=== PATIENT | female | born 1955 | race Caucasian/White ===

== ENCOUNTER 2016-10-26 21:31 | Observation (INO) | payer BC ==
[2016-10-27] MEDS ORDERED: HYDROmorphone INJ* 1 MG/ML CARPUJECT SYRINGE IV SLOW PU ONE ×2 (00:07→00:36)
[2016-10-27] MEDS ORDERED: Ondansetron INJ* 2 MG/ML VIAL IV ONE ×2 (00:14→01:42)
[2016-10-27] MEDS ORDERED: Ondansetron INJ* 2 MG/ML VIAL ONE (00:15)
[2016-10-27] MEDS ORDERED: methylPREDNISolone 125 MG* 2 ML VIAL IV ONE (01:42)
[2016-10-27] MEDS ORDERED: Morphine INJ* 4 MG/ML 1 ML CARPUJECT IV ONE (01:42)
[2016-10-27 02:32] LABS: Hematocrit 37 % (35-47); Hemoglobin 12.3 g/dl (12.0-16.0); Mean Corpuscular HGB Conc 33 g/dl (31-36); Mean Corpuscular Hemoglobin 28 pg (27-31); Mean Corpuscular Volume 86 fL (80-97); Mean Platelet Volume 8 um3 (7.4-10.4); Red Blood Count 4.35 10^6/ul (4.0-5.4); Red Cell Distribution Width 14 % (10.5-15); White Blood Count 9.6 10^3/ul (3.5-10.8)
[2016-10-27 02:43] LABS: BUN/Creatinine Ratio 30.7 (8-20); Calcium 10.1 mg/dL (8.6-10.3); EGFR African American 101.7 (>60); EGFR Non-African American 79.1 (>60); Potassium 4.3 mmol/L (3.5-5.0)
[2016-10-27] MEDS ORDERED: HYDROmorphone TAB* 2 MG PO ONE ×2 (04:11→06:50)
[2016-10-27] MEDS ORDERED: Ondansetron ODT TAB* 4 MG PO ONE (04:12)
[2016-10-27] MEDS ORDERED: Metoclopramide IV* 5 MG/ML 2 ML VIAL IV SLOW PU ONE (07:22)
--- NOTE | 2016-10-27 07:40 | RAD ---
INDICATION: Leg pain. COMPARISON: None TECHNIQUE: Duplex interrogation of the right lowerextremity was performed. FINDINGS: Deep veins: The common femoral, great saphenous, profunda femoris, proximal, mid, and distal deep femoral, popliteal, posterior tibial, and peroneal veins are patent. There is normal compressibility, augmentation, and phasic flow. Superficial veins: There are no findings of superficial thrombophlebitis. Popliteal fossa:There is no evidence of a popliteal cyst. Soft tissues:There are no soft tissue abnormalities. IMPRESSION: Normal examination. No evidence of deep venous thrombosis
--- NOTE | 2016-10-27 07:44 | ED ---
Gabriela Thompson SooYoung, scribed for Gerardo Langford MD on 10/26/16 at 2338 . Lower Extremity - HPI Summary HPI Summary: A 61 y/o F presents to ED with c/o acute on chronic RLE, back, and hip pain ongoing for past five weeks. Associated sx: mild urinary incontinence (3x) over the past two weeks; numbness to R foot. Pert PSHx: lower back surgery at [facility] [place]. One week ago, she went to [facility]. They did an MRI, dx: herniated disc. Pt was seen at [facility] ED in [place] last night, she states "they did nothing." Denies recent fall, trauma. Pt takes 800mg Advil 2x a day. She took 1/2 dose of Dilaudid yesterday, but it makes her feel ill. She took one percocet today which made her vomit. She's tried steroids in the past but it raised her blood sugars too high, so she stopped. PMHx: DM. - History of Current Complaint Chief Complaint: EDGeneral Stated Complaint: RIGHT LEG PAIN, Time Seen by Provider: 10/26/16 22:14 Hx Obtained From: Patient Onset of Pain: Prior to Arrival Onset/Duration: Weeks Severity Currently: Severe Pain Intensity: 10 Pain Scale Used: 0-10 Numeric Timing: Constant Aggravating Factor(s): Ambulation - Allergies/Home Medications Allergies/Adverse Reactions: Allergies Allergy/AdvReac Type Severity Reaction Status Date / Time Niacin [From Niaspan] Allergy Unknown LEGS SWELL Verified 01/28/16 13:47 AND FEEL LIKE SHE'S COMING OUT OF SKIN Potassium Citrate Allergy FLUID Verified 01/28/16 13:47 RETENTION Vancomycin AdvReac Intermediate redmans Verified 01/28/16 13:47 symdrome SEASONAL Allergy SNEEZING, Uncoded 01/28/16 13:47 ITCHY WATERY EYES Home Medications: Home Medications Ketorolac TAB (NF) [Toradol TAB (NF)] 10 mg PO Q4HR PRN 10/26/16 [History Confirmed 10/26/16] Metaxalone [Metaxall] 800 mg PO 10/26/16 [History] Ondansetron TAB* [Zofran Tab*] 8 mg PO Q6H PRN 10/26/16 [History Confirmed 10/26] Sulfamethox/Trimethoprim DS* [Bactrim DS 800/160 TAB*] 1 tab PO BID 10/26/16 [ History Confirmed 10/26/16] oxyCODONE/Acetamin 5/325 MG* [Percocet 5/325 TAB*] 2 tab PO Q4H PRN 10/26/16 [ History Confirmed 10/26/16] PMH/Surg Hx/FS Hx/Imm Hx Previously Healthy: No Endocrine/Hematology History: Reports: Hx Diabetes - TYPE II- INSULIN FOR Cardiovascular History: Reports: Hx Peripheral Vascular Disease - HX OF VASCULAR SPASMS- ON DILTIAZEM FOR, Other Cardiovascular Problems/Disorders - VASCULAR SPASMS Denies: Hx Hypertension, Hx Pacemaker/ICD Respiratory History: Reports: Hx Sleep Apnea Denies: Hx Asthma, Other Respiratory Problems/Disorders GI History: Reports: Hx Gastroesophageal Reflux Disease - HX OF- PRILOSEC PRN, Other GI Disorders - HX OF CONSTIPATION Denies: Hx Irritable Bowel - NOT DIAGNOSISED - VARIES PAINFUL CONSTIPATION/ DIARRHEA History: Reports: Hx Kidney Infection, Hx Kidney Stones - HX OF, Hx Renal Disease - kidney stones, Other Problems/Disorders - multiple ureteral stents placed in past Musculoskeletal History: Reports: Hx Arthritis, Hx Back Problems, Other Musculoskeletal History - BULDGING LUMBAR DISCS Denies: Hx Scoliosis Sensory History: Reports: Hx Contacts or Glasses - READING, Hx Glaucoma Denies: Hx Hearing Aid Opthamlomology History: Reports: Hx Contacts or Glasses - READING, Hx Glaucoma Neurological History: Reports: Hx Migraine - NOT OFTEN ANYMORE, Other Neuro Impairments/Disorders - bulging disk (2) in lower back Denies: Hx Headaches Psychiatric History: Reports: Hx Depression - ON MEDS Denies: Hx Panic Disorder - Surgical History Surgery Procedure, Year, and Place: X3, GALLBLADDER,HYSTERECTOMY,TUBAL ,APPENDECTOMY, CERVICAL FUSION, LOW BACK 12/2014 Hx Anesthesia Reactions: No Infectious Disease History: No Infectious Disease History: Denies: Traveled Outside the [place] in Last 30 Days - Family History Known Family History: Positive: Other - neg: family reaction to anasthesia - Social History Occupation: Employed Full-time Lives: Alone Alcohol Use: Rare Alcohol Amount: 1 PER YEAR Substance Use Type: Reports: None Smoking Status (MU): Never Smoked Tobacco Type: Cigarettes Amount Used/How Often: 2-3/ week Length of Time of Smoking/Using Tobacco: 2 years Have You Smoked in the Last Year: No Review of Systems Negative: Fever, Chills Negative: Erythema Negative: Sore Throat Negative: Chest Pain Negative: Shortness Of Breath, Cough Negative: Abdominal Pain, Vomiting, Nausea Positive: incontinence - mild urinary. Negative: dysuria, hematuria Positive: Myalgia, Other - pos: RLE, hip and back pain. Negative: Edema Negative: Rash Neurological: Other - neg: dizziness Positive: Numbness - R foot All Other Systems Reviewed And Are Negative: Yes Physical Exam - Summary Physical Exam Summary: Constitutional: Well-developed, Well-nourished, Alert. (-) Distressed Skin: Warm, Dry HENT: Normocephalic; Atraumatic Eyes: Conjunctiva normal Neck: Musculoskeletal ROM normal neck. (-) JVD, (-) Stridor, (-) Tracheal deviation Cardio: Rhythm regular, rate normal, Heart sounds normal; Intact distal pulses; The pedal pulses are 2+ and symmetric. Radial pulses are 2+ and symmetric. (-) Murmur Pulmonary/Chest wall: Effort normal. (-) Respiratory distress, (-) Wheezes, (-) Rales Abd: Soft, (-) Tenderness, (-) Distension, (-) Guarding, (-) Rebound Musculoskeletal: (-) Edema, LE STRAIN ON R-SIDE 4+ OUT OF 5, LIMITED BY PAIN; DIMINISHED DISTAL SENSATION : INTACT ANAL SPHINCTER Lymph: (-) Cervical adenopathy Neuro: Alert, Oriented x3 Psych: Mood and affect Normal Triage Information Reviewed: Yes Vital Signs On Initial Exam: Initial Vitals Temp Pulse Resp BP Pulse Ox 98.3 F 75 18 127/47 95 10/26/16 22:17 10/26/16 22:17 10/26/16 22:17 10/26/16 22:17 10/26/16 22:17 Vital Signs Reviewed: Yes Diagnostics - Vital Signs Vital Signs Temp Pulse Resp BP Pulse Ox 10/26/16 22:17 98.3 F 75 18 127/47 95 - Laboratory Lab Results: Lab Results 10/26/16 10/26/16 Range/Units 22:10 22:10 WBC 9.6 (3.5-10.8) 10^3/ul RBC 4.35 (4.0-5.4) 10^6/ul Hgb 12.3 (12.0-16.0) g/dl Hct 37 (35-47) % MCV 86 (80-97) fL MCH 28 (27-31) pg MCHC 33 (31-36) g/dl RDW 14 (10.5-15) % Plt Count 303 (150-450) 10^3/ul MPV 8 (7.4-10.4) um3 Sodium 134 (133-145) mmol/L Potassium 4.3 (3.5-5.0) mmol/L Chloride 98 L (101-111) mmol/L Carbon Dioxide 29 (22-32) mmol/L Anion Gap 7 (2-11) mmol/L BUN 23 (6-24) mg/dL Creatinine 0.75 (0.51-0.95) mg/dL Est GFR ( Amer) 101.7 (>60) Est GFR (Non-Af Amer) 79.1 (>60) BUN/Creatinine Ratio 30.7 H (8-20) Glucose 95 (70-100) mg/dL Calcium 10.1 (8.6-10.3) mg/dL Result Diagrams: 10/26/16 22:10 10/26/16 22:10 Lab Statement: Any lab studies that have been ordered have been reviewed, and results considered in the medical decision making process. - Ultrasound No standard instances Ultrasound Interpretation: No Acute Changes - Impression: no DVT Ultrasound Interpretation Completed By: Radiologist Lower Extremity Course/Dx - Course Course Of Treatment: Acute on chronic low back pain, R sciatica symptoms, do not suspect cauda equina based on sx/exam/sphincter tone. Noncompliance with analgesics/prednisone at home secondary to vomiting/hyperglycemia. Trial of PO meds here with antiemetics, PT eval pending. Signed out to Dr. Bull pending PT eval - Diagnoses Provider Diagnoses: Sciatica Discharge - Discharge Plan Condition: Stable Disposition: OTHER Discharge Disposition Comment: ??? Referrals: Maico Turner MD [Primary Care Provider] - The documentation as recorded by the Gabriela fuentes SooYoung accurately reflects the service I personally performed and the decisions made by me, Gerardo Langford MD.
[2016-10-27] MEDS ORDERED: HYDROmorphone INJ* 1 MG/ML CARPUJECT SYRINGE IV ONE (08:24)
[2016-10-27] MEDS ORDERED: Dextrose 50% Syringe 50 ML* 25 GM/50 ML SYRINGE IV PUSH PRN (11:07)
[2016-10-27] MEDS ORDERED: HYDROmorphone TAB* 2 MG PO PRN (11:14)
[2016-10-27] MEDS: Enoxaparin(*) 40 MG/0.4 ML SYR SUBCUT SCH (11:46)
[2016-10-27] MEDS: methylPREDNISolone SOD 40 MG* 1 ML VIAL IV SCH ×2 (11:47→20:18)
[2016-10-27] MEDS: Ondansetron INJ* 2 MG/ML VIAL IV PRN ×2 (11:47→16:43)
[2016-10-27] MEDS: Acetaminophen TAB* 325 MG PO PRN (13:13)
[2016-10-27] MEDS: Insulin LISPRO* 1 UNITS UNIT SUBCUT SCH ×3 (13:29→21:06)
[2016-10-27] MEDS: HYDROmorphone TAB* 4 MG PO PRN ×3 (14:31→22:22)
--- NOTE | 2016-10-27 14:53 | HP ---
AMENDED REPORT NOW INCLUDES DATE OF ADMISSION ADMISSION HISTORY AND PHYSICAL: DATE OF ADMISSION: 10/27/16 PRIMARY CARE PROVIDER: Dr. Turner. CURRENT NEUROSURGEON: Dr. Ernst at [facility]. HEALTHCARE PROXY: Her daughter. CODE STATUS: Full. SOURCE OF INFORMATION: History obtained form interview with the patient, review of past medical records, and discussion with partner of her current neurosurgeon at [facility]. RELIABILITY: Fair. CHIEF COMPLAINT: Back pain. HISTORY OF PRESENT ILLNESS: This is a 61-year-old female, past medical history of chronic back pain, had cervical anterior diskectomy in September 2015 and a right hemilaminectomy L5-S1 for sciatica in December, who have chronic back pain, but over the last 5 weeks experienced increasing cramps in her leg, it got progressively worse. She has been seen by Neurosurgery in [facility] over the last 2 weeks. She was started on steroids, but stopped shortly thereafter because of hyperglycemia. She had an MRI that showed again L5-S1 disc herniation and plan was to recommend conservative management with engagement of physical therapy as it appears the patient has not participated in physical therapy in the past. Patient's pain continued to worsen. She spoke to the nurse practitioner at [facility] and proceeded to the emergency room on 10/25/16, two days prior to this hospital stay. Her pain was controlled and she was discharged home. However, the day prior to this admission at 3 p.m., she sat up and stated she could not stand. Her back pain was severe. She felt the pain was so severe she cannot bear weight. Described the pain as shooting from the right leg up to the back, similar to the pain she experienced prior to surgery in December of 2014, but felt it was more intense. Additionally, she notes an episode of urinary incontinence 5 days prior to this presentation as well as 2 weeks prior what she had discussed with her neurosurgeon. In the emergency room, she received multiple doses of Dilaudid, appears to be a total of 7 mg of Dilaudid as well as 6 mg of morphine, and 125 mg of methylprednisolone without significant relief. The hospitalist service was consulted for admission. PAST MEDICAL HISTORY: 1. Insulin-dependent diabetes mellitus. 2. History of hyperlipidemia. 3. Chronic back pain. 4. Glaucoma. 5. C3-C4 anterior cervical diskectomy, September 2015. 6. Right hemilaminectomy, L5-S1 diskectomy and decompression. 7. Left ureteral stenting and removal of stent in the setting of recurrent kidney stones. 8. History of hysterectomy. 9. Appendectomy. 10. Cholecystectomy. HOME MEDICATIONS: Include, 1. Zofran 8 mg every 6 hours as needed for nausea. 2. Percocet 5/325 two tabs every 4 hours as needed for pain. 3. Ketorolac 10 mg every 4 hours as needed for pain. 4. Glargine 45 units at bedtime. 5. Pravastatin 1 tab in the evening. 6. Zoloft 25 mg at bedtime. 7. Prilosec 20 mg in the morning. 8. Xalatan 0.005% one drop both eyes at bedtime. 9. Magnesium citrate 2 tabs at bedtime. 10. NovoLog sliding scale between 1 and 10 units with meals. 11. Hydrochlorothiazide 25 mg in the morning. 12. Neurontin 2 tabs 3 times a day as needed. 13. Diltiazem 180 mg in the morning. 14. Vitamin D at 1000 units, Sunday, Sunday, and Sunday. 15. Benadryl 25 mg daily as needed. 16. Ambien 5 mg at bedtime. 17. Metaxalone 800 mg. MEDICATION ALLERGIES: NIACIN, POTASSIUM CITRATE, VANCOMYCIN. FAMILY HISTORY: Mother with CAD. SOCIAL HISTORY: Quit 30 years prior, smoked insignificantly, lives alone, walks unassisted. REVIEW OF SYSTEMS: As per HPI. Otherwise, all other systems negative. PHYSICAL EXAMINATION GENERAL: Lying on her side, groaning in pain. No cardiopulmonary distress. VITAL SIGNS: In the emergency room, presenting 127/47, heart rate ranging between 72 and 88, respiratory rate 18, 98% on room air, T-max 98.3. HEENT: Oropharynx is clear. Moist mucous membranes. Sclerae anicteric. NECK: Non-elevated JVD. No goiter. LUNGS: Clear to auscultation. HEART: She has regular rate and rhythm. She has 2/6 systolic ejection murmur. ABDOMEN: Soft, nontender. EXTREMITIES: Warm and well perfused. She has significant tenderness to palpation anywhere in the right leg from her foot to her buttocks. Pain with flexion or extension of her ankle. Pain with flexion or extension at the knee or at the hip. She is unable to lie on her back. NEUROLOGIC: She reports she is alert and oriented x3. Cranial nerves are intact. She reports a numbness from her hip to her toes. Positive for anxiety, negative for depression or agitation. DIAGNOSTIC STUDIES/LAB DATA: Labs reviewed. White blood cell count of 9.6, hemoglobin 12.3. Sodium 134, chloride 98, creatinine 0.75. Data reviewed. Venous Doppler study right lower extremity. Normal exam. No DVT. ASSESSMENT AND PLAN: This is a 61-year-old female with chronic lower back pain to intervention, to surgeries one in her cervical spine and one L5-S1 in 2014 returning with progressive lower back pain. I discussed with neurosurgical office Dr. Marsh's partner. The repeat MRI last week did indicate mild disk herniation again at L5-S1 with some enhancement which may indicate scar. She now thinks that the disk herniation is the cause of all of her pain. There was no planned surgery despite what the patient had related to this author and the plan was to continue physical therapy, revaluation in the future. 1. Back pain, admit to [facility] hospitalist service. Restart IV steroids and oral pain control with Dilaudid 2 mg every 4 hours, adjust as needed, would like to avoid IV pain medication for this chronic problem. PT evaluation. Patient truly cannot manage at home secondary to pain, she may require subacute rehab. 2. History of hypertension. Continue hydrochlorothiazide. 3. Concern for urinary tract infection in review with patient's neurologist, the urinalysis at [facility] was weakly positive for leuk esterase and she was started on Bactrim. The urine culture, no growth till date at that time, not yet complete. I will hold on restarting antibiotics at this point with repeat urinalysis. Start if symptomatic. 4. DVT prophylaxis. Enoxaparin. 5. Code status: Full. CC: Dr. Turner; Dr. Ernst at [facility].* [id number]/CPS #: [id number] MTDD
[2016-10-27 15:30] LABS: Urine Bacteria Absent (Absent); Urine Bilirubin Negative (Negative); Urine Glucose 3+(>=500 mg/dL) (Negative); Urine Nitrite Negative (Negative)
[2016-10-27] MEDS ORDERED: KETOROLAC 10 MG PO PRN (16:48)
[2016-10-27] MEDS ORDERED: Cholecalciferol TAB* 1000 UNITS PO SCH (17:00)
[2016-10-27] MEDS: CMC: Pravastatin (NF) 20 MG TAB PO SCH (18:31)
[2016-10-27] MEDS: Sertraline* 25 MG TAB PO SCH (20:18)
[2016-10-27] MEDS: Gabapentin CAP(*) 300 MG PO PRN (20:18)
[2016-10-27] MEDS: Insulin GLARGINE(*) 1 UNITS UNIT SUBCUT SCH (21:05)
[2016-10-27] MEDS: Latanoprost 0.005%* 2.5 ml BTL BOTH EYES SCH (21:07)
[2016-10-27] MEDS ORDERED: Zolpidem TAB* 5 MG PO PRN (22:11)
[2016-10-28] MEDS: HYDROmorphone TAB* 4 MG PO PRN ×5 (02:18→20:06)
[2016-10-28] MEDS: Ondansetron INJ* 2 MG/ML VIAL IV PRN ×3 (02:22→21:56)
[2016-10-28] MEDS: methylPREDNISolone SOD 40 MG* 1 ML VIAL IV SCH ×3 (04:58→20:10)
[2016-10-28] MEDS: Omeprazole CAP* 20 MG PO SCH (07:38)
[2016-10-28] MEDS: Diltiazem CD CAP* 180 MG PO SCH (07:38)
--- NOTE | 2016-10-28 07:58 | CONSULT ---
Consult Consult: Ms. Cross was signed out to me at change of shift by Dr. Langford. She was awaiting PT consult for her chronic and seemingly intractable back pain to see if there was anything we could do to help her. POT recommended that the best way we ccould serve her needs would be to admit her [facility] for intractable pain. The hospitalist service was contacted and she will be admitted O[facility] to [facility] instable condition.
--- NOTE | 2016-10-28 08:02 | PN ---
Subjective Date of Service: 10/28/16 Interval History: Unable to work with PT yesterday 2/2 pain but noted significant improvement later in the day and was able to walk to bathroom with walker to brush teeth. Notes decreased numbness in right leg and increased strength. Increased hope for recovery. Denies any episodes of incontinence. Objective Active Medications: Acetaminophen (Tylenol Tab*) 650 mg PO Q6H PRN PRN Reason: PAIN Last Admin: 10/27/16 13:13 Dose: 650 mg Cholecalciferol (Vitamin D Tab*) 1,000 units PO MOWEFR [facility] Last Admin: 10/27/16 18:31 Dose: 1,000 units Dextrose (D50w Syringe 50 Ml*) 12.5 gm IV PUSH .FOR FS < 60 - SS PRN PRN Reason: FS < 60 Diltiazem HCl (Cardizem Cd Cap*) 180 mg PO QAM [facility] Last Admin: 10/28/16 07:38 Dose: 180 mg Enoxaparin Sodium (Lovenox(*)) 40 mg SUBCUT Q24H [facility] Last Admin: 10/27/16 11:46 Dose: 40 mg Gabapentin (Neurontin Cap(*)) 600 mg PO TID PRN PRN Reason: PAIN Last Admin: 10/27/16 20:18 Dose: 600 mg Hydromorphone HCl (Dilaudid Tab*) 4 mg PO Q4H PRN PRN Reason: PAIN Last Admin: 10/28/16 07:37 Dose: 4 mg Influenza Virus Vaccine (Fluarix *Quad* *) 0.5 ml IM .ONCE ONE Stop: 10/28/16 09:01 Insulin Glargine (Lantus(*)) 45 units SUBCUT BEDTIME [facility] Last Admin: 10/27/16 21:05 Dose: 45 units Insulin Human Lispro (Humalog*) 1 units SUBCUT ACHS [facility] PRN Reason: Protocol Last Admin: 10/27/16 21:06 Dose: 3 units Ketorolac Tromethamine (Toradol Tab (Nf)) 10 mg PO Q4HR PRN PRN Reason: PAIN Latanoprost (Xalatan 0.005%*) 1 drop BOTH EYES BEDTIME [facility] Last Admin: 10/27/16 21:07 Dose: 1 drop Methylprednisolone Sodium Succinate (Solu-Medrol*) 40 mg IV Q8H [facility] Last Admin: 10/28/16 04:58 Dose: 40 mg Omeprazole (Prilosec Cap*) 20 mg PO QAM@0730 [facility] Last Admin: 10/28/16 07:38 Dose: 20 mg Ondansetron HCl (Zofran Inj*) 4 mg IV Q4H PRN PRN Reason: NAUSEA Last Admin: 10/28/16 02:22 Dose: 4 mg Pneumococcal Polyvalent Vaccine (Pneumococcal Vac Polyvalent*) 0.5 ml IM .ONCE ONE Stop: 10/28/16 09:01 Pravastatin Sodium (Pravachol (Nf)) 20 mg PO QPM [facility] PRN Reason: Protocol Last Admin: 10/27/16 18:31 Dose: 20 mg Sertraline HCl (Zoloft*) 25 mg PO BEDTIME [facility] Last Admin: 10/27/16 20:18 Dose: 25 mg Zolpidem Tartrate (Ambien Tab*) 5 mg PO BEDTIME PRN PRN Reason: INSOMNIA Last Admin: 10/27/16 22:22 Dose: 5 mg Vital Signs 10/27/16 10/27/16 10/27/16 11:46 12:09 12:55 Temperature 98.4 F 97.8 F Pulse Rate 71 96 Respiratory 20 18 20 Rate Blood Pressure 116/68 161/59 (mmHg) O2 Sat by Pulse 98 96 Oximetry 10/27/16 10/27/16 10/27/16 12:56 13:59 14:31 Temperature 97.8 F Pulse Rate 96 Respiratory 20 16 18 Rate Blood Pressure 161/59 (mmHg) O2 Sat by Pulse 96 Oximetry 10/27/16 10/27/16 10/27/16 15:21 16:31 17:26 Temperature 98.1 F Pulse Rate 73 Respiratory 18 16 20 Rate Blood Pressure 107/44 (mmHg) O2 Sat by Pulse 94 Oximetry 10/27/16 10/27/16 10/27/16 18:31 20:02 20:18 Temperature 98.0 F Pulse Rate 80 Respiratory 18 16 22 Rate Blood Pressure 107/40 (mmHg) O2 Sat by Pulse 95 Oximetry 10/27/16 10/27/16 10/27/16 20:20 20:31 22:18 Temperature Pulse Rate Respiratory 22 22 20 Rate Blood Pressure (mmHg) O2 Sat by Pulse Oximetry 01/10/27/16 10/28/16 22:22 23:16 00:22 Temperature 98.3 F Pulse Rate 82 Respiratory 20 16 20 Rate Blood Pressure 117/51 (mmHg) O2 Sat by Pulse 95 Oximetry 10/28/16 10/28/16 10/28/16 02:18 03:23 04:18 Temperature 98.2 F Pulse Rate 94 Respiratory 20 16 20 Rate Blood Pressure 127/53 (mmHg) O2 Sat by Pulse 94 Oximetry 10/28/16 07:37 Temperature Pulse Rate Respiratory 18 Rate Blood Pressure (mmHg) O2 Sat by Pulse Oximetry Oxygen Devices in Use Now: None Appearance: lying on left side, pleasant, NAD Eyes: No Scleral Icterus, PERRLA Ears/Nose/Mouth/Throat: NL Teeth, Lips, Gums, Clear Oropharnyx, Mucous Membranes Moist Neck: NL Appearance and Movements; NL JVP, Trachea Midline Respiratory: Symmetrical Chest Expansion and Respiratory Effort, Clear to Auscultation Cardiovascular: RRR, - - 2/6 MELIDA RUSB Abdominal: NL Sounds; No Tenderness; No Distention, No Hepatosplenomegaly Lymphatic: No Cervical Adenopathy Extremities: No Edema, No Clubbing, Cyanosis Skin: No Rash or Ulcers Neurological: Alert and Oriented x 3, - - mild numbness in right LE improved from yesterday, FROM in ankle without pain, 5/5 LE improved since yesterday Result Diagrams: 10/26/16 22:10 10/26/16 22:10 Additional Lab and Data: Lab Results 10/26/16 10/26/16 Range/Units 22:10 22:10 WBC 9.6 (3.5-10.8) 10^3/ul RBC 4.35 (4.0-5.4) 10^6/ul Hgb 12.3 (12.0-16.0) g/dl Hct 37 (35-47) % MCV 86 (80-97) fL MCH 28 (27-31) pg MCHC 33 (31-36) g/dl RDW 14 (10.5-15) % Plt Count 303 (150-450) 10^3/ul MPV 8 (7.4-10.4) um3 Sodium 134 (133-145) mmol/L Potassium 4.3 (3.5-5.0) mmol/L Chloride 98 L (101-111) mmol/L Carbon Dioxide 29 (22-32) mmol/L Anion Gap 7 (2-11) mmol/L BUN 23 (6-24) mg/dL Creatinine 0.75 (0.51-0.95) mg/dL Est GFR ( Amer) 101.7 (>60) Est GFR (Non-Af Amer) 79.1 (>60) BUN/Creatinine Ratio 30.7 H (8-20) Glucose 95 (70-100) mg/dL Calcium 10.1 (8.6-10.3) mg/dL Assess/Plan/Problems-Billing Assessment: 61 yo F h/o cervical and lumbar surgeries presenting with increasing back pain - Patient Problems (1) Lower back pain Comment: Improved with steroids and pain medications Discussed care with [facility] who do not plan on surgery and had previous plan of recommending PT after MRI last week Continue PT here c/w steroids and pain medications gabapentin TID (2) Diabetes Comment: Basal bolus insulin (3) Hyperlipidemia Comment: Statin (4) DVT prophylaxis Comment: lovenox Status and Disposition: If able to care for self - ambulate then home today. Suspect more likely in 24 hours
[2016-10-28] MEDS: Insulin LISPRO* 1 UNITS UNIT SUBCUT SCH ×4 (08:41→22:05)
[2016-10-28] MEDS: Gabapentin CAP(*) 300 MG PO PRN ×3 (08:45→22:00)
[2016-10-28] MEDS ORDERED: Pneumococcal *Vac Polyvalent 0.5 ML VIAL IM ONE (09:00)
[2016-10-28] MEDS ORDERED: Influenza VAC *QUAD* 2016-17* 0.5 ML SYRINGE IM ONE (09:00)
[2016-10-28] MEDS: Enoxaparin(*) 40 MG/0.4 ML SYR SUBCUT SCH (11:37)
[2016-10-28] MEDS: Acetaminophen TAB* 325 MG PO PRN (13:15)
[2016-10-28] MEDS: CMC: Pravastatin (NF) 20 MG TAB PO SCH (16:41)
[2016-10-28] MEDS: Sertraline* 25 MG TAB PO SCH (20:07)
[2016-10-28] MEDS: Latanoprost 0.005%* 2.5 ml BTL BOTH EYES SCH (20:10)
[2016-10-28] MEDS ORDERED: LORazepam TAB(*) 0.5 MG PO ONE (21:00)
[2016-10-28] MEDS ORDERED: HYDROmorphone INJ* 1 MG/ML CARPUJECT SYRINGE IV ONE (22:00)
[2016-10-28] MEDS: Insulin GLARGINE(*) 1 UNITS UNIT SUBCUT SCH (22:32)
[2016-10-29] MEDS: HYDROmorphone TAB* 4 MG PO PRN ×3 (02:42→13:15)
[2016-10-29] MEDS: methylPREDNISolone SOD 40 MG* 1 ML VIAL IV SCH ×2 (06:04→12:01)
[2016-10-29] MEDS: Acetaminophen TAB* 325 MG PO PRN ×2 (06:04→12:02)
[2016-10-29] MEDS: Gabapentin CAP(*) 300 MG PO PRN ×2 (06:05→12:02)
[2016-10-29] MEDS: Omeprazole CAP* 20 MG PO SCH (07:58)
[2016-10-29] MEDS: Diltiazem CD CAP* 180 MG PO SCH (07:58)
[2016-10-29] MEDS: Insulin LISPRO* 1 UNITS UNIT SUBCUT SCH ×2 (07:59→12:01)
[2016-10-29 08:37] VITALS: BP 121/46
[2016-10-29] MEDS: Enoxaparin(*) 40 MG/0.4 ML SYR SUBCUT SCH (12:07)
--- NOTE | 2016-10-30 00:47 | DS ---
DISCHARGE SUMMARY: DATE OF ADMISSION: 10/27/16 DATE OF DISCHARGE: 10/29/16 PRIMARY CARE PROVIDER: Dr. Turner. NEUROSURGEON: Dr. Ernst at [facility]. PRIMARY DIAGNOSIS: Chronic low back pain. SECONDARY DIAGNOSES: 1. Insulin-dependent diabetes mellitus. 2. Hyperlipidemia. 3. Glaucoma. MEDICATIONS ON DISCHARGE: 1. Zofran 4 mg every 6 hours as needed for nausea. 2. Percocet 5/325 two tabs every 4 hours as needed for pain. 3. Ketorolac 10 mg every 4 hours as needed for pain. 4. Lantus 45 units at bedtime. 5. Pravastatin 1 tab in the evening. 6. Zoloft 25 mg at bedtime. 7. Omeprazole 20 mg in the morning. 8. Latanoprost 1 drop both eyes at bedtime. 9. Magnesium citrate 2 tabs at bedtime. 10. Aspart sliding scale per your primary care provider with meals. 11. Gabapentin 600 mg 3 times a day. 12. Diltiazem 180 mg in the morning. 13. Cholecalciferol 1000 mg Sunday, Sunday, Sunday. 14. Benadryl 25 mg daily as needed for itching. 15. Ambien 5 mg at bedtime as needed for insomnia. 16. Metaxalone 800 mg daily as needed for muscle spasm. 17. Prednisone 50 mg daily for 5 additional days. 18. Hydromorphone 2 mg every 4 hours as needed for pain, maximum daily dose 6 tablets, dispensed 30 tablets to [facility] on [facility] in [place]. HISTORY OF PRESENT ILLNESS AND HOSPITAL COURSE: This is a 61-year-old female, past medical history of multiple back surgeries including right hemilaminectomy at L5-S1 for sciatica in December 2014, has had chronic lower back pain and chronic right lower extremity pain associated with paresthesias for which she has been following with Dr. Ernst at [facility]. She had an MRI the week prior to presenting which was reviewed via telephone with the patient' s Neuro[facility], with Dr. Ernst's partner, neurosurgeon. They indicated that the MRI indicated disease at the same level of L5-S1 with possibly some scar. Plan from their perspective at the time of her evaluation a week prior was continue physical therapy without planning on intervention. The patient's pain continued to increase at the time of their evaluation until she presented to the emergency room on 10/27/16. She received multiple doses of hydromorphone and was admitted to the hospital for intractable pain. She was able to walk with a walker with physical therapy the day prior to discharge. Her pain did improve with administration of steroids as well as oral hydromorphone. She was offered evaluation for placement in subacute rehabilitation; however, declined assistance in placement in subacute rehabilitation secondary to the cost associated with these facilities. She thought she will be able to maintain and be safe at home. She actually declined prescription medications at home including narcotics; however, despite this, I did prescribe her hydromorphone out of fear that she would withdraw from the amount that she had received during the hospital without it at home. She can follow up with her primary care provider for further assistance and referral to Physical Therapy. She is to follow up with her neurosurgeon, Dr. Ernst, whose office I contacted and discussed her care with. On the day of discharge, she still had pain largely in her right hamstring particularly with flexion or extension of her ankle or any movement of her leg at the knee or at the hip. She had minimal paresthesias to soft touch which had improved since admission and was at her baseline. She had no episodes of incontinence. She was able to ambulate with a walker. There are no complications during the course of the hospital stay. At followup, please: 1. Evaluate for blood pressure control. Please note, I discontinued hydrochlorothiazide given her adequate blood pressure control during her course of the hospital stay. 2. Evaluate for pain control. 3. Ensure the patient follows up with Physical Therapy. Reasons to return to the hospital including but not limited to worsening of symptoms, chest pain, shortness of breath, nausea, vomiting, lightheadedness, loss of consciousness, near loss of consciousness, inability to obtain or tolerate medications, worsening weakness or paresthesias, and episodes of incontinence were discussed with the patient and she acknowledged understanding. TIME SPENT: Greater than 45 minutes was spent on discharge of this patient, with greater than half the time spent [id number] with the patient. CC: Dr. Turner; Dr. Ernst at [facility] * [id number]/[facility] #: [id number] [facility]
== END 2016-10-29 14:00 | disposition home or self-care (01) ==
LOC: ED 21:31 → MED 10-27 11:18 → INTOOBSV 10-28 16:32 → OBSVTOIN 10-28 16:32
PROVIDERS: ADMIT Internal Medicine; ATTEND Internal Medicine
DX: M54.5 Low back pain (principal); G89.29 Other chronic pain; E11.9 Type 2 diabetes mellitus without complications; Z79.4 Long term (current) use of insulin; I10 Essential (primary) hypertension; E78.5 Hyperlipidemia, unspecified; I73.9 Peripheral vascular disease, unspecified; Z23 Encounter for immunization; H40.9 Unspecified glaucoma; Z79.899 Other long term (current) drug therapy; Z87.891 Personal history of nicotine dependence; Z88.8 Allergy status to other drugs, medicaments and biological substances; Z88.1 Allergy status to other antibiotic agents; K21.9 Gastro-esophageal reflux disease without esophagitis; F32.9 Major depressive disorder, single episode, unspecified
CPT/HCPCS: 36415; 80048; 81003; 81015; 85027; 87086; 90471; 90472; 90686; 90732; 96374; 96375; 96376; 99284; A9270-GY; G0008; G0009; G0378; G8978-GP-CJ; G8979-GP-CI; G8980-GP-CI; J1170; J1650; J2270; J2405; J2765; J2920; J2930

== ENCOUNTER 2016-11-12 05:38 | Inpatient (IN) | payer BC ==
[2016-11-12] MEDS ORDERED: HYDROmorphone INJ* 1 MG/ML CARPUJECT SYRINGE IM ONE ×2 (05:46→06:55)
--- NOTE | 2016-11-12 06:15 | ED ---
Veronika Thompson Anna, scribed for Gianfranco Hamlin MD on 11/12/16 at 0554 . Back Pain - HPI Summary HPI Summary: Patient is a 61 y/o female BIBA to [facility] presenting with gradual onset of constant, acute on chronic back pain that began last night. She is scheduled for surgery two days from now with Dr. Hansen. She was advised that if she could not control the pain, she should come to ED. She is currently talking 4 mg of Dilaudid at home. Her most recent dose was at 2300 last night. She reports that the pain is worse this morning. - History of Current Complaint Chief Complaint: EDBackInjuryPain Stated Complaint: BACK PAIN Time Seen by Provider: 11/12/16 05:41 Hx Obtained From: Patient Timing: Constant, Lasting Hours Severity Initially: Moderate Severity Currently: Moderate Pain Intensity: 8 Pain Scale Used: 0-10 Numeric - Allergies/Home Medications Allergies/Adverse Reactions: Allergies Allergy/AdvReac Type Severity Reaction Status Date / Time Niacin [From Niaspan] Allergy Unknown LEGS SWELL Verified 11/12/16 09:10 AND FEEL LIKE SHE'S COMING OUT OF SKIN Potassium Citrate Allergy FLUID Verified 11/12/16 09:10 RETENTION Vancomycin AdvReac Intermediate redmans Verified 11/12/16 09:10 symdrome SEASONAL Allergy SNEEZING, Uncoded 11/12/16 09:10 ITCHY WATERY EYES Home Medications: Home Medications HYDROmorphone TAB* [Dilaudid TAB*] 4 mg PO Q4H PRN MDD 6 tabs 11/12/16 [History Confirmed 11/12/16] Hydrochlorothiazide [Hydrochlorothiazide] 25 mg PO DAILY 11/12/16 [History Confirmed 11/12/16] Ketorolac TAB (NF) [Toradol TAB (NF)] 10 mg PO Q4H PRN 11/12/16 [History Confirmed 11/12/16] PMH/Surg Hx/FS Hx/Imm Hx Endocrine/Hematology History: Reports: Hx Diabetes - TYPE II- INSULIN FOR Cardiovascular History: Reports: Hx Peripheral Vascular Disease, Other Cardiovascular Problems/Disorders - VASCULAR SPASMS Denies: Hx Hypertension, Hx Pacemaker/ICD Respiratory History: Reports: Hx Sleep Apnea Denies: Hx Asthma, Hx Chronic Obstructive Pulmonary Disease (COPD), Other Respiratory Problems/Disorders GI History: Reports: Hx Gastroesophageal Reflux Disease, Hx Irritable Bowel, Other GI Disorders - HX OF CONSTIPATION, Rika, History: Reports: Hx Kidney Infection, Hx Kidney Stones, Hx Renal Disease - kidney stones, Other Problems/Disorders - SUZANNE, uretal stents Denies: Hx Dialysis Musculoskeletal History: Reports: Hx Arthritis, Hx Back Problems, Other Musculoskeletal History - bulging disc, spinal stenosis Denies: Hx Scoliosis Sensory History: Reports: Hx Contacts or Glasses - reading, Hx Glaucoma Denies: Hx Hearing Aid Opthamlomology History: Reports: Hx Contacts or Glasses - reading, Hx Glaucoma Neurological History: Reports: Hx Migraine, Other Neuro Impairments/Disorders - bulging disk (2) in lower back Denies: Hx Dementia, Hx Headaches, Hx Seizures Psychiatric History: Reports: Hx Depression - ON MEDS Denies: Hx Panic Disorder - Surgical History Surgery Procedure, Year, and Place: X3, GALLBLADDER,HYSTERECTOMY,TUBAL ,APPENDECTOMY, CERVICAL FUSION, LOW BACK 12/2014 Hx Anesthesia Reactions: No Infectious Disease History: No Infectious Disease History: Denies: Traveled Outside the [place] in Last 30 Days - Family History Known Family History: Positive: Other - neg: family reaction to anasthesia - Social History Alcohol Use: None Alcohol Amount: 1 PER YEAR Substance Use Type: Reports: None Smoking Status (MU): Former Smoker Type: Cigarettes Amount Used/How Often: 2-3/ week Length of Time of Smoking/Using Tobacco: 2 years Have You Smoked in the Last Year: No Review of Systems Positive: Myalgia - back pain Psychological: Normal All Other Systems Reviewed And Are Negative: Yes Physical Exam Triage Information Reviewed: Yes Vital Signs On Initial Exam: Initial Vitals Temp Pulse Resp BP Pulse Ox 98.2 F 108 14 114/59 96 11/12/16 05:40 11/12/16 05:40 11/12/16 05:40 11/12/16 05:40 11/12/16 05:40 Vital Signs Reviewed: Yes Appearance: Positive: Pain Distress - mild discomfort Skin: Positive: Warm Head/Face: Positive: Normal Head/Face Inspection Eyes: Positive: ROMI ENT: Positive: Hearing grossly normal Neck: Positive: Supple Respiratory/Lung Sounds: Positive: Clear to Auscultation, Breath Sounds Present Cardiovascular: Positive: RRR Abdomen Description: Positive: Nontender, Soft Bowel Sounds: Positive: Present Musculoskeletal: Positive: Other - para lumbar muscle spasm Neurological: Positive: Sensory/Motor Intact Diagnostics - Vital Signs Vital Signs Temp Pulse Resp BP Pulse Ox 11/12/16 05:40 98.2 F 108 14 114/59 96 - Laboratory Result Diagrams: 11/12/16 07:42 11/12/16 09:15 Lab Statement: Any lab studies that have been ordered have been reviewed, and results considered in the medical decision making process. Re-Evaluation - Re-Evaluation First Eval Re-Evaluation Time: 06:00 - attempting to contact Dr Amor who is the patient' s neurosurgeon and sent pt to ed. Dr amor's answering service is refusing to place a call to him despite him being care transition coordinator, and it is his pt. They stated that the hosptalist is covering. Hospital nursing extension supervisor informed who miguel ángel notify administartion Back Pain Course/Dx - Diagnoses Provider Diagnoses: Herniated disk - Provider Notifications Discussed Care of Patient With: Patient is a 61 y/o female BIBA to [facility] presenting with gradual onset of constant, acute on chronic back pain that began last night. She is scheduled for surgery two days from now with Dr. Hansen. She was advised that if she could not control the pain, she should come to ED. She is currently talking 4 mg of Dilaudid at home. Her most recent dose was at 2300 last night. She reports that the pain is worse this morning. In the ED, she was given an additional dose of Dilaudid. Discharge - Discharge Plan Condition: Good Disposition: ADMITTED TO [facility] The documentation as recorded by the Veronika fuentes Anna accurately reflects the service I personally performed and the decisions made by , Gianfranco Hamlin MD.
[2016-11-12] MEDS ORDERED: Carisoprodol TAB* 350 MG PO ONE (07:09)
[2016-11-12] MEDS ORDERED: Gabapentin CAP(*) 300 MG PO ONE (07:09)
[2016-11-12] MEDS ORDERED: Ketorolac TAB * 10 MG TAB PO PRN (07:10)
[2016-11-12] MEDS ORDERED: Ketorolac INJ* 30 MG/ML 1 ML VIAL IV PUSH ONE (07:28)
[2016-11-12 08:13] LABS: Hematocrit 36 % (35-47); Mean Corpuscular HGB Conc 33 g/dl (31-36); Mean Corpuscular Hemoglobin 29 pg (27-31); Mean Corpuscular Volume 87 fL (80-97); Mean Platelet Volume 8 um3 (7.4-10.4); Red Blood Count 4.19 10^6/ul (4.0-5.4); Red Cell Distribution Width 15 % (10.5-15)
[2016-11-12 08:17] LABS: ALT 34 U/L (7-52); Albumin 3.8 g/dL (3.2-5.2); Alkaline Phosphatase 85 U/L (34-104); Blood Urea Nitrogen 15 mg/dL (6-24); CO2 Carbon Dioxide 27 mmol/L (22-32); Calcium 9.5 mg/dL (8.6-10.3); Chloride 104 mmol/L (101-111); EGFR African American 95.8 (>60); EGFR Non-African American 74.5 (>60); Globulin 3.2 g/dL (2-4); Glucose 148 mg/dL (70-100); Sodium 136 mmol/L (133-145)
[2016-11-12 08:17] LABS: Urine Bilirubin Negative (Negative); Urine Glucose Negative (Negative); Urine Nitrite Negative (Negative)
[2016-11-12] MEDS ORDERED: Dextrose 50% Syringe 50 ML* 25 GM/50 ML SYRINGE IV PUSH PRN (08:25)
[2016-11-12 08:48] LABS: C Reactive Protein 52.46 mg/L (< 5.00)
[2016-11-12] MEDS ORDERED: Acetaminophen TAB* 325 MG PO PRN (09:42)
[2016-11-12] MEDS ORDERED: Docusate CAP* 100 MG PO PRN (09:42)
[2016-11-12] MEDS ORDERED: Dexamethasone IV* 4 MG/ML 1 ML (4 MG) IV SLOW PU SCH (10:00)
--- NOTE | 2016-11-12 10:14 | ED ---
Nathanael Thompson Matthew, scribed for Karsten Moore MD on 11/12/16 at 0726 . Progress - Progress Note Progress Note: The patient is a sign out from Dr. Hamlin. Patient is a 61 y/o female BIBA to [facility] presenting with gradual onset of constant, acute on chronic back pain that began last night. She is scheduled for surgery two days from now with Dr. Hansen. She had an increase in lumbar spine pain in her right lower back that radiates down the leg posterior to the ankle. Unable to manage pain at home and was recently admitted for the same complaint. Spoke to Dr. Amor who recommends hospitalist admission. Discussed the case with Dr. Amor (neurosugery) at 07:26 - who will evaluated the patient. Discussed the case with Dr. Champion (Hospitalist) at 08:18 -- He will consult on the patient and Dr. Amor will be the admitting physician. The patient is in stable condition and will be admitted to [facility]. Re-Evaluation - Re-Evaluation First Eval Re-Evaluation Time: 06:00 - attempting to contact Dr Amor who is the patient' s neurosurgeon and sent pt to ed. Dr amor's answering service is refusing to place a call to him despite him being precision crop manager, and it is his pt. They stated that the hosptalist is covering. Hospital nursing supervisor hot dip tinning informed who wuill notify administartion Course/Dx - Diagnoses Provider Diagnoses: Herniated disk - Provider Notifications Discussed Care Of Patient With: Patient is a 61 y/o female BIBA to [facility] presenting with gradual onset of constant, acute on chronic back pain that began last night. She is scheduled for surgery two days from now with Dr. Hansen. She was advised that if she could not control the pain, she should come to ED. She is currently talking 4 mg of Dilaudid at home. Her most recent dose was at 2300 last night. She reports that the pain is worse this morning. In the ED, she was given an additional dose of Dilaudid. The documentation as recorded by the Nathanael fuentes Matthew accurately reflects the service I personally performed and the decisions made by me, Karsten Moore MD.
[2016-11-12] MEDS: HYDROmorphone PCA* 20 MG/20 ML PCA.SYRING PCA SCH (11:46)
[2016-11-12] MEDS: Insulin LISPRO* 1 UNITS UNIT SUBCUT SCH ×3 (13:10→21:12)
[2016-11-12] MEDS ORDERED: Zolpidem TAB* 5 MG PO PRN (13:17)
[2016-11-12] MEDS: Gabapentin CAP(*) 300 MG PO SCH ×2 (14:06→21:08)
[2016-11-12] MEDS: Diltiazem CD CAP* 180 MG PO SCH (14:08)
--- NOTE | 2016-11-12 14:45 | RAD ---
Indication: Diabetes, hypertension. Comparison: January 28, [address] Technique: Upright AP 1410 hours Report: Mild patchy consolidation at the LEFT lung base. Grossly clear pleural spaces. Upper normal heart size. Unremarkable central pulmonary vasculature. Multilevel anterior cervical fusion hardware. IMPRESSION: Patchy consolidation at the LEFT lung base may represent atelectasis or inflammatory infiltrate. As the lung volumes appear low compared with the prior exam atelectasis is favored.
[2016-11-12] MEDS: Atorvastatin* 10 MG TAB PO SCH (17:46)
[2016-11-12] MEDS: Dexamethasone IV* 4 MG/ML 1 ML (4 MG) IV SLOW PU SCH (19:35)
--- NOTE | 2016-11-12 20:06 | CONS ---
CONSULTATION REPORT: DATE OF CONSULT: 11/12/16 PRIMARY CARE PROVIDER: Dr. Turner. REQUESTING PHYSICIAN FOR CONSULTATION: Dr. Amor. MY ATTENDING PHYSICIAN WHILE IN THE HOSPITAL: Cristi Champion (report dictated by Jean-Paul Hernandez NP). REASON FOR CONSULTATION: Medical management of comorbid medical conditions. HISTORY OF PRESENT ILLNESS: I refer you to Dr. Amor's H and P for further details. In short, Ms. Angeles is a 61-year-old female patient who carries a history of hypertension, hyperlipidemia, diabetes, chronic back pain. She had glaucoma, kidney stones, and RICHARD, although not wearing her mask because it is broken and she has not worn it in sometime. She comes in today stating that over the last 7 weeks, she has had progressive worsening lumbar back pain. She says it starts in the lower back. It radiates down the lateral aspect of her right leg down to her knee and radiates down right next to her knee and sometimes down the calf and into her foot. She says that the pain has been getting progressively worse. She actually was just here on 10/27/16 for back pain and flare, was placed on steroids, PT consult, sent home on Dilaudid. She followed up like she was supposed to with her primary. Her primary advocated for her and got her in followup with Dr. Amor, who saw the patient last Sunday and got her scheduled for surgery on the . She was trying to manage at home throughout the week. Unfortunately last night, the pain again became unbearable, describing again low back radiating down sometimes into her right hip down the lateral aspect of her leg near the knee and down the calf and into her feet. She has had episodes of incontinence off and on through the last week as well. No bowel issues and she has no numbness or paresthesia in the saddle area, but she was concerned because the pain was unbearable. She was in tears, crying. She could not move the leg because it hurt, so she came into the ER early this morning. The ER called Dr. Amor. He evaluated the patient and felt that she was going to require inpatient admission for pain management until the procedure could be performed on Sunday, the . We were asked to come evaluate in consult because of her medical issues. She denies having any chest pain or shortness of breath. Says that when she is able to ambulate, she can ambulate up stairs and not get chest pain or shortness of breath. She denies having any recent cough, fevers, any abdominal pain, or any nausea or vomiting. She was again evaluated in the ER. There was concern that she required inpatient management for pain control. We were asked to evaluate in consult. PAST MEDICAL HISTORY: Significant for: 1. Chronic back pain. 2. Diabetes. 3. Hyperlipidemia. 4. Hypertension. 5. Glaucoma. 6. RICHARD. 7. History of nephrolithiasis. SURGICAL HISTORY: 1. She has had an anterior cervical diskectomy. 2. She has had a hemilaminectomy at L5-S1. 3. She has had a ureteral stenting with stent retrieval. 4. She has had . 5. She has had laparoscopic cholecystectomy. 6. She has had appendectomy and hysterectomy. HOME MEDICATIONS: According to the patient include: 1. Hydrochlorothiazide 25 mg daily. She was asked to stop this on her last hospitalization, but she continued it because she states she takes it to prevent kidney stones. 2. She is also on Toradol 10 mg p.o. every 4 hours as needed. 3. Latanoprost 1 drop both eyes at bedtime. 4. Insulin aspart sliding scale. 5. Benadryl 25 mg daily as needed. 6. Vitamin D 1000 units p.o. Sunday, Sunday, and Sunday. 7. Zofran 4 mg p.o. every 6 hours as needed. 8. Diltiazem 180 mg daily. 9. Ambien 5 mg at bedtime. 10. Gabapentin 2 tablets p.o. t.i.d. as needed. 11. Dilaudid 4 mg p.o. every 4 hours as needed. 12. Gabapentin 300 mg p.o. t.i.d. 13. Metaxalone 800 mg daily as needed. 14. Magnesium 2 tablets p.o. at bedtime. 15. Pravachol 1 tablet daily. 16. Prilosec 20 mg daily. 17. Percocet 2 tabs every 4 hours as needed. 18. Zoloft 25 mg at bedtime. 19. Lantus 45 units subcu at bedtime. ALLERGIES TO MEDICATIONS: Include NIACIN, POTASSIUM, and VANCOMYCIN. FAMILY HISTORY: Mother had a history of CAD. SOCIAL HISTORY: She is a former smoker. She lives alone. Surrogate decision maker is her daughter. REVIEW OF SYSTEMS: There is no documented fever. She denied having any significant weight change. There was no double vision. There is no ear discharge. She denies having any rhinorrhea. There is no sore throat. No thyroid enlargement. She denies having any chest pain. There is no shortness of breath. There is no abdominal pain. There is no nausea. No vomiting. No dysuria. No frequency. No loss of consciousness. No pruritus and no skin ulcerations. Review of 14 systems completed, all others negative. PHYSICAL EXAM: Reveals vital signs of blood pressure 132/37, pulse of 93, respirations 20, O2 sat 98%, and temperature 97.9. Generally at this time, Ms. Angeles is a 61-year-old female patient. She is sitting in the surgical bed. She does not appear to be in any acute distress. She is awake and she is alert. HEENT: Head atraumatic, normocephalic. Eyes: EOMs intact. Sclerae anicteric and not pale. Throat: Oral mucosa appears to be moist. No oropharyngeal erythema. Neck: Supple. Heart: Sounds S1, S2. She is tachycardic. Abdomen was soft. It was flat, nontender. Bowel sounds present. Extremities: Pulses 2+ throughout. She can move all 4 extremities. She has a slight weakness to the left lower extremity, 4/5 strength compared to the right. Neurologically, she is awake, she is alert. She is oriented x3. She does have some decreased sensation in the lateral aspect of her left lower extremity near her knee compared to her right side. No other gross focal findings. Skin is intact. DIAGNOSTIC STUDIES/LAB DATA: Today reveal a WBC of 8.0, RBC of 4.19, hemoglobin 12.0, hematocrit 36, platelet count 237. INR 0.94. Sodium 136, potassium 4, chloride of 104, bicarb 27, BUN 15, creatinine of 0.79, glucose 148 , calcium 9.5. Total bili 0.3, AST 23, ALT 34, alk phos 85. Albumin was 3.8. Urine was negative. There is report of an outpatient MRI and again that showed a disease at the L5- S1 area. Old medical records were reviewed. ASSESSMENT AND PLAN: Ms. Angeles is a 61-year-old female patient coming into the ER today with complaints of back pain. She was included and admitted under Dr. Amor's service. Hospitalist service was asked to evaluate in consult. Recommendations at this point are: 1. Lumbar radiculopathy: I will defer the management of this to Dr. Amor and his team in terms of the perioperative risk stratification. She does score 1 with her RCRI, which gives her 0.9% risk of major cardiac event. The last EKG I have access to was from 2014, so I would like to get a baseline perioperative EKG and a chest x-ray as well. If these are stable, then again no further workup would be indicated for the proposed procedure on Sunday. I do not have records to see if she underwent any preoperative evaluation; if so, we will try to get those from her primary tomorrow. 2. Hypertension: Continue medications as prescribed. I am going to hold her hydrochlorothiazide in the perioperative setting. We can start this postoperatively. 3. Hyperlipidemia: Continue statin therapy. 4. Diabetes: We will go ahead and put her on lispro sliding scale and continue her Lantus. We will monitor her sugars closely. She is on steroids. We may need to increase her Lantus while she is on the Decadron, so we will continue to monitor. 5. Nephrolithiasis: She can follow with her primary. Not an active issue. 6. Obstructive sleep apnea: Follow up with her primary. I would recommend while she is on a CRYPTOANALYSIS TEACHER, continuous pulse oximetry monitoring and pulse oximetry monitoring postoperatively as well at least for 24 hours because of the history of obstructive sleep apnea. 7. Glaucoma: Continue medications as prescribed. 8. DVT prophylaxis: I will defer to the primary team. 9. Code status: She is a full code. 10. Fluids, electrolytes, and nutrition: I would recommend a consistent carbohydrate diet. TIME SPENT: Time spent on the consult was approximately 60 minutes; greater than half the time was spent [id number] with the patient obtaining my history and physical, other half the time spent going over the plan of care with the patient and implementing plan of care. I did discuss the plan of care with my attending, Dr. Champion; he is in agreement. JEAN-PAUL HERNANDEZ NP CC: Dr. Turner; Dr. Amor* [id number]/[facility] #: [id number] [facility]
[2016-11-12] MEDS: Insulin GLARGINE(*) 1 UNITS UNIT SUBCUT SCH (21:08)
[2016-11-12] MEDS: Latanoprost 0.005%* 2.5 ml BTL BOTH EYES SCH (21:09)
[2016-11-12] MEDS: Sertraline* 25 MG TAB PO SCH (21:09)
[2016-11-13] MEDS: Dexamethasone IV* 4 MG/ML 1 ML (4 MG) IV SLOW PU SCH ×4 (02:14→19:42)
[2016-11-13] MEDS: Ondansetron INJ* 2 MG/ML VIAL IV PRN ×2 (06:16→10:45)
[2016-11-13 06:47] LABS: Hematocrit 33 % (35-47); Hemoglobin 10.9 g/dl (12.0-16.0); Mean Corpuscular HGB Conc 33 g/dl (31-36); Mean Corpuscular Hemoglobin 29 pg (27-31); Mean Corpuscular Volume 87 fL (80-97); Mean Platelet Volume 7 um3 (7.4-10.4); Red Blood Count 3.77 10^6/ul (4.0-5.4); Red Cell Distribution Width 15 % (10.5-15); White Blood Count 8.2 10^3/ul (3.5-10.8)
[2016-11-13 07:08] LABS: BUN/Creatinine Ratio 23.3 (8-20); Calcium 9.4 mg/dL (8.6-10.3); EGFR African American 131.6 (>60); EGFR Non-African American 102.3 (>60); Potassium 4.3 mmol/L (3.5-5.0)
--- NOTE | 2016-11-13 07:21 | PN ---
Subjective Date of Service: 11/13/16 Interval History: . Patient reports her CP has resolved. Denies SOB. No cough. Reports "I feel pretty good" and her pain is much better controlled on the OIL EXPELLER. Reports she has some numbness in RLE but that has been there for "many weeks". No recent fever, chills. Objective Active Medications: Acetaminophen (Tylenol Tab*) 650 mg PO Q4H PRN PRN Reason: Pain Or Temperature >101 F Atorvastatin Calcium (Lipitor*) 5 mg PO QPM [facility] PRN Reason: Protocol Last Admin: 11/12/16 17:46 Dose: 5 mg Dexamethasone Sodium Phosphate (Decadron Iv*) 4 mg IV SLOW PU 0200,0800,1400, 2000 [facility] Last Admin: 11/13/16 02:14 Dose: 4 mg Dextrose (D50w Syringe 50 Ml*) 12.5 gm IV PUSH .FOR FS < 60 - SS PRN PRN Reason: FS < 60 Diltiazem HCl (Cardizem Cd Cap*) 180 mg PO QAM [facility] Last Admin: 11/12/16 14:08 Dose: 180 mg Docusate Sodium (Colace Cap*) 100 mg PO BID PRN PRN Reason: CONSTIPATION Gabapentin (Neurontin Cap(*)) 600 mg PO TID [facility] Last Admin: 11/12/16 21:08 Dose: 600 mg Lactated Ringer's (Lactated Ringers 1000 Ml Bag*) 1,000 mls @ 50 mls/hr IV .per rate [facility] Last Admin: 11/12/16 23:54 Dose: 50 mls/hr Hydromorphone HCl (Dilaudid Devops Architect*) 20 mg in 20 mls @ 0 mls/hr OIL EXPELLER .change Q24H [facility]; Per Protocol PRN Reason: Protocol Last Admin: 11/12/16 11:46 Dose: 0.5 mls/hr Insulin Glargine (Lantus(*)) 45 units SUBCUT BEDTIME [facility] Last Admin: 11/12/16 21:08 Dose: 45 units Insulin Human Lispro (Humalog*) 0 units SUBCUT ACHS [facility] PRN Reason: Protocol Last Admin: 11/12/16 21:12 Dose: 6 units Latanoprost (Xalatan 0.005%*) 1 drop BOTH EYES BEDTIME [facility] Last Admin: 11/12/16 21:09 Dose: 1 drop Omeprazole (Prilosec Cap*) 20 mg PO DAILY@0730 [facility] Ondansetron HCl (Zofran Inj*) 4 mg IV Q4H PRN PRN Reason: NAUSEA/VOMITING Last Admin: 11/13/16 06:16 Dose: 4 mg Sertraline HCl (Zoloft*) 25 mg PO BEDTIME [facility] Last Admin: 11/12/16 21:09 Dose: 25 mg Vital Signs 11/12/16 11/12/16 11/12/16 21:08 22:00 23:08 Temperature Pulse Rate Respiratory 18 16 16 Rate Blood Pressure (mmHg) O2 Sat by Pulse 96 Oximetry 11/12/16 11/13/16 11/13/16 23:49 00:00 02:00 Temperature 98.3 F Pulse Rate 89 Respiratory 18 16 16 Rate Blood Pressure 126/53 (mmHg) O2 Sat by Pulse 99 99 98 Oximetry 11/13/16 11/13/16 11/13/16 03:46 04:00 06:00 Temperature 97.9 F Pulse Rate 84 Respiratory 18 16 18 Rate Blood Pressure 106/60 (mmHg) O2 Sat by Pulse 98 98 98 Oximetry 11/13/16 06:47 Temperature Pulse Rate Respiratory 18 Rate Blood Pressure (mmHg) O2 Sat by Pulse 98 Oximetry Oxygen Devices in Use Now: None Appearance: A+O x3 61 yo obese female sitting up on the bed in NAD Eyes: No Scleral Icterus, PERRLA Ears/Nose/Mouth/Throat: NL Teeth, Lips, Gums, Clear Oropharnyx, Mucous Membranes Moist Neck: NL Appearance and Movements; NL JVP Respiratory: Symmetrical Chest Expansion and Respiratory Effort, Clear to Auscultation Cardiovascular: NL Sounds; No Murmurs; No JVD, RRR, No Edema Abdominal: NL Sounds; No Tenderness; No Distention Extremities: No Edema, No Clubbing, Cyanosis Skin: No Rash or Ulcers, No Nodules or Sclerosis Neurological: Alert and Oriented x 3, NL Sensation, NL Muscle Strength and Tone , - Lines/Tubes/Other Access: Clean, Dry and Intact Peripheral IV Nutrition: Taking PO's Result Diagrams: 11/13/16 06:21 11/13/16 06:22 Assess/Plan/Problems-Billing Assessment: Ms. Angeles is a 61 yo female with a PMH of diabetes, recurrent renal stones, HTN, Obesity and hx coronary artery spasm who presented with intractable back and right leg. - Patient Problems (1) Intractable back pain Comment: - Disk herniation with severe radiculopathy - Dispo per Dr. Amor - plan for lumbar discectomy L5-S1 on the right tomorrow - continue Diluadid OIL EXPELLER - NPO after midnight - PT /OT (2) Chest pain Comment: -resolved. unclear etiology. Troponin negative, will check 2nd trop. - EKG showing SR with no changes from prior EKGs. (3) Diabetes Comment: - FSBG ACHS - Continue lispro SSI and lantus home doses. Recommendation to continue patients home dose lantus even though she will be NPO as she is very resistant and was given decadron. (4) HTN (hypertension) Comment: - stable. continue cardizem; hold HCTZ (5) Hyperlipidemia Comment: Statin (6) DVT prophylaxis Comment: SCDs (7) Full code status Status and Disposition: inpatient. Dispo per neurosurgery.
--- NOTE | 2016-11-13 07:48 | PN ---
Progress Note - Progress Note SOAP: Subjective: [This is a 61 year old female with HNP L5-S1 on the right, admitted for medical pain management and scheduled for lumbar discectomy L5-S1 on the right tomorrow (11/14/16). Pain in the right lower extremity is improved although not resolved with IV pain medications and steroids. She complains of poor sleep last night. Denies numbness, tingling, weakness and pain in the left lower extremity.] Objective: [ Vital Signs: Temp Pulse Resp BP Pulse Ox 97.9 F 84 18 106/60 98 11/13/16 03:46 11/13/16 03:46 11/13/16 06:47 11/13/16 03:46 11/13/16 06:47 General: Alert and oriented. Neuro: Motor normal. Sensation to right foot decreased. ] Assessment: [Pain is controlled with IV pain medications. She is awaiting surgery tomorrow morning. ] Plan: [1. Continue pain management. 2. Lumbar discectomy L5-S1 right tomorrow.]
[2016-11-13] MEDS: Insulin LISPRO* 1 UNITS UNIT SUBCUT SCH ×4 (08:37→21:10)
[2016-11-13] MEDS: Omeprazole CAP* 20 MG PO SCH (08:37)
[2016-11-13] MEDS: Diltiazem CD CAP* 180 MG PO SCH (08:38)
[2016-11-13] MEDS: Gabapentin CAP(*) 300 MG PO SCH ×3 (08:38→21:07)
--- NOTE | 2016-11-13 10:31 | HP ---
ADMISSION HISTORY AND PHYSICAL: DATE OF ADMISSION: 11/12/16 CHIEF COMPLAINT: Back and right leg pain. HISTORY OF PRESENT ILLNESS: This 61-year-old lady was seen in the office with signs and symptoms of a severe lumbar radiculopathy. She has had 2 previous admissions, one at the [facility] and one at [place], for pain related to a herniated disk at L5-S1 on the right side. She has a history of having a previous hemilaminectomy at this level back in December 2014 with a good result. She presented with a several-week history of worsening pain and was found to have a large recurrent extruded disk fragment on an MRI study that was done at the [facility] back on 10/20/16. The patient had been seen in the office and scheduled for surgery; however, her pain became much more intense and did not respond to p.o. Dilaudid and she came to the emergency room for further evaluation and likely admission for parenteral pain control. PAST MEDICAL HISTORY: Significant for previous history of diabetes, recurrent renal stones, hypertension, obesity, and a history of coronary artery spasm. PRIOR SURGERIES: Include a previous anterior cervical diskectomy x2 as well as a right diskectomy at L5-S1. CURRENT MEDICATIONS: Include: 1. Soma 350 mg p.o. t.i.d. as needed for spasm. 2. Diltiazem ER 180 mg daily. 3. NovoLog insulin 100 units daily. 4. Lantus insulin 100 units daily. 5. Hydrochlorothiazide 25 mg daily. 6. Ambien 10 mg p.o. h.s. 7. Nitrostat 0.4 mg p.o. as needed. 8. Zoloft 50 mg p.o. h.s. 9. Gabapentin 300 mg p.o. t.i.d. 10. Oxycodone 5/325 one to two every 4 hours as needed for pain. 11. Dilaudid 2 mg p.o. q.4 hours as needed for pain. ALLERGIES: She is allergic to VANCOMYCIN and NIASPAN. FAMILY HISTORY: Family history was taken and did not contribute to this illness. SOCIAL HISTORY: Revealed that she does not smoke or drink at this time and has a supportive family structure. REVIEW OF SYSTEMS: System review was significant for a cardiovascular review for a history of coronary artery spasm. She has a respiratory review that is significant for chronic obstructive pulmonary disease. The remainder of her system review was performed and did not contribute to this illness. PHYSICAL EXAMINATION GENERAL: She was noted to be awake, alert, and complaining of severe leg pain. HEENT: Head was normocephalic with no scalp contusion or tenderness. Eyes revealed a full range of extraocular movements with pupils that were equal and reactive to light. NECK: Supple. LUNGS: Clear to auscultation. CARDIOVASCULAR: Revealed a regular rate and rhythm with no murmur. ABDOMEN: Protuberant with normal bowel sounds. No tenderness. EXTREMITIES: Revealed full range of passive motion. NEUROLOGIC: Revealed her to have a very positive straight leg raise test on the right side at 20 degrees. Reflex was absent at the right ankle and 2+ at the left ankle. She was noted to have mild weakness of plantar flexion in her right foot. IMPRESSION: She has a disk herniation with severe radiculopathy. She is being admitted at this time for parenteral control of her pain and will be scheduled for surgery on an urgent basis. [id number]/[facility] #: [id number] WADE
[2016-11-13] MEDS: Atorvastatin* 10 MG TAB PO SCH (17:50)
[2016-11-13] MEDS: Sertraline* 25 MG TAB PO SCH (21:08)
[2016-11-13] MEDS: Insulin GLARGINE(*) 1 UNITS UNIT SUBCUT SCH (21:09)
[2016-11-13] MEDS: Latanoprost 0.005%* 2.5 ml BTL BOTH EYES SCH (21:09)
[2016-11-13] MEDS: Zolpidem TAB* 5 MG PO PRN (23:30)
[2016-11-14] MEDS: Dexamethasone IV* 4 MG/ML 1 ML (4 MG) IV SLOW PU SCH ×4 (02:50→19:52)
[2016-11-14 06:55] LABS: Hematocrit 33 % (35-47); Hemoglobin 10.6 g/dl (12.0-16.0); Mean Corpuscular HGB Conc 32 g/dl (31-36); Mean Corpuscular Hemoglobin 28 pg (27-31); Mean Corpuscular Volume 88 fL (80-97); Mean Platelet Volume 7 um3 (7.4-10.4); Red Blood Count 3.78 10^6/ul (4.0-5.4); Red Cell Distribution Width 15 % (10.5-15); White Blood Count 11.5 10^3/ul (3.5-10.8)
[2016-11-14] MEDS ORDERED: Thrombin 5,000 UNITS* 1 APPLIC KIT - topical use - TOPICAL ONE (06:58)
[2016-11-14] MEDS ORDERED: Lidocain 1% EPI 1:100,000 * 30 ML MDV ONE (06:58)
[2016-11-14] MEDS ORDERED: Bacitracin IV* 50,000 UNITS INJ ONE (06:58)
[2016-11-14] MEDS ORDERED: ceFAZolin 2 GM PREMIX (*) 2 GM/50 ML BAG IVPB ONE (07:00)
[2016-11-14] MEDS ORDERED: Phenylephrine IV* 40 MCG/ML 10 ML SYRINGE ONE (07:19)
[2016-11-14] MEDS ORDERED: fentaNYL* 50 MCG/ML 5 ML VIAL (250 MCG VIAL) ONE (07:19)
[2016-11-14] MEDS ORDERED: Propofol* 10 MG/ML 20 ML BTL IV PUSH ONE (07:19)
[2016-11-14] MEDS ORDERED: Midazolam* 1 MG/ML 5 ML VIAL (5 MG) ONE (07:19)
[2016-11-14] MEDS ORDERED: EPHEDrine (Pressors)* 50 MG/ML VIAL ONE (07:19)
[2016-11-14] MEDS ORDERED: Atracurium* 10 MG/ML 10 ML VIAL ONE (07:19)
[2016-11-14] MEDS ORDERED: Ondansetron INJ* 2 MG/ML VIAL ONE (07:19)
[2016-11-14] MEDS ORDERED: Dexamethasone IV* 4 MG/ML 1 ML (4 MG) ONE (07:41)
[2016-11-14] MEDS ORDERED: Famotidine IV* 10 MG/ML 2 ML (20 mg) ONE (07:41)
[2016-11-14] MEDS ORDERED: Famotidine IV* 10 MG/ML 2 ML (20 mg) IV ONE (07:45)
[2016-11-14] MEDS ORDERED: Buffered Lidocaine 1% SYR 3ML* 3 ML/SYR SYRINGE INTRADERM ONE (07:45)
[2016-11-14] MEDS ORDERED: Dexamethasone IV* 4 MG/ML 1 ML (4 MG) IV SLOW PU ONE (07:45)
[2016-11-14 07:59] LABS: BUN/Creatinine Ratio 35.6 (8-20); Calcium 9.4 mg/dL (8.6-10.3); EGFR African American 134.2 (>60); EGFR Non-African American 104.3 (>60); Potassium 4.3 mmol/L (3.5-5.0)
[2016-11-14] MEDS ORDERED: Levalbuterol HFA INHALER* 1 PUFF MDI ONE (08:15)
[2016-11-14] MEDS ORDERED: HYDROmorphone INJ* 1 MG/ML CARPUJECT SYRINGE IV PRN (08:51)
[2016-11-14] MEDS ORDERED: Ondansetron INJ* 2 MG/ML VIAL IV PRN (08:51)
[2016-11-14] MEDS: Diltiazem CD CAP* 180 MG PO SCH (09:00)
[2016-11-14] MEDS: Omeprazole CAP* 20 MG PO SCH (09:54)
[2016-11-14] MEDS: Insulin LISPRO* 1 UNITS UNIT SUBCUT SCH ×3 (09:54→21:02)
[2016-11-14] MEDS ORDERED: fentaNYL* 50 MCG/ML 2 ML VIAL (100 MCG VIAL) ONE (10:17)
[2016-11-14] MEDS: fentaNYL* 50 MCG/ML 2 ML VIAL (100 MCG VIAL) IV PRN ×2 (10:21→10:29)
[2016-11-14] MEDS: HYDROmorphone PCA* 20 MG/20 ML PCA.SYRING PCA SCH (11:50)
[2016-11-14] MEDS: Gabapentin CAP(*) 300 MG PO SCH ×3 (11:52→20:45)
--- NOTE | 2016-11-14 12:29 | RAD ---
INDICATION: Right L5-S1 lumbar dissector medially TECHNIQUE: A single crosstable lateral image was acquired FINDINGS: A surgical device and retractors are immediately posterior to the L5 vertebral body. IMPRESSION: As above
--- NOTE | 2016-11-14 13:30 | PN ---
Subjective Date of Service: 11/14/16 Interval History: 1400: was called to patient bedside post-op for hypoxia for evaluation Per nurse The patient was noted to have O2 sats dropping into the mid-80's; oxymask was applied but continue to have low O2 sats. RN called respiratory who placed the patient on cpap due to hx of RICHARD. I evaluated the pt at the bedside after the cpap had been placed, O2 sat 97-100%. Pt awakes to voice but appears very lethargic falling asleep unable to keep eyes open. Appears to be confused. Followed some commands. spoke to Dr. Amor who agrees to tx pt to ICU for closer monitoring. 1600: I was called to the pts room in the ICU as the patient was transferred by wheelchair on RA. She was awake A+O x3, texting on her phone. She is much more appropriate on re-evaluation. [employer] has been DC by Neuro. No confusion noted, answering questions appropriately. O2 sat 98% on 3L NC. lungs CTA b/l. Pt to be transferred back to [facility]. Objective Active Medications: Acetaminophen (Tylenol Tab*) 650 mg PO Q4H PRN PRN Reason: Pain Or Temperature >101 F Atorvastatin Calcium (Lipitor*) 5 mg PO QPM [facility] PRN Reason: Protocol Last Admin: 11/13/16 17:50 Dose: 5 mg Dexamethasone Sodium Phosphate (Decadron Iv*) 4 mg IV SLOW PU 0200,0800,1400, 2000 [facility] Last Admin: 11/14/16 09:54 Dose: Not Given Dextrose (D50w Syringe 50 Ml*) 12.5 gm IV PUSH .FOR FS < 60 - SS PRN PRN Reason: FS < 60 Diltiazem HCl (Cardizem Cd Cap*) 180 mg PO QAM [facility] Last Admin: 11/13/16 08:38 Dose: 180 mg Docusate Sodium (Colace Cap*) 100 mg PO BID PRN PRN Reason: CONSTIPATION Fentanyl Citrate (Fentanyl*) 50 mcg IV Q2M PRN PRN Reason: PAIN - MODERATE Stop: 11/14/16 13:51 Last Admin: 11/14/16 10:29 Dose: 50 mcg Gabapentin (Neurontin Cap(*)) 600 mg PO TID [facility] Last Admin: 11/14/16 11:52 Dose: Not Given Hydromorphone HCl (Dilaudid Iv*) 0.2 mg IV Q5M PRN PRN Reason: PAIN - SEVERE Stop: 11/14/16 13:51 Hydromorphone HCl (Dilaudid Sand Sifter*) 20 mg in 20 mls @ 0 mls/hr [employer] .change Q24H [facility]; Per Protocol PRN Reason: Protocol Last Admin: 11/14/16 11:50 Dose: 1 mls/hr Lactated Ringer's (Lactated Ringers 1000 Ml Bag*) 1,000 mls @ 75 mls/hr IV PER RATE [facility] Insulin Glargine (Lantus(*)) 45 units SUBCUT BEDTIME [facility] Last Admin: 11/13/16 21:09 Dose: 45 units Insulin Human Lispro (Humalog*) 0 units SUBCUT ACHS [facility] PRN Reason: Protocol Last Admin: 11/14/16 09:54 Dose: Not Given Latanoprost (Xalatan 0.005%*) 1 drop BOTH EYES BEDTIME [facility] Last Admin: 11/13/16 21:09 Dose: 1 drop Nitroglycerin (Nitroglycerin Tab 0.4 Mg*) 0.4 mg SL Q5M PRN PRN Reason: ANGINA Omeprazole (Prilosec Cap*) 20 mg PO DAILY@0730 [facility] Last Admin: 11/14/16 09:54 Dose: Not Given Ondansetron HCl (Zofran Inj*) 4 mg IV Q4H PRN PRN Reason: NAUSEA/VOMITING Last Admin: 11/13/16 10:45 Dose: 4 mg Ondansetron HCl (Zofran Inj*) 4 mg IV ONCE PRN PRN Reason: NAUSEA/VOMITING Stop: 11/14/16 13:51 Sertraline HCl (Zoloft*) 25 mg PO BEDTIME [facility] Last Admin: 11/13/16 21:08 Dose: 25 mg Zolpidem Tartrate (Ambien Tab*) 5 mg PO BEDTIME PRN PRN Reason: INSOMNIA Last Admin: 11/13/16 23:30 Dose: 5 mg Vital Signs 11/14/16 11/14/16 11/14/16 11:00 11:15 11:30 Temperature 97.2 F Pulse Rate 88 90 88 Respiratory 10 12 14 Rate Blood Pressure 113/60 116/60 119/63 (mmHg) O2 Sat by Pulse 94 93 95 Oximetry 11/14/16 11/14/16 11/14/16 11:45 11:50 11:52 Temperature Pulse Rate 89 86 Respiratory 12 11 12 Rate Blood Pressure 120/67 120/67 (mmHg) O2 Sat by Pulse 94 92 Oximetry 11/14/16 11/14/16 11/14/16 12:00 12:15 12:57 Temperature 97.5 F 97.7 F Pulse Rate 94 95 85 Respiratory 12 11 18 Rate Blood Pressure 103/67 117/70 107/46 (mmHg) O2 Sat by Pulse 92 92 95 Oximetry 11/14/16 13:08 Temperature Pulse Rate Respiratory 18 Rate Blood Pressure (mmHg) O2 Sat by Pulse Oximetry Oxygen Devices in Use Now: None Appearance: 61 yo female laying A+O x3 Eyes: No Scleral Icterus, PERRLA Ears/Nose/Mouth/Throat: NL Teeth, Lips, Gums, Mucous Membranes Moist Neck: NL Appearance and Movements; NL JVP Respiratory: Symmetrical Chest Expansion and Respiratory Effort, - - diminished to bases Cardiovascular: NL Sounds; No Murmurs; No JVD, RRR, No Edema Abdominal: NL Sounds; No Tenderness; No Distention Extremities: No Edema Skin: No Rash or Ulcers, No Nodules or Sclerosis Neurological: - - lethargic Lines/Tubes/Other Access: Clean, Dry and Intact Peripheral IV Nutrition: Taking PO's Result Diagrams: 11/14/16 06:47 11/14/16 06:47 Assess/Plan/Problems-Billing Assessment: Ms. Angeles is a 61 yo female with a PMH of diabetes, recurrent renal stones, HTN, Obesity and hx coronary artery spasm who presented with intractable back and right leg. - Patient Problems (1) Intractable back pain Comment: - Disk herniation with severe radiculopathy s/p lumbar discectomy L5-S1 on the right - POD #[address] Amor - Per Neurosurg plan to DC Diluadid [employer] - PT /OT (2) Chest pain Comment: -resolved. unclear etiology. Troponin negative x2 - EKG showing SR with no changes from prior EKGs. (3) Diabetes Comment: - FSBG QACHS hours with lispro SS; continue lantus 45 units (4) HTN (hypertension) Comment: - stable. continue cardizem; hold HCTZ (5) Hyperlipidemia Comment: Statin (6) RICHARD (obstructive sleep apnea) Comment: - cpap (7) DVT prophylaxis Comment: SCDs (8) Full code status Status and Disposition: inpatient. Dispo per neurosurgery. Hospital medicine will continue to follow
[2016-11-14] MEDS ORDERED: Albuterol/Ipratropium NEB.SOL* Albuterol 2.5 MG/Ipratropium 0.5 MG 3 ML INH PRN (13:31)
--- NOTE | 2016-11-14 14:15 | RAD ---
INDICATION: Hypoxia COMPARISON: Similar chest x-ray 11/12/16 TECHNIQUE: Single AP portable view of the chest was obtained. FINDINGS: Image quality is compromised due to the relative inferiority of a portable chest x-ray. The heart and mediastinum exhibit normal size and contour. There are patchy densities overlying the bilateral lungs mostly at the german. The pulmonary vasculature is mildly engorged and indistinct. There is mild left greater than right costophrenic angle blunting. There is no evidence of a large pleural effusion. Plate and screw fixator is seen overlying the cervical spine unchanged from the previous radiograph. IMPRESSION: Chest x-ray findings are most compatible with congestive heart failure similar in appearance to the most recent chest x-ray.
[2016-11-14] MEDS: HYDROmorphone TAB* 2 MG PO PRN ×2 (15:53→20:45)
[2016-11-14] MEDS ORDERED: Insulin LISPRO* 1 UNITS UNIT SUBCUT SCH (16:00)
[2016-11-14] MEDS: Atorvastatin* 10 MG TAB PO SCH (18:23)
[2016-11-14] MEDS: Sertraline* 25 MG TAB PO SCH (20:45)
[2016-11-14] MEDS: Insulin GLARGINE(*) 1 UNITS UNIT SUBCUT SCH (21:01)
[2016-11-14] MEDS: Zolpidem TAB* 5 MG PO PRN (21:55)
[2016-11-14] MEDS: Latanoprost 0.005%* 2.5 ml BTL BOTH EYES SCH (21:56)
[2016-11-15] MEDS: HYDROmorphone TAB* 2 MG PO PRN ×3 (01:49→09:27)
[2016-11-15] MEDS: Dexamethasone IV* 4 MG/ML 1 ML (4 MG) IV SLOW PU SCH (01:50)
[2016-11-15 06:14] LABS: Hematocrit 31 % (35-47); Hemoglobin 10.3 g/dl (12.0-16.0); Mean Corpuscular HGB Conc 33 g/dl (31-36); Mean Corpuscular Hemoglobin 29 pg (27-31); Mean Corpuscular Volume 86 fL (80-97); Mean Platelet Volume 7 um3 (7.4-10.4); Red Blood Count 3.58 10^6/ul (4.0-5.4); Red Cell Distribution Width 15 % (10.5-15)
[2016-11-15 06:23] LABS: BUN/Creatinine Ratio 33.3 (8-20); EGFR African American 139.6 (>60); EGFR Non-African American 108.6 (>60)
--- NOTE | 2016-11-15 07:51 | PN ---
Progress Note - Progress Note SOAP: Subjective: [This is a 61 year old female s/p repeat L5-S1 right lumbar discectomy POD #1. Pre-operative right lower extremity pain is improving. She complains primarily of right buttock pain and pain with sitting. She is ambulating with assistance. She complains of a mild headache. No numbness, tingling, weakness or pain in the left lower extremity.] Objective: [ Vital Signs: Temp Pulse Resp BP Pulse Ox 98.4 F 85 17 121/53 98 11/15/16 04:00 11/15/16 04:00 11/15/16 05:43 11/15/16 04:00 11/15/16 04:00 General: Alert and oriented. No distress. Neuro: Motor and sensory intact. Incision: Intact with miya. No signs of infection. ] Assessment: [She is following a satisfactory post operative course. She continues to be unsteady with ambulation and complains of significant pain with movements. ] Plan: [1. Status change to inpatient for further observation and pain management. 2. Physical therapy consult to assist with gait. 3. Discontinue IV fluids, encourage PO.]
[2016-11-15] MEDS: Omeprazole CAP* 20 MG PO SCH (08:00)
[2016-11-15] MEDS: Gabapentin CAP(*) 300 MG PO SCH ×3 (08:00→20:57)
[2016-11-15] MEDS: Diltiazem CD CAP* 180 MG PO SCH (08:00)
[2016-11-15] MEDS: Insulin LISPRO* 1 UNITS UNIT SUBCUT SCH ×4 (09:00→21:01)
[2016-11-15] MEDS: Nitroglycerin TAB 0.4 MG* 0.4 MG TAB SL PRN ×2 (11:16→11:23)
[2016-11-15] MEDS ORDERED: Morphine INJ* 2 MG/ML 1 ML CARPUJECT IV ONE (11:33)
[2016-11-15] MEDS ORDERED: Furosemide IV* 10 MG/ML 2 ML VIAL (20 MG) IV SLOW PU ONE (11:35)
--- NOTE | 2016-11-15 11:55 | PN ---
Subjective Date of Service: 11/15/16 Interval History: Patient seen and examined at bedside. Pt c/o mid-sternal chest pain this AM, Pt received 2 nitro and states that pain is better and almost gone. Pt reports being anxious d/t the chest pain and it feeling different than her typical chest pain. Pt reports feeling feverish last night with diaphoresis, and low back and right LE pain. Denies chills, shortness of breath, N/V/D. Family History: Unchanged from Admission Social History: Unchanged from Admission Past Medical History: Unchanged from Admission Objective Active Medications: Acetaminophen (Tylenol Tab*) 650 mg PO Q4H PRN Reason: Pain Or Temperature > 101 F Albuterol/Ipratropium (Duoneb Neb.Yolanda*) 1 neb INH Q4H PRN Reason: SOB/WHEEZING Atorvastatin Calcium (Lipitor*) 5 mg PO QPM [facility] Reason: Protocol Dextrose (D50w Syringe 50 Ml*) 12.5 gm IV PUSH .FOR FS < 60 - SS PRN Reason: FS < 60 Diltiazem HCl (Cardizem Cd Cap*) 180 mg PO QAM [facility] Docusate Sodium (Colace Cap*) 100 mg PO BID PRN Reason: CONSTIPATION Gabapentin (Neurontin Cap(*)) 600 mg PO TID [facility] Hydromorphone HCl (Dilaudid Tab*) 4 mg PO Q4H PRN Reason: PAIN Insulin Glargine (Lantus(*)) 60 units SUBCUT BEDTIME [facility] Insulin Human Lispro (Humalog*) 0 units SUBCUT FS ACHS ICU [facility] Reason: Protocol Latanoprost (Xalatan 0.005%*) 1 drop BOTH EYES BEDTIME [facility] Nitroglycerin (Nitroglycerin Tab 0.4 Mg*) 0.4 mg SL Q5M PRN Reason: ANGINA Omeprazole (Prilosec Cap*) 20 mg PO DAILY@0730 [facility] Ondansetron HCl (Zofran Inj*) 4 mg IV Q4H PRN Reason: NAUSEA/VOMITING Sertraline HCl (Zoloft*) 25 mg PO BEDTIME [facility] Zolpidem Tartrate (Ambien Tab*) 5 mg PO BEDTIME PRN Reason: INSOMNIA Vital Signs 11/14/16 11/14/16 11/14/16 11:50 11:52 12:00 Temperature 97.5 F Pulse Rate 86 94 Respiratory 11 12 12 Rate Blood Pressure 120/67 103/67 (mmHg) O2 Sat by Pulse 92 92 Oximetry 11/14/16 11/14/16 11/14/16 12:15 12:50 12:57 Temperature 97.7 F Pulse Rate 95 85 Respiratory 11 14 18 Rate Blood Pressure 117/70 107/46 (mmHg) O2 Sat by Pulse 92 95 Oximetry 11/14/16 11/14/16 11/14/16 13:08 13:42 14:00 Temperature 97.9 F Pulse Rate 88 Respiratory 18 17 11 Rate Blood Pressure 97/41 (mmHg) O2 Sat by Pulse 100 100 Oximetry 11/14/16 11/14/16 11/14/16 14:59 15:53 15:58 Temperature 97.7 F Pulse Rate 86 Respiratory 17 15 15 Rate Blood Pressure 106/49 (mmHg) O2 Sat by Pulse 100 Oximetry 11/14/16 11/14/16 11/14/16 17:47 17:50 19:14 Temperature 97.5 F Pulse Rate 92 90 84 Respiratory 23 18 18 Rate Blood Pressure 130/59 (mmHg) O2 Sat by Pulse 94 95 97 Oximetry 11/14/16 11/14/16 11/14/16 19:37 19:59 20:00 Temperature 98.6 F Pulse Rate 94 69 Respiratory 18 20 19 Rate Blood Pressure 116/58 (mmHg) O2 Sat by Pulse 92 98 Oximetry 11/14/16 11/14/16 11/15/16 20:45 22:45 00:04 Temperature 98.3 F Pulse Rate 123 Respiratory 20 18 20 Rate Blood Pressure 135/43 (mmHg) O2 Sat by Pulse 91 Oximetry 11/15/16 11/15/16 11/15/16 00:11 01:49 03:49 Temperature Pulse Rate 104 Respiratory 18 17 16 Rate Blood Pressure (mmHg) O2 Sat by Pulse 90 Oximetry 11/15/16 11/15/16 11/15/16 04:00 05:43 07:30 Temperature 98.4 F 97.8 F Pulse Rate 85 87 Respiratory 16 17 16 Rate Blood Pressure 121/53 127/55 (mmHg) O2 Sat by Pulse 98 96 Oximetry 11/15/16 11/15/16 11/15/16 07:43 08:00 08:23 Temperature Pulse Rate Respiratory 18 18 18 Rate Blood Pressure (mmHg) O2 Sat by Pulse 96 Oximetry Oxygen Devices in Use Now: Nasal Cannula - 2L Appearance: NAD, laying in bed Eyes: No Scleral Icterus, PERRLA Ears/Nose/Mouth/Throat: NL Teeth, Lips, Gums, Mucous Membranes Moist Neck: NL Appearance and Movements; NL JVP, Trachea Midline Respiratory: Symmetrical Chest Expansion and Respiratory Effort, - - Lungs with creackles bilateral Cardiovascular: NL Sounds; No Murmurs; No JVD, RRR, - - Reproducible chest pain Abdominal: NL Sounds; No Tenderness; No Distention - Bowel sounds present Extremities: - - 1+ edema to bilateral LE Skin: No Rash or Ulcers Neurological: Alert and Oriented x 3, NL Muscle Strength and Tone Lines/Tubes/Other Access: Clean, Dry and Intact Peripheral IV - site benign Result Diagrams: 11/15/16 05:50 11/15/16 05:50 Assess/Plan/Problems-Billing Assessment: Ms. Angeles is a 61 yo female with a PMH of diabetes, recurrent renal stones, HTN, Obesity and hx coronary artery spasm who presented with intractable back and right leg. - Patient Problems (1) Intractable back pain Code(s): M54.9 - DORSALGIA, UNSPECIFIED SNOMED Code(s): 582353457 Comment: - Disk herniation with severe radiculopathy s/p lumbar discectomy L5 -S1 on the right - POD #1, management per Neurosurgery - PT /OT (2) Chest pain Code(s): R07.9 - CHEST PAIN, UNSPECIFIED SNOMED Code(s): 51413666 Comment: - Reports midsternal chest pain today - Troponin 0.05, will trend trops - EKG showing SR with no changes from prior EKGs. - Pt noted to have crackles in bilateral lungs and chest xray 2/7 with vascular congestion - Chest pain improved, with Nitro X2 - Pt with hx Prinzmetal angina - Suspect this could be demand ischemia - Will give morphine and IV lasix (3) Diabetes Code(s): E11.9 - TYPE 2 DIABETES MELLITUS WITHOUT COMPLICATIONS SNOMED Code(s) : 87910523 Comment: - Glucose 70-200's - FSBG QACHS hours with lispro SS; continue lantus 45 units (4) HTN (hypertension) Code(s): I10 - ESSENTIAL (PRIMARY) HYPERTENSION SNOMED Code(s): 11680440 Comment: - SBP 100-130's - Stable. Continue cardizem; hold HCTZ (5) Hyperlipidemia Code(s): E78.5 - HYPERLIPIDEMIA, UNSPECIFIED SNOMED Code(s): 90978503 Comment: - Continue statin (6) RICHARD (obstructive sleep apnea) Code(s): G47.33 - OBSTRUCTIVE SLEEP APNEA (ADULT) (PEDIATRIC) SNOMED Code(s): 57566427 Comment: - CPAP (7) DVT prophylaxis Code(s): NYF6430 - SNOMED Code(s): 602370199 Comment: - DVT prophylaxsis per Neurosurgery - SCDs (8) Full code status Code(s): Z78.9 - OTHER SPECIFIED HEALTH STATUS SNOMED Code(s): 205263131 Status and Disposition: inpatient. Dispo per neurosurgery. Hospital medicine will continue to follow
[2016-11-15 12:42] LABS: Magnesium 1.9 mg/dL (1.9-2.7)
[2016-11-15] MEDS: HYDROmorphone TAB* 4 MG PO PRN ×2 (14:17→18:23)
[2016-11-15] MEDS: Atorvastatin* 10 MG TAB PO SCH (18:24)
[2016-11-15] MEDS: Sertraline* 25 MG TAB PO SCH (20:58)
[2016-11-15] MEDS: Insulin GLARGINE(*) 1 UNITS UNIT SUBCUT SCH (20:58)
[2016-11-15] MEDS ORDERED: methylPREDNISolone 125 MG* 2 ML VIAL IV ONE (21:56)
[2016-11-15] MEDS ORDERED: Diazepam TAB(*) 5 MG PO ONE (21:56)
[2016-11-15] MEDS ORDERED: Ketorolac INJ* 30 MG/ML 1 ML VIAL IV PUSH ONE (21:57)
--- NOTE | 2016-11-15 21:58 | PN ---
Hospitalist Progress Note Called by night nurse for intractable pain despite increasing dose of oral Dilaudid. Ordered one time dose of Solumedrol, Toradol and Valium for adjunct pain control. Continued oral Dilaudid.
[2016-11-15] MEDS: Latanoprost 0.005%* 2.5 ml BTL BOTH EYES SCH (22:29)
[2016-11-16] MEDS: HYDROmorphone TAB* 4 MG PO PRN ×5 (00:21→23:03)
[2016-11-16] MEDS: Zolpidem TAB* 5 MG PO PRN ×2 (00:28→23:03)
[2016-11-16 07:05] LABS: Hematocrit 33 % (35-47); Hemoglobin 10.7 g/dl (12.0-16.0); Mean Corpuscular HGB Conc 33 g/dl (31-36); Mean Corpuscular Hemoglobin 29 pg (27-31); Mean Corpuscular Volume 88 fL (80-97); Mean Platelet Volume 7 um3 (7.4-10.4); Red Blood Count 3.74 10^6/ul (4.0-5.4); Red Cell Distribution Width 15 % (10.5-15); White Blood Count 8.3 10^3/ul (3.5-10.8)
--- NOTE | 2016-11-16 08:45 | PN ---
Subjective Date of Service: 11/16/16 Interval History: Patient seen and examined at bedside. Pt states that her pain has improved this morning after receiving the extra pain medication overnight. Pt states that she was able to get some sleep overnight. Pt is concerned about going home as she lives alone and has no help. Denies fever, chills, shortness of breath, chest discomfort, N/V/D. Pt reports a frequent cough. Pt reports that her family has recently been sick with upper respiratory symptoms. Pt states that she feels like she is wheezing. Family History: Unchanged from Admission Social History: Unchanged from Admission Past Medical History: Unchanged from Admission Objective Active Medications: Acetaminophen (Tylenol Tab*) 650 mg PO Q4H PRN Reason: Pain Or Temperature > 101 F Albuterol/Ipratropium (Duoneb Neb.Yolanda*) 1 neb INH Q4H PRN Reason: SOB/WHEEZING Atorvastatin Calcium (Lipitor*) 5 mg PO QPM [facility] Dextrose (D50w Syringe 50 Ml*) 12.5 gm IV PUSH .FOR FS < 60 - SS PRN Reason: FS < 60 Diltiazem HCl (Cardizem Cd Cap*) 180 mg PO QAM [facility] Docusate Sodium (Colace Cap*) 100 mg PO BID PRN Reason: CONSTIPATION Gabapentin (Neurontin Cap(*)) 600 mg PO TID [facility] Hydromorphone HCl (Dilaudid Tab*) 4 mg PO Q4H PRN Reason: PAIN Insulin Glargine (Lantus(*)) 60 units SUBCUT BEDTIME [facility] Insulin Human Lispro (Humalog*) 0 units SUBCUT FS ACHS ICU [facility] Reason: Protocol Latanoprost (Xalatan 0.005%*) 1 drop BOTH EYES BEDTIME [facility] Nitroglycerin (Nitroglycerin Tab 0.4 Mg*) 0.4 mg SL Q5M PRN Reason: ANGINA Omeprazole (Prilosec Cap*) 20 mg PO DAILY@0730 [facility] Ondansetron HCl (Zofran Inj*) 4 mg IV Q4H PRN Reason: NAUSEA/VOMITING Sertraline HCl (Zoloft*) 25 mg PO BEDTIME [facility] Zolpidem Tartrate (Ambien Tab*) 5 mg PO BEDTIME PRN Reason: INSOMNIA Vital Signs 11/15/16 11/15/16 11/15/16 14:17 15:55 16:00 Temperature 97.6 F Pulse Rate 90 Respiratory 16 16 Rate Blood Pressure 130/58 (mmHg) O2 Sat by Pulse 95 95 Oximetry 11/15/16 11/15/16 11/15/16 16:17 18:23 19:45 Temperature 98.7 F Pulse Rate 100 Respiratory 16 16 16 Rate Blood Pressure 146/63 (mmHg) O2 Sat by Pulse 95 Oximetry 11/15/16 11/16/16 11/16/16 23:02 00:21 00:26 Temperature 98.9 F Pulse Rate 97 Respiratory 18 17 16 Rate Blood Pressure 112/44 (mmHg) O2 Sat by Pulse 91 Oximetry 11/16/16 11/16/16 11/16/16 02:21 03:26 05:24 Temperature 98.2 F Pulse Rate 79 Respiratory 16 14 16 Rate Blood Pressure 98/44 (mmHg) O2 Sat by Pulse 95 Oximetry 11/16/16 11/16/16 07:24 07:51 Temperature 97.8 F Pulse Rate 75 Respiratory 18 16 Rate Blood Pressure 99/52 (mmHg) O2 Sat by Pulse 91 Oximetry Oxygen Devices in Use Now: None Appearance: NAD, laying in bed Eyes: No Scleral Icterus, PERRLA Ears/Nose/Mouth/Throat: NL Teeth, Lips, Gums, Mucous Membranes Moist Neck: NL Appearance and Movements; NL JVP, Trachea Midline Respiratory: Symmetrical Chest Expansion and Respiratory Effort, Clear to Auscultation Cardiovascular: RRR, - - Grade 2-3/6 systolic murmur heard best at left sternal border Abdominal: NL Sounds; No Tenderness; No Distention - Bowel sound present Extremities: No Edema Skin: - - Dressing to lower back with old bloody drainage, dry and intact Neurological: Alert and Oriented x 3, NL Muscle Strength and Tone Lines/Tubes/Other Access: Clean, Dry and Intact Peripheral IV - site benign Nutrition: Taking PO's Result Diagrams: 11/16/16 06:38 11/15/16 05:50 Assess/Plan/Problems-Billing Assessment: Ms. Angeles is a 61 yo female with a PMH of diabetes, recurrent renal stones, HTN, Obesity and hx coronary artery spasm who presented with intractable back and right leg. - Patient Problems (1) Intractable back pain Code(s): M54.9 - DORSALGIA, UNSPECIFIED SNOMED Code(s): 908460811 Comment: - Disk herniation with severe radiculopathy s/p lumbar discectomy L5 -S1 on the right - POD #2, management per Neurosurgery - PT /OT - Continue pain management (2) Chest pain Code(s): R07.9 - CHEST PAIN, UNSPECIFIED SNOMED Code(s): 08380099 Comment: - Resolved, reported midsternal chest pain yesterday - Troponin peaked at 0.06 - EKG showing SR with no changes from prior EKGs - Pt with hx Prinzmetal angina - Suspect this could be demand ischemia (3) Diabetes Code(s): E11.9 - TYPE 2 DIABETES MELLITUS WITHOUT COMPLICATIONS SNOMED Code(s) : 13614384 Comment: - Glucose 110-170's - FSBG QACHS hours with lispro SS; continue lantus 45 units (4) HTN (hypertension) Code(s): I10 - ESSENTIAL (PRIMARY) HYPERTENSION SNOMED Code(s): 79338182 Comment: - SBP 90-130's - Stable. Continue cardizem; hold HCTZ (5) Hyperlipidemia Code(s): E78.5 - HYPERLIPIDEMIA, UNSPECIFIED SNOMED Code(s): 43357212 Comment: - Continue statin (6) RICHARD (obstructive sleep apnea) Code(s): G47.33 - OBSTRUCTIVE SLEEP APNEA (ADULT) (PEDIATRIC) SNOMED Code(s): 12726188 Comment: - CPAP (7) DVT prophylaxis Code(s): LES2422 - SNOMED Code(s): 758624095 Comment: - DVT prophylaxsis per Neurosurgery - SCDs (8) Full code status Code(s): Z78.9 - OTHER SPECIFIED HEALTH STATUS SNOMED Code(s): 253027047 Status and Disposition: inpatient. Dispo per neurosurgery. Hospital medicine will continue to follow
[2016-11-16] MEDS: Omeprazole CAP* 20 MG PO SCH (09:08)
[2016-11-16] MEDS: Diltiazem CD CAP* 180 MG PO SCH (09:09)
[2016-11-16] MEDS: Gabapentin CAP(*) 300 MG PO SCH ×3 (09:09→20:57)
[2016-11-16] MEDS: Insulin LISPRO* 1 UNITS UNIT SUBCUT SCH ×4 (09:10→21:37)
--- NOTE | 2016-11-16 13:20 | PN ---
Progress Note - Progress Note SOAP: Subjective: [This is a 61 year old female s/p lumbar discectomy L5-S1 on the right, POD #2. She reports an episode of chest pain yesterday and describes it as severe, sharp , sudden pain different than previously experienced coronary spasm. Symptoms resolved over a short period of time. She complains this morning of continued right lower extremity pain and numbness in the foot, improved but not resolved from pre-op. Reports mild headache, low back incisional pain and cough. Denies numbness, tinging, weakness and pain in the left lower extremity. She has been up to the bathroom with assistance but has not ambulated the nursing unit. She is eating , drinking and voiding without difficulty.] Objective: [ Vital Signs: Temp Pulse Resp BP Pulse Ox 97.8 F 80 16 99/52 95 11/16/16 07:51 11/16/16 09:44 11/16/16 11:09 11/16/16 07:51 11/16/16 09:44 General: Alert and oriented. No distress. Sitting in chair, preparing to wash up. Neuro: Motor and sensory intact. Incision: Intact with miya. No swelling or signs of infection. Nontender. Extremities: Full ROM throughout.] Assessment: [This patient is following a satisfactory post-operative course at this time. She continues to experience right lower extremity pain controlled with oral pain medications. She would benefit from subacute rehab. ] Plan: [1. Continue current pain medications. 2. Encourage ambulation. 3. Possible discharge to subacute rehab facility tomorrow. ]
[2016-11-16] MEDS: GuaiFENesin DM sugar free* 5 ML UDC PO PRN ×3 (13:34→21:36)
[2016-11-16] MEDS: Atorvastatin* 10 MG TAB PO SCH (17:35)
[2016-11-16] MEDS: Sertraline* 25 MG TAB PO SCH (20:56)
[2016-11-16] MEDS: Insulin GLARGINE(*) 1 UNITS UNIT SUBCUT SCH (21:01)
[2016-11-16] MEDS: Latanoprost 0.005%* 2.5 ml BTL BOTH EYES SCH (21:37)
--- NOTE | 2016-11-16 21:42 | RAD ---
HISTORY: Cough, shortness of breath COMPARISONS: November 14, 2016 VIEWS:1: Single frontal portable view of the chest at 9:11 PM FINDINGS: LINES AND TUBES: None. CARDIOMEDIASTINAL SILHOUETTE: The cardiomediastinal silhouette is normal for portable technique. PLEURA: The costophrenic angles are sharp. No pleural abnormalities are noted. LUNG PARENCHYMA: There is prominence of the central pulmonary vasculature. There has been improved aeration of the lung bases compared to November 14, 2016 examination. ABDOMEN: The upper abdomen is clear. There is no subphrenic gas. BONES AND SOFT TISSUES: The patient is status post anterior cervical fusion IMPRESSION: PULMONARY VASCULAR CONGESTION
[2016-11-16] MEDS ORDERED: Furosemide IV* 10 MG/ML 2 ML VIAL (20 MG) IV ONE (22:47)
--- NOTE | 2016-11-16 23:00 | PN ---
Hospitalist Progress Note Contacted by evening nursing with complaints of SOB. No hypoxia or tachypnea. CXR ordered with shows mild PVC. Ordered 20mg IV Lasix.
--- NOTE | 2016-11-17 07:47 | PN ---
Progress Note - Progress Note SOAP: Subjective: []POD # 3 Better night Has pain in leg but less than pre op Feels she is ready to go home Objective: []Ambulating ,voiding well Dressing intact Neuro intact Assessment: []Stable post op Plan: []D/C today D/C instructions given
[2016-11-17 08:18] VITALS: BP 106/56
[2016-11-17] MEDS: Omeprazole CAP* 20 MG PO SCH (09:26)
[2016-11-17] MEDS: Gabapentin CAP(*) 300 MG PO SCH (09:26)
[2016-11-17] MEDS: Insulin LISPRO* 1 UNITS UNIT SUBCUT SCH (09:27)
[2016-11-17] MEDS: Diltiazem CD CAP* 180 MG PO SCH (09:27)
--- NOTE | 2016-11-17 10:46 | PN ---
Subjective Date of Service: 11/17/16 Interval History: Patient seen and examined at bedside. Pt states that she is feeling better, continues to have some chest congestion. Pt states that her grandson was sick prior to admission. Denies fever, chills, shortness of breath, chest discomfort , N/V/D. Pt states that pain has improved, but she is having pain in her right LE when standing. Family History: Unchanged from Admission Social History: Unchanged from Admission Past Medical History: Unchanged from Admission Objective Active Medications: Acetaminophen (Tylenol Tab*) 650 mg PO Q4H PRN Reason: Pain Or Temperature > 101 F Albuterol/Ipratropium (Duoneb Neb.Yolanda*) 1 neb INH Q4H PRN Reason: SOB/WHEEZING Atorvastatin Calcium (Lipitor*) 5 mg PO QPM [facility] Dextrose (D50w Syringe 50 Ml*) 12.5 gm IV PUSH .FOR FS < 60 - SS PRN Reason: FS < 60 Diltiazem HCl (Cardizem Cd Cap*) 180 mg PO QAM [facility] Docusate Sodium (Colace Cap*) 100 mg PO BID PRN Reason: CONSTIPATION Gabapentin (Neurontin Cap(*)) 600 mg PO TID [facility] Guaifenesin/Dextromethorphan (Robitussin Dm Sugar Free*) 5 ml PO Q4H PRN Reason : COUGH Hydromorphone HCl (Dilaudid Tab*) 4 mg PO Q4H PRN Reason: PAIN Insulin Glargine (Lantus(*)) 60 units SUBCUT BEDTIME [facility] Insulin Human Lispro (Humalog*) 0 units SUBCUT FS ACHS ICU [facility] Latanoprost (Xalatan 0.005%*) 1 drop BOTH EYES BEDTIME [facility] Nitroglycerin (Nitroglycerin Tab 0.4 Mg*) 0.4 mg SL Q5M PRN Reason: ANGINA Omeprazole (Prilosec Cap*) 20 mg PO DAILY@0730 [facility] Ondansetron HCl (Zofran Inj*) 4 mg IV Q4H PRN Reason: NAUSEA/VOMITING Sertraline HCl (Zoloft*) 25 mg PO BEDTIME [facility] Zolpidem Tartrate (Ambien Tab*) 5 mg PO BEDTIME PRN Reason: INSOMNIA Vital Signs 11/16/16 11/16/16 11/16/16 11:09 11:19 13:37 Temperature 98.2 F Pulse Rate 82 Respiratory 16 16 18 Rate Blood Pressure 102/43 (mmHg) O2 Sat by Pulse 91 Oximetry 11/16/16 11/16/16 11/16/16 14:05 15:07 15:24 Temperature 98.0 F Pulse Rate 75 Respiratory 18 18 16 Rate Blood Pressure 106/52 (mmHg) O2 Sat by Pulse 94 Oximetry 11/16/16 11/16/16 11/16/16 16:00 19:16 19:38 Temperature 98.0 F Pulse Rate 81 Respiratory 17 16 16 Rate Blood Pressure 110/60 (mmHg) O2 Sat by Pulse 95 92 Oximetry 11/16/16 11/16/16 11/17/16 22:57 23:03 00:00 Temperature Pulse Rate Respiratory 16 16 Rate Blood Pressure (mmHg) O2 Sat by Pulse 97 Oximetry 11/17/16 11/17/16 11/17/16 00:56 01:00 01:03 Temperature 97.4 F Pulse Rate 74 65 Respiratory 18 18 Rate Blood Pressure 96/61 96/63 (mmHg) O2 Sat by Pulse 90 96 Oximetry 11/17/16 11/17/16 11/17/16 01:25 04:00 07:17 Temperature 97.3 F 98.1 F Pulse Rate 78 67 61 Respiratory 20 14 18 Rate Blood Pressure 102/52 106/56 (mmHg) O2 Sat by Pulse 97 98 98 Oximetry Oxygen Devices in Use Now: None Appearance: NAD, sitting up on the side of the bed Eyes: No Scleral Icterus, PERRLA Ears/Nose/Mouth/Throat: NL Teeth, Lips, Gums, Mucous Membranes Moist Neck: NL Appearance and Movements; NL JVP, Trachea Midline Respiratory: Symmetrical Chest Expansion and Respiratory Effort, Clear to Auscultation, - - Few scattered crackles that clear with cough Cardiovascular: RRR, - - Grade 2-3/6 systolic murmur heard best at the left sternal border Extremities: No Edema Skin: No Rash or Ulcers, - - Dressing to back clean, dry and intact Neurological: Alert and Oriented x 3, NL Muscle Strength and Tone Lines/Tubes/Other Access: Clean, Dry and Intact Peripheral IV - site benign Nutrition: Taking PO's Result Diagrams: 11/16/16 06:38 11/15/16 05:50 Assess/Plan/Problems-Billing Assessment: Ms. Angeles is a 61 yo female with a PMH of diabetes, recurrent renal stones, HTN, Obesity and hx coronary artery spasm who presented with intractable back and right leg. - Patient Problems (1) Intractable back pain Code(s): M54.9 - DORSALGIA, UNSPECIFIED SNOMED Code(s): 140778975 Comment: - Disk herniation with severe radiculopathy s/p lumbar discectomy L5 -S1 on the right - POD #3, management per Neurosurgery - PT /OT - Continue pain management (2) Chest pain Code(s): R07.9 - CHEST PAIN, UNSPECIFIED SNOMED Code(s): 98504805 Comment: - Resolved - Troponin peaked at 0.06 - EKG showing SR with no changes from prior EKGs - Pt with hx Prinzmetal angina - Suspect elevated trop is related to demand ischemia - Pt with vascular congestion on chest x-ray, received IV lasix overnight. Recommend follow-up with PCP for possible outpatient echo to eval heart function (3) Diabetes Code(s): E11.9 - TYPE 2 DIABETES MELLITUS WITHOUT COMPLICATIONS SNOMED Code(s) : 35854254 Comment: - Glucose 79-200's - FSBG QACHS hours with lispro SS; continue lantus 45 units (4) HTN (hypertension) Code(s): I10 - ESSENTIAL (PRIMARY) HYPERTENSION SNOMED Code(s): 10571336 Comment: - SBP 90-100's - Stable. Continue cardizem; hold HCTZ (5) Hyperlipidemia Code(s): E78.5 - HYPERLIPIDEMIA, UNSPECIFIED SNOMED Code(s): 53343776 Comment: - Continue statin (6) RICHARD (obstructive sleep apnea) Code(s): G47.33 - OBSTRUCTIVE SLEEP APNEA (ADULT) (PEDIATRIC) SNOMED Code(s): 64124036 Comment: - CPAP (7) DVT prophylaxis Code(s): RSY8218 - SNOMED Code(s): 075917641 Comment: - DVT prophylaxsis per Neurosurgery - SCDs (8) Full code status Code(s): Z78.9 - OTHER SPECIFIED HEALTH STATUS SNOMED Code(s): 446814191 Status and Disposition: Inpatient. Dispo per neurosurgery.
[2016-11-17] MEDS: HYDROmorphone TAB* 4 MG PO PRN (10:47)
[2016-11-17] MEDS: GuaiFENesin DM sugar free* 5 ML UDC PO PRN (12:56)
--- NOTE | 2016-11-20 03:53 | OP ---
DATE OF OPERATION: 11/14/16 - ROOM #338 DATE OF : 59 SURGEON: Brayan Amor MD NANNY CAREGIVER: GRACIE Trinidad ANESTHESIOLOGIST: Maico Petersen MD ANESTHESIA: General. PRE-OP DIAGNOSIS: Recurrent herniated nucleus pulposus, L5-S1 on the right. POST-OP DIAGNOSIS: Recurrent herniated nucleus pulposus, L5-S1 on the right. OPERATIVE PROCEDURE: Re-do lumbar diskectomy at L5-S1 on the right with microdissection. DESCRIPTION OF PROCEDURE: After satisfactory general anesthesia was obtained, the patient was placed on the operating table in a prone position with the chest supported on the Jose D frame and the back slightly flexed. The lumbar region was then clipped, prepped, and draped in a sterile manner for lumbar laminectomy and a skin incision outlined from L5 to the sacrum. This was done incorporating a previous lumbar incision. The incision was carried down to the level of the lumbar fascia and scar tissue and the tissue detached from the posterior elements of L5 and S1 and the paraspinal musculature stripped away utilizing the periosteal elevator and monopolar cautery. An intraoperative x-ray was obtained verifying localization of the L5 and S1 interspace after which the confines of the previous laminectomy were dissected free utilizing sharp and blunt dissection. The L5 laminectomy was extended slightly superiorly as well as inferiorly utilizing Midas Dimitrios drill and Kerrison rongeurs. At this point of the procedure, the operating microscope was brought into the field and the remainder of the procedure done under microscopic visualization. Projecting beneath the S1 nerve root was noted to be a large calcified disk herniation. To enter the disk space actually required the use of a Matchstick drill bit. After the interspace was entered, multiple fragments of disks were removed with one coming from just beneath the nerve root. The disk space was decompressed utilizing upbiting and downbiting curettes as well as pituitary rongeurs. There was a slight small dural opening made in the lateral aspect of the nerve root sleeve with the exposed arachnoid noted. This was managed with Gelfoam and at the conclusion of the procedure, DuraSeal tissue adhesive was applied. At the conclusion of the decompression, the S1 nerve root was noted to be free in its course. As noted above, DuraSeal and Gelfoam were applied to the interspace after which the fascia was tightly reapproximated with 0 Vicryl suture. The subcutaneous tissue was closed with 3- 0 Vicryl suture and the skin closed with skin clips. The estimated blood loss was less than 50 cc and final sponge, padding, and needle counts were correct. The patient was taken to the recovery room, extubated, and in stable condition. [id number]/[facility] #: [id number] MTDD
--- NOTE | 2016-11-29 01:56 | DS ---
DISCHARGE SUMMARY: DATE OF ADMISSION: 11/14/16 DATE OF DISCHARGE: 11/17/16 DISCHARGE DIAGNOSES: 1. Recurrent herniated nucleus pulposus, L5-S1 on the right. 2. Coronary artery spasm. 3. Hypertension. SPECIAL PROCEDURES: Lumbar diskectomy at L5-S1 on the right. HOSPITAL COURSE: This 61-year-old female was seen on 11/09/16 with significant right-sided lumbar radiculopathy. She has been experiencing symptoms for the past 6 weeks and was unable to find effective treatment. She is taking pain medications and had been to the emergency department twice. After being seen in the office, she was determined to have a recurrent herniated nucleus pulposus at the same level on the same side, L5-S1 on the right and surgery was discussed. She was admitted at this time for elective surgical intervention. On the day of admission, she was taken to surgery where under general anesthesia a lumbar diskectomy at L5-S1 on the right operation was carried out. Post-operatively, she was experiencing significant amount of pain. Pain was managed with IV and p.o. pain medications. She required extra length stay in the short-stay surgical unit for pain management. On the third postoperative day she was discharged home to the care of her family. Discharge instructions including wound care and activity level were discussed with the patient and provided. She will be seen again in the office in approximately 10 days for followup and staple removal. At the time of discharge, she was eating and drinking without difficulty and she was ambulating with little assistance. DISCHARGE MEDICATIONS: Dilaudid 4 mg one tab by mouth every 4 hours as needed for pain. GRACIE PEDRO [id number]/[facility] #: [id number] WADE
== END 2016-11-17 13:20 | disposition home or self-care (01) | DRG 310 ==
LOC: ED 05:38 → SSU 09:42 → ICU 11-14 14:11 → SSU 11-14 17:55
PROVIDERS: ADMIT Neurological Surgery; ATTEND Neurological Surgery
PROC: 5A09457 Assistance with Respiratory Ventilation, 24-96 Consecutive Hours, Continuous Positive Airway Pressure (ICD-10-PCS; 2016-11-14)
PROC: 0SB20ZZ Excision of Lumbar Vertebral Disc, Open Approach (ICD-10-PCS; principal; 2016-11-14 07:45)
DX: M51.16 Intervertebral disc disorders with radiculopathy, lumbar region (principal); I10 Essential (primary) hypertension; R07.9 Chest pain, unspecified; E11.9 Type 2 diabetes mellitus without complications; E78.5 Hyperlipidemia, unspecified; N20.0 Calculus of kidney; G47.33 Obstructive sleep apnea (adult) (pediatric); E66.9 Obesity, unspecified; Z68.31 Body mass index [BMI] 31.0-31.9, adult; Z88.1 Allergy status to other antibiotic agents; Z88.8 Allergy status to other drugs, medicaments and biological substances; Z87.891 Personal history of nicotine dependence
CPT/HCPCS: 36415; 71010; 72100; 80048; 80053; 81003; 83036; 83735; 84484; 85025; 85610; 86140; 88304; 93005; 94660; 94760; A9270-GY; J0690; J1100; J1170; J1885; J1940; J2250; J2270; J2405; J2704; J2930; J3010

== ENCOUNTER 2016-11-17 21:07 | Observation (INO) | payer BC ==
[2016-11-17] MEDS ORDERED: NS 0.9% 1000 ML* 1,000 ML IV ONE (21:13)
[2016-11-17] MEDS ORDERED: Diazepam SYRINGE* 5 MG/ML 2 ML SYRINGE (10 MG total) IV ONE (21:33)
[2016-11-17] MEDS ORDERED: Ketorolac INJ* 30 MG/ML 1 ML VIAL IV PUSH ONE (21:33)
--- NOTE | 2016-11-17 21:39 | RAD ---
HISTORY: Cough COMPARISONS: November 16, 2016 VIEWS:1: Single frontal portable view of the chest at 9:25 PM FINDINGS: LINES AND TUBES: None. CARDIOMEDIASTINAL SILHOUETTE: The cardiomediastinal silhouette is normal for portable technique. PLEURA: The costophrenic angles are sharp. No pleural abnormalities are noted. LUNG PARENCHYMA: The lungs are clear. There is improved aeration of the lungs bilaterally. ABDOMEN: The upper abdomen is clear. There is no subphrenic gas. BONES AND SOFT TISSUES: The patient is status post anterior cervical fusion IMPRESSION: NO ACTIVE CARDIOPULMONARY DISEASE.
[2016-11-17 22:02] LABS: Hematocrit 36 % (35-47); Hemoglobin 11.4 g/dl (12.0-16.0); Mean Corpuscular HGB Conc 32 g/dl (31-36); Mean Corpuscular Hemoglobin 28 pg (27-31); Mean Corpuscular Volume 87 fL (80-97); Mean Platelet Volume 7 um3 (7.4-10.4); Red Blood Count 4.09 10^6/ul (4.0-5.4); Red Cell Distribution Width 15 % (10.5-15); White Blood Count 9.3 10^3/ul (3.5-10.8)
[2016-11-17] MEDS ORDERED: Acetaminophen TAB* 325 MG PO PRN (22:08)
[2016-11-17] MEDS ORDERED: methylPREDNISolone 125 MG* 2 ML VIAL IV ONE (22:14)
[2016-11-17 22:17] LABS: Albumin 3.4 g/dL (3.2-5.2); BUN/Creatinine Ratio 33.3 (8-20); C Reactive Protein 27.04 mg/L (< 5.00); Calcium 8.9 mg/dL (8.6-10.3); EGFR African American 124.4 (>60); EGFR Non-African American 96.7 (>60); Potassium 3.8 mmol/L (3.5-5.0); Total Bilirubin 0.5 mg/dL (0.2-1.0); Total Protein 6.4 g/dL (6.4-8.9)
[2016-11-17] MEDS ORDERED: Metaxalone TAB* 800 MG PO PRN (22:17)
[2016-11-17] MEDS ORDERED: Dextrose 50% Syringe 50 ML* 25 GM/50 ML SYRINGE IV PUSH PRN (22:20)
--- NOTE | 2016-11-17 22:57 | ED ---
Gonzalez Thompson Billy, scribed for Quincy Cintron MD on 11/17/16 at 2247 . Back Pain - HPI Summary HPI Summary: Patient is a 61 year-old female coming to [facility] presenting with constant lower back pain. She reports pain severity 10/10 radiating down her RLE. Pain is worse when any pressure is applied. She has been taking Dilaudid for pain management without improvement. She denies any nausea and vomiting. She also denies any changes in bladder or bowel control. Patient was recently discharged earlier today after lower back surgery 3 days ago. - History of Current Complaint Chief Complaint: EDBackInjuryPain Stated Complaint: BACK PAIN Time Seen by Provider: 11/17/16 21:08 Hx Obtained From: Patient Onset/Duration: Gradual Onset, Lasting Hours, Still Present Timing: Constant Back Pain Location: Is Discrete @ - lower back Severity Initially: Moderate Severity Currently: Moderate Pain Intensity: 10 Pain Scale Used: 0-10 Numeric Alleviating Symptom(s): Nothing - Allergies/Home Medications Allergies/Adverse Reactions: Allergies Allergy/AdvReac Type Severity Reaction Status Date / Time Niacin [From Niaspan] Allergy Unknown LEGS SWELL Verified 11/12/16 09:10 AND FEEL LIKE SHE'S COMING OUT OF SKIN Potassium Citrate Allergy FLUID Verified 11/12/16 09:10 RETENTION Vancomycin AdvReac Intermediate redmans Verified 11/12/16 09:10 symdrome SEASONAL Allergy SNEEZING, Uncoded 11/12/16 09:10 ITCHY WATERY EYES PMH/Surg Hx/FS Hx/Imm Hx Endocrine/Hematology History: Reports: Hx Diabetes Cardiovascular History: Reports: Hx Hypertension, Hx Peripheral Vascular Disease , Other Cardiovascular Problems/Disorders - VASCULAR SPASMS Denies: Hx Pacemaker/ICD Respiratory History: Reports: Hx Sleep Apnea Denies: Hx Asthma, Hx Chronic Obstructive Pulmonary Disease (COPD), Other Respiratory Problems/Disorders GI History: Reports: Hx Gastroesophageal Reflux Disease, Hx Irritable Bowel, Other GI Disorders - HX OF CONSTIPATION, Rika, History: Reports: Hx Kidney Infection, Hx Kidney Stones, Hx Renal Disease - kidney stones, Other Problems/Disorders - SUZANNE, uretal stents Denies: Hx Dialysis Musculoskeletal History: Reports: Hx Arthritis, Hx Back Problems, Other Musculoskeletal History - bulging disc, spinal stenosis Denies: Hx Scoliosis Sensory History: Reports: Hx Contacts or Glasses - reading, Hx Glaucoma Denies: Hx Hearing Aid Opthamlomology History: Reports: Hx Contacts or Glasses - reading, Hx Glaucoma Neurological History: Reports: Hx Migraine, Other Neuro Impairments/Disorders - bulging disk (2) in lower back Denies: Hx Dementia, Hx Headaches, Hx Seizures Psychiatric History: Reports: Hx Depression - ON MEDS Denies: Hx Panic Disorder - Surgical History Surgery Procedure, Year, and Place: X3, GALLBLADDER,HYSTERECTOMY,TUBAL ,APPENDECTOMY, CERVICAL FUSION, LOW BACK 12/2014 Hx Anesthesia Reactions: No Infectious Disease History: Denies: Traveled Outside the [place] in Last 30 Days - Family History Known Family History: Positive: Other - neg: family reaction to anasthesia - Social History Alcohol Use: None Alcohol Amount: 1 PER YEAR Substance Use Type: Reports: None Smoking Status (MU): Former Smoker Type: Cigarettes Amount Used/How Often: 2-3/ week Length of Time of Smoking/Using Tobacco: 2 years Have You Smoked in the Last Year: No Review of Systems Negative: Fever Positive: Other - lower back pain All Other Systems Reviewed And Are Negative: Yes Physical Exam - Summary Physical Exam Summary: VITAL SIGNS: Reviewed. GENERAL: Patient is a well developed and nourished female with acute distress secondary to pain. Patient is not in any acute respiratory distress. HEAD AND FACE: No signs of trauma. EYES: PERRLA, EOMI x 2. EARS: Hearing grossly intact. Ear canals and tympanic membranes are WNL MOUTH: Oropharynx within normal limits. NECK: Supple, trachea is midline, no adenopathy, no JVD. CHEST: Symmetric, no tenderness at palpation LUNGS: Clear to auscultation bilaterally. No wheezing or crackles. CVS: RRR, S1 and S2 present, no murmurs or gallops appreciated. ABDOMEN: Soft, NT. No signs of distention. Positive BS. No rebound no guarding, and no masses palpated. EXTREMITIES: FROM in all major joints, no edema, no cyanosis or clubbing. NEURO: Alert and oriented x 3. No acute neurological deficits. Speech is normal and follows commands. SKIN: Dry and warm Back: There is no ecchymosis, no deformity, positive paraspinal muscle tenderness in the lumbar spine. Positive vertebral tenderness. No saddle anesthesia. Refuses rectal exam. Straight test is positive in the right LE. Surgical scar is C/D/I. Triage Information Reviewed: Yes Vital Signs On Initial Exam: Initial Vitals Resp 15 11/17/16 22:09 Vital Signs Reviewed: Yes Diagnostics - Vital Signs Vital Signs Temp Pulse Resp BP Pulse Ox 11/17/16 22:16 98 F 74 22 118/46 98 11/17/16 22:09 15 - Laboratory Lab Results: Lab Results 11/17/16 11/17/16 11/17/16 Range/Units 21:53 21:53 21:53 WBC 9.3 (3.5-10.8) 10^3/ul RBC 4.09 (4.0-5.4) 10^6/ul Hgb 11.4 L (12.0-16.0) g/dl Hct 36 (35-47) % MCV 87 (80-97) fL MCH 28 (27-31) pg MCHC 32 (31-36) g/dl RDW 15 (10.5-15) % Plt Count 280 (150-450) 10^3/ul MPV 7 L (7.4-10.4) um3 Neut % (Auto) 71.2 (38-83) % Lymph % (Auto) 16.0 L (25-47) % Weld % (Auto) 11.6 H (1-9) % Eos % (Auto) 0.9 (0-6) % Baso % (Auto) 0.3 (0-2) % Absolute Neuts (auto) 6.6 (1.5-7.7) 10^3/ul Absolute Lymphs (auto) 1.5 (1.0-4.8) 10^3/ul Absolute Monos (auto) 1.1 H (0-0.8) 10^3/ul Absolute Eos (auto) 0.1 (0-0.6) 10^3/ul Absolute Basos (auto) 0 (0-0.2) 10^3/ul Absolute Nucleated RBC 0.01 10^3/ul Nucleated RBC % 0.1 Sodium 135 (133-145) mmol/L Potassium 3.8 (3.5-5.0) mmol/L Chloride 101 (101-111) mmol/L Carbon Dioxide 30 (22-32) mmol/L Anion Gap 4 (2-11) mmol/L BUN 21 (6-24) mg/dL Creatinine 0.63 (0.51-0.95) mg/dL Est GFR ( Amer) 124.4 (>60) Est GFR (Non-Af Amer) 96.7 (>60) BUN/Creatinine Ratio 33.3 H (8-20) Glucose 127 H (70-100) mg/dL Lactic Acid 1.3 (0.5-2.0) mmol/L Calcium 8.9 (8.6-10.3) mg/dL Total Bilirubin 0.50 (0.2-1.0) mg/dL AST 74 H (13-39) U/L ALT 93 H (7-52) U/L Alkaline Phosphatase 59 (34-104) U/L C-Reactive Protein 27.04 H (< 5.00) mg/L Total Protein 6.4 (6.4-8.9) g/dL Albumin 3.4 (3.2-5.2) g/dL Globulin 3.0 (2-4) g/dL Albumin/Globulin Ratio 1.1 (1-3) Result Diagrams: 11/17/16 21:53 11/17/16 21:53 Lab Statement: Any lab studies that have been ordered have been reviewed, and results considered in the medical decision making process. - Radiology CXR Xray Interpretation: No Acute Changes Radiology Interpretation Completed By: Radiologist Back Pain Course/Dx - Course Assessment/Plan: Patient is a 61 year-old female coming to [facility] presenting with constant lower back pain. She reports pain severity 10/10 radiating down her RLE. Pain is worse when any pressure is applied. She has been taking Dilaudid for pain management without improvement. She denies any nausea and vomiting. She also denies any changes in bladder or bowel control. Patient was recently discharged earlier today after lower back surgery 3 days ago. Test results shows Hgb of 11.4, glucose of 127, slightly elevated liver enzymes and CRP is 27.04 which might be consistent with recent back surgery. CXR shows no active cardiopulmonary disease. In the ED course, patient was given Toradol and Valium for the back pain. I discussed the case with Dr. Beauchamp from neurosurgery who recommended that the pt be admitted to the medical team for pain control. He does not recommend any other images to r/o epidura abscess or any other lumbar pathology. I discussed the case with Dr. Yu who accepted the patient for admission. The patient is hemodynamically stable, A&Ox3. - Diagnoses Differential Diagnosis/HQI/PQRI: Positive: Herniated Disc, Septic Arthritis, Other - intractable pain, epidural abscess, Provider Diagnoses: Intractable low back pain, Status post lumbar surgery - Provider Notifications Discussed Care of Patient With: Dr. Beauchamp (neurosurgery) @ 2109: recommends admission to hospitalist for pain control. Dr. Yu (hospitalist) @ 2134 : accepts admission. Discharge - Discharge Plan Condition: Stable Disposition: ADMITTED TO [facility] Referrals: Maico Turner MD [Primary Care Provider] - The documentation as recorded by the Gonzalez fuentes Billy accurately reflects the service I personally performed and the decisions made by , Quincy Cintron MD.
[2016-11-17] MEDS ORDERED: Enoxaparin(*) 40 MG/0.4 ML SYR SUBCUT SCH (23:00)
--- NOTE | 2016-11-18 00:08 | HP ---
ADMISSION HISTORY AND PHYSICAL: DATE OF ADMISSION: 11/17/16 PRIMARY CARE PROVIDER: Dr. Turner. NEUROSURGEON: Dr. Amor. ADMITTING PROVIDER: GRACIE Cardoso SUPERVISING PHYSICIAN: Dr. Steve Yu.* (DICTATED BY GRACIE CARDOSO) CHIEF COMPLAINT: Intractable back pain. HISTORY OF PRESENT ILLNESS: This is a 61-year-old female with insulin- dependent diabetes and obstructive sleep apnea, who was discharged earlier today after a lumbar diskectomy by Dr. Amor earlier this week. The patient returned to home and states that she took her Dilaudid and Soma as prescribed, but her pain became intolerable and she was unable to ambulate or sit comfortably, so she returned to the emergency department for further evaluation. The patient denies any weakness in her right lower extremity. She does describe some mild numbness in her foot, which has been intermittent both preop and postop. She has some pain in her posterior right leg that extends to her posterior knee and not beyond that. Again, this has been a chronic complaint for her both preop and postoperatively and states that her leg pain is actually slightly improved since surgery. She denies any left leg pain. No bowel or bladder incontinence. During the patient's hospital stay, she has developed a cough. Chest x-ray last night suggested some mild pulmonary venous congestion and she received some Lasix with positive effect. The patient has been afebrile and denies any shortness of breath. She denies abdominal pain, nausea, vomiting, and diarrhea. She states that she had taken the remainder of her medications as recommended. PAST MEDICAL HISTORY: 1. Chronic back pain. 2. Insulin-dependent diabetes. 3. Hyperlipidemia. 4. Hypertension. 5. Obstructive sleep apnea. 6. Glaucoma. PAST SURGICAL HISTORY: 1. Anterior cervical diskectomy. 2. Hemilaminectomy at L5-S1. 3. Ureteral stenting with stent retrieval. 4. . 5. Laparoscopic cholecystectomy. 6. Appendectomy. 7. Hysterectomy. 8. Diskectomy by Dr. Amor, 11/14/16. HOME MEDICATIONS: 1. Ambien 5 mg p.o. at bedtime as needed for insomnia. 2. Vitamin D 1000 units p.o. daily. 3. Diltiazem 180 mg p.o. daily. 4. Gabapentin 600 mg p.o. t.i.d. 5. Dilaudid 4 mg p.o. q.4 hours as needed for pain. 6. Hydrochlorothiazide 25 mg p.o. daily. 7. NovoLog with meals on a sliding scale. 8. Toradol 10 mg p.o. q.4 hours as needed for pain. 9. Metaxalone 800 mg p.o. t.i.d. as needed for muscle spasms. 10. Omeprazole 20 mg p.o. daily. 11. Zofran 4 mg p.o. q.6 hours as needed for nausea. 12. Pravastatin 20 mg p.o. nightly. 13. Sertraline 25 mg p.o. daily. 14. Lantus 45 units subcu daily. SOCIAL HISTORY: The patient is a former smoker. Unsure of pack-year history. She currently lives alone. Her healthcare proxy is her daughter. REVIEW OF SYSTEMS: As listed above in HPI and otherwise negative. PHYSICAL EXAMINATION GENERAL: This is a moderately uncomfortable-appearing middle-aged female, lying in emergency department stretcher. VITAL SIGNS: Temperature 98 degrees Fahrenheit, pulse 74 beats per minute, respiratory rate 22, oxygen saturation 98% on room air, blood pressure 118/46 mmHg. HEENT: Head is normocephalic, atraumatic. Mucous membranes are pink and moist. LUNGS: Have diffuse rhonchorous sounds throughout all lung mendez. No crackles or wheezes appreciated. CARDIOVASCULAR: Heart has a regular rate and rhythm without murmurs, rubs, or gallops. ABDOMEN: Soft and nontender to palpation. SKIN: Limited exam shows no concerning rashes or lesions. NEUROLOGIC: Lower extremity strength is intact as is gross sensation. Gait was not evaluated. DIAGNOSTIC STUDIES/LAB DATA: CBC shows white blood cell count of 9,300, hemoglobin of 11.4 g/dL, and platelet count of 280,000. Comprehensive metabolic panel: Sodium of 135 mmol/L, potassium 3.8 mmol/L, serum bicarb 30, BUN 21, creatinine 0.63, estimated GFR of 96. Random glucose of 127 mg/dL. Lactic acid 1.3. Total bilirubin normal. AST and ALT mildly elevated at 74 and 93 respectively. CRP mildly elevated at 27. IMAGING: Chest x-ray shows no acute process. ASSESSMENT AND PLAN: This is a 61-year-old female who underwent a diskectomy by Dr. Amor, 11/14/16, who returns with intractable back pain. She has a history of insulin-dependent diabetes, chronic back pain, hypertension, hyperlipidemia, obstructive sleep apnea, and glaucoma. The patient will be admitted to observation for pain control. 1. Intractable back pain, status post diskectomy - the patient has no acute neurologic complaints. She was discharged home earlier this afternoon and returns with intractable back pain after failing oral pain medications. She also has a cough, which seems to be related to an acute bronchitis based on her exam findings that certainly complicating her pain control. At this time, we will give her one dose of Solu-Medrol, which may help with her pain, but also hopefully decrease some of the inflammation in her lungs and reduce the amount of cough she has. We will continue her prescribed dose of Dilaudid. We will switch from gabapentin to Lyrica to see if she gets additional pain relief from that rather than increasing her gabapentin. Continue p.r.n. Toradol and muscle relaxants. The emergency department provider, Dr. Cintron, contacted covering neurosurgeon, Dr. Brody, in regards to this patient, who did not recommend any repeat imaging of the lumbar spine. 2. Acute bronchitis - the patient has diffuse rhonchorous breath sounds and a frequent dry cough. No infiltrates appreciated on chest x-ray and no leukocytosis or fever. We will give her a dose of Solu-Medrol in the emergency department this evening and continue with oral prednisone. Her cough is certainly complicating her pain control. 3. Insulin-dependent diabetes - random glucose seems to demonstrate adequate control. Last hemoglobin A1c from 11/14/16 was 7% indicating good control. We will continue her home dose of Lantus and cover with sliding scale Humalog at meal times. 4. Hypertension - continue home medications. 5. Obstructive sleep apnea. 6. Hyperlipidemia. 7. Code status. The patient is a full code. 8. Healthcare proxy is her sister. 9. DVT prophylaxis. We will hold on medical prophylaxis in the setting of recent back surgery and order SCDs for prophylaxis. DISPOSITION: The patient is being readmitted to the hospital for pain control following diskectomy, 11/14/16. She is being admitted to the observation status with anticipated discharge tomorrow. GRACIE CARDOSO CC: Dr. Turner; Dr. Amor* [id number]/[facility] #: [id number] [facility]
[2016-11-18] MEDS: Ondansetron INJ* 2 MG/ML VIAL IV PRN ×2 (02:23→12:45)
[2016-11-18] MEDS: HYDROmorphone TAB* 4 MG PO PRN ×4 (02:25→20:08)
[2016-11-18] MEDS: Pregabalin CAP(*) 25 MG PO SCH ×3 (02:38→22:57)
[2016-11-18] MEDS: Insulin GLARGINE(*) 1 UNITS UNIT SUBCUT SCH ×2 (03:02→22:58)
[2016-11-18] MEDS: Zolpidem TAB* 5 MG PO SCH ×2 (03:02→22:57)
[2016-11-18 07:14] LABS: BUN/Creatinine Ratio 36.2 (8-20); Calcium 8.9 mg/dL (8.6-10.3); EGFR African American 136.8 (>60); EGFR Non-African American 106.4 (>60); Potassium 4.1 mmol/L (3.5-5.0)
[2016-11-18] MEDS: Benzonatate CAP* 100 MG PO SCH ×2 (08:02→22:57)
[2016-11-18] MEDS: Omeprazole CAP* 20 MG PO SCH (08:02)
[2016-11-18] MEDS: Hydrochlorothiazide TAB* 25 MG PO SCH ×2 (08:02→08:05)
[2016-11-18] MEDS: predniSONE TAB* 20 MG PO SCH (08:02)
[2016-11-18] MEDS: Diltiazem CD CAP* 180 MG PO SCH (08:02)
--- NOTE | 2016-11-18 08:16 | CONSULT ---
Back Pain - HPI Summary HPI Summary: Patient is a 61 year-old female coming to [facility] presenting with lower back pain , cough and upper respiratory infection symptoms. She had L5/S1 microdisctomy 3 days ago and recently discharged earlier today. She reports pain severity radiating down her RLE. She also has cough and sore thorat, which make back pain much worse. She has been taking Dilaudid for pain management without improvement. She denies any nausea and vomiting. She also denies, weakness, any changes in bladder or bowel control. - History of Current Complaint Hx Obtained From: Patient Onset/Duration: Gradual Onset, Lasting Hours, Still Present Onset/Duration: Started Hours Ago, Worse Since Timing: Constant Back Pain Location: Is Discrete @ - lower back Severity Initially: Moderate Severity Currently: Moderate Pain Intensity: 8 Pain Scale Used: 0-10 Numeric Character: Dull Aggravating Symptom(s): Movement Alleviating Symptom(s): Rest, Nothing Associated Signs And Symptoms: Positive: Other - She also has cough and sore thorat, which make back pain much worse. - Risk Factors Cauda Equina Risk Factors: Negative Epidural Abscess Risk Factors: Negative - She has L5/S1 lumbar diskectomy 4 days ago and discharged home with pain meds. she feel her back pain has been getting worse, and radiated to her right leg. - Allergies/Home Medications Allergies/Adverse Reactions: Allergies Allergy/AdvReac Type Severity Reaction Status Date / Time Niacin [From Niaspan] Allergy Unknown LEGS SWELL Verified 11/12/16 09:10 AND FEEL LIKE SHE'S COMING OUT OF SKIN Potassium Citrate Allergy FLUID Verified 11/12/16 09:10 RETENTION Vancomycin AdvReac Intermediate redmans Verified 11/12/16 09:10 symdrome SEASONAL Allergy SNEEZING, Uncoded 11/12/16 09:10 ITCHY WATERY EYES Lab Results - Lab Results Lab Results: Review of Systems Negative: Fever Positive: Other - lower back pain All Other Systems Reviewed And Are Negative: Yes Physical Exam - Summary Physical Exam Summary: Vital Signs Temp 97.5 F 11/18/16 07:24 Pulse 66 11/18/16 08:32 Resp 16 11/18/16 08:10 BP 119/105 11/18/16 08:32 Pulse Ox 94 11/18/16 08:32 Intake & Output 11/17/16 11/18/16 11/18/16 19:59 07:59 19:59 Intake Total 0 Output Total 400 Balance -400 Weight 174 lb Intake: Oral 0 Output: Urine 400 Other: Estimated Void Medium # Bowel Movements 0 Estimated Stool Amount Medium # Voids 3 GENERAL: Patient is a well developed and nourished female with acute distress secondary to pain. HEENT No signs of trauma. Oropharynx within normal limits. NECK: Supple, trachea is midline, . CHEST: Symmetric, coarse breathing sounds, small amount crackles. CVS: RRR, S1 and S2 present, ABDOMEN: Soft, NT. No signs of distention. Positive BS. No rebound no guarding, and no masses palpated. EXTREMITIES: FROM in all major joints, no edema, no cyanosis or clubbing. NEURO: Alert and oriented x 3. No acute neurological deficits. Speech is normal and follows commands. Motor strength 5/5 and sensation decrease on right S1 calf area. Back: There is no ecchymosis, no deformity, positive paraspinal muscle tenderness in the lumbar spine. Straight test is positive in the right LE. Surgical scar is C/D/I. Diagnostics - Laboratory Lab Results: Lab Results 11/17/16 11/17/16 11/17/16 Range/Units 21:53 21:53 21:53 WBC 9.3 (3.5-10.8) 10^3/ul RBC 4.09 (4.0-5.4) 10^6/ul Hgb 11.4 L (12.0-16.0) g/dl Hct 36 (35-47) % MCV 87 (80-97) fL MCH 28 (27-31) pg MCHC 32 (31-36) g/dl RDW 15 (10.5-15) % Plt Count 280 (150-450) 10^3/ul MPV 7 L (7.4-10.4) um3 Neut % (Auto) 71.2 (38-83) % Lymph % (Auto) 16.0 L (25-47) % [place] % (Auto) 11.6 H (1-9) % Eos % (Auto) 0.9 (0-6) % Baso % (Auto) 0.3 (0-2) % Absolute Neuts (auto) 6.6 (1.5-7.7) 10^3/ul Absolute Lymphs (auto) 1.5 (1.0-4.8) 10^3/ul Absolute Monos (auto) 1.1 H (0-0.8) 10^3/ul Absolute Eos (auto) 0.1 (0-0.6) 10^3/ul Absolute Basos (auto) 0 (0-0.2) 10^3/ul Absolute Nucleated RBC 0.01 10^3/ul Nucleated RBC % 0.1 Sodium 135 (133-145) mmol/L Potassium 3.8 (3.5-5.0) mmol/L Chloride 101 (101-111) mmol/L Carbon Dioxide 30 (22-32) mmol/L Anion Gap 4 (2-11) mmol/L BUN 21 (6-24) mg/dL Creatinine 0.63 (0.51-0.95) mg/dL Est GFR ( Amer) 124.4 (>60) Est GFR (Non-Af Amer) 96.7 (>60) BUN/Creatinine Ratio 33.3 H (8-20) Glucose 127 H (70-100) mg/dL Lactic Acid 1.3 (0.5-2.0) mmol/L Calcium 8.9 (8.6-10.3) mg/dL Total Bilirubin 0.50 (0.2-1.0) mg/dL AST 74 H (13-39) U/L ALT 93 H (7-52) U/L Alkaline Phosphatase 59 (34-104) U/L C-Reactive Protein 27.04 H (< 5.00) mg/L Total Protein 6.4 (6.4-8.9) g/dL Albumin 3.4 (3.2-5.2) g/dL Globulin 3.0 (2-4) g/dL Albumin/Globulin Ratio 1.1 (1-3) Result Diagrams: - Radiology CXR Xray Interpretation: No Acute Changes Assessment/Plan: Patient is a 61 year-old female coming to [facility] presenting with lower back pain , cough and upper respiratory infection symptoms. She had L5/S1 microdisctomy 3 days ago and recently discharged earlier today. She reports pain severity radiating down her RLE. She also has cough and sore thorat, which make back pain much worse. Her pain has improved after admission. She also denies, weakness, any changes in bladder or bowel control. Neuro intact, straight leg test positive on the right and no any weakness, incision clean dry intact No need for surgical intervention at this time. Plan: Postop Pain control : possible related to postoperative seroma, worsening when cough, continue Dilaudid, Toradol and Valium for pain, Continue prednisone for one week URI/bronchitis: improved after admission, continue cough treatment. recommends oral abx for 2 weeks to cover URI and surgical prophylaxis since she is on steriods and high BG with DM DM: continue insulin and BG control OOB and encourage activity Discuss with patient, please call for any questions and concerns
[2016-11-18] MEDS: Insulin LISPRO* 1 UNITS UNIT SUBCUT SCH ×3 (08:37→17:10)
[2016-11-18] MEDS ORDERED: Polyethylene Glycol 3350* 17 GM PACKET PO PRN (10:11)
[2016-11-18] MEDS: Docusate CAP* 100 MG PO PRN ×2 (12:41→22:57)
--- NOTE | 2016-11-18 16:54 | PN ---
Subjective Date of Service: 11/18/16 Interval History: Patient continues to have severe pain radiating from low back to RLE. Seen by Dr. Beauchamp of neurosurgery today. Pain somewhat improved w/ current Lyrica and dilaudid. Pain worse sitting on low toilet. Prior to admission was on gabapentin TID and dilaudid. Also had Soma, not helpful. Also reports loose cough. Family History: Unchanged from Admission Social History: Unchanged from Admission Past Medical History: Unchanged from Admission Objective Active Medications: Acetaminophen (Tylenol Tab*) 650 mg PO Q4H PRN PRN Reason: FEVER/PAIN Last Admin: 11/18/16 08:02 Dose: 650 mg Amoxicillin (Amoxicillin Cap*) 500 mg PO TID STEVEN Atorvastatin Calcium (Lipitor*) 5 mg PO QPM [facility] PRN Reason: Protocol Benzonatate (Tessalon Cap*) 100 mg PO BID [facility] Last Admin: 11/18/16 08:02 Dose: 100 mg Dextrose (D50w Syringe 50 Ml*) 12.5 gm IV PUSH .FOR FS < 60 - SS PRN PRN Reason: FS < 60 Diltiazem HCl (Cardizem Cd Cap*) 180 mg PO QAM [facility] Last Admin: 11/18/16 08:02 Dose: 180 mg Docusate Sodium (Colace Cap*) 100 mg PO BID PRN PRN Reason: CONSTIPATION Last Admin: 11/18/16 12:41 Dose: 100 mg Hydromorphone HCl (Dilaudid Tab*) 4 mg PO Q4H PRN PRN Reason: PAIN Last Admin: 11/18/16 10:32 Dose: 4 mg Insulin Glargine (Lantus(*)) 45 units SUBCUT BEDTIME [facility] Last Admin: 11/18/16 03:02 Dose: Not Given Insulin Human Lispro (Humalog*) 0 units SUBCUT AC [facility] PRN Reason: Protocol Last Admin: 11/18/16 12:46 Dose: 15 units Metaxalone (Skelaxin Tab*) 800 mg PO TID PRN PRN Reason: SPASMS Omeprazole (Prilosec Cap*) 20 mg PO QAM [facility] Last Admin: 11/18/16 08:02 Dose: 20 mg Ondansetron HCl (Zofran Inj*) 4 mg IV Q4H PRN PRN Reason: NAUSEA/VOMITING Last Admin: 11/18/16 12:45 Dose: 4 mg Polyethylene Glycol/Electrolytes (Miralax*) 17 gm PO DAILY PRN PRN Reason: CONSTIPATION Last Admin: 11/18/16 12:41 Dose: 17 gm Prednisone (Deltasone Tab*) 40 mg PO DAILY [facility] Last Admin: 11/18/16 08:02 Dose: 40 mg Pregabalin (Lyrica Cap(*)) 75 mg PO BID [facility] Last Admin: 11/18/16 08:01 Dose: 75 mg Sertraline HCl (Zoloft*) 25 mg PO BEDTIME [facility] Zolpidem Tartrate (Ambien Tab*) 5 mg PO BEDTIME [facility] Last Admin: 11/18/16 03:02 Dose: Not Given Vital Signs 11/18/16 11/18/16 11/18/16 08:32 10:01 10:32 Temperature Pulse Rate 66 Respiratory 16 20 Rate Blood Pressure 119/105 (mmHg) O2 Sat by Pulse 94 Oximetry 11/18/16 11/18/16 12:32 15:29 Temperature 36.9 C Pulse Rate 69 Respiratory 16 16 Rate Blood Pressure 99/53 (mmHg) O2 Sat by Pulse 96 Oximetry Oxygen Devices in Use Now: None Eyes: No Scleral Icterus Ears/Nose/Mouth/Throat: Clear Oropharnyx Neck: No Thyroid Enlargement, Masses Respiratory: Clear to Auscultation, Clear to Percussion Cardiovascular: NL Sounds; No Murmurs; No JVD Abdominal: NL Sounds; No Tenderness; No Distention, No Hepatosplenomegaly Lymphatic: No Cervical Adenopathy Extremities: No Edema Skin: No Rash or Ulcers, - - lumbar wound stapled, clean/dry/intact, with some bruising more caudal, no palpable seroma Neurological: Alert and Oriented x 3 Lines/Tubes/Other Access: Clean, Dry and Intact Peripheral IV Result Diagrams: 11/17/16 21:53 11/18/16 06:18 Additional Lab and Data: Lab Results Assess/Plan/Problems-Billing Assessment: 61 year old woman with recent lumbar laminectomy, admitted with intractable back pain, radiating to RLE - Patient Problems (1) Herniated nucleus pulposus, L5-S1, right Current Visit: No Status: Acute Priority: High Code(s): M51.27 - OTHER INTERVERTEBRAL DISC DISPLACEMENT, LUMBOSACRAL REGION SNOMED Code(s): 84631043 Comment: -neurosurgical consult appreciated, will plan to send home tomorrow on current oral pain regimen -seroma being observed by surgery -will arrange home VNS, PT, raised toilet, shower chair, walker, to prevent readmission, keep safe/comfortable at home (2) Type 2 diabetes mellitus Current Visit: Yes Status: Chronic Priority: Medium Comment: -Sugars widely fluctuating. Will switch to consistent carb diet, continue basal/bolus insulin -glucose control worsened by steroid bolus, and oral prednisone (3) Bronchitis after surgery Current Visit: Yes Status: Acute Priority: Medium Code(s): J40 - BRONCHITIS, NOT SPECIFIED ACUTE OR CHRONIC SNOMED Code(s): 750307783 Comment: Starting oral amoxicillin to cover usual strep, hemophyllis, causes of bronchitis. (4) DVT prophylaxis Current Visit: No Status: Acute Priority: Low Code(s): XMM9215 - SNOMED Code(s): 481449583 Comment: - SCDs Status and Disposition: Continue observation, potential discharge with VNS, home PT tomorrow.
[2016-11-18] MEDS ORDERED: Atorvastatin* 10 MG TAB PO SCH (18:00)
[2016-11-18] MEDS ORDERED: Sertraline* 25 MG TAB PO SCH (21:00)
[2016-11-18] MEDS: Amoxicillin PO (*) 500 MG CAP PO SCH (22:56)
[2016-11-19] MEDS: Pregabalin CAP(*) 25 MG PO SCH (07:49)
[2016-11-19] MEDS: Benzonatate CAP* 100 MG PO SCH (07:49)
[2016-11-19] MEDS: Omeprazole CAP* 20 MG PO SCH (07:49)
[2016-11-19] MEDS: Amoxicillin PO (*) 500 MG CAP PO SCH ×2 (07:49→12:11)
[2016-11-19] MEDS: Insulin LISPRO* 1 UNITS UNIT SUBCUT SCH ×2 (07:49→12:11)
[2016-11-19] MEDS: Diltiazem CD CAP* 180 MG PO SCH (07:49)
[2016-11-19] MEDS: predniSONE TAB* 20 MG PO SCH (07:49)
[2016-11-19] MEDS: HYDROmorphone TAB* 4 MG PO PRN (07:49)
--- NOTE | 2016-11-19 09:45 | PN ---
Progress Note - Progress Note SOAP: Subjective: [Her pain and cough have been improving after admission. She also denies, weakness, any changes in bladder or bowel control. ] Objective: [Alert and oriented x 3. AAOx3 Speech is normal and follows commands. CN 2-12 intact Motor strength 5/5 and sensation decrease on right S1 calf area. Back: no deformity, Straight test is positive in the right LE. Surgical scar is C/D/I. ] Assessment: [ 61 year-old female coming to [facility] presenting with lower back pain, cough and upper respiratory infection symptoms. POD5 L5/S1 microdisctomy She Her pain and cough have been improving after admission. Neuro intact, straight leg test positive on the right and no any weakness, incision clean dry intact No need for surgical intervention at this time. Plan: Postop Pain control : possible related to postoperative seroma, worsening when cough, continue po Dilaudid and Valium for pain, weaning off prednisone for one week URI/bronchitis: ion oral abx for 2 weeks to cover URI and surgical prophylaxis since she is on steriods and high BG with DM OOB PT OT discharge planing ] Discuss with primary team and patient
--- NOTE | 2016-11-19 09:50 | PN ---
Progress Note - Progress Note Note: Discharge Note Primary diagnosis: radicular pain, post-op lumbar laminectomy due to seroma Secondary diagnoses: spinal stenosis type 2 diabetes obesity acute bronchitis obstructive sleep apnea glaucoma hypertension hyperlipidemia Consultations: Dr. Beauchamp of neurosurgery Procedures: none Pertinent laboratory/radiology/other testing: chest x-ray NEG Laboratory Tests 11/18/16 11/18/16 11/18/16 02:52 06:18 07:35 Glucose 154 H POC Glucose (mg/dL) 87 265 H 11/18/16 11/18/16 11/19/16 11:24 16:54 07:35 Glucose 403 H POC Glucose (mg/dL) 377 H 189 H Results pending on discharge: none Physical Exam: Vital Signs - 8 hr 11/19/16 11/19/16 11/19/16 07:24 07:49 09:03 Temperature 36.6 C Pulse Rate 82 Respiratory 16 16 16 Rate Blood Pressure 125/62 (mmHg) O2 Sat by Pulse 97 Oximetry No distress OP: no lesions Lungs: clear, no wheezes Heart; RRR, 2/6 systolic murmur
[2016-11-19 16:41] VITALS: BP 115/51
--- NOTE | 2016-11-19 21:48 | DS ---
DISCHARGE SUMMARY: DATE OF ADMISSION: 11/17/16 DATE OF DISCHARGE: 11/19/16 PRIMARY DIAGNOSIS: Radicular lumbar pain with radiation to the right leg due to seroma and recent lumbar discectomy. SECONDARY DIAGNOSES: 1. Chronic back pain. 2. Type 2 diabetes. 3. Hyperlipidemia. 4. Hypertension. 5. Obstructive sleep apnea with nonfunctional CPAP at home. 6. Glaucoma. 7. She also has acute bronchitis. 8. No history of asthma. MEDICATIONS ON DISCHARGE: 1. Magnesium citrate 2 tabs p.o. q.h.s. 2. Ambien 5 mg p.o. q.h.s. p.r.n. insomnia. 3. Acetaminophen 650 mg p.o. q.4 hours p.r.n. mild pain. 4. Amoxicillin 500 mg p.o. t.i.d. for 2 weeks. 5. Tessalon Perles 100 mg p.o. b.i.d. p.r.n. cough. 6. Vitamin D 1000 units p.o. daily. 7. Diltiazem CD 180 mg p.o. q.a.m. 8. Docusate 100 mg p.o. b.i.d. 9. Dilaudid 4 mg p.o. q.4 hours p.r.n. moderate to severe pain (prescription sent home for this medicine today). 10. Hydrochlorothiazide 25 mg p.o. q.a.m. 11. NovoLog sliding scale 1 to 10 units subcu before each meal, unchanged from previous. 12. Latanoprost 0.005% 1 drop both eyes daily per ophthalmology instructions. 13. Metaxalone 800 mg p.o. t.i.d. p.r.n. 14. Omeprazole 20 mg p.o. q.a.m. 15. Zofran 4 mg p.o. q.6 hours p.r.n. nausea. 16. Pravastatin 20 mg p.o. q.h.s. 17. Zoloft 25 mg p.o. q.p.m. 18. Lantus insulin 45 units subcutaneous daily. 19. Lyrica 75 mg p.o. b.i.d. 20. Oxycodone 5 mg p.o. q.4 hours p.r.n. mild to moderate pain (40 tablets sent to pharmacy). 21. Prednisone 30 mg p.o. daily for 2 days, then 20 mg p.o. daily for 2 days, and then 10 mg p.o. daily for 2 days and then stop. HOSPITAL COURSE: A 61-year-old woman with history of chronic back pain who had a lumbar laminectomy, discectomy on 11/15/[address] Amor, was admitted with intractable low back pain radiating to the right leg. She was seen in consultation by Dr. Beauchamp of Neurosurgery. He reviewed recent imaging, examined the patient and assessed that she had worsened back pain due to a seroma as well as coughing Valsalva maneuver causing low back pain. He is advised treatment with a steroid taper and treatment for bronchitis. She was also started on Lyrica rather than gabapentin while she was here in the hospital. In the 48 hours she was here the patient progressed to have more reasonable level of postop pain in the low back radiating to right leg. He was able to go into the bathroom, able to take a shower. She was tolerating food and liquids and able to use the toilet herself. The neurosurgical evaluation was negative for any concerns of infection. The recommendation is to return home care and start home care with visiting nurse and physical therapy. Case management will work with the patient and they will try to arrange this with visiting nurses who come to the [facility] where the patient resides. The patient's diabetes was less well controlled due to prednisone and steroid use in the hospital. Her sugars were up to 400 at one point, but on discharge her fingerstick was 186. She is advised to continue her outpatient Lantus and sliding scale insulin and taper rapidly off of the prednisone as above. The patient's pulmonary status included a constant loose cough with negative chest x-ray. She has no history of asthma and smoked in the distant past. The patient may need pulmonary function tests to rule out asthma and COPD as an outpatient. The patient also has a nonfunctional CPAP machine and known sleep apnea, which was treated while she was in the hospital. She was advised to see Dr. Mireles for outpatient restart of CPAP. DISPOSITION: To home. DIET: Low fat and diabetic. ACTIVITY: Should be walk with walker, use shower chair, use grab bars in the bathroom, used a raised toilet seat with bars. CC: Dr. Fermin; Dr. Amor; Dr. Mireles.* [id number]/[facility] #: [id number] [facility]ITAL[facility]ad[facility]
[2016-11-20] MEDS ORDERED: predniSONE TAB* 10 MG PO SCH (09:00)
== END 2016-11-19 16:45 | disposition home or self-care (01) ==
LOC: ED 21:07 → MED 23:12
PROVIDERS: ADMIT Hospitalist; ATTEND Internal Medicine
DX: M54.16 Radiculopathy, lumbar region (principal); G89.29 Other chronic pain; J20.9 Acute bronchitis, unspecified; M51.27 Other intervertebral disc displacement, lumbosacral region; E11.9 Type 2 diabetes mellitus without complications; Z79.4 Long term (current) use of insulin; E78.5 Hyperlipidemia, unspecified; I10 Essential (primary) hypertension; G47.33 Obstructive sleep apnea (adult) (pediatric); H40.9 Unspecified glaucoma; Z79.899 Other long term (current) drug therapy; Z88.1 Allergy status to other antibiotic agents; Z88.8 Allergy status to other drugs, medicaments and biological substances; Z87.891 Personal history of nicotine dependence
CPT/HCPCS: 36415; 71010; 80048; 80053; 82947; 83605; 85025; 86140; 94660; 96374; 96375; 99284; A9270-GY; G0378; J1885; J2405; J2930; J3360; J7512

== ENCOUNTER 2018-05-06 10:07 | Inpatient (IN) | payer BC ==
[2018-05-06] MEDS ORDERED: Ketorolac INJ* 30 MG/ML 1 ML VIAL IV PUSH ONE (10:37)
[2018-05-06] MEDS ORDERED: Orphenadrine Citrate IV* 30 MG/ML 2 ML VIAL IV ONE (10:37)
[2018-05-06] MEDS ORDERED: fentaNYL* 50 MCG/ML 2 ML VIAL (100 MCG VIAL) IV SLOW PU ONE ×2 (10:39→12:37)
--- NOTE | 2018-05-06 10:53 | ED ---
Back Pain - HPI Summary HPI Summary: This is gina Ansari documenting for attending Quincy Cintron MD. Patient is a 63 y/o F BIBA w/ c/o lower back pain. She notes chronic back pain but experienced an exacerbation of the pain last night. Pain is rated 8/10 in the room. She reports going to a store last night, walking up stairs, washing dishes, and sweeping the floor. No heavy lifting or trauma reported. When she woke up this morning, she reports experiencing leg pain and difficulty standing. On triage, the patient states the pain is in the right leg and onset yesterday. The patient states her normal morning routine was challenging. She also notes the presence of a left-sided kidney stone which has not passed yet. However, in the room, she denies any urinary or bowel problems. The patient reports taking ibuprofen, gabapentin, and soma to treat back pain exacerbation. On triage, nothing is noted to aggravate symptoms. Allergies and home medications are reviewed. - History of Current Complaint Chief Complaint: EDBackInjuryPain Stated Complaint: BACK PAIN Hx Obtained From: Patient Onset/Duration: Lasting Days - onset yesterday evening Onset/Duration: Started Days Ago - onset last night Timing: Constant Back Pain Location: Is Discrete @ - lower back Severity Currently: Severe Pain Intensity: 8 Pain Scale Used: 0-10 Numeric - 8/10 Aggravating Symptom(s): Movement Alleviating Symptom(s): Nothing Associated Signs And Symptoms: Positive: Other - on triage, right leg pain is noted - Allergies/Home Medications Allergies/Adverse Reactions: Allergies Allergy/AdvReac Type Severity Reaction Status Date / Time niacin Allergy Swelling Verified 05/06/18 10:28 potassium Allergy Edema Verified 05/06/18 10:32 vancomycin Allergy See Comment Verified 05/06/18 10:29 SEASONAL Allergy SNEEZING, Uncoded 06/05/17 10:19 ITCHY WATERY EYES Home Medications: Home Medications Aspirin [Adult Aspirin Regimen] 81 mg PO DAILY 05/06/18 [History Confirmed 05/06] Bisoprolol TAB* [Zebeta TAB*] 2.5 mg PO DAILY 05/06/18 [History Confirmed ] Gabapentin CAP(*) [Neurontin 300 CAP(*)] 300 mg PO DAILY 05/06/18 [History Confirmed 05/06/18] HYDROmorphone TAB* [Dilaudid TAB*] 2 mg PO DAILY PRN 05/06/18 [History Confirmed 05/06/18] Hydrochlorothiazide TAB* [Hydrodiuril TAB*] 25 mg PO DAILY 05/06/18 [History Confirmed 05/06/18] Nitroglycerin TAB 0.4 MG* 0.4 mg SL Q5M PRN 05/06/18 [History Confirmed 05/06/18 ] Rosuvastatin (NF) [Crestor] 20 mg PO DAILY 05/06/18 [History Confirmed 05/06/18] Zolpidem TAB* [Ambien TAB*] 10 mg PO BEDTIME PRN 05/06/18 [History Confirmed ] PMH/Surg Hx/FS Hx/Imm Hx Endocrine/Hematology History: Reports: Hx Diabetes Cardiovascular History: Reports: Hx Hypertension, Hx Peripheral Vascular Disease , Other Cardiovascular Problems/Disorders - VASCULAR SPASMS Denies: Hx Pacemaker/ICD Respiratory History: Reports: Hx Sleep Apnea - CPAP at home, set at 8 cm H20 as of 11/17/16 Denies: Hx Asthma, Hx Chronic Obstructive Pulmonary Disease (COPD), Other Respiratory Problems/Disorders GI History: Reports: Hx Gastroesophageal Reflux Disease, Hx Irritable Bowel, Hx Pyloric Stenosis, Other GI Disorders - HX OF CONSTIPATION, Rika, History: Reports: Hx Kidney Infection, Hx Kidney Stones, Hx Renal Disease - kidney stones, Other Problems/Disorders - SUZANNE, uretal stents Denies: Hx Dialysis Musculoskeletal History: Reports: Hx Arthritis, Hx Back Problems, Other Musculoskeletal History - discectomy 11/14/16, spinal stenosis Denies: Hx Scoliosis Sensory History: Reports: Hx Contacts or Glasses - reading, Hx Glaucoma Denies: Hx Hearing Aid Opthamlomology History: Reports: Hx Contacts or Glasses - reading, Hx Glaucoma Neurological History: Reports: Hx Migraine, Other Neuro Impairments/Disorders - discectomy 11/14/16 Denies: Hx Dementia, Hx Headaches, Hx Seizures Psychiatric History: Reports: Hx Depression - ON MEDS Denies: Hx Panic Disorder - Cancer History Hx Chemotherapy: No Hx Radiation Therapy: No - Surgical History Surgery Procedure, Year, and Place: X3; GALLBLADDER; HYSTERECTOMY; TUBAL LIGATION; APPENDECTOMY; CERVICAL FUSION X 2; LOW BACK 12/2014; lumbar discectomy 11/2016-[facility] Hx Anesthesia Reactions: No Infectious Disease History: No Infectious Disease History: Denies: Traveled Outside the [place] in Last 30 Days - Family History Known Family History: Positive: Other - neg: family reaction to anasthesia - Social History Alcohol Use: Rare Alcohol Amount: 1 PER YEAR Substance Use Type: Reports: None Smoking Status (MU): Former Smoker Type: Cigarettes Amount Used/How Often: 2-3/ week Length of Time of Smoking/Using Tobacco: 2 years Have You Smoked in the Last Year: No Review of Systems Negative: Fever - on vitals, temperature is noted to be 98.5 F Positive: other - patient denies any bowel or urinary problems Positive: Other - lower back pain, right leg pain All Other Systems Reviewed And Are Negative: Yes Physical Exam - Summary Physical Exam Summary: VITAL SIGNS: Reviewed. GENERAL: Patient is a well-developed and nourished female who is lying comfortable in the stretcher. Patient is not in any acute respiratory distress. HEAD AND FACE: No signs of trauma. No ecchymosis, hematomas or skull depressions. No sinus tenderness. EYES: PERRLA, EOMI x 2, No injected conjunctiva, no nystagmus. EARS: Hearing grossly intact. Ear canals and tympanic membranes are within normal limits. MOUTH: Oropharynx within normal limits. NECK: Supple, trachea is midline, no adenopathy, no JVD, no carotid bruit, no c- spine tenderness, neck with full ROM. CHEST: Symmetric, no tenderness at palpation LUNGS: Clear to auscultation bilaterally. No wheezing or crackles. CVS: Regular rate and rhythm, S1 and S2 present, no murmurs or gallops appreciated. Patient declined a rectal exam. ABDOMEN: Soft, non-tender. No signs of distention. No rebound no guarding, and no masses palpated. Bowel sounds are normal. EXTREMITIES: FROM in all major joints, no edema, no cyanosis or clubbing. MUSCULOSKELETAL: Lumbar spine tenderness is present. NEURO: Alert and oriented x 3. No acute neurological deficits. Speech is normal and follows commands. SKIN: Dry and warm Triage Information Reviewed: Yes Vital Signs On Initial Exam: Initial Vitals Temp Pulse Resp BP Pulse Ox 98.5 F 64 16 133/60 98 05/06/18 10:15 05/06/18 10:15 07/30/18 10:15 05/06/18 10:15 05/06/18 10:15 Vital Signs Reviewed: Yes Diagnostics - Vital Signs Vital Signs Temp Pulse Resp BP Pulse Ox 05/06/18 10:15 98.5 F 64 16 133/60 98 - Laboratory Result Diagrams: 05/06/18 11:25 05/06/18 11:25 Lab Statement: Any lab studies that have been ordered have been reviewed, and results considered in the medical decision making process. - Radiology Lumbar spine X-ray Xray Interpretation: Positive (See Comments) Radiology Interpretation Completed By: Radiologist - Degenerative disc disease and osteoarthritis most pronounced. Progression of left nephrolithiasis. This report was reviewed by ED physician. Re-Evaluation - Re-Evaluation First Eval Re-Evaluation Time: 12:46 Comment: Discussed results of tests and labs as well as the Mt consultation. The patient will get an MRI. Second Eval Re-Evaluation Time: 14:02 Comment: Patient informed of decision to admit to hospital. Patient is agreeable with the plan. Back Pain Course/Dx - Course Assessment/Plan: This patient is a 63-year-old female who presents to the emergency room via ambulance with a chief complaint of having lower back pain. The patient reports the pain started last night and she reports no history of trauma, heavy lifting. The patient has past medical history significant for chronic back pain secondary to herniated disc and status post surgery with Dr. Amor. Past medical history significant for dyslipidemia, intractable chronic back pain, hypertension, and obstructive sleep apnea. The patient also has history of diabetes type 2. The physical exam the patient has vertebral tenderness in the lumbar spine, the pain is not radiating to the legs, she denies any urinary or bowel dysfunction. The patient declined rectal exam. Lumbar spine MRI done on 06/06/17 impression: Degenerative disc disease and also arthritis. There is enhancement along the facet joints at L4 and L5 bilaterally which may indicate a more acute inflammatory component to facet osteoarthritis. Status post laminectomy. There is intense and tissue on the right at L5- S1 consistent with granulation tissue versus epidural fibrosis extending into the right normal from and. There is a broad days central this extrusion at the end 3n and 4, with central disc protrusion at L4 and L5. There is multilevel neural foraminal foraminal narrowing as described above. There is no significant central canal stenosis. In the ED course the patient was given Decadron despite the patient having diabetes but he would be a good anti-inflammatory. We will check fingersticks every hour. She also was given Toradol, fentanyl and Norflex. Patient continued to have pain therefore the patient was given additional dose of fentanyl. I discussed the case with Dr. Amor and he recommended to get an MRI of the lumbar spine. Urinalysis is contaminated therefore we will send urine for culture. Despite medications for pain the patient continues to have back therefore discussed my physical exam, findings and test results with Dr. Lewis who accepted the patient for admission. The patient is hemodynamically stable alert and oriented 3. - Diagnoses Differential Diagnosis/HQI/PQRI: Positive: Cauda Equina Syndrome, Compressive Cord Syndrome, Epidural Abscess, Herniated Disc, Strain, Sprain Provider Diagnoses: Intractable back pain - Provider Notifications Discussed Care Of Patient With: Brayan Amor Time Discussed With Above Provider: 12:39 Instructed by Provider To: Other - Dr. Amor was consulted on the patient at 1239. The patient is Dr. Amor's. He requested an MRI be done on the patient. 13:44 -- Dr. Lewis was consulted on the patient's case. Dr. Lewis accepts patient for admission to hospital. Decision to admit to hospital was done before arrival of MRI results. Discharge - Sign-Out/Discharge Documenting (check all that apply): Patient Departure - admit - Discharge Plan Condition: Stable Disposition: ADMITTED TO [facility] - Billing Disposition and Condition Condition: STABLE Disposition: Admitted to [facility]
[2018-05-06] MEDS ORDERED: Dexamethasone IV* 8 MG in NS 0.9% 50 ML* 50 ML IVPB SCH (11:00)
--- NOTE | 2018-05-06 11:33 | RAD ---
HISTORY: back pain COMPARISONS: CT dated April 14, 2017 VIEWS: 3 , Frontal, lateral, and coned-down lateral sacral views of the lumbar spine FINDINGS: ALIGNMENT: There is a mild levoscoliotic curvature of the spine. VERTEBRAL BODIES: There is anterolateral marginal osteophyte formation most pronounced at L5-S1. JOINTS: There is facet osteoarthritis most pronounced at L4-L5 and L5-S1 INTERVERTEBRAL DISCS: There is mild diffuse loss of intervertebral disc height. SOFT TISSUE: Unremarkable. OTHER: There is a staghorn calculus of the left renal pelvis, progressed from the previous examination. IMPRESSION: 1. DEGENERATIVE DISC DISEASE AND OSTEOARTHRITIS MOST PRONOUNCED AT L4-L5 AND L5-S1. 2. PROGRESSION OF LEFT NEPHROLITHIASIS.
[2018-05-06 11:34] LABS: ABS Basophils 0.1 10^3/ul (0-0.2); ABS Eosinophils 0.4 10^3/ul (0-0.6); ABS Lymphocytes 2.2 10^3/ul (1.0-4.8); ABS Monocytes 0.7 10^3/ul (0-0.8); ABS Nucleated RBC 0 10^3/ul; Eosinophil % 4.9 % (0-6); Hematocrit 36 % (35-47); Hemoglobin 12.2 g/dl (12.0-16.0); Lymphocyte % 29.7 % (25-47); Mean Corpuscular HGB Conc 34 g/dl (31-36); Mean Corpuscular Hemoglobin 29 pg (27-31); Mean Corpuscular Volume 85 fL (80-97); Mean Platelet Volume 7.2 um3 (7.4-10.4); Nucleated Red Blood Cells % 0; Platelet Count 278 10^3/ul (150-450); Red Blood Count 4.26 10^6/ul (4.00-5.40); Red Cell Distribution Width 15 % (10.5-15); White Blood Count 7.4 10^3/ul (3.5-10.8)
[2018-05-06] MEDS: Dexamethasone IV* 4 MG/ML 1 ML (4 MG) IV SLOW PU SCH ×3 (11:44→22:00)
[2018-05-06 11:54] LABS: EGFR Non-African American 92.7 (>60)
[2018-05-06 14:05] LABS: Urine Appearance Cloudy; Urine Blood 2+ (Negative); Urine Color Yellow; Urine Ketones Negative (Negative); Urine Protein 1+(30 mg/dL) (Negative); Urine Red Blood Cell 3+(>10/hpf) (Absent); Urine Urobilinogen Negative (Negative); Urine White Blood Cell 3+(>20/hpf) (Absent)
[2018-05-06] MEDS ORDERED: Gadoteridol* (CONTRAST) 279.3 MG/ML 10 ML IV ONE (14:31)
[2018-05-06] MEDS ORDERED: HYDROmorphone INJ* 2 MG/ML CARPUJECT SYRINGE IV SLOW PU PRN (14:53)
[2018-05-06] MEDS ORDERED: Dextrose 50% Syringe 50 ML* 25 GM/50 ML SYRINGE IV PUSH PRN (15:22)
--- NOTE | 2018-05-06 15:48 | RAD ---
HISTORY: back pain COMPARISONS: June 06, 2017 TECHNIQUE: The following sequences were obtained of the lumbar spine: Sagittal and axial T1- and T2-weighted images, coronal T2-weighted images, and sagittal STIR images. Additionally, axial and sagittal T1 weighted images were obtained after contrast enhancement with a gadolinium-based intravenous contrast agent.. FINDINGS: SPINAL CORD, CONUS, AND CAUDA EQUINA: The visualized spinal cord, conus, and cauda equina are normal in caliber, position, and signal intensity. ALIGNMENT: The alignment is normal. VERTEBRAL BODIES: A laminectomy defect is noted at L5-S1. There is mild anterolateral marginal osteophyte formation. JOINTS: There is facet osteoporosis along the lower lumbar spine. MUSCULATURE: There is mild fatty infiltration. INTERVERTEBRAL DISCS: There is diffuse loss of intervertebral disc height and T2 signal throughout the spine. AXIAL IMAGES: L3-L4: There is a central inferior disc extrusion measuring up to 0.7 cm in depth and 1 cm in clinical dimension. This has slightly retracted compared to the previous examination. There is persistent effacement of the lateral recesses with mass effect upon the descending nerve roots bilaterally. There is bilateral facet hypertrophy with mild bilateral neural foraminal narrowing. There is no significant central canal stenosis. L4-L5: There is a broad-based disc bulge. There is a central disc protrusion measuring 0.4 cm in depth this is similar to the previous examination. There is facet osteoarthritis with marginal osteophyte formation at the neural foramina bilaterally. There is moderate bilateral neuroforaminal narrowing. There is effacement of lateral recesses bilaterally. There is persistent but decreasing enhancement of the facet joints bilaterally. L5-S1: There is a laminectomy defect. There is bilateral facet hypertrophy. There is persistent but decreasing enhancement along the epidural space and thecal sac on the right, surrounding the descending right S1 nerve root. There is marginal osteophyte formation at the neural foramina bilaterally with right greater than left facet hypertrophy. There is moderate right and mild left neural foraminal narrowing. There is partial effacement of the right lateral recess, stable from the previous examination. SOFT TISSUES: The visualized soft tissues of the abdomen are unremarkable. OTHER: Small Tarlov cysts are noted opposite of S2. IMPRESSION: 1. POSTSURGICAL CHANGE. 2. DEGENERATIVE DISC DISEASE AND OSTEOARTHRITIS. 3. THERE IS PERSISTENT, BUT DECREASING, ENHANCEMENT OF THE FACET JOINTS AT L4-L5 BILATERALLY SUGGESTIVE OF A MORE ACUTE INFLAMMATORY COMPONENT TO FACET OSTEOARTHRITIS. 4. THERE IS PERSISTENT, BUT DECREASING, ENHANCEMENT OF THE SOFT TISSUE ALONG THE EPIDURAL SPACE AND THECAL SAC ON THE RIGHT AT L5-S1 CONSISTENT WITH EPIDURAL FIBROSIS. THIS DOES SURROUND THE DESCENDING RIGHT-SIDED NERVE ROOT. 5. THERE IS A CENTRAL DISC EXTRUSION AT L3-L4, SLIGHTLY DECREASED IN SIZE COMPARED TO THE JUNE 06, 2017 EXAMINATION. THERE IS A STABLE SMALL CENTRAL DISC PROTRUSION AT L4-L5. 6. THERE IS MULTILEVEL NEURAL FORAMINAL NARROWING NOTED ABOVE.
[2018-05-06] MEDS: Ondansetron INJ* 2 MG/ML VIAL IV PRN ×2 (16:07→21:26)
[2018-05-06] MEDS: HYDROmorphone INJ* 0.5 MG/0.5 ML SYRINGE IV SLOW PU PRN ×2 (16:20→21:53)
[2018-05-06] MEDS: Insulin LISPRO* 1 UNITS UNIT SUBCUT SCH (17:20)
[2018-05-06 17:38] LABS: Urine Appearance Cloudy; Urine Blood 3+ (Negative); Urine Color Yellow; Urine Ketones Negative (Negative); Urine Protein 1+(30 mg/dL) (Negative); Urine Red Blood Cell 3+(>10/hpf) (Absent); Urine Specific Gravity 1.031 (1.010-1.030); Urine Urobilinogen Negative (Negative); Urine White Blood Cell 3+(>20/hpf) (Absent)
--- NOTE | 2018-05-06 19:27 | HP ---
CC: Dr. Fontana * [facility]IC[facility] HISTORY AND PHYSICAL: DATE OF ADMISSION: 05/06/18 PRIMARY CARE PHYSICIAN: Dr. Fontana. ATTENDING PHYSICIAN: Marian Lewis DO * (dictation provided by Ashley Holloway NP ). CHIEF COMPLAINT: Low back pain with radiation to the right leg. HISTORY OF PRESENT ILLNESS: Ms. Angeles is a 63-year-old female with a past medical history of chronic low back pain with diskectomy x2 with Dr. Amor with most recent surgery being in November 2016. Her other history includes insulin- dependent diabetes, coronary artery spasm with intermittent chest pain , known 70% blockage via coronary calcium scoring with Dr. Ruelas, and obstructive sleep apnea with CPAP who presented to the hospital today with concern for worsening low back pain. Ms. Angeles states that she has chronic low back pain that is in the mid low back at the site of her L5-S1 surgery. Since her surgery in November, she states that she will have intermittent flares where she will have pain radiating down into her right leg. She also has numbness and tingling in her right foot. She has frequent cramps in her right calf and when the pain is bad in her back, she will also have some severe sharp pain in her right heel. She had been in her normal routine with her back pain until last night when she states she had the onset of severe pain. There was no inciting incident. She was walking into her home after going to the grocery store and had severe back pain coming up the stairs. She states that she took her nighttime medications and then went to bed. She does take Dilaudid p.o. p.r.n. for pain, but she states she hardly ever takes this. This morning, she got up and was hoping that she would be able somehow to go to work. She did get down to the car and into the parking lot of work, but when she got there, she could not get out of the car due to severe pain. Again, the pain is in the mid low back, tender to palpation, radiates into the right leg. She has had no loss of bowel or bladder. She denies any fever, chills, cough, other than chest pain recently, but does have a history of coronary artery vasospasm. Ms. Angeles also has a history of kidney stones. She has had stone retrieval and stents placed in the past. She states that she is currently being worked up for a kidney stone in her left kidney and the recommendation is for her to have a percutaneous drain to remove the stone. She is seeking second opinion on this matter. She denies any dysuria or frequency. However, she reports that she has had chronic left flank pain due to this stone that it is unchanged. Ms. Angeles had an MRI in the emergency room, but the read on that is pending. She did have a lumbar spine x-ray, which showed degenerative disk disease and osteoarthritis, most pronounced at L4-L5 and L5-S1 and progression of left nephrolithiasis. Her labs are unremarkable. Her urine shows question of a urinary tract infection as she does have 3+ leuk esterase, but it also had epithelial cells and no bacteria or nitrites. The patient states she had a difficult time with urine collection due to pain while sitting on the toilet. PAST MEDICAL HISTORY: 1. Chronic back pain with L5-S1 hemilaminectomy x2. 2. Insulin-dependent diabetes. 3. Coronary artery vasospasm. 4. History of "70% blockage" via coronary calcium scoring with Dr. Ruelas. 5. Obstructive sleep apnea with CPAP. 6. Glaucoma. 7. Suspected aortic stenosis based on the patient's description. PAST SURGICAL HISTORY: Includes: 1. Two anterior cervical diskectomies. 2. Two hemilaminectomies at L5-S1. 3. Ureteral stenting with retrieval. 4. . 5. Laparoscopic cholecystectomy. 6. Appendectomy. 7. Hysterectomy. MEDICATIONS: 1. Hydromorphone 2 mg p.o. daily p.r.n. 2. NovoLog with meals. 3. Ondansetron 4 mg p.o. q.6 hours p.r.n. 4. Lantus 44 units subcutaneously at bedtime. 5. Tylenol p.r.n. 6. Aspirin 81 mg p.o. daily. 7. Bisoprolol 2.5 mg p.o. daily. 8. Diltiazem CD 180 mg p.o. q.a.m. 9. Colace 100 mg p.o. b.i.d. p.r.n. 10. Gabapentin 300 mg p.o. daily. 11. Hydrochlorothiazide 25 mg p.o. daily. 12. Latanoprost 0.005% 1 drop both eyes at bedtime. 13. Nitroglycerin 0.4 mg sublingual q.5 minutes p.r.n. 14. Polyethylene glycol 17 g p.o. daily p.r.n. 15. Rosuvastatin 20 mg daily. 16. Zolpidem 10 mg p.o. at bedtime p.r.n. ALLERGIES: NIACIN, POTASSIUM, and VANCOMYCIN. FAMILY HISTORY: The patient reports that her mother had diabetes and heart disease and at 85. Father is alive, but she does not about his health history. SOCIAL HISTORY: The patient denies alcohol, tobacco, or drug use. She states that her sister, Ingrid Atkins, would be the health care proxy. REVIEW OF SYSTEMS: A 14-point review of systems was completed with Ms. Angeles and all those not mentioned above were negative. PHYSICAL EXAMINATION GENERAL: Ms. Angeles is lying on her left side in the bed. She is in no acute distress. Her friend is at the bedside. VITAL SIGNS: Temperature 97.7, pulse rate 66, respiratory rate 16, O2 saturation 99% on room air, and blood pressure 93/43. LUNGS: Clear to auscultation bilaterally with no accessory muscle use and good aeration. HEART: S1, S2. Systolic murmur at the sternal border. Regular. ABDOMEN: Soft, nontender with bowel sounds positive x4. BACK: Tender to palpation in low back from midline to 4-6 inches laterally. EXTREMITIES: No cyanosis. No edema. NEURO: She is alert. She is oriented x3. She can move all extremities, although her movement is limited by pain. She describes pain in her low back that radiates into her right leg. Sensation grossly intact. Her face is symmetrical. There is no focal asymmetry. Her extraocular movements are intact. SKIN: Intact. LABORATORY DATA/DIAGNOSTIC STUDIES: WBC 7.4, hemoglobin 12.2, hematocrit 36, platelet count 278. Sodium 141, potassium 3.7, chloride 107, serum bicarbonate 26, BUN 15, creatinine 0.65, glucose 111. CRP is 9.15. Lumbar spine x-ray is per above and the lumbar spine MRI is pending. Urinalysis shows 3+ leuk esterase and epithelial cells, no bacteria, no nitrites. ASSESSMENT AND PLAN: Ms. Angeles is a 63-year-old female with past medical history of chronic back pain with surgeries x2 at the L5-S1 level as well as 2 cervical surgeries who presents today to the hospital with worsening of her chronic back pain now with inability to ambulate and uncontrolled pain. Our plans are for observation in the hospital for the followin. Low back pain: Dr. Amor has been consulted in the emergency department by the ED providers and he has recommended an MRI, which has been done today, although the read is pending. Dr. Amor will review this imaging and provide consultation if indicated vs following up with her outpatient. The patient will have pain meds with Dilaudid IV. She will have Zofran. She will have a bowel regimen. If surgery was needed, my plan is to obtain records from Dr. Ruelas's office regarding her cardiac history. She does have a history of known coronary artery vasospasm and reports me a known coronary artery disease, as well, I suspected aortic stenosis. The patient may require formal Cardiology evaluation preoperatively. 2. Question urinary tract infection. The patient has a known kidney stone with ongoing left flank pain managed by urology with plan for percutaneous drain. She has 3+ leuk esterase but also epithelial cells with no bacteria, which suggests this is not a clean catch. Patient states that she had a hard time with collection due to her back pain. She is afebrile. CRP is normal. She has no symptoms of dysuria or frequency. She has unchanged chronic left flank pain. I would like to repeat the urinalysis when the patient's pain is under better control, so that we can get an adequate specimen for review. Continue hydrochlorothiazide for history of kidney stones. 3. Diabetes: The patient will continue on Lantus at half dose given that I suspect her oral intake will be decreased. She will have lispro sliding scale with meals. Her blood glucose is q.a.c. 4. Coronary artery vasospasm: The patient is to continue on her nitroglycerin and diltiazem. 5. Coronary artery disease. Continue aspirin, rosuvastatin, bisoprolol. 6. DVT prophylaxis with heparin subcu, but this will need to held within 8 hours prior to surgery. 7. Code status is full code. TIME SPENT: Approximately 60 minutes were spent on the admission of this patient, more than half time spent with the patient at the bedside reviewing the events leading up to this hospitalization, performing the physical examination, and reviewing my plan of care. ASHLEY HOLLOWAY NP [id number]/[facility] #: [id number] WADE
[2018-05-06] MEDS ORDERED: Dexamethasone TAB* 4 MG PO SCH (21:00)
[2018-05-06] MEDS: Insulin GLARGINE(*) 1 UNITS UNIT SUBCUT SCH (22:05)
[2018-05-06] MEDS: Heparin VIAL(*) 5000 UNITS/ML VIAL (FIVE THOUSAND) SUBCUT SCH (22:05)
[2018-05-06] MEDS: Latanoprost 0.005%* 2.5 ml BTL BOTH EYES SCH (22:07)
[2018-05-06] MEDS: Zolpidem TAB* 10 MG PO PRN (22:09)
[2018-05-07] MEDS: Hydrocortisone 1% CREAM* 30 GM TUBE TOPICAL SCH ×3 (03:11→23:16)
[2018-05-07] MEDS: Ondansetron INJ* 2 MG/ML VIAL IV PRN ×3 (04:59→21:45)
[2018-05-07] MEDS: Dexamethasone IV* 4 MG/ML 1 ML (4 MG) IV SLOW PU SCH ×4 (05:02→23:44)
[2018-05-07] MEDS: Heparin VIAL(*) 5000 UNITS/ML VIAL (FIVE THOUSAND) SUBCUT SCH ×2 (05:04→14:11)
[2018-05-07] MEDS: HYDROmorphone INJ* 0.5 MG/0.5 ML SYRINGE IV SLOW PU PRN ×2 (05:13→12:08)
[2018-05-07] MEDS: Docusate CAP* 100 MG PO PRN ×2 (05:14→11:57)
[2018-05-07] MEDS: Cetirizine* 10 MG TAB PO PRN (06:37)
[2018-05-07] MEDS: Insulin LISPRO* 1 UNITS UNIT SUBCUT SCH ×3 (08:01→16:56)
[2018-05-07] MEDS: Aspirin EC TAB* 81 MG TAB.EC PO SCH (08:02)
[2018-05-07] MEDS: Atorvastatin* 40 MG TAB PO SCH (08:02)
[2018-05-07] MEDS: Bisoprolol TAB* 5 MG PO SCH (08:02)
[2018-05-07] MEDS: Gabapentin CAP(*) 300 MG PO SCH ×3 (08:03→23:15)
[2018-05-07] MEDS: Diltiazem CD CAP* 180 MG PO SCH (08:03)
[2018-05-07] MEDS ORDERED: Hydrochlorothiazide TAB* 25 MG PO SCH (09:00)
--- NOTE | 2018-05-07 09:36 | PN ---
Subjective Date of Service: 05/07/18 Interval History: C/o lower back pain , worse with standing and sitting. c/o left flank pain as well. Denies chest pain or shortness of breath. Denies abd pain, n/v/d. Family History: Unchanged from Admission Social History: Unchanged from Admission Past Medical History: Unchanged from Admission Objective Active Medications: Acetaminophen (Tylenol Tab*) 650 mg PO Q4H PRN PRN Reason: FEVER/PAIN Aspirin (Aspirin Ec Tab*) 81 mg PO DAILY [facility] Last Admin: 05/07/18 08:02 Dose: 81 mg Atorvastatin Calcium (Lipitor*) 40 mg PO DAILY [facility] Last Admin: 05/07/18 08:02 Dose: 40 mg Bisoprolol Fumarate (Zebeta Tab*) 2.5 mg PO DAILY [facility] Last Admin: 05/07/18 08:02 Dose: 2.5 mg Cetirizine HCl (Zyrtec*) 10 mg PO DAILY PRN PRN Reason: allergies Last Admin: 05/07/18 06:37 Dose: 10 mg Dexamethasone Sodium Phosphate (Decadron Iv*) 8 mg IV SLOW PU Q6H [facility] Last Admin: 05/07/18 05:02 Dose: 8 mg Dextrose (D50w Syringe 50 Ml*) 12.5 gm IV PUSH .FOR FS < 60 - SS PRN PRN Reason: FS < 60 Diltiazem HCl (Cardizem Cd Cap*) 180 mg PO QAM [facility] Last Admin: 05/07/18 08:03 Dose: 180 mg Docusate Sodium (Colace Cap*) 100 mg PO BID PRN PRN Reason: CONSTIPATION Last Admin: 05/07/18 05:14 Dose: 100 mg Gabapentin (Neurontin Cap(*)) 300 mg PO DAILY [facility] Last Admin: 05/07/18 08:26 Dose: Not Given Heparin Sodium (Porcine) (Heparin Vial(*)) 5,000 units SUBCUT Q8HR [facility] Last Admin: 05/07/18 05:04 Dose: 5,000 units Hydrochlorothiazide (Hydrodiuril Tab*) 25 mg PO DAILY [facility] Last Admin: 05/07/18 08:04 Dose: 25 mg Hydrocortisone (Hytone Cream 1%*) 1 applic TOPICAL BID [facility] Stop: 05/10/18 01:59 Last Admin: 05/07/18 08:28 Dose: Not Given Hydromorphone HCl (Dilaudid Inj*) 2 mg IV SLOW PU Q4H PRN PRN Reason: PAIN Last Admin: 05/07/18 05:13 Dose: 2 mg Insulin Glargine (Lantus(*)) 22 units SUBCUT BEDTIME [facility] Last Admin: 05/06/18 22:05 Dose: 22 unit Insulin Human Lispro (Humalog*) 0 units SUBCUT AC [facility]; Protocol Last Admin: 05/07/18 08:01 Dose: 6 units Latanoprost (Xalatan 0.005%*) 1 drop BOTH EYES BEDTIME [facility] Last Admin: 05/06/18 22:07 Dose: 1 drop Nitroglycerin (Nitroglycerin Tab 0.4 Mg*) 0.4 mg SL Q5M PRN PRN Reason: ANGINA Ondansetron HCl (Zofran Inj*) 4 mg IV Q4H PRN PRN Reason: NAUSEA Last Admin: 05/07/18 04:59 Dose: 4 mg Polyethylene Glycol/Electrolytes (Miralax*) 17 gm PO DAILY PRN PRN Reason: CONSTIPATION Zolpidem Tartrate (Ambien Tab*) 10 mg PO BEDTIME PRN PRN Reason: SLEEP Last Admin: 05/06/18 22:09 Dose: 10 mg Vital Signs - 8 hr 05/07/18 05/07/18 05/07/18 03:22 03:33 05:13 Temperature 97.6 F Pulse Rate 69 69 Respiratory 20 22 Rate Blood Pressure 104/45 (mmHg) O2 Sat by Pulse 96 Oximetry 05/07/18 05/07/18 05/07/18 06:40 07:15 07:36 Temperature 97.8 F Pulse Rate 72 Respiratory 16 18 Rate Blood Pressure 110/58 (mmHg) O2 Sat by Pulse 96 Oximetry 05/07/18 08:33 Temperature 98.3 F Pulse Rate Respiratory Rate Blood Pressure (mmHg) O2 Sat by Pulse Oximetry Oxygen Devices in Use Now: None Appearance: appears tired sitting on the edge of the bed, No acute distress Eyes: No Scleral Icterus Ears/Nose/Mouth/Throat: Clear Oropharnyx, Mucous Membranes Moist Neck: NL Appearance and Movements; NL JVP, Trachea Midline Respiratory: Symmetrical Chest Expansion and Respiratory Effort, Clear to Auscultation Cardiovascular: NL Sounds; No Murmurs; No JVD, No Edema Abdominal: NL Sounds; No Tenderness; No Distention Extremities: No Edema, No Clubbing, Cyanosis, - Skin: No Rash or Ulcers Neurological: Alert and Oriented x 3 Nutrition: Taking PO's Result Diagrams: 05/06/18 11:25 05/06/18 11:25 Assess/Plan/Problems-Billing Assessment: Ms. Angeles is a 63 y. o female with a PMHX of Chronic back pain, DM ,RICHARD and HLD who presented to the emergency room with back pain. MRI per [facility] no change. - Patient Problems (1) Lower back pain Current Visit: No Status: Chronic Code(s): M54.5 - LOW BACK PAIN SNOMED Code(s): 988692440 Comment: - MRI - Per [facility] no changes- feels this is not releated to her current back pain. - does have a known Kidney stone on the Left- will do ultrasound to R/O Hydronephrosis - Gabapentin - Renal Ultrasound showed moderate left hydronephrosis - Dr. Andrade contacted and recommended renal stent - patient will be NPO after midnight - will give Gentamycin and ceftriaxone as per Dr. Andrade recommendation (2) HTN (hypertension) Current Visit: No Status: Chronic Code(s): I10 - ESSENTIAL (PRIMARY) HYPERTENSION SNOMED Code(s): 38290053 Comment: - SBP 110 - Stable. Continue cardizem and HCTZ (3) Hyperlipidemia Current Visit: No Status: Chronic Code(s): E78.5 - HYPERLIPIDEMIA, UNSPECIFIED SNOMED Code(s): 00593107 Comment: - Continue statin (4) RICHARD (obstructive sleep apnea) Current Visit: No Status: Chronic Code(s): G47.33 - OBSTRUCTIVE SLEEP APNEA (ADULT) (PEDIATRIC) SNOMED Code(s): 88404852 Comment: - CPAP (5) DVT prophylaxis Current Visit: No Status: Resolved Priority: Low Code(s): DHR0228 - SNOMED Code(s): 355222003 Comment: - Heparin (6) Full code status Current Visit: No Status: Acute Code(s): Z78.9 - OTHER SPECIFIED HEALTH STATUS SNOMED Code(s): 275455647 Status and Disposition: Discharge home when medically stable
--- NOTE | 2018-05-07 10:55 | RAD ---
HISTORY: r/o hydronephrosis COMPARISONS: CT dated March 15, 2017 TECHNIQUE: Multiple transverse and longitudinal ultrasound images were obtained of the kidneys and bladder using grayscale and color Doppler imaging. FINDINGS: RIGHT KIDNEY: The right kidney is normal in shape, size, contour, and echogenicity. There is no hydronephrosis or nephrolithiasis. The right kidney measures 10.6 x 4.6 x 5.2 cm. LEFT KIDNEY: The left kidney is normal in shape, size, contour, and echogenicity. Again noted is a calculus of the renal pelvis, measuring 2.4 x 2.2 cm on the current examination. There is moderate pelvocaliectasis. The left kidney measures 11.2 x 5.1 x 4.1 cm. BLADDER: The bladder is incompletely distended. Bilateral ureteral jets are noted. AORTA AND IVC: No images are submitted of the vasculature. RETROPERITONEUM: Unremarkable. OTHER: None. IMPRESSION: LEFT NEPHROLITHIASIS WITH MODERATE HYDRONEPHROSIS.
[2018-05-07] MEDS ORDERED: Gentamicin ADULT (*) 160 MG in NS 0.9% 100 ML* 100 ML IVPB ONE (15:00)
[2018-05-07] MEDS: cefTRIAXone(*) 2 GM in NS 0.9% 100 ML* 100 ML IVPB SCH (15:23)
--- NOTE | 2018-05-07 16:36 | CONSULT ---
Consult Consult: Neurosurgery Consult Date of Admission: 05/05/18 Date of Consult: 05/06/18 Reason for Consult: Lumbar radiculopathy right Referring Provider: Ashley Holloway NP HPI: This is a 63 year old female with past medical history significant for Coronary artery vasospasm, HTN, Diabetes, kidney stones and chronic back pain who presented to [facility] on 05/05/18 with complaint of severe back pain. She states that she has had a known kidney stone for the past month which has been causing pain from the navel across the right lower quadrant and around the back to the flank. She has an extensive history of kidney stones for the past 30 years. Over the weekend, she was experiencing back pain across the low back in the SI joint area. On Sunday, the pain was severe so she took ibuprofen and Soma Sunday night. By Sunday morning, she was unable to get up out of bed or stand up straight. She reports that this pain was different from any pain she has experienced in the past that has been related to the kidney stones. 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 However, when she arrived, she was unable to get out of the car because the pain was so severe. She called Dr. Amor's office and then presented to the [facility] for evaluation. She was treated with steroids and pain medication which has improved the pain. She reports constant numbness in the right small toe and heel, weakness in the right foot with walking and a tingling sensation in the right leg. The foot becomes very painful when the back pain is severe. She also gets intermittent muscle cramps of the right lower leg. She has a history of two previous lumbar discectomy surgeries. Weakness and numbness is persistent since surgery although slightly improved since pre-op. She denies numbness, tingling, weakness and pain in the left lower extremity.Denies bowel and bladder incontinence Past Medical History: 1. Diabetes 2. HTN 3. Coronary artery vasospasm 4. Hyperlipidemia 5. Kidney stones 6. Chronic back pain 7. RICHARD, wears CPAP 8. Glaucoma Past Surgical History: 1. ACD F 2. Lumbar discectomy L5-S1 right x2 3. 4. Ureteral stenting 5. Appendectomy 6. Cholecystectomy 7. Hysterectomy Home Medications: 1. Latanoprost 0.005% OPTH (NF) [Xalatan 0.005% OPTH*] 1 drop BOTH EYES BEDTIME 07/14/13 [History Confirmed 05/06/18] 2. zzInsulin GLARGINE(*) [zzLantus(*)] 44 units SUBCUT BEDTIME 07/14/13 [ History Confirmed 05/06/18] 3. Insulin Aspart [Novolog] 1 - 10 unit SC SEE INSTRUCTIONS 10/18/13 [History Confirmed 05/06/18] 4. Ondansetron TAB* [Zofran 4 MG Tab*] 4 mg PO Q6H PRN 10/26/16 [History Confirmed 05/06/18] 5. Acetaminophen TAB* [Tylenol TAB*] 650 mg PO Q4H PRN #0 tab 11/19/16 [Rx Confirmed 05/06/18] 6. Diltiazem CD CAP* [Cardizem CD CAP*] 180 mg PO QAM #30 cap.cd 11/19/16 [Rx Confirmed 05/06/18] 7. Docusate CAP* [Colace Cap*] 100 mg PO BID PRN #0 cap 11/19/16 [Rx Confirmed 05/06/18] 8. Polyethylene Glycol 3350* [Miralax*] 17 gm PO DAILY PRN #0 packet 11/19/16 [ Rx Confirmed 05/06/18] 9. Aspirin [Adult Aspirin Regimen] 81 mg PO DAILY 05/06/18 [History Confirmed ] 10. Bisoprolol TAB* [Zebeta TAB*] 2.5 mg PO DAILY 05/06/18 [History Confirmed ] 11. Gabapentin CAP(*) [Neurontin 300 CAP(*)] 300 mg PO DAILY 05/06/18 [History Confirmed 05/06/18] 12. HYDROmorphone TAB* [Dilaudid TAB*] 2 mg PO DAILY PRN 05/06/18 [History Confirmed 05/06/18] 13. Hydrochlorothiazide TAB* [Hydrodiuril TAB*] 25 mg PO DAILY 05/06/18 [ History Confirmed 05/06/18] 14. Nitroglycerin TAB 0.4 MG* 0.4 mg SL Q5M PRN 05/06/18 [History Confirmed ] 15. Rosuvastatin (NF) [Crestor] 20 mg PO DAILY 05/06/18 [History Confirmed 05/06] 16. Zolpidem TAB* [Ambien TAB*] 10 mg PO BEDTIME PRN 05/06/18 [History Confirmed 05/06/18] Allergies: 1. Niacin 2. Potassium 3. Vancomycin Social History: No tobacco or alcohol use. ROS: Full ROS completed. She confirms hematuria, constipation, abdominal bloating. All others negative or stated in HPI. Physical Exam: Vital Signs: Temp Pulse Resp BP Pulse Ox 98.3 F 65 20 88/44 88 05/07/18 18:59 05/07/18 18:59 05/07/18 18:59 05/07/18 19:44 05/07/18 18:59 General: Alert and laying in bed on left side, NAD. HEENT: Head is normocephalic and atraumatic. PERRL, EOMI, sclerae anicteric. Moist mucus membranes. Gross hearing intact. Neck: Supple, symmetric. CV: Radial and pedal pulses 2+ and equal. Lungs: Breathing is nonlabored and lungs are clear. Abdomen: The abdomen is moderately rounded. NABS. Nontender. Neuro: CN II-XII intact. Speech is clear. Strength right lower extremity: gastroc 4-/5, EHL 4/5, anterior tibialis 5/5, quadriceps 5/5. Strength left lower extremity: 5/5 throughout. Sensation absent to right heel, diminished to right foot, intact LLE. Patellar reflex 2+ bilaterally, achilles reflex RT absent and LT 2+. Extremities: No edema. ROM RLE creates pain in RLE and low back. Imagin. MRI with and without contrast on 05/05/18 shows degenerative disc disease, post-operative changes L5-S1. Assessment and Plan: This patient presents with chronic back pain and right lumbar radiculopathy after two previous lumbar discectomy surgeries. She experienced exacerbation of pain over the weekend and into Sunday which prompted presentation to [facility]. She was found to have hydronephrosis related to known kidney stone. MRI lumbar spine w/wo was obtained and is unchanged from previous study. I have discussed the MRI results with the patient. She is likely undergoing treatment for the kidney stone tomorrow and she understands to follow up in office for the low back and RLE symptoms if necessary.
[2018-05-07] MEDS ORDERED: Morphine INJ* 2 MG/ML 1 ML SYRINGE (TWO MG - NEW SYRINGE VERSION) ONE (21:37)
[2018-05-07] MEDS: Nitroglycerin TAB 0.4 MG* 0.4 MG TAB SL PRN ×2 (21:40→21:47)
--- NOTE | 2018-05-07 21:43 | PN ---
Progress Note - Progress Note Date of Service: 05/07/18 Note: CAT call - Crushing chest pain - EKG shows ST depression in lateral leads, incomplete left bundle. Patient hypoxic - improved when placed on oxymask 10L. Patient tachypneic, coughing with diminished breath sounds. Patient given, NTG SL, zofran and morphine, labs obtained. Concern for NSTEMI vs PE. Patient's sats went down to 80% and had to be bagged on arrival to ICU. Her CP improved after 2 NTG, now with residual jaw pain. CXR concerning for pulmonary edema. Patient in ICU on vapotherm currently. Heparin drip ordered. Patient on BB and ASA already. Echo ordered for AM. Dr. Regalado and Dr. Lentz notified.
[2018-05-07 21:58] LABS: ABS Basophils 0 10^3/ul (0-0.2); ABS Eosinophils 0 10^3/ul (0-0.6); ABS Lymphocytes 1.7 10^3/ul (1.0-4.8); ABS Monocytes 0.8 10^3/ul (0-0.8); ABS Neutrophils 15.4 10^3/ul (1.5-7.7); ABS Nucleated RBC 0 10^3/ul; Eosinophil % 0.2 % (0-6); Hematocrit 36 % (35-47); Lymphocyte % 9.5 % (25-47); Mean Corpuscular HGB Conc 34 g/dl (31-36); Mean Corpuscular Hemoglobin 29 pg (27-31); Mean Corpuscular Volume 87 fL (80-97); Mean Platelet Volume 7.5 um3 (7.4-10.4); Nucleated Red Blood Cells % 0; Platelet Count 309 10^3/ul (150-450); Red Blood Count 4.08 10^6/ul (4.00-5.40); Red Cell Distribution Width 15 % (10.5-15)
[2018-05-07] MEDS ORDERED: Heparin DRIP 25,000 UNITS(*) 25,000 UNITS/500 ML BAG IV SCH (22:00)
[2018-05-07 22:15] LABS: EGFR Non-African American 76.2 (>60); INR 0.94 (0.77-1.02)
--- NOTE | 2018-05-07 22:17 | CONS ---
CC: Dr. Fontana; Dr. Jennings * UROLOGY CONSULTATION: DATE OF CONSULT: 05/07/18 REQUESTING PHYSICIAN: Marian Lewis DO DIAGNOSES: 1. Left hydronephrosis. 2. Calculus, left renal pelvis. HISTORY OF PRESENT ILLNESS: Hazel Angeles is a 63-year-old lady with a history of recurrent bilateral renal calculi. I had been seeing her for several years for evaluation and management of recurrent renal calculi and I last saw her in 2013. Since then, she had followup done in [place] and then also in [place] where she has had several procedures done in an effort to remove stones from the left kidney and ureter. She had been admitted on 05/06/18 with complaints of low back pain, which initially was thought to be related to her history of diskectomy (her most surgery was in November 2016). She had an evaluation done including evaluation by Dr. Amor and by the hospitalist and had an ultrasound, which revealed an approximately 2 cm calculus in the left renal pelvis with moderate left hydronephrosis. PAST MEDICAL HISTORY: Fairly extensive and is significant for: 1. Insulin-dependent diabetes. 2. 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 3. Obstructive sleep apnea. 4. Glaucoma. 5. Chronic back pain (status post L5-S1 hemilaminectomy x2). PAST SURGICAL HISTORY: Significant for: 1. Multiple ureteroscopies and ureteral stent placements. 2. . 3. Laparoscopic cholecystectomy. 4. Hysterectomy. 5. Appendectomy. 6. Anterior cervical diskectomy on 2 separate occasions. 7. Hemilaminectomies L5-S1 on 2 separate occasions. MEDICATIONS: On admission: 1. NovoLog with meals. 2. Lantus 44 units subcutaneously at bedtime. 3. Hydromorphone 2 mg daily p.r.n. 4. Aspirin 81 mg a day. 5. Zofran 4 mg q.6 hours p.r.n. nausea. 6. Diltiazem 180 mg daily. 7. Gabapentin 300 mg daily. 8. Hydrochlorothiazide 25 mg daily. 9. Rosuvastatin 20 mg daily. 10. Tylenol p.r.n. 11. Bisoprolol 2.5 mg daily. 12. Eye drops for glaucoma. ALLERGIES AND INTOLERANCES: POTASSIUM, NIACIN, and VANCOMYCIN. FAMILY HISTORY: Her sister also has a history of kidney stones. REVIEW OF SYSTEMS: She currently denies any chest pain or shortness of breath. She has had some nausea and vomiting in the last 24 hours, but no fever or chills. PHYSICAL EXAMINATION: Reveals a pleasant middle-aged lady who appears uncomfortable and is lying in bed. Blood pressure is 100/60, heart rate 68 per minute, temperature 98.2, oxygen saturation 98% on room air. Cardiovascular: Regular rate and rhythm. S1 and S2. Lungs are clear bilaterally. Abdomen is soft with left flank tenderness. DIAGNOSTIC STUDIES/LAB DATA: I reviewed her labs on admission, which included a white count of 7.4, hemoglobin and hematocrit of 12.2 and 36 respectively with a platelet count of 278,000. BUN is 15 and creatinine is 0.65. Urinalysis showed 3+ leukocyte esterase, no bacteria and no nitrites. I reviewed the ultrasound which revealed a 2 to 2.2 cm calculus in the left renal pelvis with moderate left hydronephrosis. IMPRESSION: I had a detailed discussion with Ms. Angeles regarding the treatment options. She would like to proceed with a left stent insertion and will later require definitive treatment either with shockwave lithotripsy or with ureteroscopy and laser lithotripsy. The procedure was discussed in detail and all her questions were answered. [id number] #: [id number] MTDD
[2018-05-07] MEDS ORDERED: Furosemide IV* 10 MG/ML VIAL (40 MG) IV ONE (22:23)
[2018-05-07] MEDS ORDERED: Heparin VIAL(*) 5000 UNITS/ML VIAL (FIVE THOUSAND) IV SCH (23:00)
[2018-05-07] MEDS: Insulin GLARGINE(*) 1 UNITS UNIT SUBCUT SCH (23:08)
[2018-05-07] MEDS: Latanoprost 0.005%* 2.5 ml BTL BOTH EYES SCH (23:09)
[2018-05-07] MEDS: Zolpidem TAB* 10 MG PO PRN (23:18)
[2018-05-08] MEDS: Dexamethasone IV* 4 MG/ML 1 ML (4 MG) IV SLOW PU SCH ×2 (05:03→12:42)
[2018-05-08 05:13] LABS: ABS Basophils 0.1 10^3/ul (0-0.2); ABS Eosinophils 0 10^3/ul (0-0.6); ABS Lymphocytes 1.3 10^3/ul (1.0-4.8); ABS Neutrophils 12.4 10^3/ul (1.5-7.7); ABS Nucleated RBC 0 10^3/ul; Eosinophil % 0 % (0-6); Hematocrit 34 % (35-47); Hemoglobin 11.1 g/dl (12.0-16.0); Mean Corpuscular HGB Conc 33 g/dl (31-36); Mean Corpuscular Hemoglobin 28 pg (27-31); Mean Corpuscular Volume 86 fL (80-97); Mean Platelet Volume 7.5 um3 (7.4-10.4); Nucleated Red Blood Cells % 0; Platelet Count 264 10^3/ul (150-450); Red Blood Count 3.93 10^6/ul (4.00-5.40); Red Cell Distribution Width 15 % (10.5-15); White Blood Count 14.7 10^3/ul (3.5-10.8)
[2018-05-08 05:29] LABS: EGFR Non-African American 82.3 (>60)
--- NOTE | 2018-05-08 07:49 | RAD ---
HISTORY: Chest pain COMPARISONS: November 17, 2016 VIEWS: 1: frontal portable view of the chest at 10:04 PM FINDINGS: LINES AND TUBES: None. CARDIOMEDIASTINAL SILHOUETTE: The cardiomediastinal silhouette is normal for portable technique. PLEURA: The costophrenic angles are sharp. No pleural abnormalities are noted. LUNG PARENCHYMA: There is a diffuse reticular pattern with indistinct pulmonary vessels. ABDOMEN: The upper abdomen is clear. There is no subphrenic gas. BONES AND SOFT TISSUES: The patient is status post anterior cervical fusion. IMPRESSION: PULMONARY INTERSTITIAL EDEMA
[2018-05-08] MEDS ORDERED: Albuterol/Ipratropium NEB.SOL* Albuterol 2.5 MG/Ipratropium 0.5 MG 3 ML INH PRN (08:50)
[2018-05-08] MEDS: Insulin LISPRO* 1 UNITS UNIT SUBCUT SCH ×3 (09:08→16:54)
[2018-05-08] MEDS: Hydrocortisone 1% CREAM* 30 GM TUBE TOPICAL SCH (09:09)
[2018-05-08] MEDS: Atorvastatin* 40 MG TAB PO SCH (09:10)
[2018-05-08] MEDS: Aspirin EC TAB* 81 MG TAB.EC PO SCH (09:10)
[2018-05-08] MEDS: Diltiazem CD CAP* 180 MG PO SCH (09:19)
--- NOTE | 2018-05-08 09:25 | ECHO ---
Patient: ANDREW MEDRANO [facility] Rec#: [id number] : 1955 Date: 05/08/2018 Age: 63y Height: 157.48 cm / 62.0 in Weight: 80.74 kg / 178.0 lbs Sex: F BSA: 1.82 Room#: [facility] Admit Date#: 05/06/2018 Type: Inpatient Referring: She Clifton Reading: Alexander Lentz DO Billing Services Manager: Kim Jackson RDCS CC: Zhane Fontana MD Transthoracic Echocardiogram Indication: Chest pain BP: 88/66 HR: 56 Rhythm: Bradycardia Findings History: IDDM, RICHARD with CPAP, CAD with 70% blockage. Technical Comments: The study quality is fair. Completed at 0900. Left Ventricle: The left ventricular chamber size is normal. Mild to moderate concentric left ventricular hypertrophy is observed. Global left ventricular wall motion and contractility are within normal limits. There is normal left ventricular systolic function. The estimated ejection fraction is greater than 65%. Abnormal left ventricular diastolic function is observed. Left Atrium: The left atrium is mild to moderately dilated. Right Ventricle: The right ventricular chamber size and systolic function are within normal limits. Right Atrium: The right atrium is mildly dilated. Aortic Valve: The aortic valve structure is not well visualized. Moderate aortic leaflet calcification is visualized. Systolic excursion of the aortic valve cusps is reduced. There is mild aortic regurgitation. There is moderate to severe aortic stenosis. The mean gradient of the aortic valve is 40.87 mmHg. peak velocity 3.8 m/s, dimensionless index 0.27, The aortic valve area, by VTI's, is calculated at 0.95 cm2. Mitral Valve: Moderate mitral annular calcification present. Mild mitral leaflet calcification is visualized. Mitral valve leaflet mobility is mildly restricted. There is mild mitral regurgitation. There is mild mitral stenosis. non-rheumatic Tricuspid Valve: The tricuspid valve leaflets are normal. There is mild tricuspid regurgitation. The right ventricular systolic pressure is estimated at 42 mmHg. There is evidence of mild pulmonary hypertension. There is no tricuspid stenosis. Pulmonic Valve: The pulmonic valve appears normal. There is a trace pulmonic regurgitation. There is no pulmonic stenosis. Pericardium: There is no significant pericardial effusion. Aorta: There is no dilatation of the ascending aorta. There is no dilatation of the aortic arch. The aortic root is normal in size. Pulmonary Artery: The main pulmonary artery is not well visualized. Venous: The inferior vena cava is dilated. There is a greater than 50% respiratory change in the inferior vena cava dimension. Conclusions The left ventricular chamber size is normal. Mild to moderate concentric left ventricular hypertrophy is observed. Global left ventricular wall motion and contractility are within normal limits. There is normal left ventricular systolic function. The estimated ejection fraction is 70-75% The left atrium is mild to moderately dilated. The right ventricular chamber size and systolic function are within normal limits. Moderate mitral annular calcification present with mild non-rheumatic mitral stenosis There is moderate to severe aortic stenosis as detailed within report There is evidence of mild pulmonary hypertension. Compared to prior study from 04/2015, aortic stenosis has worsened Measurements Name Value Normal Range RVIDd (AP) 2D 3.2 cm (0.9 - 2.6) RVDdMajor (2D) 4.5 cm (2.2 - 4.4) RVAW (2D) 0.8 cm (0.2 - 0.5) RAd ISD 4CH 4.2 cm (3.4 - 4.9) RA (A4C)W 4.7 cm (2.9 - 4.6) IVSd (2D) 1.4 cm (0.6 - 1) LVPWd (2D) 1.4 cm (0.6 - 1) LVIDd (2D) 3.6 cm (3.6 - 5.4) LVIDs (2D) 2.2 cm - LV FS (2D) 29 % (25 - 45) Aortic Annulus 2.1 cm (1.4 - 2.6) Ao root diameter (2D) 3.3 cm (2.1 - 3.5) Ascending Ao 2.9 cm (2.1 - 3.4) Aortic arch 2.8 cm (1.8 - 3.4) LA dimension (AP) 2D 3.8 cm (2.3 - 3.8) LAd ISD 4CH 5.3 cm (2.9 - 5.3) LA ISD 4CH W 4.5 cm (2.5 - 4.5) Name Value Normal Range LA ESV SP 4CH (A/L) 67 ml - LA ESV SP 2CH (A/L) 68 ml - LA ESV BP (A/L) 73 ml - LA ESV BP (A/L) index 40 ml/m2 - LA ESV SP 4CH (MOD) 62 ml - LA ESV SP 2CH (MOD) 65 ml - Name Value Normal Range MV E-wave Vmax 1.53 m/sec - MV deceleration time 368.5 msec - MV A-wave Vmax 1.32 m/sec - MV E:A ratio 1.16 ratio - LV septal e' Vmax 0.04 m/sec - LV lateral e' Vmax 0.06 m/sec - LV E:e' septal ratio 38.25 ratio - LV E:e' lateral ratio 25.5 ratio - Name Value Normal Range AV Vmax 3.8 m/sec - AV VTI 109.4 cm - AV peak gradient 57.26 mmHg - AV mean gradient 40.87 mmHg - LVOT diameter 2.1 cm - LVOT Vmax 0.95 m/sec - LVOT VTI 30 cm - WANG (continuity VTI) 0.95 cm2 - PRANAY Vmax 1.8 m/sec - Name Value Normal Range MV Vmax 1.6 m/sec - MV VTI 57.38 cm - MV peak gradient 10.57 mmHg - MV mean gradient 3.12 mmHg - MV PHT 103.6 msec - MR Vmax 4.13 m/sec - MR VTI 147.1 cm - MR volume (PISA) 13.2 ml - MR flow (PISA) 37 ml/sec - MR ERO 0.09 cm2 - MR PISA radius 0.37 cm - MR alias Vmax 42.4 cm/sec - MVA (PHT) 2.12 cm2 - MVA (continuity VTI) 1.5 cm2 - Name Value Normal Range TR Vmax 2.9 m/sec - TR peak gradient 34 mmHg - RAP 8 mmHg - RVSP 42 mmHg - IVC diameter 2.3 cm - Name Value Normal Range PV Vmax 0.92 m/sec - PV peak gradient 3.43 mmHg -
[2018-05-08] MEDS: Nitroglycerin TAB 0.4 MG* 0.4 MG TAB SL PRN ×2 (10:11→10:18)
[2018-05-08] MEDS: Ondansetron INJ* 2 MG/ML VIAL IV PRN (10:18)
--- NOTE | 2018-05-08 12:36 | CONSULT ---
Subjective Date of Service: 05/08/18 Interval History: DATE OF ADMISSION: 05/06/18 Date of consult 05/08/2018 Service: Hospitalist/Intensivisit, currently Dr. Kwesi Lentz PRIMARY CARE PHYSICIAN: Dr. Fontana Environmental Lead: Dr. Ruelas CHIEF COMPLAINT: Low back pain with radiation to the right leg. Reason for consult: CHF HISTORY OF PRESENT ILLNESS: Hazel Angeles is a 63-year-old female with a past medical history as below. She has chronic intermittent chest discomfort that was previously felt to be related to vasospasm. She had a recent coronary CT scan 03/26/2018 that showed at most a 50% mid LAD lesion and small to medium sized diagonal vessel with 70% ostial lesion (calcified lesion). She has aortic stenosis with a mean gradient of 32 mmHg across the aortic valve on a 08/2017 echo. She has been in her usual state of health recently. She was admitted with low back pain. It was not immediately certain if it was related to spine disease. She received IVF, IV steroids and developed acute heart failure. She had chest and jaw discomfort which she has a history of. She had a normal ekg during these symptoms making vasospasm unlikely. She ruled out for ACS with serial troponins. She had an echocardiogram with an LVEF of 70-75% with moderate to severe aortic stenosis. She received IV diuresis with over 3 liters net negative i/o and symptoms have significantly improved. She was ultimately found with left hydronephrosis and needs a ureteral stent. Her BP's have been as low as 88/44 mmHg. She is being treated for urinary tract infection PAST MEDICAL HISTORY: 1. Chronic back pain with L5-S1 hemilaminectomy x2. 2. Insulin-dependent diabetes. 3. CAD 4. Aortic stenosis 5. Obstructive sleep apnea with CPAP. 6. Glaucoma. 7. Possible clinical coronary vasospasm based on proximal LAD spasm during angiogram from 2006. PAST SURGICAL HISTORY: Includes: 1. Two anterior cervical diskectomies. 2. Two hemilaminectomies at L5-S1. 3. Ureteral stenting with retrieval. 4. . 5. Laparoscopic cholecystectomy. 6. Appendectomy. 7. Hysterectomy. ALLERGIES: NIACIN, POTASSIUM, and VANCOMYCIN. FAMILY HISTORY: The patient reports that her mother had diabetes and heart disease and at 85. Father is alive, but she does not about his health history. SOCIAL HISTORY: The patient denies alcohol, tobacco, or drug use. She states that her sister, Ingrid Atkins, would be the health care proxy. Medications Active Medications: Acetaminophen (Tylenol Tab*) 650 mg PO Q4H PRN PRN Reason: FEVER/PAIN Albuterol/Ipratropium (Duoneb (Albuterol 2.5 Mg/Ipratropium 0.5 Mg)) 1 neb INH Q6H PRN PRN Reason: SOB/WHEEZING Last Admin: 05/08/18 09:45 Dose: 1 neb Aspirin (Aspirin Ec Tab*) 81 mg PO DAILY [facility] Last Admin: 05/08/18 09:10 Dose: 81 mg Atorvastatin Calcium (Lipitor*) 40 mg PO DAILY [facility] Last Admin: 05/08/18 09:10 Dose: 40 mg Bisoprolol Fumarate (Zebeta Tab*) 2.5 mg PO DAILY [facility] Last Admin: 05/07/18 08:02 Dose: 2.5 mg Cetirizine HCl (Zyrtec*) 10 mg PO DAILY PRN PRN Reason: allergies Last Admin: 05/07/18 06:37 Dose: 10 mg Dexamethasone Sodium Phosphate (Decadron Iv*) 8 mg IV SLOW PU Q6H [facility] Last Admin: 05/08/18 05:03 Dose: Not Given Dextrose (D50w Syringe 50 Ml*) 12.5 gm IV PUSH .FOR FS < 60 - SS PRN PRN Reason: FS < 60 Diltiazem HCl (Cardizem Cd Cap*) 180 mg PO QAM [facility] Last Admin: 05/08/18 09:19 Dose: 180 mg Docusate Sodium (Colace Cap*) 100 mg PO BID PRN PRN Reason: CONSTIPATION Last Admin: 05/07/18 11:57 Dose: 100 mg Gabapentin (Neurontin Cap(*)) 300 mg PO BEDTIME [facility] Last Admin: 05/07/18 23:15 Dose: 300 mg Hydrocortisone (Hytone Cream 1%*) 1 applic TOPICAL BID [facility] Stop: 05/10/18 01:59 Last Admin: 05/08/18 09:09 Dose: Not Given Hydromorphone HCl (Dilaudid Inj*) 2 mg IV SLOW PU Q4H PRN PRN Reason: PAIN Last Admin: 05/07/18 12:08 Dose: 2 mg Ceftriaxone Sodium 2 gm/ (Sodium Chloride) 100 mls @ 200 mls/hr IVPB Q24H [facility] Last Admin: 05/07/18 15:23 Dose: 200 mls/hr Insulin Glargine (Lantus(*)) 22 units SUBCUT BEDTIME [facility] Last Admin: 05/07/18 23:08 Dose: 22 unit Insulin Human Lispro (Humalog*) 0 units SUBCUT AC [facility]; Protocol Last Admin: 05/08/18 09:08 Dose: 9 units Latanoprost (Xalatan 0.005%*) 1 drop BOTH EYES BEDTIME [facility] Last Admin: 05/07/18 23:09 Dose: 1 drop Nitroglycerin (Nitroglycerin Tab 0.4 Mg*) 0.4 mg SL Q5M PRN PRN Reason: ANGINA Last Admin: 05/08/18 10:18 Dose: 0.4 mg Ondansetron HCl (Zofran Inj*) 4 mg IV Q4H PRN PRN Reason: NAUSEA Last Admin: 05/08/18 10:18 Dose: 4 mg Polyethylene Glycol/Electrolytes (Miralax*) 17 gm PO DAILY PRN PRN Reason: CONSTIPATION Zolpidem Tartrate (Ambien Tab*) 10 mg PO BEDTIME PRN PRN Reason: SLEEP Last Admin: 05/07/18 23:18 Dose: 10 mg Home Medications: Latanoprost 0.005% OPTH (NF) [Xalatan 0.005% OPTH*] 1 drop BOTH EYES BEDTIME 04/19 [History Confirmed 05/06/18] zzInsulin GLARGINE(*) [zzLantus(*)] 44 units SUBCUT BEDTIME 07/14/13 [History Confirmed 05/06/18] Insulin Aspart [Novolog] 1 - 10 unit SC SEE INSTRUCTIONS 10/18/13 [History Confirmed 05/06/18] Ondansetron TAB* [Zofran 4 MG Tab*] 4 mg PO Q6H PRN 10/26/16 [History Confirmed 05/06/18] Acetaminophen TAB* [Tylenol TAB*] 650 mg PO Q4H PRN #0 tab 11/19/16 [Rx Confirmed 05/06/18] Diltiazem CD CAP* [Cardizem CD CAP*] 180 mg PO QAM #30 cap.cd 02/12/17 [Rx Confirmed 05/06/18] Docusate CAP* [Colace Cap*] 100 mg PO BID PRN #0 cap 11/19/16 [Rx Confirmed ] Polyethylene Glycol 3350* [Miralax*] 17 gm PO DAILY PRN #0 packet 11/19/16 [Rx Confirmed 05/06/18] Aspirin [Adult Aspirin Regimen] 81 mg PO DAILY 05/06/18 [History Confirmed 05/06] Bisoprolol TAB* [Zebeta TAB*] 2.5 mg PO DAILY 05/06/18 [History Confirmed ] Gabapentin CAP(*) [Neurontin 300 CAP(*)] 300 mg PO DAILY 05/06/18 [History Confirmed 05/06/18] HYDROmorphone TAB* [Dilaudid TAB*] 2 mg PO DAILY PRN 05/06/18 [History Confirmed 05/06/18] Hydrochlorothiazide TAB* [Hydrodiuril TAB*] 25 mg PO DAILY 05/06/18 [History Confirmed 05/06/18] Nitroglycerin TAB 0.4 MG* 0.4 mg SL Q5M PRN 05/06/18 [History Confirmed 05/06/18 ] Rosuvastatin (NF) [Crestor] 20 mg PO DAILY 05/06/18 [History Confirmed 05/06/18] Zolpidem TAB* [Ambien TAB*] 10 mg PO BEDTIME PRN 05/06/18 [History Confirmed ] Review of Systems - Measurements Intake and Output: Intake and Output Last 24 Hours 05/06/18 05/07/18 05/08/18 05/09/18 06:59 06:59 06:59 06:59 Intake Total 400 1710 Output Total 3450 300 Balance 400 -1740 -300 Weight 178 lb 8 oz 180 lb 1.883 oz Intake: IV Fluids 1000 LR 1000 Oral 400 710 Output: Urine 3450 300 Other: Estimated Void Large Medium Date of Last Bowel 05/05/2018 Movement # Bowel Movements 0 0 # Voids 1 4 - Review of Systems Constitutional Symptoms: Negative: Weakness, Fatigue Dermatology: Negative: Rash, Skin Lesions HEENT: Negative: Change in Hearing, Vertigo Eyes: Negative: Change in Vision, Double Vision Thyroid: Negative: Constipation, Palpitations Pulmonary: Positive: Respiratory Distress, Shortness of Breath, Exercise Intolerance Negative: COPD Cardiology: Positive: Chest Pain, Shortness of Breath Negative: Palpitations, Swelling of Ankles, Peripheral Vascular Dis, Edema, Faintness, Syncope, Claudication, Paroxysmal Nocturnal Dyspnea, Orthopnea Gastroenterology: Negative: Nausea, Vomiting, Haematemesis, Melena Genital - Urinary: Negative: Dysuria, Hematuria Musculoskeletal: Negative: Joint Pain, Joint Stiffness Endocrinology: Positive: Polydipsia, Polyuria Hematologic/Lymphatic: Positive: Use of Antiplatelet Drugs Negative: Hx Leukemia, Hx Lymphoma Neurology: Negative: Change in Sphincter Function, Change in Walking Psychiatry: Negative: Unusual Anxiety, Suicidal Ideation Allergic/Immunologic: Negative: Hx HIV, Immunocompromise Review of Systems Statement: All other review of systems negative, unless stated above. Objective Vital Signs: Temp Pulse Resp BP Pulse Ox 97.9 F 61 12 107/54 98 05/08/18 07:41 05/08/18 12:01 05/08/18 12:01 05/08/18 12:01 05/08/18 12:01 Oxygen Devices in Use Now: High Flow Nasal Cannula Appearance: patient appears anxious but not toxic appearing Ears/Nose/Mouth/Throat: Clear Oropharnyx, Mucous Membranes Moist Neck: Trachea Midline, - - uncertain jvp Respiratory: Symmetrical Chest Expansion and Respiratory Effort, Clear to Auscultation Cardiovascular: RRR, No Edema, - - 3/6 high pitched systolic murmur with soft A2 Abdominal: NL Sounds; No Tenderness; No Distention Extremities: No Clubbing, Cyanosis Skin: No Rash or Ulcers Neurological: Alert and Oriented x 3 Laboratory Results: 05/08/18 05:00 05/08/18 05:00 INR (Anticoag Therapy) 0.94 (0.77-1.02) 05/07/18 21:45 APTT 69.4 seconds (26.0-36.3) H 05/08/18 05:00 Total Bilirubin 0.40 mg/dL (0.2-1.0) 05/06/18 11:25 AST 41 U/L (13-39) H 05/06/18 11:25 ALT 41 U/L (7-52) 05/06/18 11:25 Alkaline Phosphatase 74 U/L (34-104) 05/06/18 11:25 B-Natriuretic Peptide 1119 pg/mL (-100) H 05/07/18 21:45 Total Protein 6.7 g/dL (6.4-8.9) 05/06/18 11:25 Albumin 3.9 g/dL (3.2-5.2) 05/06/18 11:25 Globulin 2.8 g/dL (2-4) 05/06/18 11:25 Albumin/Globulin Ratio 1.4 (1-3) 05/06/18 11:25 Triglycerides 135 mg/dL 05/08/18 05:00 Cholesterol 157 mg/dL 05/08/18 05:00 LDL Cholesterol 86 mg/dL 05/08/18 05:00 HDL Cholesterol 44.5 mg/dL 05/08/18 05:00 05/07/18 05/08/18 05/08/18 21:45 01:20 05:00 Troponin I 0.01 0.02 0.03 EKG Data: ekg 05/07/2018: NSR, normal ekg Assessment/Plan Hazel has developed acute systolic HF that is likely secondary to aortic stenosis in the setting of IV fluids, IV steroids and possible urosepsis. She is now improved with diuresis. Her LVEF is high normal. She had recent non- invasive coronary artery testing that showed no greater than 70% diagonal disease lesion. She has no objective evidence of myocardial ischemia this admission. Her recent baseline functional status has been stable. There are no absolute cardiac contraindications to proceeding with ureteral stent placement. This is being planned for tomorrow and I do not think any further cardiac evaluation or treatment is mandatory prior to this. Patient accepts the risk of cardiovascular complications from this procedure. Her fluid status is being optimized by Dr Kwesi Lentz (who I discussed case with). Given her labile BP I held her recently started beta-jose. She will need careful marie- operative monitoring of her fluid status. Future episodes of chest discomfort this admission without objective evidence of ischemia can be treated with PRN IV narcotics. We will continue her calcium channel jose and statin. If aspirin needs to be held for the procedure it can be restarted whenever her bleeding risk is minimized. She will need follow up with Dr. Ruelas (I discussed case with him on phone) for further evaluation and management of her aortic stenosis after discharge and he will arrange this. Thank you for allowing me to participate in the cardiovascular care of this patient. Please do not hesitate to contact me with questions or concerns.
[2018-05-08] MEDS: Polyethylene Glycol 3350* 17 GM PACKET PO PRN (12:48)
--- NOTE | 2018-05-08 12:52 | PN ---
Date of Service: 05/08/18 Critical Care Services: 63 y/o female admitted to ICU last night with chest pain and pulmonary interstitial edema - has improved remarkably with diuresis - No evidence for an acute coronary syndrome. Patient has Hx of aortic stenosis (mod/severe) but NO coronary artery disease. She has Hx anxiety, which is believed to be responsible for her repeated complaints of chest pain. Patient also has an obstructing kidney stone on the left with hydronephrosis, and was scheduled for removal of the stone this AM. Vital Signs: Temp Pulse Resp BP SpO2 FiO2 98.2 F 61 12 107/54 98 70 Physical Exam: Gen:Alert, oriented, breathing comfortably Lungs: Occasional crackles both bases. No wheezes. Extremities: Trace edema. No cyanosis. Fluid Balance (Past 24 Hours): 05/08/18 06:59 Intake Total 1710 Output Total 3450 Balance -1740 Weight 180 lb Intake: IV Fluids 1000 LR 1000 Oral 710 Output: Urine 3450 Other: Estimated Void Medium Date of Last Bowel 05/05/2018 Movement # Bowel Movements 0 # Voids 4 Labs: 05/07/18 05/07/18 05/08/18 21:45 21:45 01:20 Sodium 136 Potassium 4.2 Chloride 102 Carbon Dioxide 22 Anion Gap 12 H BUN 23 Creatinine 0.77 Glucose 243 H Calcium 9.7 Troponin I 0.01 0.02 B-Natriuretic Peptide 1119 05/08/18 05/08/18 05:00 05:00 WBC 14.7 Hgb 11.1 Hct 34 L Plt Count 264 APTT Sodium 136 Potassium 3.9 Chloride 101 Carbon Dioxide 28 Anion Gap 7 BUN 24 Creatinine 0.72 Glucose 281 Calcium 9.2 Troponin I 0.03 B-Natriuretic Peptide Triglycerides 135 Cholesterol 157 LDL Cholesterol 86 HDL Cholesterol 44.5 Studies: CXR: As mentioned. Nutrition: Consistent Carb Diet Impression: Patient has improved clinically with diuresis. However, we must be careful not to overdiurese because of the aortic stenosis. There is also a significant emotional component to this patient's complaints of chest pain. Plan: 1. Continue careful diuresis. 2. Cardiology (Dr. Lentz) is actively involved in this case. 3. Lorazepam for anxiety 4. Removal of the obstructing kidney stone has been rescheduled for tomorrow. Critical Care Time: 35 minutes
[2018-05-08] MEDS: LORazepam TAB(*) 1 MG PO PRN (13:18)
[2018-05-08] MEDS: cefTRIAXone(*) 2 GM in NS 0.9% 100 ML* 100 ML IVPB SCH (16:10)
[2018-05-08] MEDS ORDERED: Buffered Lidocaine 0.9% SYRIN* 5 ML/SYR SYRINGE INTRADERM ONE (16:11)
[2018-05-08] MEDS: Acetaminophen TAB* 325 MG PO PRN (17:15)
[2018-05-08] MEDS ORDERED: Insulin GLARGINE(*) 1 UNITS UNIT SUBCUT SCH (21:00)
[2018-05-08] MEDS ORDERED: Insulin LISPRO* 1 UNITS UNIT SUBCUT SCH (21:30)
[2018-05-08] MEDS: Zolpidem TAB* 10 MG PO PRN (21:35)
[2018-05-08] MEDS: Gabapentin CAP(*) 300 MG PO SCH (21:36)
[2018-05-08] MEDS: Latanoprost 0.005%* 2.5 ml BTL BOTH EYES SCH (21:36)
[2018-05-09] MEDS: Acetaminophen TAB* 325 MG PO PRN (04:14)
[2018-05-09 05:28] LABS: ABS Basophils 0 10^3/ul (0-0.2); ABS Eosinophils 0 10^3/ul (0-0.6); ABS Lymphocytes 2.1 10^3/ul (1.0-4.8); ABS Monocytes 0.8 10^3/ul (0-0.8); ABS Neutrophils 4.6 10^3/ul (1.5-7.7); ABS Nucleated RBC 0 10^3/ul; Eosinophil % 0.4 % (0-6); Hematocrit 34 % (35-47); Hemoglobin 11.4 g/dl (12.0-16.0); Lymphocyte % 28.2 % (25-47); Mean Corpuscular HGB Conc 34 g/dl (31-36); Mean Corpuscular Hemoglobin 29 pg (27-31); Mean Corpuscular Volume 86 fL (80-97); Mean Platelet Volume 7.3 um3 (7.4-10.4); Nucleated Red Blood Cells % 0; Platelet Count 224 10^3/ul (150-450); Red Blood Count 3.94 10^6/ul (4.00-5.40); Red Cell Distribution Width 15 % (10.5-15); White Blood Count 7.5 10^3/ul (3.5-10.8)
[2018-05-09 05:51] LABS: EGFR Non-African American 83.7 (>60)
[2018-05-09] MEDS ORDERED: Buffered Lidocaine 0.9% SYRIN* 5 ML/SYR SYRINGE INTRADERM ONE (06:00)
[2018-05-09] MEDS ORDERED: Famotidine IV* 10 MG/ML 2 ML (20 mg) IV ONE (06:00)
[2018-05-09] MEDS ORDERED: Iohexol 180 (CONTRAST) 10 ML SDV IV ONE (07:14)
[2018-05-09] MEDS ORDERED: fentaNYL* 50 MCG/ML 2 ML VIAL (100 MCG VIAL) ONE ×2 (07:32→08:20)
[2018-05-09] MEDS ORDERED: Midazolam* 1 MG/ML 2 ML VIAL (2 MG) ONE (07:33)
[2018-05-09] MEDS ORDERED: Gentamicin ADULT (*) 160 MG in NS 0.9% 100 ML* 100 ML IVPB ONE (08:00)
[2018-05-09] MEDS ORDERED: Propofol* 10 MG/ML 20 ML BTL IV PUSH ONE (08:20)
[2018-05-09] MEDS ORDERED: Lidocaine 2% PF * 5 ML VIAL ONE (08:21)
[2018-05-09] MEDS ORDERED: KETAMINE HCL* 50 MG/ML 10 ML VIAL ONE (08:25)
[2018-05-09] MEDS ORDERED: Phenylephrine IV* 40 MCG/ML 10 ML SYRINGE ONE (08:38)
[2018-05-09] MEDS ORDERED: fentaNYL* 50 MCG/ML 2 ML VIAL (100 MCG VIAL) IV PRN (08:58)
[2018-05-09] MEDS ORDERED: Acetaminophen TAB* 325 MG PO PRN (08:58)
[2018-05-09] MEDS ORDERED: Naloxone* 0.4 MG/ML 1 ML VIAL IV PRN (08:58)
[2018-05-09] MEDS ORDERED: Ondansetron INJ* 2 MG/ML VIAL IV PRN (08:58)
[2018-05-09] MEDS ORDERED: oxyCODONE TAB* 5 MG TAB PO PRN (08:58)
[2018-05-09] MEDS ORDERED: HYDROcodone/ACETAMIN 5-325 MG* 1 TAB PO PRN (08:58)
--- NOTE | 2018-05-09 09:29 | RAD ---
CPT II Codes: G9500 INDICATION: Kidney stones TECHNIQUE: Intraoperative fluoroscopy was provided during left-sided nephrostogram and stent placement. FINDINGS: 8 spot films depict a left-sided retrograde nephrostogram with placement of an anatomically aligned left ureteral stent. Fluoroscopy time: 9 seconds IMPRESSION: As above.
[2018-05-09] MEDS: Ondansetron INJ* 2 MG/ML VIAL IV PRN ×3 (09:59→23:40)
[2018-05-09] MEDS: LORazepam TAB(*) 1 MG PO PRN (10:13)
[2018-05-09] MEDS: HYDROmorphone INJ* 0.5 MG/0.5 ML SYRINGE IV SLOW PU PRN ×2 (10:14→23:40)
[2018-05-09] MEDS: Insulin LISPRO* 1 UNITS UNIT SUBCUT SCH ×3 (10:47→16:25)
[2018-05-09] MEDS: Aspirin EC TAB* 81 MG TAB.EC PO SCH (10:47)
[2018-05-09] MEDS: Atorvastatin* 40 MG TAB PO SCH (10:47)
--- NOTE | 2018-05-09 11:24 | PN ---
Date of Service: 05/09/18 Critical Care Services: 63F with htn, hld, dm, cad, as, shahzad, low back pain initially admitted for low back pain and found to have a 2 cm calculus in the left renal pelvis. Patient transferred to ICU after volume overload. 2: s/p cystoscopy with stent placement this am Vital Signs: Temp Pulse Resp BP SpO2 FiO2 97.5 F 59 17 103/51 97 35 05/09/18 09:50 05/09/18 11:00 05/09/18 11:00 05/09/18 11:00 05/09/18 11:00 05/09 04:00 Physical Exam: Gen - NAD HEENT - NCAT, EOMI Neck - no jvd cv - s1/s2, +kan pulm - cta, no wheeze abd - soft, nt ext - no cce neuro - non-focal Fluid Balance (Past 24 Hours): I= O= Net Intake & Output 05/07/18 05/08/18 05/09/18 05/10/18 06:59 06:59 06:59 06:59 Intake Total 400 1710 1160 150 Output Total 3450 1810 300 Balance 400 -1740 -650 -150 Weight 80.966 kg 81.7 kg 80.4 kg Intake: IV Fluids 1000 150 LR 1000 150 Oral [phone] Output: Urine 3450 1810 300 Other: Estimated Void Large Medium Date of Last Bowel 05/05/2018 Movement # Bowel Movements 0 0 Estimated Blood Loss MIN Comment # Voids 1 4 Labs: Laboratory Results - last 24 hr 05/08/18 05/08/18 05/09/18 12:56 16:41 05:12 WBC RBC Hgb Hct MCV MCH MCHC RDW Plt Count MPV Neut % (Auto) Lymph % (Auto) Dale % (Auto) Eos % (Auto) Baso % (Auto) Absolute Neuts (auto) Absolute Lymphs (auto) Absolute Monos (auto) Absolute Eos (auto) Absolute Basos (auto) Absolute Nucleated RBC Nucleated RBC % BUN 20 Creatinine 0.71 Est GFR ( Amer) 101.3 Est GFR (Non-Af Amer) 83.7 POC Glucose (mg/dL) 132 H 200 H 05/09/18 05/09/18 05/09/18 05:12 05:16 08:57 WBC 7.5 RBC 3.94 L Hgb 11.4 L Hct 34 L MCV 86 MCH 29 MCHC 34 RDW 15 Plt Count 224 MPV 7.3 L Neut % (Auto) 60.4 Lymph % (Auto) 28.2 Dale % (Auto) 10.7 H Eos % (Auto) 0.4 Baso % (Auto) 0.3 Absolute Neuts (auto) 4.6 Absolute Lymphs (auto) 2.1 Absolute Monos (auto) 0.8 Absolute Eos (auto) 0 Absolute Basos (auto) 0 Absolute Nucleated RBC 0 Nucleated RBC % 0 BUN Creatinine Est GFR ( Amer) Est GFR (Non-Af Amer) POC Glucose (mg/dL) 97 104 H Impression: 63F with htn, hld, dm, cad, as, shahzad, low back pain initially admitted for low back pain and found to have a 2 cm calculus in the left renal pelvis. Patient transferred to ICU after volume overload. s/p cystoscopy with stent placement. Plan: Neuro - pain control CV - htn, hld, cad/vasospasm, - volume overload in setting of - maintain neg fluid balance - tte with normal ef, Mod to severe - c/w asa/statin - c/w cardizem for vasospasm pulm - resp failure - 2/2 volume overload - improved with diuresis - wean o2 as tolerated ID - e faecalis infected kidney stone - s/p cysto with stent - can change to oral ampicillin GI - restart diet Renal - monitor i/o - monitor lytes Heme - monitor cbc Endo - check fs, niss lines - piv, preston Full Code For transfer to floor in afternoon if remains stable Critical Care Time: 50 mins
[2018-05-09] MEDS: Diltiazem CD CAP* 180 MG PO SCH (12:56)
[2018-05-09] MEDS: Nitroglycerin TAB 0.4 MG* 0.4 MG TAB SL PRN (15:11)
[2018-05-09] MEDS: Docusate CAP* 100 MG PO PRN ×2 (16:11→16:13)
[2018-05-09] MEDS: Polyethylene Glycol 3350* 17 GM PACKET PO PRN ×2 (16:11→16:13)
[2018-05-09] MEDS: cefTRIAXone(*) 2 GM in NS 0.9% 100 ML* 100 ML IVPB SCH (16:11)
[2018-05-09] MEDS: Ampicillin CAP* 500 MG PO SCH ×2 (17:18→20:49)
--- NOTE | 2018-05-09 20:41 | PN ---
Hospitalist Progress Note Date of Service: 05/09/18 HOSPITALIST ADDENDUM Misael reviewed and d/w Dr Castrejon. Mrs Angeles is a 63yo F admitted with nephrolithiasis s/p stent placement, transferred to ICU due to fluid overload, now doing well. Original plan was to transfer to floor in AM, but she's stable for transfer now.
[2018-05-09] MEDS: Ketorolac INJ* 15 MG/ML 1 ML VIAL IV PUSH PRN (20:50)
[2018-05-09] MEDS: Gabapentin CAP(*) 300 MG PO SCH (20:50)
[2018-05-09] MEDS: Latanoprost 0.005%* 2.5 ml BTL BOTH EYES SCH (20:50)
[2018-05-09] MEDS: Zolpidem TAB* 10 MG PO PRN (22:36)
[2018-05-10] MEDS: HYDROmorphone INJ* 0.5 MG/0.5 ML SYRINGE IV SLOW PU PRN ×2 (04:10→15:34)
[2018-05-10 06:21] LABS: ABS Basophils 0 10^3/ul (0-0.2); ABS Eosinophils 0.3 10^3/ul (0-0.6); ABS Lymphocytes 2.3 10^3/ul (1.0-4.8); ABS Monocytes 0.7 10^3/ul (0-0.8); ABS Neutrophils 3.4 10^3/ul (1.5-7.7); ABS Nucleated RBC 0 10^3/ul; Eosinophil % 3.9 % (0-6); Hematocrit 34 % (35-47); Hemoglobin 11.4 g/dl (12.0-16.0); Lymphocyte % 34.2 % (25-47); Mean Corpuscular HGB Conc 34 g/dl (31-36); Mean Corpuscular Hemoglobin 29 pg (27-31); Mean Corpuscular Volume 86 fL (80-97); Mean Platelet Volume 7.1 um3 (7.4-10.4); Nucleated Red Blood Cells % 0.2; Platelet Count 210 10^3/ul (150-450); Red Blood Count 3.92 10^6/ul (4.00-5.40); Red Cell Distribution Width 15 % (10.5-15); White Blood Count 6.7 10^3/ul (3.5-10.8)
[2018-05-10 06:38] LABS: EGFR Non-African American 83.7 (>60)
[2018-05-10] MEDS: Insulin LISPRO* 1 UNITS UNIT SUBCUT SCH ×3 (08:28→18:28)
[2018-05-10] MEDS: Diltiazem CD CAP* 120 MG PO SCH (08:29)
[2018-05-10] MEDS: Atorvastatin* 40 MG TAB PO SCH (08:29)
[2018-05-10] MEDS: Aspirin EC TAB* 81 MG TAB.EC PO SCH (08:29)
[2018-05-10] MEDS: Ampicillin CAP* 500 MG PO SCH ×4 (08:30→20:30)
--- NOTE | 2018-05-10 12:35 | OP ---
CC: Dr. Mraian Lewis; Dr. Zhane Fontana * DATE OF OPERATION: 05/09/18 - ROOM #442 DATE OF : 59 SURGEON: Anton Jennings MD ANESTHESIOLOGIST: Riana Moran MD ANESTHESIA: Intravenous sedation. PRE-OP DIAGNOSES: 1. Left hydronephrosis. 2. Large calculus, left renal pelvis. POST-OP DIAGNOSES: 1. Left hydronephrosis. 2. Large calculus, left renal pelvis. OPERATIVE PROCEDURE: Cystoscopy, left retrograde pyelogram, left ureteral calculus manipulation, and left stent insertion. INDICATIONS: Hazel Cross is a 63-year-old lady with recurrent renal calculi. She was evaluated and noted to have a large calculus in the left renal pelvis with moderate left hydronephrosis. COMPLICATIONS: None. STENT USED: 7-Italian stent, left ureter. FINDINGS: Large calculus close to left ureteropelvic junction with left hydronephrosis. POSTOPERATIVE CONDITION: Stable. DESCRIPTION OF PROCEDURE: After induction of intravenous sedation, the patient was placed in dorsal lithotomy position. Sequential compression devices were in place and functioning. Initial cystoscopy revealed a normal-appearing bladder, guidewire was introduced into the left ureter. I could visualize the calculus on fluoroscopy and initially the wire would not go beyond the obstructing calculus. After injection of contrast through the open-ended catheter and after some injection of sterile water, I was able to manipulate the calculus proximally enough to facilitate placement of the wire. Once this was done, a 7-Italian stent was introduced and positioned under fluoroscopy with good proximal and distal positioning obtained. The bladder was emptied. The patient tolerated the procedure satisfactorily and was transferred back to recovery area in stable condition. [id number]/CPS #: [id number] [facility]
[2018-05-10] MEDS: Bisoprolol TAB* 5 MG PO SCH (12:40)
[2018-05-10] MEDS: Heparin VIAL(*) 5000 UNITS/ML VIAL (FIVE THOUSAND) SUBCUT SCH (12:40)
[2018-05-10] MEDS: Ondansetron INJ* 2 MG/ML VIAL IV PRN ×2 (13:39→20:32)
--- NOTE | 2018-05-10 14:02 | PN ---
Subjective Date of Service: 05/10/18 Interval History: Patient seen and examined at bedside. Denies fever, chills, lightheadedness or dizziness, shortness of breath, V/D, or urinary symptoms. Pt states that she continues to have a slight chest discomfort, but this is much better than it was prior. She also reports nausea this AM that is improved since taking Zofran. She feels like her nausea is related to her urinary stent, "she doesn't tolerate them well". Pt reports that the lower extremity edema has resolved. Tele: Sinus rhythm, rate 60's Family History: Unchanged from Admission Social History: Unchanged from Admission Past Medical History: Unchanged from Admission Objective Active Medications: Acetaminophen (Tylenol Tab*) 650 mg PO Q4H PRN Reason: FEVER/PAIN Albuterol/Ipratropium (Duoneb (Albuterol 2.5 Mg/Ipratropium 0.5 Mg)) 1 neb INH Q6H PRN Reason: SOB/WHEEZING Ampicillin (Ampicillin Cap*) 500 mg PO QID [facility] Stop: 05/14/18 16:59 Aspirin (Aspirin Ec Tab*) 81 mg PO DAILY [facility] Atorvastatin Calcium (Lipitor*) 40 mg PO DAILY [facility] Cetirizine HCl (Zyrtec*) 10 mg PO DAILY PRN Reason: allergies Dextrose (D50w Syringe 50 Ml*) 12.5 gm IV PUSH .FOR FS < 60 - SS PRN Reason: FS < 60 Diltiazem HCl (Cardizem Cd Cap*) 120 mg PO QAM [facility] Docusate Sodium (Colace Cap*) 100 mg PO BID PRN Reason: CONSTIPATION Gabapentin (Neurontin Cap(*)) 300 mg PO BEDTIME [facility] Hydromorphone HCl (Dilaudid Inj*) 0.5 mg IV SLOW PU Q4H PRN Reason: PAIN Insulin Human Lispro (Humalog*) 0 units SUBCUT AC STEVEN; Protocol Ketorolac Tromethamine (Toradol Inj*) 15 mg IV PUSH Q6H PRN Reason: PAIN Latanoprost (Xalatan 0.005%*) 1 drop BOTH EYES BEDTIME [facility] Lorazepam (Ativan Tab(*)) 1 mg PO Q6H PRN Reason: ANXIETY Nitroglycerin (Nitroglycerin Tab 0.4 Mg*) 0.4 mg SL Q5M PRN Reason: ANGINA Ondansetron HCl (Zofran Inj*) 4 mg IV Q4H PRN Reason: NAUSEA Polyethylene Glycol/Electrolytes (Miralax*) 17 gm PO DAILY PRN Reason: CONSTIPATION Zolpidem Tartrate (Ambien Tab*) 10 mg PO BEDTIME PRN Reason: INSOMNIA Vital Signs - 8 hr 05/10/18 05/10/18 05/10/18 06:00 06:11 06:30 Temperature Pulse Rate 55 55 Respiratory 14 17 21 Rate Blood Pressure 124/59 (mmHg) O2 Sat by Pulse 99 98 Oximetry 05/10/18 05/10/18 05/10/18 07:00 07:01 07:30 Temperature Pulse Rate 51 52 52 Respiratory 16 15 13 Rate Blood Pressure 109/48 102/51 (mmHg) O2 Sat by Pulse 97 97 96 Oximetry 05/10/18 05/10/18 05/10/18 07:46 08:00 08:02 Temperature 97.8 F Pulse Rate 64 62 Respiratory 16 13 Rate Blood Pressure 104/56 (mmHg) O2 Sat by Pulse 98 95 Oximetry 05/10/18 05/10/18 05/10/18 08:30 09:00 09:01 Temperature Pulse Rate 60 63 70 Respiratory 16 14 25 Rate Blood Pressure 127/57 121/63 (mmHg) O2 Sat by Pulse 97 96 96 Oximetry 05/10/18 05/10/18 09:31 11:11 Temperature 97.3 F Pulse Rate 59 64 Respiratory 17 20 Rate Blood Pressure 107/52 106/55 (mmHg) O2 Sat by Pulse 96 94 Oximetry Oxygen Devices in Use Now: None Appearance: NAD, laying in bed Ears/Nose/Mouth/Throat: Mucous Membranes Moist Respiratory: Symmetrical Chest Expansion and Respiratory Effort, Clear to Auscultation Cardiovascular: RRR, - - 3/6 systolic murmur herd best at the sternal border Abdominal: NL Sounds; No Tenderness; No Distention Extremities: No Edema Skin: No Rash or Ulcers Neurological: Alert and Oriented x 3, NL Muscle Strength and Tone Lines/Tubes/Other Access: Clean, Dry and Intact Peripheral IV - site benign Nutrition: Taking PO's Result Diagrams: 05/10/18 06:02 05/10/18 06:02 Microbiology and Other Data: Microbiology 05/06/18 13:14 Urine Culture - Final Urine Enterococcus Faecalis Assess/Plan/Problems-Billing Assessment: Ms. Angeles is a 63 y. o female with a PMHX of Chronic back pain, aortic stenosis, DM ,RICHARD and HLD who presented to the emergency room with back pain. She was found to have a renal calculi and transferred to the ICU for volume overload. - Patient Problems (1) Acute systolic CHF (congestive heart failure) Code(s): I50.21 - ACUTE SYSTOLIC (CONGESTIVE) HEART FAILURE SNOMED Code(s): 769464366 Comment: - Resolved - Suspect secondary to aortic stenosis, IV fluids, IV steroids and possible urosepsis - Echo shows normal EF and moderate to severe - Daily weights and Strict I+O's (2) UTI (urinary tract infection) Comment: - Afebrile, leukocytosis resolved - Enteroccous faecalis infected kidney stone - S/P cysto and stent - Continue ampicillin (3) Renal calculi Code(s): N20.0 - CALCULUS OF KIDNEY SNOMED Code(s): 00151726 Comment: - S/P cystoscopy and stent placement, POD #1 - Renal Ultrasound showed moderate left hydronephrosis (4) Respiratory failure Code(s): J96.90 - RESPIRATORY FAILURE, UNSP, UNSP W HYPOXIA OR HYPERCAPNIA SNOMED Code(s): 600001957 Comment: - Resolved with diuresis - Required vapotherm and now back to room air - Suspect secondary to volume overload (5) Lower back pain Code(s): M54.5 - LOW BACK PAIN SNOMED Code(s): 989973681 Comment: - Improving - MRI - Per Mt no changes. Neurosurgery feels this is not releated to her current back pain - Known kidney stone on the Left, suspect this was contributing to pain - Continue Gabapentin - Follow-up with Dr. Amor at discharge (6) HTN (hypertension) Current Visit: Yes Status: Chronic Code(s): I10 - ESSENTIAL (PRIMARY) HYPERTENSION SNOMED Code(s): 95756597 Comment: - SBP 80-120's - Continue cardizem - Continue to hold Bisprolol with labile BPs (7) Aortic stenosis Code(s): I35.0 - NONRHEUMATIC AORTIC (VALVE) STENOSIS SNOMED Code(s): 85719261 Comment: - Volume overload in the setting of - Echo shows moderate to severe and normal EF - Goal to maintain negative fluid balance, but caution to not over diurese - Follow-up with Dr. Ruelas outpatient (8) Coronary vasospasm Code(s): I20.1 - ANGINA PECTORIS WITH DOCUMENTED SPASM SNOMED Code(s): 02279135 Comment: - Personal history, No history of CAD - Asymptomatic - Continue ASA, statin and cardizem (9) Type 2 diabetes mellitus Comment: - Glucose 120-150's - Continue consistent carb diet and Lispro SS (10) Hyperlipidemia Code(s): E78.5 - HYPERLIPIDEMIA, UNSPECIFIED SNOMED Code(s): 95267907 Comment: - Continue statin (11) RICHARD (obstructive sleep apnea) Code(s): G47.33 - OBSTRUCTIVE SLEEP APNEA (ADULT) (PEDIATRIC) SNOMED Code(s): 67771904 Comment: - CPAP (12) Anxiety Code(s): F41.9 - ANXIETY DISORDER, UNSPECIFIED SNOMED Code(s): 48306564 Comment: - Continue lorazepam PRN (13) DVT prophylaxis Code(s): DXB6192 - SNOMED Code(s): 244212753 Comment: - SCDs (14) Full code status Code(s): Z78.9 - OTHER SPECIFIED HEALTH STATUS SNOMED Code(s): 344145472 Status and Disposition: Inpatient. Discharge home when medically stable, possibly in the AM. Attending: Nicole Castro
[2018-05-10] MEDS: LORazepam TAB(*) 1 MG PO PRN (15:35)
[2018-05-10] MEDS ORDERED: HYDROmorphone INJ* 0.5 MG/0.5 ML SYRINGE IV SLOW PU ONE (16:25)
[2018-05-10] MEDS ORDERED: PROCHLORPERAZINE INJ 5 MG/ML 2 ML VIAL IV ONE (17:39)
[2018-05-10] MEDS ORDERED: Calcium Carbonate CHEW TAB* 500 MG (TUMS) PO PRN (19:59)
[2018-05-10] MEDS: Gabapentin CAP(*) 300 MG PO SCH (20:30)
[2018-05-10] MEDS: Latanoprost 0.005%* 2.5 ml BTL BOTH EYES SCH (20:31)
[2018-05-10] MEDS: Zolpidem TAB* 10 MG PO PRN (22:12)
[2018-05-11] MEDS: Insulin LISPRO* 1 UNITS UNIT SUBCUT SCH ×2 (07:55→14:00)
[2018-05-11 08:18] LABS: ABS Basophils 0 10^3/ul (0-0.2); ABS Eosinophils 0.4 10^3/ul (0-0.6); ABS Lymphocytes 1.5 10^3/ul (1.0-4.8); ABS Monocytes 0.6 10^3/ul (0-0.8); ABS Neutrophils 4.4 10^3/ul (1.5-7.7); ABS Nucleated RBC 0 10^3/ul; Eosinophil % 5.6 % (0-6); Hematocrit 37 % (35-47); Hemoglobin 12.5 g/dl (12.0-16.0); Lymphocyte % 21.8 % (25-47); Mean Corpuscular HGB Conc 34 g/dl (31-36); Mean Corpuscular Hemoglobin 29 pg (27-31); Mean Corpuscular Volume 85 fL (80-97); Mean Platelet Volume 7.1 um3 (7.4-10.4); Nucleated Red Blood Cells % 0.1; Platelet Count 244 10^3/ul (150-450); Red Blood Count 4.36 10^6/ul (4.00-5.40); Red Cell Distribution Width 15 % (10.5-15); White Blood Count 6.9 10^3/ul (3.5-10.8)
[2018-05-11] MEDS: Ondansetron INJ* 2 MG/ML VIAL IV PRN ×2 (08:18→13:26)
[2018-05-11] MEDS: Ketorolac INJ* 15 MG/ML 1 ML VIAL IV PUSH PRN (08:20)
[2018-05-11] MEDS: Aspirin EC TAB* 81 MG TAB.EC PO SCH (08:22)
[2018-05-11] MEDS: Cetirizine* 10 MG TAB PO PRN (08:22)
[2018-05-11] MEDS: Docusate CAP* 100 MG PO PRN (08:22)
[2018-05-11] MEDS: Diltiazem CD CAP* 120 MG PO SCH (08:22)
[2018-05-11] MEDS: Atorvastatin* 40 MG TAB PO SCH (08:22)
[2018-05-11] MEDS: Ampicillin CAP* 500 MG PO SCH ×2 (08:23→13:00)
[2018-05-11] MEDS: LORazepam TAB(*) 1 MG PO PRN (08:23)
--- NOTE | 2018-05-11 12:11 | PN ---
Subjective Date of Service: 05/11/18 Interval History: Patient seen and examined at bedside. Denies fever, chills, shortness of breath , chest discomfort, N/V/D. Pt states that the left flank and groin pain that she was having last night have almost resolved. She continues to have back pain , but it is improving. The nausea and vomiting that she experienced last night has resolved. Pt is feeling ready for discharge to home later today or in the AM if she is able to keep lunch down once her sister arrives. Tele: Sinus rhythm, rate 60-90's. Family History: Unchanged from Admission Social History: Unchanged from Admission Past Medical History: Unchanged from Admission Objective Active Medications: Acetaminophen (Tylenol Tab*) 650 mg PO Q4H PRN Reason: FEVER/PAIN Albuterol/Ipratropium (Duoneb (Albuterol 2.5 Mg/Ipratropium 0.5 Mg)) 1 neb INH Q6H PRN Reason: SOB/WHEEZING Ampicillin (Ampicillin Cap*) 500 mg PO QID [facility] Stop: 05/14/18 16:59 Aspirin (Aspirin Ec Tab*) 81 mg PO DAILY [facility] Atorvastatin Calcium (Lipitor*) 40 mg PO DAILY [facility] Calcium Carbonate (Tums*) 500 mg PO Q6H PRN Reason: INDIGESTION Cetirizine HCl (Zyrtec*) 10 mg PO DAILY PRN Reason: allergies Dextrose (D50w Syringe 50 Ml*) 12.5 gm IV PUSH .FOR FS < 60 - SS PRN Reason: FS < 60 Diltiazem HCl (Cardizem Cd Cap*) 120 mg PO QAM [facility] Docusate Sodium (Colace Cap*) 100 mg PO BID PRN Reason: CONSTIPATION Gabapentin (Neurontin Cap(*)) 300 mg PO BEDTIME [facility] Hydromorphone HCl (Dilaudid Inj*) 0.5 mg IV SLOW PU Q4H PRN Reason: PAIN Insulin Human Lispro (Humalog*) 0 units SUBCUT AC [facility]EV[facility]; Protocol Ketorolac Tromethamine (Toradol Inj*) 15 mg IV PUSH Q6H PRN Reason: PAIN Latanoprost (Xalatan 0.005%*) 1 drop BOTH EYES BEDTIME [facility] Lorazepam (Ativan Tab(*)) 1 mg PO Q6H PRN Reason: ANXIETY Nitroglycerin (Nitroglycerin Tab 0.4 Mg*) 0.4 mg SL Q5M PRN Reason: ANGINA Ondansetron HCl (Zofran Inj*) 4 mg IV Q4H PRN Reason: NAUSEA Polyethylene Glycol/Electrolytes (Miralax*) 17 gm PO DAILY PRN Reason: CONSTIPATION Zolpidem Tartrate (Ambien Tab*) 10 mg PO BEDTIME PRN Reason: INSOMNIA Vital Signs - 8 hr 05/11/18 05/11/18 05/11/18 07:29 07:47 08:23 Temperature 98.1 F Pulse Rate 69 Respiratory 16 16 16 Rate Blood Pressure 106/48 (mmHg) O2 Sat by Pulse 98 98 Oximetry Oxygen Devices in Use Now: None Appearance: NAD, sitting up in bed Ears/Nose/Mouth/Throat: Mucous Membranes Moist Respiratory: Symmetrical Chest Expansion and Respiratory Effort, Clear to Auscultation Cardiovascular: NL Sounds; No Murmurs; No JVD, RRR Abdominal: NL Sounds; No Tenderness; No Distention Extremities: No Edema Skin: No Rash or Ulcers Neurological: Alert and Oriented x 3, NL Muscle Strength and Tone Lines/Tubes/Other Access: Clean, Dry and Intact Peripheral IV - site benign Nutrition: Taking PO's Result Diagrams: 05/11/18 07:54 05/10/18 06:02 Microbiology and Other Data: Microbiology 05/06/18 13:14 Urine Culture - Final Urine Enterococcus Faecalis Assess/Plan/Problems-Billing Assessment: Ms. Angeles is a 63 y. o female with a PMHX of Chronic back pain, aortic stenosis, DM ,RICHARD and HLD who presented to the emergency room with back pain. She was found to have a renal calculi and transferred to the ICU for volume overload. - Patient Problems (1) Acute systolic CHF (congestive heart failure) Code(s): I50.21 - ACUTE SYSTOLIC (CONGESTIVE) HEART FAILURE SNOMED Code(s): 105430057 Comment: - Resolved - Suspect secondary to aortic stenosis, IV fluids, IV steroids and possible urosepsis - Echo shows normal EF and moderate to severe - Daily weights and Strict I+O's (2) UTI (urinary tract infection) Comment: - Afebrile, leukocytosis resolved - Enteroccous faecalis infected kidney stone - S/P cysto and stent - Continue ampicillin (3) Renal calculi Code(s): N20.0 - CALCULUS OF KIDNEY SNOMED Code(s): 95294716 Comment: - S/P cystoscopy and stent placement, POD #2 - Renal Ultrasound showed moderate left hydronephrosis (4) Respiratory failure Code(s): J96.90 - RESPIRATORY FAILURE, UNSP, UNSP W HYPOXIA OR HYPERCAPNIA SNOMED Code(s): 791724592 Comment: - Resolved with diuresis - Required vapotherm and now back to room air - Suspect secondary to volume overload (5) Lower back pain Code(s): M54.5 - LOW BACK PAIN SNOMED Code(s): 839768984 Comment: - Improving - MRI - Per Mt no changes. Neurosurgery feels this is not releated to her current back pain - Known kidney stone on the Left, suspect this was contributing to pain - Continue Gabapentin - Follow-up with Dr. Amor at discharge (6) HTN (hypertension) Current Visit: Yes Status: Chronic Code(s): I10 - ESSENTIAL (PRIMARY) HYPERTENSION SNOMED Code(s): 47584798 Comment: - SBP 100-150's - Continue cardizem (decreased dose) - Resume Bisprolol in AM if BP allows with hold parameters - Continue to hold HCTZ (7) Aortic stenosis Code(s): I35.0 - NONRHEUMATIC AORTIC (VALVE) STENOSIS SNOMED Code(s): 42009977 Comment: - Volume overload in the setting of - Echo shows moderate to severe and normal EF - Goal to maintain negative fluid balance, but caution to not over diurese - Follow-up with Dr. Ruelas outpatient (8) Coronary vasospasm Code(s): I20.1 - ANGINA PECTORIS WITH DOCUMENTED SPASM SNOMED Code(s): 14910613 Comment: - Personal history, No history of CAD - Asymptomatic - Continue ASA, statin and cardizem - Resume Bisprolol when BP allows (9) Type 2 diabetes mellitus Comment: - Glucose 120-150's - Continue consistent carb diet and Lispro SS (10) Hyperlipidemia Code(s): E78.5 - HYPERLIPIDEMIA, UNSPECIFIED SNOMED Code(s): 84707161 Comment: - Continue statin (11) RICHARD (obstructive sleep apnea) Code(s): G47.33 - OBSTRUCTIVE SLEEP APNEA (ADULT) (PEDIATRIC) SNOMED Code(s): 37959228 Comment: - CPAP (12) Anxiety Code(s): F41.9 - ANXIETY DISORDER, UNSPECIFIED SNOMED Code(s): 41248957 Comment: - Continue lorazepam PRN (13) DVT prophylaxis Code(s): TJX6992 - SNOMED Code(s): 023278997 Comment: - SCDs (14) Full code status Code(s): Z78.9 - OTHER SPECIFIED HEALTH STATUS SNOMED Code(s): 293197249 Status and Disposition: Inpatient. Discharge home when medically stable, possibly later today or in the AM.
[2018-05-11] MEDS: HYDROmorphone INJ* 0.5 MG/0.5 ML SYRINGE IV SLOW PU PRN (13:20)
[2018-05-11 13:44] VITALS: BP 124/68
--- NOTE | 2018-05-12 00:08 | DS ---
CC: Anton Jennings MD; Brayan Amor MD; Dr. Orlin Ruelas; Zhane Fontana MD * DISCHARGE SUMMARY: DATE OF ADMISSION: DATE OF DISCHARGE: 05/11/18 ATTENDING PHYSICIAN: Cristi Champion MD * (dictated by Kim King NP). PRIMARY CARE PROVIDER: Zhane Fontana MD. PRIMARY SECURITY TEST ENGINEER: Dr. Orlin Ruelas. UROLOGIST: Anton Jennings MD. PRIMARY DIAGNOSES: 1. Enterococcus faecalis urinary tract infection. 2. Left renal calculi. 3. Acute hypoxic respiratory failure, resolved. 4. Acute systolic congestive heart failure. 5. Low back pain. 6. Aortic stenosis. SECONDARY DIAGNOSES: 1. Hypertension. 2. Coronary vasospasms. 3. Diabetes mellitus. 4. Hyperlipidemia. 5. Obstructive sleep apnea. 6. Anxiety. CONSULTATIONS WHILE IN THE HOSPITAL: 1. GRACIE Trinidad with the Neurosurgery. 2. Dr. Anton Jennings, with Urology. 3. Dr. Alexander Lentz, with Cardiology. 4. Dr. Kwesi Lentz and Dr. Jason Castrejon, Intensivists. PROCEDURES WHILE IN THE HOSPITAL: Status post cystoscopy with left retrograde pyelogram, left ureteral calculus manipulation and left stent insertion on 05/[address] Anton Jennings. STUDIES WHILE IN THE HOSPITAL: 1. Lumbar spine x-ray on 05/06/18. Radiologist's impression: Degenerative disk disease and osteoarthritis most pronounced at L4 to L5 and L5 to S1. Progression of left nephrolithiasis. 2. Lumbar spine MRI on 04/14/18. Radiologist's impression: Post surgical change. Degenerative disk disease and osteoarthritis. There is persistent, but decreasing enhancement of the facet joints to L4 to L5 bilaterally suggestive of a more acute inflammatory component of facet osteoarthritis. There is persistent but decreasing enhancement of soft tissue along the epidural space and thecal sac on the right at L5 to S1 consistent with epidural fibrosis. This does surround the descending right-sided nerve root. There is a central disk extrusion at L3 to L4 slightly decreased in size compared to the 06/06/17 examination. There is a stable small central disk protrusion at L4 to L5. There is multilevel neuroforaminal narrowing as noted above. 3. Renal ultrasound on 05/07/18. Radiologist's impression: Left nephrolithiasis with moderate hydronephrosis. 4. Chest x-ray on 05/07/18. Radiologist's impression: Pulmonary interstitial edema. 5. Transthoracic echocardiogram on 05/08/18. [employer] Dis[employer] Analyst's conclusion: The left ventricular chamber size is normal. Mild to moderate concentric left ventricular hypertrophy is observed. Global left ventricular wall motion and contractility are within normal limits. There is normal left ventricular systolic function. The estimated EF is 70 to 75%. The left atrium is mild to moderately dilated. The right ventricular chamber size and systolic function are within normal limits. Moderate mitral annular calcification present with mild nonrheumatic mitral stenosis. There is moderate to severe aortic stenosis as detailed within the report. There is evidence of mild pulmonary hypertension. Compared to prior study from 04/2015, aortic stenosis has worsened. 6. Retrograde pyelogram on 05/09/18. Radiologist's impression: Left-sided retrograde nephrogram with placement of an anatomically aligned left ureteral stent. DISCHARGE MEDICATIONS: New home medications: 1. Ampicillin 500 mg oral 4 times daily, last dose to be taken on 05/14/18 at approximately 1300. 2. Zyrtec 10 mg oral daily as needed for allergy symptoms. 3. Diltiazem CD 120 mg oral every morning. Continued home medications: 1. Latanoprost 0.005% ophthalmic 1 drop to both eyes daily at bedtime. 2. NovoLog insulin 1 to 10 units subcutaneous sliding scale. 3. Acetaminophen 650 mg oral every 4 hours as needed for fever pain. 4. Colace 100 mg oral twice daily as needed for constipation. 5. MiraLax 17 g oral daily as needed for constipation. 6. Gabapentin 300 mg oral daily. 7. Ambien 10 mg oral daily at bedtime as needed for sleep. 8. Hydromorphone 2 mg oral daily as needed for pain. 9. Rosuvastatin 20 mg oral daily. 10. Aspirin 81 mg oral daily. 11. Nitroglycerin 0.4 mg sublingual every 5 minutes as needed for angina. 12. Zofran 4 mg oral every 6 hours as needed for nausea. Discontinued home medications: 1. Cardizem CD 180 mg. Medications on hold until discussion with primary care provider and human services manager : 1. Lantus. 2. Bisoprolol. 3. Hydrochlorothiazide. HISTORY OF PRESENT ILLNESS/HOSPITAL COURSE: Ms. Cross is a 63-year-old female with past medical history significant for chronic low back pain with history of diskectomy with last surgery in November 2016, insulin dependent diabetes mellitus, coronary artery spasm with intermittent chest discomfort, obstructive sleep apnea, uses CPAP, presented to the hospital with complaints of low back pain. The patient has chronic low back pain at the site of her L5- S1 surgery since her surgery in November. She has intermittent flares where the pain radiates down her right leg. She also reports numbness and tingling in her right foot, subsequently has cramping in her right calf where the pain has worsened and severe pain in her right heel. The patient was having her normal routine back pain when she developed sudden onset of severe pain. Denied any injury. She was walking to her home after going to the grocery store and the pain developed while she was going up the stairs. She took her nighttime medications and went to bed. When she woke up in the morning, she was able to go to work. She was able to get to the car and drove to the parking lot at work, but when she got there she was unable to get out of the car due to the severe pain. The patient came to the emergency room for further evaluation of her symptoms. While in the emergency room, she had lumbar spine x-ray and lumbar spine MRI as described above. She had labs that were unremarkable. She had a urinalysis that could represent urinary tract infection. She had a normal CRP. She denied any dysuria or frequency. She had unchanged chronic left flank pain. She had repeat urinalysis similar and the hospitalist were asked to evaluate the patient for admission. While in the hospital, the patient was seen in consultation by Neurosurgery, who recommended an MRI. This was reviewed and felt that her symptoms were not caused by anything found on the imaging. It was felt that her pain was likely being caused by something else. The patient had a further imaging showing left hydronephrosis. She had a renal ultrasound showing large left renal calculi and hydronephrosis. she was seen in consultation by Dr. Jennings with Urology. The patient then developed a crushing chest pain and a clinic assessment team was called. Her EKG showed ST depressions in the lateral leads and an incomplete left bundle branch block. The patient was noted to be hypoxic and this improved when she was placed on 10 L via OxyMask. She was coughing and had diminished breath sounds. She was given sublingual nitro, Zofran, morphine and labs were obtained. The patient's oxygen saturation dropped to 80% and she needed to be bagged on arrival to the intensive care unit. Her chest pain improved after 2 nitroglycerin. She had residual jaw pain. She had a chest x- ray concerning for pulmonary edema. She was placed in the ICU on Vapotherm, and tarted on a heparin drip. She was already on a beta jose and aspirin and an echocardiogram was ordered. She also received IV Lasix. The patient underwent an echocardiogram showing a systolic heart failure with a preserved ejection fraction, worsening aortic stenosis. She was seen in consultation by Dr. Alexander Lentz with Cardiology. She had serial troponins. The patient diuresed over 3 L after the IV Lasix. It was felt she needed no further cardiac workup to be able to proceed to the operating room for cystoscopy and stent placement. Due to her labile blood pressures, her recently started beta jose was held. Ultimately, the patient went to the operating room on 05/09/18, underwent a cystoscopy with left stent placement and manipulation of the left renal calculi. She was doing well post-operatively. She was able to be weaned off the Vapotherm and off of oxygen to room air. She was ultimately transferred out of ICU to the floor, where she continued to do well. In the evening of 05/10/18 , she developed increased groin and flank pain with nausea. She received medication for this and this resolved. The patient continued to have labile blood pressures. Continued to hold her hydrochlorothiazide and beta jose. Her diltiazem was decreased. The patient's pain and nausea were controlled. She felt as though she would do well at home. Ms. Cross is stable for discharge home today. Vital signs are as follows: Temperature 98.2, heart rate 78, respiratory rate 18, O2 saturation 97% on room air, blood pressure 124/68. DISCHARGE PLANS: Ms. Cross will be discharged to home. Activity as tolerated. She will be on a consistent carbohydrate, low sodium diet. In regards to her systolic heart failure, I have asked her to weigh herself daily and to notify Dr. Ruelas or Dr. Fontana if she gains more than 3 pounds in a 24-hour period. Due to her labile blood pressures I have held her hydrochlorothiazide, she has been continued on her diltiazem at a lower dose. Additionally, her recently started bisoprolol has been held to due to labile blood pressures. Additionally, during her hospitalization, her glucoses have been well controlled, although she has not been eating a whole lot. I am uncertain how much she will actually eat at home. For now, she will be continued on her NovoLog sliding scale at home and I have asked her hold her Lantus. This could be resumed if her glucoses elevates and she returns to her normal eating habits. With regards to her low back pain, per Neurosurgery, she had no changes on her MRI and she can continue her gabapentin and followup with Dr. Amor outpatient. For her renal calculi, she is status post cystoscopy and stent placement. She should followup with Dr. Jennings. She has been asked to call on Sunday to set up a followup appointment. In regards to her Enterococcus faecalis, urinary tract infection, she has been continued on ampicillin 4 times daily with her last dose to be taken around lunch time on 04/24. I have also sent the patient a refill on her Zofran. Her acute hypoxic respiratory failure has resolved. In regards to her aortic stenosis, this has worsened and she should followup with Dr. Ruelas outpatient. She will need cautious fluid balance to make sure that she is not over diuresed, but not volume overloaded. Again, her blood pressures have been labile. For her hypertension, I have only continued her Cardizem at a decreased dose. Her bisoprolol and hydrochlorothiazide has been held as previously mentioned. The patient has been asked to return to the emergency room for any chest pain, shortness of breath. She has also been asked to call Dr. Fontana's office to set up an appointment for followup. This is a summarized report of a complex medical history and hospital stay. For further details, please see the entire medical record. TIME SPENT: Time for this discharge was approximately 50 minutes, greater than half of that was spent with the patient discussing discharge plans and instructions. CONDITION ON DISCHARGE: Stable. Reviewed by PLACIDO FARR 05/15/18 1811 [id number]/[facility] #: [id number] WADE
== END 2018-05-11 16:30 | disposition home or self-care (01) | DRG 463 ==
LOC: ED 10:07 → INTOOBSV 15:10 → MED 15:10 → OBSVTOIN 15:10 → UNDOADMOB 15:10 → MED 16:04 → OBSVTOIN 05-07 14:45 → MED 05-07 14:45 → ICU 05-07 14:45 → MED 05-07 22:11 → MEDTELE 05-10 09:53
PROVIDERS: ADMIT Hospitalist; ATTEND Internal Medicine
PROC: 0T778DZ Dilation of Left Ureter with Intraluminal Device, Via Natural or Artificial Opening Endoscopic (ICD-10-PCS; 2018-05-09)
PROC: BT1FYZZ Fluoroscopy of Left Kidney, Ureter and Bladder using Other Contrast (ICD-10-PCS; principal; 2018-05-09 08:00)
DX: N13.6 Pyonephrosis (principal); J96.01 Acute respiratory failure with hypoxia; I50.21 Acute systolic (congestive) heart failure; B95.2 Enterococcus as the cause of diseases classified elsewhere; E11.51 Type 2 diabetes mellitus with diabetic peripheral angiopathy without gangrene; J30.2 Other seasonal allergic rhinitis; I10 Essential (primary) hypertension; K21.9 Gastro-esophageal reflux disease without esophagitis; K58.9 Irritable bowel syndrome, unspecified; M19.90 Unspecified osteoarthritis, unspecified site; G89.29 Other chronic pain; G47.33 Obstructive sleep apnea (adult) (pediatric); I25.10 Atherosclerotic heart disease of native coronary artery without angina pectoris; F41.9 Anxiety disorder, unspecified; E11.39 Type 2 diabetes mellitus with other diabetic ophthalmic complication; M51.36 Other intervertebral disc degeneration, lumbar region; M47.896 Other spondylosis, lumbar region; I27.20 Pulmonary hypertension, unspecified; I08.0 Rheumatic disorders of both mitral and aortic valves; M54.9 Dorsalgia, unspecified; E78.5 Hyperlipidemia, unspecified; H42 Glaucoma in diseases classified elsewhere; G43.909 Migraine, unspecified, not intractable, without status migrainosus; F32.9 Major depressive disorder, single episode, unspecified; Z90.710 Acquired absence of both cervix and uterus; Z98.51 Tubal ligation status; Z98.1 Arthrodesis status; Z88.1 Allergy status to other antibiotic agents; Z88.8 Allergy status to other drugs, medicaments and biological substances; Z87.891 Personal history of nicotine dependence; Z72.89 Other problems related to lifestyle; Z90.49 Acquired absence of other specified parts of digestive tract; Z83.3 Family history of diabetes mellitus; Z82.49 Family history of ischemic heart disease and other diseases of the circulatory system; Z84.1 Family history of disorders of kidney and ureter; Z79.82 Long term (current) use of aspirin
CPT/HCPCS: 36415; 71045; 72100; 72158; 74420; 76775; 80048; 80053; 80061; 81003; 81015; 82565; 83880; 84484; 84520; 85025; 85379; 85610; 85730; 86140; 87077; 87086; 87186; 93005; 93306; 94640; 94660; 99284; A9270-GY; A9579; C1876; G0378; J0696; J1100; J1170; J1580; J1644; J1885; J1940; J2250; J2270; J2360; J2405; J2704; J3010

== ENCOUNTER 2018-05-20 12:24 | Day surgery (SDC) | payer BC ==
[~2018-05-20 12:24] MED LIST: Buffered Lidocaine 0.9% SYRIN* 5 ML/SYR SYRINGE INTRADERM ONE; Famotidine IV* 10 MG/ML 2 ML (20 mg) IV ONE; Metoclopramide TAB* 10 MG PO ONE
[2018-05-20] MEDS ORDERED: Metoclopramide TAB* 10 MG ONE (13:25)
[2018-05-20] MEDS ORDERED: cefTRIAXone(*) 2 GM ADDV.VIAL IVPB ONE (13:25)
[2018-05-20] MEDS ORDERED: Famotidine IV* 10 MG/ML 2 ML (20 mg) ONE (13:25)
[2018-05-20] MEDS ORDERED: KETAMINE HCL* 50 MG/ML 10 ML VIAL ONE (15:23)
[2018-05-20] MEDS ORDERED: Midazolam* 1 MG/ML 5 ML VIAL (5 MG) ONE (15:23)
[2018-05-20] MEDS ORDERED: Phenylephrine INJ* 10 MG/ML 1 ML VIAL (10 MG) ONE (15:23)
[2018-05-20] MEDS ORDERED: Propofol* 10 MG/ML 20 ML BTL IV PUSH ONE (15:23)
[2018-05-20] MEDS ORDERED: fentaNYL* 50 MCG/ML 2 ML VIAL (100 MCG VIAL) ONE (15:23)
[2018-05-20] MEDS ORDERED: Lidocaine 2% PF * 5 ML VIAL ONE (15:23)
--- NOTE | 2018-05-20 15:39 | RAD ---
INDICATION: Left-sided nephrolithiasis COMPARISON: May 14, 2018 TECHNIQUE: A single view of the abdomen is submitted. FINDINGS: Bones: There are no acute bony findings. Soft tissues: The soft tissues appear normal. The psoas margins are sharp. Bowel gas pattern: Normal Calcifications: There is a large left renal calculus measuring 3 cm at the level the proximal coil stent. There are additional smaller renal calculi. Other: There is interval placement of left ureteral stent in expected position. IMPRESSION: INTERVAL LEFT URETERAL STENT PLACEMENT. LEFT-SIDED NEPHROLITHIASIS.
[2018-05-20] MEDS ORDERED: Ondansetron INJ* 2 MG/ML VIAL ONE (16:15)
[2018-05-20] MEDS ORDERED: EPHEDrine (Pressors)* 50 MG/ML VIAL ONE (16:38)
[2018-05-20] MEDS ORDERED: Ketorolac INJ* 30 MG/ML 1 ML VIAL ONE (17:10)
[2018-05-20] MEDS ORDERED: fentaNYL* 50 MCG/ML 2 ML VIAL (100 MCG VIAL) IV PRN (17:11)
[2018-05-20] MEDS ORDERED: oxyCODONE/Acetamin 5/325 MG* TAB PO PRN (17:11)
[2018-05-20] MEDS ORDERED: Ondansetron INJ* 2 MG/ML VIAL IV PRN (17:11)
[2018-05-20] MEDS ORDERED: Naloxone* 0.4 MG/ML 1 ML VIAL IV PRN (17:11)
[2018-05-20] MEDS ORDERED: Nitroglycerin TAB 0.4 MG* 0.4 MG TAB ONE (17:30)
[2018-05-20] MEDS ORDERED: Sodium Citrate/Citric Acid* 15 ML UDC ONE (17:44)
[2018-05-20 18:59] VITALS: BP 102/67
--- NOTE | 2018-05-20 19:27 | RAD ---
INDICATION: Postop COMPARISON: May 20, 2018 TECHNIQUE: A single view of the abdomen is submitted. FINDINGS: Bones: There are no acute bony findings. Soft tissues: The soft tissues appear normal. The psoas margins are sharp. Bowel gas pattern: Normal Calcifications: There is left-sided nephrolithiasis, unchanged. Other: There is left ureteral stent, unchanged IMPRESSION: LEFT-SIDED NEPHROLITHIASIS LEFT URETERAL STENT, UNCHANGED
--- NOTE | 2018-05-21 00:23 | OP ---
CC: Dr. Fontana; Dr. Anton Jennings* OPERATIVE REPORT: DATE OF OPERATION: 05/20/18 - [facility] DATE OF : 59 SURGEON: Anton Jennings MD ANESTHESIOLOGIST: Dr. Young ANESTHESIA: General. PRE-OP DIAGNOSIS: Left renal calculus. POST-OP DIAGNOSIS: Left renal calculus. OPERATIVE PROCEDURE: Shock-wave lithotripsy of left renal calculus. COMPLICATIONS: None. POSTOPERATIVE CONDITION: Stable. INDICATIONS: Hazel Angeles is a 63-year-old lady who had undergone urgent left stent insertion for a large obstructing calculus in the left renal pelvis. She is now being brought in for lithotripsy because of the fairly large size of the stone. I had discussed options with her including percutaneous nephrolithotripsy. I have also explained to her that it is likely that she will require multiple procedures, possibly including laser lithotripsy and possibly repeat shockwave lithotripsy down the road also. DESCRIPTION OF PROCEDURE: After induction of general anesthesia, the patient was placed on the lithotripsy table in supine position, the calculus which was in the left renal pelvis was visualized under fluoroscopy and shockwave lithotripsy was commenced at a rate of 60 shocks per minute, after the initial 300 shocks, there was a pause in lithotripsy for several minutes in an effort to minimize any potential trauma to the kidney. Lithotripsy was then resumed and intermittent fluoroscopy revealed adequate localization. A total of 2400 shocks were administered. My plan is to obtain a postoperative x-ray to assess the degree of fragmentation before scheduling the next procedure which would likely be ureteroscopy with laser lithotripsy. [id number]/[facility] #: [id number] MTDD
== END 2018-05-20 19:20 | disposition home or self-care (01) ==
LOC: OR 12:24
PROVIDERS: ATTEND Urology
DX: N20.0 Calculus of kidney (principal); E11.9 Type 2 diabetes mellitus without complications; Z79.4 Long term (current) use of insulin; G47.33 Obstructive sleep apnea (adult) (pediatric); I25.10 Atherosclerotic heart disease of native coronary artery without angina pectoris; K21.9 Gastro-esophageal reflux disease without esophagitis; K76.0 Fatty (change of) liver, not elsewhere classified; D64.9 Anemia, unspecified; F41.9 Anxiety disorder, unspecified
CPT/HCPCS: 74018; 93005; A9270-GY; J0696; J1885; J2250; J2405; J2704; J3010

== ENCOUNTER → 2018-05-30 05:25 | Emergency (ER) | payer BC ==
[~2018-05-30 05:25] MED LIST changes: -Buffered Lidocaine 0.9% SYRIN* 5 ML/SYR SYRINGE INTRADERM ONE; -Famotidine IV* 10 MG/ML 2 ML (20 mg) IV ONE; +HYDROmorphone INJ* 1 MG/ML CARPUJECT SYRINGE IV ONE; -Metoclopramide TAB* 10 MG PO ONE; +Morphine INJ* 2 MG/ML 1 ML SYRINGE (TWO MG - NEW SYRINGE VERSION) IV ONE; +Morphine VIAL* 10 MG/ML 1 ML VIAL IV ONE; +Morphine VIAL* 10 MG/ML 1 ML VIAL ONE; +Morphine VIAL* 4 MG/ML VIAL (1 ml vial) IV ONE; +Ondansetron INJ* 2 MG/ML VIAL IV ONE; +Sulfamethox/Trimethoprim DS 800/160* TAB PO ONE
[2018-05-30 05:58] LABS: Hematocrit 33 % (35-47); Hemoglobin 11.1 g/dl (12.0-16.0); Mean Corpuscular HGB Conc 34 g/dl (31-36); Mean Corpuscular Hemoglobin 29 pg (27-31); Mean Corpuscular Volume 86 fL (80-97); Mean Platelet Volume 7.6 um3 (7.4-10.4); Platelet Count 222 10^3/ul (150-450); Red Blood Count 3.84 10^6/ul (4.00-5.40); Red Cell Distribution Width 16 % (10.5-15)
[2018-05-30 06:13] LABS: EGFR Non-African American 101.6 (>60)
[2018-05-30 06:18] LABS: INR 1.05 (0.77-1.02)
--- OUTSIDE RECORDS SUMMARY | 2018-05-30 06:21 | XMS REPORT ---
:1955 External Reference #:[id number] Author Organization [employer] Address [address] [place] [address] [place] [address] Phone [phone] Care Team Providers Name Role Phone Zhane Fontana MD Primary Care Physician Unavailable Payers Type Date Identification Numbers Payment Provider Subscriber Commercial Effective: Policy Number: BS Mame Angeles 2015 [id number] PayID: [id number] [address] [address] [place] [address] Medigap Part B Effective: 2012 Policy Number: JAMAL Mame Angeles [id number] Expires: 2015 PayID: [id number] [address] [address] [place] [address] Commercial Effective: 2016 Policy Number: [facility] [place] [id number] Expires: 2018 Group Number: [id number] PayID: [id number] [facility] [address] [place] [address] Problems Date Description Provider Status Onset: 07/16/2013 Heart murmur Dwight Gonzalez M.D. Active Onset: 07/16/2013 Aortic valve disorder Dwight Gonzalez M.D. Active Onset: 01/28/2014 Chest pain Dwight Gonzalez M.D. Active Onset: 01/28/2014 Coronary arteriosclerosis Dwight Gonzalez M.D. 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 Active Onset: 08/10/2015 Neck pain Frankie Asif M.D. Active Onset: 08/10/2015 Spinal stenosis in cervical region Frankie Asif M.D. 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 Active Onset: 10/25/2015 Arthrodesis status Frankie Asif M.D. Active Onset: 11/09/2016 Displacement of lumbar intervertebral Brayan Amor M.D. Active disc without myelopathy Onset: 03/27/2017 Obstructive sleep apnea syndrome Nina Mireles MD Active Onset: 05/09/2017 Lumbar radiculopathy Brayan Amor M.D. 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 ETOH Use Denies alcohol use Smoking Patient is a former smoker smoke as a teenager quit smoking 30 years ago Recreational Drug Use Denies Drug Use Daily Caffeine Consumes on average 1 cup of regular coffee per day Exercise Type/Frequency Exercises rarely but active with grandson Allergies, Adverse Reactions, Alerts Date Description Reaction Status Severity Comments 06/17/2013 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 bedtime for two nights then take 2 tablets by mouth at bedtime thereafter Gabapentin 11/19 Active Capsules 300mg 90cap 1 by mouth M54.16 s three [place], times a M.D. day Carisoprodol 11/19 Active Tablets 350mg 60tab 1 by mouth M54.16 s twice a [place], day as M.D. needed spasm Hydromorphone HCL 05/28 Active Tablets 2mg 10tab 1 by mouth M51.26 s every 8h Mt, as needed M.D. severe pain Lumbar Back 05/11 Active Misc Use as Brayan Brace/Supportpad needed for Mt, Adjustable support. M.D. Ibuprofen 01/01 Active Tablets 600mg 60tab 1 by mouth Z48.89 s two times [place], a day as M.D. needed Novolog 00 Active Solution 100Unit/M 1bott as Unknown /0000 L le directed Lantus Active Solution 100Unit/M 1mont as Unknown /0000 L carrillo directed Xalatan Active Solution 0.005% ou qhs 1 Unknown /0000 ggt Hydrochlorothiazi Active Tablets 25mg 30tab 1 and 1/ Unknown de s tablet po qd Ambien Active Tablets 10mg 30tab 1/2 po qhs Unknown /0000 s prn sleep insomnia Magnesium Citrate Active Tablets 2 tabs at Unknown /0000 bedtime Nitrostat Active Tablets Sub 0.4mg 25tab one sl Unknown / s q5min up to 3 doses as needed Fluticasone Active Suspension 50mcg/Act 2 sprays Unknown Propionate 0000 each nostril daily as needed Zofran Odt Active Tablets 8mg take 2 Unknown /0000 Dispers tabs, sublingual as needed for nausea. Diltiazem HCL ER Active Caps ER 120mg 1 by mouth Unknown /0000 24HR every day Rosuvastatin Active Tablets 20mg McCl[place]ic Calcium /0000 , Orlin Avina MD Soma 08/10 Hx Tablets 350mg 60tab three Brayan s times a [place], - day as M.D. 05/28 needed spasm Ondansetron 02/01 Hx Tablets 4mg 15tab 1 tab by Frankie Jimenes /2014 Dispers s mouth four Yefri, - times a M.D. 11/09 day as needed nausea Hydromorphone HCL 11/17 Hx Tablets 4mg 60tab 1 -2 by 721.3 Frankie Jimenes /2014 s mouth four Yefri, - times a M.D. 11/26 day as needed pain Pravastatin 07/10 Hx Tablets 20mg 1 po qd Frankie Jimenes Sodium /2012 Cody Asif M.D. 05/15 Pravastatin 06/17 Hx Tablets 30tab 1 tablet Frankie Jimenes Sodium /2012 s by mouth Yefri, - once daily M.DMiquel 07/10 at bedtime Diltiazem HCL ER 11/11 Hx Caps ER 180mg 30cap 1 by mouth Dwight 24HR s every day Cody Melgar M.D. 05/15 Carisoprodol 12/04 Hx Tablets 350mg 45tab one by Frankie Jimenes /2011 s mouth Yefri, - three M.DMiquel 11/09 times day as needed spasm Soma 12/30 Hx Tablets 350mg 60tab tid prn Frankie Jimenes /2010 s spasm Cody Asif M.D. 12/04 Pennsaid 12/19 Hx Solution 1.5% 150ml apply 40 Frankie Jimenes /2010 bot drops to Cody Asif painful M.DMiquel 12/04 joints up to qid Cyclobenzaprine 12/19 Hx Tablets 10mg 90tab one po tid Frankie Jimenes HCL /2010 s prn spasm Cody Asif M.D. 12/04 [id number] 09/05 Hx Capsules 500-50mg 60cap one po Frankie Jimenes /2009 s bid, take Yefri, - with meals M.DMiquel 12/19 Canterbury 07/05 Hx Tablets 5-325mg 60tab 1-2 po qid Frankie Jimenes /2008 s prn Cody Asif M.D. 12/19 Oxycodone/Acetami Hx Tablets 10-325mg 60tab 1-2 po qid Frankie Jimenes nophen / s Cody Asif M.D. 06/17 Zoloft Hx Tablets 50mg 90tab 1/2 po qod Unknown /0000 s - 02/01 Benadryl Hx Tablets 25mg 30tab 1 tab po Unknown /0000 s prn - 11/09 Soma Hx 1 tab po Unknown /0000 qhs prn - pain 04/08 Dilaudid Hx 1 tab po Unknown /0000 prn pain - kidney 01/20 Ibuprofen Hx Tablets 800mg by mouth Unknown /0000 three - times a 05/28 day needed Gabapentin Hx Capsules 300mg 120ca 1 take Frankie J. / ps capsule Yefri, - four times M.D. 08/10 a day /2014 Zoloft Hx Tablets 50mg 1/2 po qd Unknown - 11/19 Gabapentin Hx Capsules 300mg 2 tid Unknown - 11/19 Oxycodone-Acetami Hx Tablets 5-325mg Take 1 To Unknown nophen 0000 2 Tablets - Every 4 05/28 Hours Needed For Pain Metaxalone Hx Tablets 800mg Take 1 Tab Unknown By Mouth - Three 01/01 Times Daily as Needed (Muscle Spasm). Dilaudid Hx Tablets 2mg 1-2 tabs Unknown / by mouth - every 6 01/01 hours needed pain Flomax Hx Capsules 0.4mg 1 by mouth Unknown every day - 11/19 Medications Administered in Office Medication Date Status Form Strength Qnty SIG Indications Ordering Provider Technetium TC Administered Injection Dwight Marion 99M 015 Candida Gonzalez Tetrofosmin, Per Unit Dose Up To 40 Millicuries Technetium TC Administered Injection Rissa Rangel, 99M 015 PA Tetrofosmin, Per Unit Dose Up To 40 Millicuries Vital Signs Date Vital Result Comment 05/15/2018 Height 61.5 inches 5'1.50" Weight 168.00 lb BP Systolic Sitting 138 mmHg BP Diastolic Sitting 78 mmHg Pain Level 8 BMI (Body Mass Index) 31.2 kg/m2 03/01/2018 Height 61.5 inches 5'1.50" BP Systolic Sitting 122 mmHg BP Diastolic Sitting 70 mmHg Pain Level 6 07/06/2017 Height 61.5 inches 5'1.50" Weight 168.00 lb Heart Rate 72 /min BP Systolic Sitting 140 mmHg BP Diastolic Sitting 80 mmHg Pain Level 2 BMI (Body Mass Index) 31.2 kg/m2 06/08/2017 Height 61.5 inches 5'1.50" Weight 168.00 lb Heart Rate 82 /min BP Systolic Sitting 138 mmHg BP Diastolic Sitting 86 mmHg Pain Level 8 BMI (Body Mass Index) 31.2 kg/m2 05/28/2017 Height 61.5 inches 5'1.50" Weight 168.00 lb Heart Rate 66 /min BP Systolic Sitting 122 mmHg BP Diastolic Sitting 78 mmHg Pain Level 5 BMI (Body Mass Index) 31.2 kg/m2 05/15/2017 Height 61.5 inches 5'1.50" Weight 168.00 lb Heart Rate 76 /min BP Systolic Sitting 124 mmHg BP Diastolic Sitting 76 mmHg Respiratory Rate 24 /min O2 % BldC Oximetry 98 % room air BMI (Body Mass Index) 31.2 kg/m2 05/09/2017 Height 61.5 inches 5'1.50" Weight 160.00 lb Heart Rate 82 /min BP Systolic Sitting 130 mmHg BP Diastolic Sitting 80 mmHg Pain Level 6 BMI (Body Mass Index) 29.7 kg/m2 05/04/2017 Height 61.5 inches 5'1.50" Weight 160.00 lb Heart Rate 88 /min BP Systolic Sitting 140 mmHg BP Diastolic Sitting 88 mmHg Pain Level 10 BMI (Body Mass Index) 29.7 kg/m2 03/27/2017 Height 61.5 inches 5'1.50" Weight 160.00 lb Heart Rate 78 /min BP Systolic Sitting 120 mmHg BP Diastolic Sitting 70 mmHg Respiratory Rate 16 /min Pain Level 0 O2 % BldC Oximetry 97 % BMI (Body Mass Index) 29.7 kg/m2 Neck Circumference in inches 14.5 01/29/2017 Height 61.5 inches 5'1.50" Weight 161.00 lb Heart Rate 70 /min BP Systolic Sitting 140 mmHg BP Diastolic Sitting 80 mmHg Pain Level 4 BMI (Body Mass Index) 29.9 kg/m2 01/01/2017 Height 61.5 inches 5'1.50" Weight 172.00 lb Heart Rate 70 /min BP Systolic Sitting 126 mmHg BP Diastolic Sitting 72 mmHg Pain Level 6 BMI (Body Mass Index) 32.0 kg/m2 11/27/2016 Height 61.5 inches 5'1.50" Weight 172.00 lb Heart Rate 60 /min BP Systolic Sitting 106 mmHg BP Diastolic Sitting 68 mmHg Pain Level 8 BMI (Body Mass Index) 32.0 kg/m2 11/22/2016 Height 61.5 inches 5'1.50" Weight 172.00 lb Heart Rate 78 /min BP Systolic Sitting 130 mmHg BP Diastolic Sitting 80 mmHg Body Temperature 97.8 F Pain Level 2 BMI (Body Mass Index) 32.0 kg/m2 11/09/2016 Height 61.5 inches 5'1.50" Weight 172.00 lb Heart Rate 82 /min BP Systolic Sitting 140 mmHg BP Diastolic Sitting 90 mmHg Pain Level 10 BMI (Body Mass Index) 32.0 kg/m2 12/28/2015 Height 61.5 inches 5'1.50" Weight 172.00 lb Heart Rate 76 /min BP Systolic Sitting 124 mmHg BP Diastolic Sitting 80 mmHg Pain Level 0 BMI (Body Mass Index) 32.0 kg/m2 11/26/2015 Weight 172.00 lb Heart Rate 82 /min BP Systolic Sitting 152 mmHg BP Diastolic Sitting 82 mmHg Pain Level 4 R neck, R ear 10/25/2015 Height 61.5 inches 5'1.50" Weight 170.00 lb Heart Rate 78 /min BP Systolic Sitting 120 mmHg BP Diastolic Sitting 80 mmHg Pain Level 1 BMI (Body Mass Index) 31.6 kg/m2 09/17/2015 Height 61.5 inches 5'1.50" Weight 170.00 lb Heart Rate 78 /min BP Systolic Sitting 126 mmHg BP Diastolic Sitting 90 mmHg Pain Level 8 BMI (Body Mass Index) 31.6 kg/m2 08/10/2015 Height 61.5 inches 5'1.50" Weight 170.00 lb Heart Rate 74 /min BP Systolic Sitting 126 mmHg BP Diastolic Sitting 80 mmHg Pain Level 3 neck BMI (Body Mass Index) 31.6 kg/m2 04/16/2015 Height 61.5 inches 5'1.50" Weight 170.00 lb Heart Rate 68 /min BP Systolic Sitting 124 mmHg LA, reg cuff BP Diastolic Sitting 80 mmHg LA, reg cuff BP Systolic Standing 122 mmHg LA BP Diastolic Standing 80 mmHg LA Respiratory Rate 16 /min BMI (Body Mass Index) 31.6 kg/m2 Ejection Fraction 60-65% 10/20/13 04/16/2015 Height 61.50 inches 5'1.50" Ejection Fraction 60-65% as of 10/20/13 echo 03/03/2015 Height 61.50 inches 5'1.50" Weight 171.00 lb Heart Rate 76 /min BP Systolic Sitting 124 mmHg BP Diastolic Sitting 78 mmHg Pain Level 4 r leg/foot BMI (Body Mass Index) 31.8 kg/m2 02/01/2015 Height 61.50 inches 5'1.50" Weight 172.00 lb Heart Rate 82 /min BP Systolic Sitting 126 mmHg BP Diastolic Sitting 84 mmHg Pain Level 8 back/R BMI (Body Mass Index) 32.0 kg/m2 01/20/2015 Height 61.50 inches 5'1.50" Weight 169.00 lb Heart Rate 76 /min BP Systolic Sitting 140 mmHg BP Diastolic Sitting 90 mmHg Pain Level 4 r leg BMI (Body Mass Index) 31.4 kg/m2 12/11/2014 Height 61.50 inches 5'1.50" Weight 172.00 lb Heart Rate 88 /min BP Systolic Sitting 140 mmHg BP Diastolic Sitting 84 mmHg Pain Level 9 back/buttock/R leg BMI (Body Mass Index) 32.0 kg/m2 11/17/2014 Height 61.50 inches 5'1.50" Weight 172.00 lb Heart Rate 72 /min BP Systolic Sitting 136 mmHg BP Diastolic Sitting 90 mmHg Pain Level 4 back,R hip & thigh BMI (Body Mass Index) 32.0 kg/m2 08/21/2014 Height 61.50 inches 5'1.50" Weight 172.00 lb without shoes Heart Rate 80 /min BP Systolic Sitting 134 mmHg L arm reg cuff BP Diastolic Sitting 80 mmHg L arm reg cuff BP Systolic Standing 138 mmHg BP Diastolic Standing 80 mmHg Respiratory Rate 18 /min BMI (Body Mass Index) 32.0 kg/m2 01/28/2014 Height 61.50 inches 5'1.50" Weight 168.00 lb with shoes Heart Rate 78 /min BP Systolic Sitting 128 mmHg Ra lg cuff BP Diastolic Sitting 70 mmHg Ra lg cuff BP Systolic Standing 114 mmHg Ra lg cuff BP Diastolic Standing 70 mmHg Ra lg cuff Respiratory Rate 17 /min BMI (Body Mass Index) 31.2 kg/m2 07/16/2013 Height 61.50 inches 5'1.50" Weight 162.00 lb without shoes Heart Rate 9088 /min sit and stand HR reg BP Systolic Sitting 130 mmHg L arm reg cuff BP Diastolic Sitting 82 mmHg L arm reg cuff BP Systolic Standing 124 mmHg L arm reg cuff BP Diastolic Standing 80 mmHg L arm reg cuff Respiratory Rate 17 /min BMI (Body Mass Index) 30.1 kg/m2 06/17/2013 Height 62.5 inches 5'2.50" Weight 164.00 lb BP Systolic 122 mmHg BP Diastolic 78 mmHg Pain Level 0 BMI (Body Mass Index) 29.5 kg/m2 Results Test Date Test Result H/L Range Note Laboratory test finding 10/05/2015 Point of Care Glucose 124 mg/dL High 74 -106 1 Type & Screen 09/28/2015 Patient Blood Type O Positive Antibody Screen NEGATIVE CBC No Diff 09/28/2015 White Blood Count 7.1 10^3/uL 3.5-10.8 Red Blood Count 4.72 10^6/uL 4.0-5.4 Hemoglobin 13.7 g/dL 12.0-16.0 Hematocrit 42 % 35-47 Mean Corpuscular Volume 88 fL 80-97 Mean Corpuscular Hemoglobin 29 pg 27-31 Mean Corpuscular HGB Conc 33 g/dL 31-36 Red Cell Distribution Width 15 % 10.5-15 Platelet Count 328 10^3/uL 150-450 Mean Platelet Volume 7 um3 Low 7.4-10.4 Basic Metabolic Panel 09/28/2015 Sodium 139 mmol/L 133-145 Potassium 4.5 mmol/L 3.5-5.0 Chloride 98 mmol/L Low 101-111 Co2 Carbon Dioxide 34 mmol/L High 22-32 Anion Gap 7 mmol/L 2-11 Glucose 95 mg/dL 70-100 Blood Urea Nitrogen 14 mg/dL 6-24 Creatinine 0.71 mg/dL 0.51-0.95 BUN/Creatinine Ratio 19.7 8-20 Calcium 10.7 mg/dL High 8.6-10.3 Egfr Non- 84.6 >60 Egfr 108.7 >60 2 CBC Auto Diff 04/16/2015 White Blood Count 6.8 10^3/uL 4.8-10.8 Red Blood Count 4.63 10^6/uL 4.0-5.4 Hemoglobin 13.2 g/dL 12.0-16.0 Hematocrit 39 % 35-47 Mean Corpuscular Volume 85 fL 80-97 Mean Corpuscular Hemoglobin 28 pg 27-31 Mean Corpuscular HGB Conc 34 g/dL 31-36 Red Cell Distribution Width 15 % 10.5-15 Platelet Count 295 10^3/uL 150-450 Mean Platelet Volume 7 um3 Low 7.4-10.4 Abs Neutrophils 4.5 10^3/uL 1.5-7.7 Abs Lymphocytes 1.6 10^3/uL 1.0-4.8 Abs Monocytes 0.6 10^3/uL 0-0.8 Abs Eosinophils 0.2 10^3/uL 0-0.6 Abs Basophils 0 10^3/uL 0-0.2 Abs Nucleated RBC 0 10^3/uL Granulocyte % 65.2 % 38-83 Lymphocyte % 23.4 % Low 25-47 Monocyte % 8.5 % 1-9 Eosinophil % 2.4 % 0-6 Basophil % 0.5 % 0-2 Nucleated Red Blood Cells % 0 Lipid Panel - [facility] 04/16/2015 Creatine Kinase(CK) 47 U/L 10-223 3 Comp Metabolic Panel 04/16/2015 Sodium 139 mmol/L 133-145 Potassium 3.9 mmol/L 3.5-5.0 Chloride 104 mmol/L 101-111 Co2 Carbon Dioxide 28 mmol/L 22-32 Anion Gap 7 mmol/L 2-11 Glucose 172 mg/dL High 70-100 Blood Urea Nitrogen 15 mg/dL 6-24 Creatinine 0.60 mg/dL 0.51-0.95 BUN/Creatinine Ratio 25.0 High 8-20 Calcium 9.8 mg/dL 8.6-10.3 Total Protein 7.1 g/dL 6.4-8.9 Albumin 4.2 g/dL 3.2-5.2 Globulin 2.9 g/dL 2-4 Albumin/Globulin Ratio 1.4 1-3 Total Bilirubin 0.30 mg/dL 0.2-1.0 Alkaline Phosphatase 108 U/L High 34-104 Alt 77 U/L High 7-52 Ast 55 U/L High 13-39 Egfr Non- 103.0 >60 Egfr 132.5 >60 4 Lipid Profile (Trig/Chol/HDL) 04/16/2015 Triglycerides 151 mg/dL 5 Cholesterol 184 mg/dL 6 HDL Cholesterol 45.6 mg/dL 7 LDL Cholesterol 108 mg/dL 8 Laboratory test finding 04/16/2015 Troponin-I (TnI) 0.00 ng/mL <0.03 9 CBC No Diff 12/16/2014 White Blood Count 5.5 10^3/uL 4.8-10.8 10 Red Blood Count 4.29 10^6/uL 4.0-5.4 10 Hemoglobin 12.4 g/dL 12.0-16.0 10 Hematocrit 38 % 35-47 10 Mean Corpuscular Volume 88 fL 80-97 10 Mean Corpuscular Hemoglobin 29 pg 27-31 10 Mean Corpuscular HGB Conc 33 g/dL 31-36 10 Red Cell Distribution Width 15 % 10.5-15 10 Platelet Count 317 10^3/uL 150-450 10 Mean Platelet Volume 8 um3 7.4-10.4 10 Basic Metabolic Panel 12/16/2014 Sodium 137 mmol/L 133-145 10 Potassium 3.7 mmol/L 3.5-5.0 10 Chloride 97 mmol/L Low 101-111 10 Co2 Carbon Dioxide 36 mmol/L High 22-32 10 Anion Gap 4 mmol/L 2-11 10 Glucose 117 mg/dL High 70-100 10 Blood Urea Nitrogen 16 mg/dL 6-24 10 Creatinine 0.68 mg/dL 0.51-0.95 10 BUN/Creatinine Ratio 23.5 High 8-20 10 Calcium 9.9 mg/dL 8.6-10.3 10 Egfr Non- 89.2 >60 10 Egfr 114.7 >60 10, 11 Type & Screen 12/16/2014 Patient Blood Type O Positive 10 Antibody Screen NEGATIVE 10 Urinalysis Profile 05/17/2014 Urine Color Yellow Urine Appearance Clear Urine Specific [place] 1.020 1.010-1.030 Urine pH 5.0 5-9 Urine Urobilinogen Negative Negative Urine Ketones Negative Negative Urine Protein Negative Negative Urine Leukocytes Negative Negative Urine Blood Negative Negative Urine Nitrite Negative Negative Urine Bilirubin Negative Negative Urine Glucose Negative Negative Urinalysis Profile 05/17/2014 Urine Color Yellow Urine Appearance Cloudy Urine Specific [place] 1.016 1.010-1.030 Urine pH 6.0 5-9 Urine Urobilinogen Negative Negative Urine Ketones Negative Negative Urine Protein Negative Negative Urine Leukocytes 3+ Negative Urine Blood Negative Negative Urine Nitrite Negative Negative Urine Bilirubin Negative Negative Urine Glucose Negative Negative Urine White Blood Cell 3+(>20/hpf) Absent Urine Red Blood Cell 1+(3-5/hpf) Absent Urine Bacteria Absent Absent Urine Squamous Epithelial Cell Present Absent Urine Renal Epithelial Cells Present Absent Urine Culture And Sensitivities 05/17/2014 Urine Culture (SEE NOTE) 12 Laboratory test finding 05/17/2014 Amylase 47 U/L 29-103 Lipase 43 U/L 11.0-82.0 C Reactive Protein 11.43 mg/L High < 5.00 13 Comp Metabolic Panel 05/17/2014 Sodium 138 mmol/L 133-145 Potassium 4.1 mmol/L 3.7-5.6 Chloride 102 mmol/L 101-111 Co2 Carbon Dioxide 29 mmol/L 22-32 Anion Gap 7 mmol/L 2-11 Glucose 113 mg/dL High 70-100 Blood Urea Nitrogen 15 mg/dL 6-24 Creatinine 0.82 mg/dL 0.51-0.95 BUN/Creatinine Ratio 18.3 8-20 Calcium 9.5 mg/dL 8.6-10.3 Total Protein 7.1 g/dL 6.4-8.9 Albumin 4.0 g/dL 3.2-5.2 Globulin 3.1 g/dL 2-4 Albumin/Globulin Ratio 1.3 1-3 Total Bilirubin 0.30 mg/dL 0.2-1.0 Alkaline Phosphatase 70 U/L 34-104 Alt 37 U/L 7-52 Ast 32 U/L 13-39 Egfr Non- 71.9 >60 Egfr 92.4 >60 14 CBC Auto Diff 05/17/2014 White Blood Count 8.3 10^3/uL 4.8-10.8 Red Blood Count 4.40 10^6/uL 4.0-5.4 Hemoglobin 12.9 g/dL 12.0-16.0 Hematocrit 38 % 35-47 Mean Corpuscular Volume 86 fL 80-97 Mean Corpuscular Hemoglobin 29 pg 27-31 Mean Corpuscular HGB Conc 34 g/dL 31-36 Red Cell Distribution Width 15 % 10.5-15 Platelet Count 292 10^3/uL 150-450 Mean Platelet Volume 7 um3 Low 7.4-10.4 Abs Neutrophils 5.4 10^3/uL 1.5-7.7 Abs Lymphocytes 1.8 10^3/uL 1.0-4.8 Abs Monocytes 0.8 10^3/uL 0-0.8 Abs Eosinophils 0.2 10^3/uL 0-0.6 Abs Basophils 0 10^3/uL 0-0.2 Abs Nucleated RBC 0.01 10^3/uL Granulocyte % 65.3 % 38-83 Lymphocyte % 21.2 % Low 25-47 Monocyte % 10.3 % High 1-9 Eosinophil % 2.6 % 0-6 Basophil % 0.6 % 0-2 Nucleated Red Blood Cells % 0.1 Xray 12/13/2010 MRI, Spinal Canal, Lumbar, W/O Contrast <pending> 1 Administrative Support Coordinator: TAD PABON 2 Because ethnic data is not always readily available, this report includes an eGFR for both -Americans and non- Americans. The National Kidney Disease Education Program (NKDEP) does not endorse the use of the MDRD equation for patients that are not between the ages of 18 and 70, are , have extremes of body size, muscle mass, or nutritional status, or are non- or non-. According to the National Kidney Foundation, irrespective of diagnosis, the stage of the disease is based on the level of kidney function: Stage Description GFR(mL/min/1.73 m(2)) 1 Kidney damage with normal or decreased GFR 90 2 Kidney damage with mild decrease in GFR 60-89 3 Moderate decrease in GFR 30-59 4 Severe decrease in GFR 15-29 5 Kidney failure <15 (or dialysis) 3 FASTING 4 Because ethnic data is not always readily available, this report includes an eGFR for both -Americans and non- Americans. The National Kidney Disease Education Program (NKDEP) does not endorse the use of the MDRD equation for patients that are not between the ages of 18 and 70, are , have extremes of body size, muscle mass, or nutritional status, or are non- or non-. According to the National Kidney Foundation, irrespective of diagnosis, the stage of the disease is based on the level of kidney function: Stage Description GFR(mL/min/1.73 m(2)) 1 Kidney damage with normal or decreased GFR 90 2 Kidney damage with mild decrease in GFR 60-89 3 Moderate decrease in GFR 30-59 4 Severe decrease in GFR 15-29 5 Kidney failure <15 (or dialysis) 5 Desirable <150 Borderline high 150-199 High 200-499 Very High >500 6 Desirable <200 Borderline high 200-239 High >239 7 Low <40 Desirable: 40-60 High: >60 8 Desirable: <100 mg/dL Near Optimal: 100-129 mg/dL Borderline High: 130-159 mg/dL High: 160-189 mg/dL Very High: >189 mg/dL 9 Reference Range and Interpretation: TnI (ng/mL) Interpretation Less Than 0.03 ng/mL Not supportive of diagnosis of AL 0.03 - 0.50 ng/mL Indeterminate: suggest serial studies if clinically indicated. Greater than 0.5 ng/mL Consistent with diagnosis of AL 10 SDS 12/18 11 Because ethnic data is not always readily available, this report includes an eGFR for both -Americans and non- Americans. The National Kidney Disease Education Program (NKDEP) does not endorse the use of the MDRD equation for patients that are not between the ages of 18 and 70, are , have extremes of body size, muscle mass, or nutritional status, or are non- or non-. According to the National Kidney Foundation, irrespective of diagnosis, the stage of the disease is based on the level of kidney function: Stage Description GFR(mL/min/1.73 m(2)) 1 Kidney damage with normal or decreased GFR 90 2 Kidney damage with mild decrease in GFR 60-89 3 Moderate decrease in GFR 30-59 4 Severe decrease in GFR 15-29 5 Kidney failure <15 (or dialysis) 12 RUN DATE: 05/19/14 [facility] LAB LIVE PAGE 1 RUN TIME: [address] [place] [id number] Specimen Inquiry Name: HAZEL ANGELES : [address]: Thomas Blevins MD Acct: [id number] Unit: [id number] AGE: 59 Location: [facility] Re05/17/14 SEX: F Status: [place] [facility] [place]C: [id number] DRAKE: 05/17/[address] [facility] [address]: Karyn BOWMAN REQ: [id number] RECD: 05/17/14 STATUS: HANNA MORAES DR: Maico Rivas MD _ SOURCE: URINE SPDESC: ORDERED: Urine Culture Procedure Result Verified Site Urine Culture Final 05/19/14- 0856 ML No Growth Day 2 (<1,000 CFU/mL) END OF REPORT * ML=Testing performed at Main Lab DEPARTMENT OF PATHOLOGY, [address] [place] [address] Travis Medrano M.D. Director [facility] # [id number] 13 Acute inflammation: >10.00 14 Because ethnic data is not always readily available, this report includes an eGFR for both -Americans and non- Americans. The National Kidney Disease Education Program (NKDEP) does not endorse the use of the MDRD equation for patients that are not between the ages of 18 and 70, are , have extremes of body size, muscle mass, or nutritional status, or are non- or non-. According to the National Kidney Foundation, irrespective of diagnosis, the stage of the disease is based on the level of kidney function: Stage Description GFR(mL/min/1.73 m(2)) 1 Kidney damage with normal or decreased GFR 90 2 Kidney damage with mild decrease in GFR 60-89 3 Moderate decrease in GFR 30-59 4 Severe decrease in GFR 15-29 5 Kidney failure <15 (or dialysis) Procedures Date CPT Code Description Status 05/08/2018 32126 ECHO Transthorasic Realtime 2D W Doppler & Color Flow Completed Hosp 05/02/2017 81153 Sleep Study Unattended,HRT Rate,Oxygen Sat,Resp Completed Effort/Airflow 04/30/2017 96178 Sleep Study Unattended,HRT Rate,Oxygen Sat,Resp Completed Effort/Airflow 11/15/2016 10341 EKG, Interpretation Only Completed 11/14/2016 98446 Use Of Operating Microscope Completed 11/14/2016 91530 Use Of Operating Microscope Completed 11/14/2016 37000 Laminotomy: Reexploration Single Interspace Lumbar Completed 11/14/2016 06739 Laminotomy: Reexploration Single Interspace Lumbar Completed 11/13/2016 26513 EKG, Interpretation Only Completed 11/12/2016 11707 EKG, Interpretation Only Completed 10/05/2015 90142 Application Of Spinal Device Completed 10/05/2015 84791 arthrodesis,anterior interbody incl disc space Completed prep,discectomy,de 05/07/2015 95085 Myocardial Perfusion Imaging Tomographic (Spect) Completed Multiple Studies 05/07/2015 49343 Myocardial Perfusion Imaging Tomographic (Spect) Completed Multiple Studies 05/07/2015 50145 Stress Test Completed 04/30/2015 82165 ECHO Transthoracic, Real-Time 2D With Doppler And Color Completed Flow 12/18/2014 74224 Laminotomy W/Decomp NRV RT,One Interspace,Lumbar Completed 01/28/2014 34037 EKG Tracing & Interpretation Completed 10/20/2013 26975 ECHO Transthorasic Realtime 2D W Doppler & Color Flow Completed Hosp 10/19/2013 54640 EKG, Interpretation Only Completed 07/07/2013 27981 Holter Monitoring 24 HR New Completed 07/04/2013 19761 Carotid Doppler,Bilateral Completed 06/30/2013 75434 ECHO Transthoracic, Real-Time 2D With Doppler And Color Completed Flow 11/21/2012 06080 ECHO Transthoracic, Real-Time 2D With Doppler And Color Completed Flow Encounters Type Date Location Provider CPT E/M Dx Office Visit 05/08/2018 [facility] Alexander LentzDO 86181 I50.21 1:07p [facility] FACC I35.0 R07.9 I25.10 Office Visit 03/01/2018 9:15a [facility] Dee Maya PA-C 32939 M54.12 [facility] M54.16 Office Visit 11/19/2017 11:20a [facility] Brayan Amor M.D. 95060 M54.16 Of [facility] Office Visit 07/06/2017 9:15a [facility] Dee Maya PA-C 67054 M51.26 Of [facility] Office Visit 06/08/2017 9:20a [facility] Brayan Amor M.D. 04399 M51.26 Of [facility] Office Visit 05/28/2017 3:00p [facility] Brayan Amor M.D. 97700 M51.26 Of [facility] Office Visit 05/15/2017 2:00p [facility] Collette Serna, 59984 G47.33 Services Of [facility] BEBE, RN, [facility] G47.00 Office Visit 05/09/2017 1:50p [facility] Brayan Amor 16825 M54.16 Of [facility] Candida Office Visit 05/04/2017 9:15a [facility] Dee Maya PA-C 04838 M54.16 Of [facility] Office Visit 03/27/2017 8:00a [facility] [place] [address] R06.83 Services Of [facility] R06.81 R40.0 G47.8 R12 Office Visit 11/19/2016 1:42p [facility] Denny Montejo, 03850 Z98.890 Assoc,pc Hospitalists Candida,FACP E11.9 G89.18 J20.9 Office Visit 11/18/2016 8:00a [facility] Calvin DELGADO, 24390 G89.18 Of Natasha Tirado, PHD J20.9 Z48.811 Office Visit 11/17/2016 1:33p [facility] Stanislaw Rodriguez, 16747 J20.9 Assoc,pc PA Hospitalists J20.9 G89.18 G89.18 E11.9 I10 I10 Office Visit 11/16/2016 [facility] Kim Kingsley, 27981 M54.16 4:18p Assoc,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 GRINDING 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5 Office Visit 11/12/2016 8:00a [facility] Brayan Amor, 55166 M51.26 Of Fire Investigation Lieutenant M.D. Office Visit 11/12/2016 4:15p [facility], Vicente Hernandez, 09524 E11.8 Hospitalists N.PMiquel M54.16 E78.5 Z79.4 Office Visit 11/09/2016 3:00p [facility] Brayan Amor, 56630 M51.27 Of [employer] Lieutenant M.D. Office Visit 10/29/2016 10:11a [facility], Andrew Oakes, 52200 M54.41 Hospitalists Candida E11.9 G89.29 E78.5 Office Visit 10/27/2016 10:08a [facility], Andrew Oakes, 37178 M54.41 Hospitalists Candida G89.29 E11.9 E78.5 Office Visit 09/17/2015 10:40a [facility] Frankie Asif, 90875 M54.2 Of [employer] Lieutenant Candida M48.02 Office Visit 08/10/2015 10:40a [facility] Frankie Asif, 03363 M54.2 Of Natasha Tirado M48.02 Office Visit 04/16/2015 3:00p [facility] GRACIE Richard 10132 424.1 414.01 786.50 250.00 424.0 Office Visit 12/19/2014 10:41a [facility] [address] 722.10 Assoc, Hospitalists 250.00 272.4 401.9 Office Visit 12/18/2014 10:40a [facility], Ashley Holloway N.P. 19293 722.10 Hospitalists 250.00 272.4 401.9 Office Visit 12/11/2014 1:20p [facility] Frankie Asif, 88034 722.10 Of [facility] Candida 724.3 Office Visit 11/17/2014 1:40p [facility] Frankie Asif, 80236 721.3 Of [facility] Candida 724.4 724.2 Office Visit 08/21/2014 3:15p [facility] 65285 424.1 [facility] Candida 414.01 Office Visit 01/28/2014 12:30p [facility] 71438 424.1 [facility] Candida 786.50 414.01 Office Visit 11/17/2013 1:08p [facility] Kate Ramirez, 14208 789.09 Assoc, Hospitalists Candida 591 Office Visit 11/15/2013 1:07p [facility], [address] 789.09 Assoc, Hospitalists Candida 591 Office Visit 10/20/2013 2:57p [facility], Jerzy Mendosa, 64040 592.1 Hospitalists Candida 591 276.8 250.00 Office Visit 10/19/2013 2:57p [facility], Jerzy Mendosa, 43563 428.0 Hospitalists Candida 592.1 591 250.00 Office Visit 10/18/2013 2:56p [facility], 12445 592.1 Assoc, Hospitalists M.D. 591 276.8 250.00 Office Visit 07/16/2013 12:45p [facility], 37110 785.2 [facility] M.D. 424.1 Office Visit 06/26/2013 12:15p [facility] Carlos, 63929 414.9 [facility] M.D. 785.2 780.4 785.9 Office Visit 06/17/2013 3:00p [facility] Frankie Asif, 35800 722.71 [facility] M.D. Office Visit 11/18/2012 2:30p [facility] Carlos, 21818 786.50 Fire Investigation Lieutenant AT [facility] M.D. 414.9 Office Visit 12/04/2011 10:20a [facility] Frankie Asif, 84025 721.3 Of Fire Investigation Lieutenant M.D. Office Visit 01/06/2011 2:00p [facility] Frankie Asif, 22690 722.71 Of Fire Investigation Lieutenant M.D. Office Visit 12/19/2010 9:40a [facility] Frankie Asif, 06992 722.71 Of [employer] Investigation Lieutenant M.D. Office Visit 09/05/2010 9:40a [facility] Frankie Asif, 23506 722.71 Of Fire Investigation Lieutenant M.D. Office Visit 06/03/2010 3:00p [facility] Frankie Asif, 43948 722.71 Of [employer] Investigation Lieutenant M.D. Office Visit 05/30/2010 2:20p [facility] Frankie Asif, 16726 722.71 Of Fire Investigation Lieutenant M.D. Office Visit 07/05/2009 3:40p [facility] Frankie Asif, 63880 722.0 Of [facility] M.DMiquel Plan of Care Future Appointment(s):06/24/2018 11:50 am - Brayan Amor M.D. at [facility]05/15/2018 - Brayan Amor M.D.M54.16 Radiculopathy, lumbar regionNew Medication:Amitriptyline HCL 25 mgFollow up:6 weeks
--- OUTSIDE RECORDS SUMMARY | 2018-05-30 06:22 | XMS REPORT ---
:1955 External Reference #:[id number] Author Organization [facility] Address [address] [place] [address] [place] [address] Phone [phone] Care Team Providers Name Role Phone Zhane Fontana MD Primary Care Physician Unavailable Payers Type Date Identification Numbers Payment Provider Subscriber Commercial Effective: Policy Number: BS Mame Angeles 2015 [id number] PayID: [id number] [address] [address] [place] [address] Medigap Part B Effective: 2012 Policy Number: JAMAL Mame Angeles [id number] Expires: 2015 PayID: [id number] [address] [address] [place] [address] Commercial Effective: 2016 Policy Number: [facility] Hazel Angeles [id number] Expires: 2018 Group Number: 40% [id number] PayID: [id number] [facility] [address] [place] [address] Problems Date Description Provider Status Onset: 07/16/2013 [...] Status Lives With Alone 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 day Carisoprodol 11/19 Active Tablets 350mg 60tab 1 by mouth M54.16 s twice a [place], day as M.D. needed spasm Hydromorphone HCL 05/28 Active Tablets 2mg 10tab 1 by mouth M51.26 s every 8h [place], as needed M.D. severe pain Lumbar Back 05/11 Active Misc Use as Brayan Brace/Supportpad needed for [place], Adjustable support. M.D. Ibuprofen 01/01 Active Tablets 600mg 60tab 1 by mouth Z48.89 s two times Mt, a day as M.D. needed Pravastatin 07/10 Active Tablets 20mg 1 po qd Frankie Ortiz Candida Asif Diltiazem HCL ER 11/11 Active Caps ER 180mg 30cap 1 by mouth Dwight 24HR s every day Doni Gonzalez M.D. Novolog Active Solution 100Unit/M 1bott as Unknown /0000 L le directed Lantus Active Solution 100Unit/M 1mont as Unknown /0000 L carrillo directed Xalatan Active Solution 0.005% ou qhs 1 Unknown /0000 ggt Hydrochlorothiazi Active Tablets 25mg 30tab 1 and 1 Unknown de /0000 s tablet po qd Ambien Active Tablets 10mg 30tab 1/2 po qhs Unknown /0000 s prn sleep insomnia Magnesium Citrate Active Tablets 2 tabs at Unknown /0000 bedtime Nitrostat Active Tablets Sub 0.4mg 25tab one sl Unknown /0000 s q5min up to 3 doses as needed Fluticasone Active Suspension 50mcg/Act 2 sprays Unknown / each nostril daily as needed Zofran Odt Active Tablets 8mg take 2 Unknown /0000 Dispers tabs, sublingual as needed for nausea. Soma 08/10 Hx Tablets 350mg 60tab three s times a Mt, - day as M.D. 05/28 needed spasm Ondansetron 02/01 Hx Tablets 4mg 15tab 1 tab by Frankie Jimenes /2014 Dispers s mouth henry Asif, - times a M.D. 11/09 day as needed nausea Hydromorphone HCL 11/17 Hx Tablets 4mg 60tab 1 -2 by 721.3 Frankie Jimenes /2014 s mouth henry Asif, - times a M.D. 11/26 day as needed pain Pravastatin 06/17 Hx Tablets 30tab 1 tablet Frankie Ortiz s by mouth Yefri, - once daily M.D. 07/10 at bedtime Carisoprodol 12/04 Hx Tablets 350mg 45tab one by Frankie Jimenes /2011 s mouth Yefri, - three M.D. 11/09 times day as needed spasm Soma 12/30 Hx Tablets 350mg 60tab tid prn Frankie Jimenes s spasm Cody AsifDMiquel 12/04 Pennsaid 12/19 Hx Solution 1.5% 150ml apply 40 Frankie Jimenes bot drops to Cody Asif painful M.D. 12/04 joints up to qid Cyclobenzaprine 12/19 Hx Tablets 10mg 90tab one po tid Frankie Jimenes s prn spasm Cody Asif M.DMiquel 12/04 [id number] 09/05 Hx Capsules 500-50mg 60cap one po Frankie Jimenes /2009 s bid, take Yefri - with meals M.D. 12/19 [place] 07/05 Hx Tablets 5-325mg 60tab 1-2 po [...] 11/09 Soma Hx 1 tab po Unknown / qhs prn - pain 04/08 Dilaudid Hx 1 tab po Unknown /0000 prn pain - kidney 01/20 Ibuprofen Hx Tablets 800mg by mouth Unknown 0000 three - times a 05/28 day needed Gabapentin Hx Capsules 300mg 120ca 1 take Frankie Jimenes / ps capsule Yefri, - four times M.D. 08/10 a Zoloft Hx Tablets 50mg 1/2 po qd Unknown - 11/19 Gabapentin Hx Capsules 300mg 2 tid - 11/19 Oxycodone-Acetami Hx Tablets 5-325mg Take 1 To Unknown nophen /0000 2 Tablets - Every 4 05/28 Hours Needed For Pain Metaxalone Hx Tablets 800mg Take 1 Tab Unknown /0000 By Mouth - Three 01/01 Times Daily as Needed (Muscle Spasm). Dilaudid Hx Tablets 2mg 1-2 tabs Unknown /0000 by mouth - every 6 01/01 hours needed pain Flomax Hx Capsules 0.4mg 1 by mouth Unknown /0000 every day - 11/19 Medications Administered in Office Medication Date Status Form Strength Qnty SIG Indications Ordering Provider Technetium TC Administered Injection Dwight Marion 99M 015 Candida Gonzalez Tetrofosmin, Per Unit Dose Up To 40 Millicuries Technetium TC Administered Injection Rissa Rangel, 99M 015 PA Tetrofosmin, Per Unit Dose Up To 40 Millicuries Vital Signs Date Vital Result Comment 03/01/2018 Height 61.5 inches 5'1.50" BP Systolic [...] Blood Cells % 0 Lipid Panel - [facility] 04/16/2015 Creatine Kinase(CK) 47 U/L 10-223 3 [...] Color Yellow Urine Appearance Clear Urine Specific [place] 1.020 1.010-1.030 Urine pH 5.0 5-9 Urine Urobilinogen Negative Negative Urine Ketones Negative Negative Urine Protein Negative Negative Urine Leukocytes Negative Negative Urine Blood Negative Negative Urine Nitrite Negative Negative Urine Bilirubin Negative Negative Urine Glucose Negative Negative Urinalysis Profile 05/17/2014 Urine Color Yellow Urine Appearance Cloudy Urine Specific [place] 1.016 1.010-1.030 Urine pH 6.0 5-9 Urine [...] Spinal Canal, Lumbar, W/O Contrast <pending> 1 Staff Physician: [id number] PABON 2 Because ethnic data is not [...] 0.03 ng/mL Not supportive of diagnosis of [place] 0.03 - 0.50 ng/mL Indeterminate: suggest serial studies if clinically indicated. Greater than 0.5 ng/mL Consistent with diagnosis of [place] 10 SDS 12/18 11 Because ethnic data [...] <15 (or dialysis) 12 RUN DATE: 05/19/14 [facility] LAB LIVE PAGE 1 RUN TIME: [address] [place] [address] Specimen Inquiry Name: HAZEL ANGELES : [address]: Thomas Blevins MD Acct: [id number] Unit: [id number] AGE: 59 Location: [facility] Re05/17/14 SEX: F Status: REG SDC SPEC: [id number] DRAKE: 05/17/[address]: Karyn BOWMAN REQ: [id number] RECD: 05/17/14 STATUS: HANNA MORAES DR: Maico Rivas MD _ SOURCE: URINE SPDESC: ORDERED: Urine Culture Procedure Result Verified Site Urine Culture Final 05/19/14- 0856 ML No Growth Day 2 (<1,000 CFU/mL) END OF REPORT * ML=Testing performed at Main Lab DEPARTMENT OF PATHOLOGY, [address] [place] [address] Travis Medrano M.D. Director [facility] # [id number] 13 Acute inflammation: >10.00 14 Because ethnic [...] Procedures Date CPT Code Description Status 05/08/2018 74060 ECHO Transthorasic Realtime 2D W Doppler & Color Flow Completed Hosp 05/02/2017 00480 Sleep Study Unattended,HRT Rate,Oxygen Sat,Resp Completed Effort/Airflow 04/30/2017 33858 Sleep Study Unattended,HRT Rate,Oxygen Sat,Resp Completed Effort/Airflow 11/15/2016 02459 EKG, Interpretation Only Completed 11/14/2016 76935 Use Of Operating Microscope Completed 11/14/2016 35888 Use Of Operating Microscope Completed 11/14/2016 09666 Laminotomy: Reexploration Single Interspace Lumbar Completed 11/14/2016 10085 Laminotomy: Reexploration Single Interspace Lumbar Completed 11/13/2016 59340 EKG, Interpretation Only Completed 11/12/2016 76323 EKG, Interpretation Only Completed 10/05/2015 73533 Application Of Spinal Device Completed 10/05/2015 73455 arthrodesis,anterior interbody incl disc space Completed prep,discectomy,de 05/07/2015 31493 Myocardial Perfusion Imaging Tomographic (Spect) Completed Multiple Studies 05/07/2015 10353 Myocardial Perfusion Imaging Tomographic (Spect) Completed Multiple Studies 05/07/2015 80945 Stress Test Completed 04/30/2015 38076 ECHO Transthoracic, Real-Time 2D With Doppler And Color Completed Flow 12/18/2014 92725 Laminotomy W/Decomp NRV RT,One Interspace,Lumbar Completed 01/28/2014 94583 EKG Tracing & Interpretation Completed 10/20/2013 90397 ECHO Transthorasic Realtime 2D W Doppler & Color Flow Completed Hosp 10/19/2013 40298 EKG, Interpretation Only Completed 07/07/2013 02607 Holter Monitoring 24 HR New Completed 07/04/2013 56393 Carotid Doppler,Bilateral Completed 06/30/2013 42772 ECHO Transthoracic, Real-Time 2D With Doppler And Color Completed Flow 11/21/2012 16378 ECHO Transthoracic, Real-Time 2D With Doppler And Color Completed Flow Encounters Type Date Location Provider CPT E/M Dx Office Visit 03/01/2018 [facility] Dee Maya PA-C 83497 M54.12 9:15a Of [facility] M54.16 Office Visit 11/19/2017 11:20a [facility] Brayan Amor M.D. 30548 M54.16 Of [facility] Office Visit 07/06/2017 9:15a [facility] Dee Maya PA-C 50475 M51.26 Of [facility] Office Visit 06/08/2017 9:20a [facility] Brayan Amor M.D. 29341 M51.26 Of [facility] Office Visit 05/28/2017 3:00p [facility] Brayan Amor M.D. 10233 M51.26 Of [facility] Office Visit 05/15/2017 2:00p [facility] Collette Serna, 74872 G47.33 Services Of [facility] DNP, RN, [facility]- G47.00 Office Visit 05/09/2017 1:50p [facility] Brayan Amor 37807 M54.16 Of [facility] Candida Office Visit 05/04/2017 9:15a [facility] Dee Maya PA-C 84064 M54.16 Of [facility] Office Visit 03/27/2017 8:00a [facility] [place] [address] R06.83 Services Of [facility] R06.81 R40.0 G47.8 R12 Office Visit 11/19/2016 1:42p [facility] Denny Montejo, 52054 Z98.890 Assoc,pc Hospitalists Candida,FACP E11.9 G89.18 J20.9 Office Visit 11/18/2016 8:00a [facility] Calvin DELGADO, 67662 G89.18 Of [facility] Candida, PHD J20.9 Z48.811 Office Visit 11/17/2016 1:33p [facility] Stanislaw Rodriguez, 48795 J20.9 Assoc,pc PA Hospitalists J20.9 G89.18 G89.18 E11.9 I10 I10 Office Visit 11/16/2016 [facility] Kim Wynn, 39207 M54.16 4:18p 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,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 Hospitalists E11.8 Z79.4 R09.02 Office Visit 11/15/2016 [facility] Kim Wynn, 35960 M54.16 4:18p Assoc,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 COUNSELOR Hospitalists E11.8 Z79.4 R09.02 Office Visit 11/14/2016 4:17p [facility] [place] [address] M54.16 Assoc,pc Hospitalists E11.8 Z79.4 R09.02 Office Visit 11/13/2016 8:00a [facility] Dee Maya PA-C 96684 M51.26 Of [facility] Office Visit 11/13/2016 4:16p [facility] Matilde Robin, RENA 04820 E11.8 Assoc, Hospitalists M54.16 Z79.4 E78.5 Office Visit 11/12/2016 8:00a [facility] Brayan Amor, 43617 M51.26 Of [facility] M.D. Office Visit 11/12/2016 4:15p [facility], Vicente David, 25796 E11.8 Hospitalists N.P. M54.16 E78.5 Z79.4 Office Visit 11/09/2016 3:00p [facility] Brayan Amor, 15277 M51.27 Of [facility] M.D. Office Visit 10/29/2016 10:11a [facility], Andrew Vancouver, 57088 M54.41 Hospitalists MGael E11.9 G89.29 E78.5 Office Visit 10/27/2016 10:08a [facility], Andrew Vancouver, 57376 M54.41 Hospitalists M.Doni G89.29 E11.9 E78.5 Office Visit 09/17/2015 10:40a [facility] Frankie Asif, 94919 M54.2 Of [facility] M.DMiquel M48.02 Office Visit 08/10/2015 10:40a [facility] Frankie Asif, 49968 M54.2 Of [facility] M.DMiquel M48.02 Office Visit 04/16/2015 3:00p [facility] GRACIE Richard 03104 424.1 414.01 786.50 250.00 424.0 Office Visit 12/19/2014 10:41a [facility] [place] [address] 722.10 Assoc, Hospitalists 250.00 272.4 401.9 Office Visit 12/18/2014 10:40a [facility], Ashley Holloway N.P. 84471 722.10 Hospitalists 250.00 272.4 401.9 Office Visit 12/11/2014 1:20p [facility] Frankie Asif, 40160 722.10 Of Natasha Fernández.Doni 724.3 Office Visit 11/17/2014 1:40p [facility] Frankie Asif, 36021 721.3 Of Natasha Fernández.Doni 724.4 724.2 Office Visit 08/21/2014 3:15p [facility] Of Dwight MayMiquel Gonzalez, 32805 424.1 Natasha M.Doni 414.01 Office Visit 01/28/2014 12:30p [facility] Dwight MayMiquel Gonzalez, 56763 424.1 Flaring Machine Operator Jolene.Doni 786.50 414.01 Office Visit 11/17/2013 1:08p [facility] Kate Ramirez, 13170 789.09 Assoc, Hospitalists MGael 591 Office Visit 11/15/2013 1:07[facility] [address] 789.09 Assoc, Hospitalists Candida 591 Office Visit 10/20/2013 2:57p [facility]oc, Jerzy Mendosa, 73405 592.1 Hospitalists M.Doni 591 276.8 250.00 Office Visit 10/19/2013 2:57p [facility], Jerzy Mendosa, 17993 428.0 Hospitalists M.Doni 592.1 591 250.00 Office Visit 10/18/2013 2:56p [facility] [address] 592.1 Assoc, Hospitalists Candida 591 276.8 250.00 Office Visit 07/16/2013 12:45p [facility] Dwight DeedeeMiquel Gonzalez, 98694 785.2 Natasha M.Doni 424.1 Office Visit 06/26/2013 12:15p [facility] Of Dwight DeedeeMiquel Gonzalez, 12542 414.9 Natasha Fernández.Doni 785.2 780.4 785.9 Office Visit 06/17/2013 3:00p [facility] Frankie Asif, 18350 722.71 Of Natasha Fernández.Doni Office Visit 11/18/2012 2:30p [facility] Of Dwight DeedeeMiquel Gonzalez, 15850 786.50 Flaring Machine Operator AT [facility] [place] M.Doni 414.9 Office Visit 12/04/2011 10:20a [facility] Frankei Asif, 20316 721.3 Of Flaring Machine Operator M.D. Office Visit 01/06/2011 2:00p [facility] Frankie Asif, 78440 722.71 Of Flaring Machine Operator M.D. Office Visit 12/19/2010 9:40a [facility] Frankie Asif, 54686 722.71 Of Flaring Machine Operator M.D. Office Visit 09/05/2010 9:40a [facility] Frankie Asif, 36799 722.71 Of Flaring Machine Operator M.D. Office Visit 06/03/2010 3:00p [facility] Frankie Asif, 96504 722.71 Of Flaring Machine Operator M.D. Office Visit 05/30/2010 2:20p [facility] Frankie Asif, 41409 722.71 Of Flaring Machine Operator M.D. Office Visit 07/05/2009 3:40p [facility] Frankie Asif, 09272 722.0 Of Flaring Machine Operator M.D. Plan of Care 03/01/2018 - GRACIE Trinidad-CM54.12 Radiculopathy, cervical regionFollow up: After diagnostic dgthhB96.16 Radiculopathy, lumbar region
--- NOTE | 2018-05-30 06:36 | ED ---
Abdominal Pain/Female - HPI Summary HPI Summary: Pt is a 63 year old female presenting to the ED with LUQ pain. Pt has had a double bypass, kidney stones, and wanted to come in and get her pain under control. The pain started late last night. A few weeks ago, she came in and got a stent because her kidneys were so swollen. Her lithotripsy caused cardiac complications, and they had to do the stent in pieces. Her surgery was on Sunday , and she was in the hospital for ~5 days. She denies fever, chills, and vomiting. - History of Current Complaint Chief Complaint: EDFlankPain Stated Complaint: POS KIDNEY STONE Time Seen by Provider: 05/30/18 05:37 Hx Obtained From: Patient Onset/Duration: Sudden Onset, Lasting Days Timing: Constant Severity Initially: Severe Severity Currently: Severe Pain Intensity: 10 Pain Scale Used: 0-10 Numeric Radiates to: Other - LUQ Allergies/Adverse Reactions: Allergies Allergy/AdvReac Type Severity Reaction Status Date / Time niacin Allergy Swelling Verified 05/20/18 13:02 vancomycin Allergy See Comment Verified 05/20/18 13:02 MAGNESIUM POTASSIUM Allergy Edema Uncoded 05/20/18 13:02 SEASONAL Allergy SNEEZING, Uncoded 05/20/18 13:02 ITCHY WATERY EYES Home Medications: Home Medications Aspirin EC TAB* [Ecotrin EC TAB*] 325 mg PO DAILY 05/30/18 [History Confirmed ] Metoprolol Tartrate TAB* [Lopressor TAB*] 25 mg PO BID 05/30/18 [History Confirmed 05/30/18] Omeprazole CAP* [Prilosec CAP* 20 MG] 20 mg PO DAILY 05/30/18 [History Confirmed 05/30/18] diPHENhydraMINE PO* [Benadryl PO 25 MG TAB*] 25 mg PO BEDTIME 05/30/18 [History Confirmed 05/30/18] PMH/Surg Hx/FS Hx/Imm Hx Previously Healthy: No Endocrine/Hematology History: Reports: Hx Diabetes - ON DAILY INSULIN Cardiovascular History: Reports: Hx Congestive Heart Failure - 05/06-05/11/18 [facility] [place] ICU, Hx Coronary Artery Disease, Hx Hypertension, Hx Valvular Heart Disease, Other Cardiovascular Problems/Disorders - FOLLOWED BY DR Byrd ([facility]) Denies: Hx Pacemaker/ICD, Hx Peripheral Vascular Disease Respiratory History: Reports: Hx Sleep Apnea Denies: Hx Asthma, Hx Chronic Obstructive Pulmonary Disease (COPD), Other Respiratory Problems/Disorders GI History: Reports: Hx Gastroesophageal Reflux Disease, Hx Irritable Bowel, Hx Pyloric Stenosis, Other GI Disorders - HX OF CONSTIPATION, Rika, APPY, HYSTERECTOMY History: Reports: Hx Kidney Infection, Hx Kidney Stones - MANY SINCE AGE 27 YRS OLD, USUALLY NOT ABLE TO PASS, Hx Renal Disease - kidney stones, Other Problems/Disorders - SUZANNE, uretal stents Denies: Hx Dialysis Musculoskeletal History: Reports: Hx Arthritis - BACK, HANDS, Hx Back Problems, Other Musculoskeletal History - discectomy 11/14/16, spinal stenosis Denies: Hx Scoliosis Sensory History: Reports: Hx Contacts or Glasses - reading, Hx Glaucoma Denies: Hx Hearing Aid Opthamlomology History: Reports: Hx Contacts or Glasses - reading, Hx Glaucoma Neurological History: Reports: Hx Migraine - NONE IN YEARS, Other Neuro Impairments/Disorders - discectomy 11/14/16 Denies: Hx Dementia, Hx Headaches, Hx Seizures Psychiatric History: Reports: Hx Depression - ON MEDS Denies: Hx Panic Disorder - Cancer History Hx Chemotherapy: No Hx Radiation Therapy: No - Surgical History Surgery Procedure, Year, and Place: 1980, 1982, 1991 X3;. 1983 KIDNEY STONE SURGERY. 1989 GALLBLADDER; [facility] [place]. 1996 HYSTERECTOMY; [facility]. 1991 TOY. TUBAL LIGATION; [facility]. APPENDECTOMY;[facility]. 2004 & 2007 CERVICAL FUSION X 2; [facility] [place]. 2015 & 2017 LOW BACK LUMBAR DISCECTOMY [facility]. MANY KIDNEY STONES- LITHROTRIPSY LAST STENT WAS 05/08/18 Hx Anesthesia Reactions: Yes - 2016 SLOW TO RESPOND , ON OXYGEN , WAS IN ICU FEW DAYS Infectious Disease History: No Infectious Disease History: Denies: Traveled Outside the [place] in Last 30 Days - Family History Known Family History: Positive: Other - neg: family reaction to anasthesia - Social History Alcohol Use: None Alcohol Amount: 1 PER YEAR Substance Use Type: Reports: None Smoking Status (MU): Never Smoked Tobacco Type: Cigarettes Amount Used/How Often: 2-3/ week Length of Time of Smoking/Using Tobacco: 2 years Have You Smoked in the Last Year: No Review of Systems Negative: Fever, Chills Negative: Vomiting All Other Systems Reviewed And Are Negative: Yes Physical Exam - Summary Physical Exam Summary: Appearance: Well-appearing, Well-nourished, lying in bed comfortably Skin: Warm, dry, no obvious rash Eyes: sclera anicteric, no conjunctival pallor ENT: mucous membranes moist, pharynx appears normal Neck: Supple, nontender Respiratory: Clear to auscultation, no signs of respiratory distress Cardiovascular: Normal S1, S2. No murmurs. Normal distal pulses in tibial and radial bilaterally. Abdomen: Soft, nontender, normal active bowel sounds present Musculoskeletal: Normal, Strength/ROM Intact Neurological: A&Ox3, awake and alert, mentation is normal, speech is fluent and appropriate Psychiatric: affect is normal, does not appear anxious or depressed Triage Information Reviewed: Yes Vital Signs On Initial Exam: Initial Vitals Temp Pulse Resp BP Pulse Ox 97.9 F 101 23 117/73 92 05/30/18 05:32 05/30/18 05:32 05/30/18 05:32 05/30/18 05:32 05/30/18 05:32 Vital Signs Reviewed: Yes Diagnostics - Vital Signs Vital Signs Temp Pulse Resp BP Pulse Ox 05/30/18 06:09 99 22 118/83 91 05/30/18 06:07 10 05/30/18 05:42 97 27 117/73 91 05/30/18 05:40 99 22 70/31 93 05/30/18 05:39 99 16 92 05/30/18 05:32 97.9 F 101 23 117/73 92 - Laboratory Lab Results: Lab Results 05/30/18 05/30/18 05/30/18 Range/Units 05:45 05:45 05:45 WBC 12.0 H (3.5-10.8) 10^3/ul RBC 3.84 L (4.00-5.40) 10^6/ul Hgb 11.1 L (12.0-16.0) g/dl Hct 33 L (35-47) % MCV 86 (80-97) fL MCH 29 (27-31) pg MCHC 34 (31-36) g/dl RDW 16 H (10.5-15) % Plt Count 222 (150-450) 10^3/ul MPV 7.6 (7.4-10.4) um3 Neut % (Auto) Pending Lymph % (Auto) Pending [place] % (Auto) Pending Eos % (Auto) Pending Baso % (Auto) Pending Absolute Neuts (auto) Pending Absolute Lymphs (auto) Pending Absolute Monos (auto) Pending Absolute Eos (auto) Pending Absolute Basos (auto) Pending Absolute Nucleated RBC Pending Nucleated RBC % Pending INR (Anticoag Therapy) (0.77-1.02) APTT (26.0-36.3) seconds Sodium 140 (135-145) mmol/L Potassium 4.0 (3.5-5.0) mmol/L Chloride 106 (101-111) mmol/L Carbon Dioxide 26 (22-32) mmol/L Anion Gap 8 (2-11) mmol/L BUN 13 (6-24) mg/dL Creatinine 0.60 (0.51-0.95) mg/dL Est GFR ( Amer) 123.0 (>60) Est GFR (Non-Af Amer) 101.6 (>60) BUN/Creatinine Ratio 21.7 H (8-20) Glucose 148 H (70-100) mg/dL Lactic Acid 1.0 (0.5-2.0) mmol/L Calcium 9.5 (8.6-10.3) mg/dL Total Bilirubin 1.30 H (0.2-1.0) mg/dL AST 20 (13-39) U/L ALT 19 (7-52) U/L Alkaline Phosphatase 64 (34-104) U/L Total Protein 6.4 (6.4-8.9) g/dL Albumin 3.9 (3.2-5.2) g/dL Globulin 2.5 (2-4) g/dL Albumin/Globulin Ratio 1.6 (1-3) 05/30/18 Range/Units 05:45 WBC (3.5-10.8) 10^3/ul RBC (4.00-5.40) 10^6/ul Hgb (12.0-16.0) g/dl Hct (35-47) % MCV (80-97) fL MCH (27-31) pg MCHC (31-36) g/dl RDW (10.5-15) % Plt Count (150-450) 10^3/ul MPV (7.4-10.4) um3 Neut % (Auto) Lymph % (Auto) [place] % (Auto) Eos % (Auto) Baso % (Auto) Absolute Neuts (auto) Absolute Lymphs (auto) Absolute Monos (auto) Absolute Eos (auto) Absolute Basos (auto) Absolute Nucleated RBC Nucleated RBC % INR (Anticoag Therapy) 1.05 H (0.77-1.02) APTT 29.3 (26.0-36.3) seconds Sodium (135-145) mmol/L Potassium (3.5-5.0) mmol/L Chloride (101-111) mmol/L Carbon Dioxide (22-32) mmol/L Anion Gap (2-11) mmol/L BUN (6-24) mg/dL Creatinine (0.51-0.95) mg/dL Est GFR ( Amer) (>60) Est GFR (Non-Af Amer) (>60) BUN/Creatinine Ratio (8-20) Glucose (70-100) mg/dL Lactic Acid (0.5-2.0) mmol/L Calcium (8.6-10.3) mg/dL Total Bilirubin (0.2-1.0) mg/dL AST (13-39) U/L ALT (7-52) U/L Alkaline Phosphatase (34-104) U/L Total Protein (6.4-8.9) g/dL Albumin (3.2-5.2) g/dL Globulin (2-4) g/dL Albumin/Globulin Ratio (1-3) Result Diagrams: 05/30/18 05:45 05/30/18 05:45 Lab Statement: Any lab studies that have been ordered have been reviewed, and results considered in the medical decision making process. - EKG 0626 Cardiac Rate: NL - 97bpm EKG Rhythm: Sinus Rhythm EKG Interpretation: ST elevation c/w post-NE changes, anterior Q waves, no STEMI Abdominal Pain Fem Course/Dx - Diagnoses Provider Diagnoses: Left sided abdominal pain, Kidney stones Discharge - Sign-Out/Discharge Documenting (check all that apply): Sign-Out Patient Signing out patient TO: Kiel Rivas Receiving patient FROM: Jerry Sykes - Discharge Plan Condition: Stable Disposition: HOME Prescriptions: HYDROmorphone TAB* [Dilaudid TAB*] 2 mg PO Q6H PRN #12 tab MDD 4 PRN Reason: Pain Sulfamethox/Trimethoprim DS* [Bactrim DS 800/160 TAB*] 1 tab PO BID #9 tab Patient Education Materials: Kidney Stones (ED), Abdominal Pain (ED) Referrals: Zhane Fontana MD [Primary Care Provider] - Anton Jennings MD [Medical Doctor] - Additional Instructions: FOLLOW UP WITH DR JENNINGS, UROLOGY. GO TO THE EMERGENCY DEPARTMENT FOR ANY WORSENING OF YOUR CONDITION OR QUESTIONS OR CONCERNS. - Billing Disposition and Condition Condition: STABLE Disposition: Home - Attestation Statements Document Initiated by Scribe: Yes Documenting Scribe: She Bennett Provider For Whom Scribe is Documenting (Include Credential): Jerry Sykes MD. Scribe Attestation: She Thompson, scribed for Jerry Sykes MD. on 06/02/18 at 2113. Scribe Documentation Reviewed: Yes Provider Attestation: The documentation as recorded by the scribeShe accurately reflects the service I personally performed and the decisions made by me, Jerry Sykes MD.
[2018-05-30 06:40] LABS: Urine Appearance Cloudy; Urine Blood 3+ (Negative); Urine Color Yellow; Urine Ketones Negative (Negative); Urine Protein 1+(30 mg/dL) (Negative); Urine Red Blood Cell 3+(>10/hpf) (Absent); Urine Specific Gravity 1.009 (1.010-1.030); Urine Urobilinogen Negative (Negative); Urine White Blood Cell 3+(>20/hpf) (Absent)
[2018-05-30 06:48] LABS: ABS Basophils 0.2 10^3/ul (0-0.2); ABS Eosinophils 1.2 10^3/ul (0-0.6); ABS Monocytes 1.2 10^3/ul (0-0.8); ABS Neutrophils 7.4 10^3/ul (1.5-7.7); ABS Nucleated RBC 0 10^3/ul; Eosinophil % 10.1 % (0-6); Lymphocyte % 16.9 % (25-47); Nucleated Red Blood Cells % 0.1
--- NOTE | 2018-05-30 07:08 | ED ---
Progress - Progress Note Progress Note: This patient is a 63 year old F presenting to [facility] with a chief complaint of left flank pain since 05/17/18, with reemergence of sx at 199905/29/18. Pt any cardiac or respiratory sx. PMHx kidney stones, new stones starting a few weeks ago. Pt had lithotripsy and stent placed by Dr. Jennings. She notes a recent heart catheterization, received 2x CABG, aortic valve replacement 05/24/18. Pt states that rest and using a heating pad did not alleviate sx, and that movement worsens sx. She endorses current pain level of 6 or 7/10; it was 9/10 when came into ED last night. Pt notes that normally her BP the past few months has been running low, as has her O2 sat. PMHx small mitral valve leak, CHF, transfusions. Rx 325 ASA, metoprolol. Physical Exam: General: well-appearing, no pain distress Skin: warm, color reflects adequate perfusion, dry Head: normal Eyes: EOMI, ROMI ENT: normal Neck: supple, nontender Respiratory: CTA, breath sounds present Cardiovascular: RRR Abdomen: soft, tender left abdomen, flank. Bowel: present Musculoskeletal: normal, strength/ROM intact Neurological: sensory/motor intact, A&O x3 Psychological: affect/mood appropriate - Results/Orders Results/Orders: CT A/P: Coronary artery calcifications. Cholecystectomy. Appendectomy. Colonic diverticulosis. Atelectasis and/or infiltrates in the lower lungs bilaterally. Bilateral pleural effusions. Left ureteral stent. Multiple left renal calculi. Mild left hydronephrosis. Dr. Rivas has reviewed this report. - EKG/XRAY/CT CT: CT A/P. See "Results/Orders" Course/Dx - Course Course Of Treatment: DISCUSSED WITH PATIENT AND DR JENNINGS. DR JENNINGS RECOMMENDS BACTRIM X 5 DAYS AND PAIN CONTROL. NO SIGN OF OBSTRUCTION OR INFECTION AT THIS TIME. HE PREFERS TO WAIT 3-4 WEEKS AFTER CARDIAC SURGERY BEFORE DOING ANY PROCEEDURES IF POSSIBLE. PATIENT WILL F/U WITH DR JENNINGS, RETURN TO ED IF WORSE. - Diagnoses Provider Diagnoses: Left sided abdominal pain, Kidney stones - Provider Notifications Discussed Care Of Patient With: Anton Jennings Time Discussed With Above Provider: 09:12 Instructed by Provider To: Other - Reviewed CT, said there is no current obstruction. reviewed labs, urine, no obvious UTI, recommends urine culture, 5 days of bactrum, controlling the pain with Rx dilaudid. Follow up with Dick outpatient, return to ED with worse sx. Discharge - Sign-Out/Discharge Documenting (check all that apply): Patient Departure, Receiving Sign-Out Receiving patient FROM: Jerry Sykes - Discharge Plan Condition: Stable Disposition: HOME Prescriptions: HYDROmorphone TAB* [Dilaudid TAB*] 2 mg PO Q6H PRN #12 tab MDD 4 PRN Reason: Pain Sulfamethox/Trimethoprim DS* [Bactrim DS 800/160 TAB*] 1 tab PO BID #9 tab Patient Education Materials: Abdominal Pain (ED), Kidney Stones (ED) Referrals: Zhane Fontana MD [Primary Care Provider] - Anton Jennings MD [Medical Doctor] - Additional Instructions: FOLLOW UP WITH DR JENNINGS, UROLOGY. GO TO THE EMERGENCY DEPARTMENT FOR ANY WORSENING OF YOUR CONDITION OR QUESTIONS OR CONCERNS. - Billing Disposition and Condition Condition: STABLE Disposition: Home - Attestation Statements Document Initiated by Scribe: Yes Documenting Scribe: Galileo Ortiz Provider For Whom Scribe is Documenting (Include Credential): Dr. Kiel Rivas MD Scribe Attestation: Galileo Thompson scrramilaed for Dr. Kiel Rivas MD on 05/30/18 at 0933. Scribe Documentation Reviewed: Yes Provider Attestation: The documentation as recorded by the Galileo fuentes accurately reflects the service I personally performed and the decisions made by me, Dr. Kiel Rivas MD
--- NOTE | 2018-05-30 08:50 | RAD ---
EXAM: CT Abdomen and Pelvis Without Intravenous Contrast CLINICAL HISTORY: 63 years old, female; Pain; Abdominal pain; Flank; Left lower quadrant (llq); Prior surgery; Surgery date: 6+ months; Surgery type: Gall bladder, appy, , lithotripsy w/ stent placement on left, recent open heart surgery; Additional info: Pt has HX of kidney stones and C/O left flank pain. Pt stated that she has some blood in her urine also. Pt had open heart surgery on sunday. TECHNIQUE: Axial computed tomography images of the abdomen and pelvis without intravenous contrast. All CT scans at this facility use at least one of these dose optimization techniques: automated exposure control; mA and/or kV adjustment per patient size (includes targeted exams where dose is matched to clinical indication); or iterative reconstruction. Coronal and sagittal reformatted images were created and reviewed. COMPARISON: A/P WO CT ABD/PEL W/O 03/15/2017 9:31 AM FINDINGS: Limitations: The study is limited secondary to streak artifact from the patient's arms with degradation of the images. Lung bases: Atelectasis and/or infiltrates are seen along the lower lobes bilaterally, findings not present on the previous study. Pleural space: There is a moderate right pleural effusion, a finding not present on the previous study. There is a small to moderate left pleural effusion, a finding not present on the previous study. Heart: Coronary artery calcifications are noted. ABDOMEN: Liver: Calcified hepatic granuloma is demonstrated, also present on the previous study Gallbladder and bile ducts: The patient is status post cholecystectomy. No ductal dilation. Pancreas: Unremarkable. No ductal dilation. Spleen: Unremarkable. No splenomegaly. Adrenals: Unremarkable. No mass. Kidneys and ureters: There is mild left hydronephrosis. Multiple nonobstructing left renal calculi are demonstrated with the largest one measuring approximately 1.9 cm. Left renal calculi are demonstrated on the previous study. Stomach and bowel: Colonic diverticula are demonstrated but there is no evidence for acute diverticulitis. No obstruction. PELVIS: Appendix: Pericecal sutures are noted, consistent with appendectomy. Bladder: Unremarkable. No stones. Reproductive: The uterus is either atrophic or has been surgically resected. ABDOMEN and PELVIS: Intraperitoneal space: Unremarkable. No free air. No significant fluid collection. Bones/joints: Degenerative disease is demonstrated at L5-S1. No acute fracture. No dislocation. Soft tissues: Tiny amount of soft tissue gas is seen involving the lower anterior right chest, external to the thoracic cage. There is a soft tissue abnormality in the subcutaneous fat inferomedial to the right breast which measures approximately 1.1 x 3.0 cm in size with associated cutaneous defects, most likely related to the patient's recent open heart surgery. 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 No abdominal aortic aneurysm. Lymph nodes: Unremarkable. No enlarged lymph nodes. Tubes, lines and devices: Left ureteral stent is present. IMPRESSION: Coronary artery calcifications. Cholecystectomy. Appendectomy. Colonic diverticulosis. Atelectasis and/or infiltrates in the lower lungs bilaterally. Bilateral pleural effusions. Left ureteral stent. Multiple left renal calculi. Mild left hydronephrosis.
--- NOTE | 2018-05-30 10:12 | RAD ---
HISTORY: left abd pain,hx kidney stones COMPARISONS: May 20, 2018 VIEWS: Frontal views of the abdomen. FINDINGS: BOWEL: There is a nonspecific bowel gas pattern, with nondilated small bowel gas noted. CALCULI: There are multiple calculi overlying the lower pole of left renal parenchymal shadow and proximal ureter. In aggregate these collections measure 3.4 and 2.8 cm respectively. A left ureteral stent is noted. BONES AND SOFT TISSUES: Mild degenerative changes are noted. OTHER FINDINGS: None . IMPRESSION: LEFT NEPHROLITHIASIS AND LEFT URETERAL STENT
[2018-05-30 11:26] VITALS: BP 109/74
== END | disposition home or self-care (01) ==
LOC: ED 05:25
DX: N20.0 Calculus of kidney (principal); I50.9 Heart failure, unspecified; E11.9 Type 2 diabetes mellitus without complications; I25.10 Atherosclerotic heart disease of native coronary artery without angina pectoris; I10 Essential (primary) hypertension; F32.9 Major depressive disorder, single episode, unspecified; Z96.0 Presence of urogenital implants; Z87.442 Personal history of urinary calculi; Z95.2 Presence of prosthetic heart valve; Z95.1 Presence of aortocoronary bypass graft; Z79.4 Long term (current) use of insulin; Z87.891 Personal history of nicotine dependence; Z79.82 Long term (current) use of aspirin; Z79.899 Other long term (current) drug therapy; Z88.3 Allergy status to other anti-infective agents
CPT/HCPCS: 36415; 74018; 74176; 80053; 81003; 81015; 83605; 85025; 85610; 85730; 87086; 93005; 96374; 96375; 96376; 99283; A9270-GY; J1170; J2270; J2405

== ENCOUNTER 2018-07-21 16:51 | Inpatient (IN) | payer BC, MEDICAID ==
--- NOTE | 2018-07-21 17:11 | ED ---
Abdominal Pain/Female - HPI Summary HPI Summary: The patient is a 63 y/o F presenting to [facility] with a chief complaint of severe left-sided flank pain starting three days ago. The pain, which is currently rated 8/10 came on suddenly and has constantly persisted but has started to radiate to her left inguinal region. She states she has had a fever, chills, diaphoresis, nausea, vomiting, and multiple migraines. She has attempted to treat the pain and nausea with Tylenol, Zofran, and Dilaudid, to little relief. In the ambulance, she was given four Zofran. Addtionally, she has kept the lights turned off to relieve her migraines, and she's been using ice packs to relieve her abd pain. She has hx of kidney infections, including renal calculi. She recently had a stent placed and removed, as well as a lithotripsy. - History of Current Complaint Chief Complaint: EDFlankPain Stated Complaint: GENERAL ILLNESS Time Seen by Provider: 07/21/18 17:02 Hx Obtained From: Patient Onset/Duration: Sudden Onset, Lasting Days - three days, Still Present Timing: Constant Severity Initially: Moderate Severity Currently: Severe Pain Intensity: 8 Pain Scale Used: 0-10 Numeric Location: Flank - left Radiates: Yes Radiates to: Inguinal - left Character: Sharp Associated Signs and Symptoms: Positive: Diaphoresis, Fever, Decreased Appetite , Nausea, Vomiting, Other: - chills, migraines Female Torso: 1 - left flank pain radiating to left inguinal region Allergies/Adverse Reactions: Allergies Allergy/AdvReac Type Severity Reaction Status Date / Time niacin Allergy Swelling Verified 07/21/18 17:13 potassium Allergy Swelling Verified 07/21/18 17:13 vancomycin Allergy See Comment Verified 07/21/18 17:13 SEASONAL Allergy SNEEZING, Uncoded 05/20/18 13:02 ITCHY WATERY EYES PMH/Surg Hx/FS Hx/Imm Hx Endocrine/Hematology History: Reports: Hx Diabetes - ON DAILY INSULIN Cardiovascular History: Reports: Hx Congestive Heart Failure - 05/06-05/11/18 [facility] [place] ICU, Hx Coronary Artery Disease, Hx Hypertension, Hx Valvular Heart Disease, Other Cardiovascular Problems/Disorders - FOLLOWED BY DR Byrd (DILLE) Denies: Hx Pacemaker/ICD, Hx Peripheral Vascular Disease Respiratory History: Reports: Hx Sleep Apnea Denies: Hx Asthma, Hx Chronic Obstructive Pulmonary Disease (COPD), Other Respiratory Problems/Disorders GI History: Reports: Hx Gastroesophageal Reflux Disease, Hx Irritable Bowel, Hx Pyloric Stenosis, Other GI Disorders - HX OF CONSTIPATION, Rika, APPY, HYSTERECTOMY History: Reports: Hx Kidney Infection, Hx Kidney Stones - MANY SINCE AGE 27 YRS OLD, USUALLY NOT ABLE TO PASS, Hx Renal Disease - kidney stones, Other Problems/Disorders - SUZANNE, uretal stents Denies: Hx Dialysis Musculoskeletal History: Reports: Hx Arthritis - BACK, HANDS, Hx Back Problems, Other Musculoskeletal History - discectomy 11/14/16, spinal stenosis Denies: Hx Scoliosis Sensory History: Reports: Hx Contacts or Glasses - reading, Hx Glaucoma Denies: Hx Hearing Aid Opthamlomology History: Reports: Hx Contacts or Glasses - reading, Hx Glaucoma Neurological History: Reports: Hx Migraine - NONE IN YEARS, Other Neuro Impairments/Disorders - discectomy 11/14/16 Denies: Hx Dementia, Hx Headaches, Hx Seizures Psychiatric History: Reports: Hx Depression - ON MEDS Denies: Hx Panic Disorder - Cancer History Hx Chemotherapy: No Hx Radiation Therapy: No - Surgical History Surgery Procedure, Year, and Place: 1980, 1981, 1991 X3;. 1983 KIDNEY STONE SURGERY. 1989 GALLBLADDER; [facility] [place]. 1997 HYSTERECTOMY; [facility]. 1992 TOY. TUBAL LIGATION; [facility]. APPENDECTOMY;[facility] [place]. 2004 & 2007 CERVICAL FUSION X 2; [facility]. 2014 & 2017 LOW BACK LUMBAR DISCECTOMY [facility]. MANY KIDNEY STONES- LITHROTRIPSY LAST STENT WAS 05/08/18 Hx Anesthesia Reactions: Yes - 2017 SLOW TO RESPOND , ON OXYGEN , WAS IN ICU FEW DAYS Infectious Disease History: No Infectious Disease History: Denies: Traveled Outside the [place] in Last 30 Days - Family History Known Family History: Positive: Diabetes, Other - neg: family reaction to anesthesia - Social History Alcohol Use: None Alcohol Amount: 1 PER YEAR Substance Use Type: Reports: None Smoking Status (MU): Never Smoked Tobacco Type: Cigarettes Amount Used/How Often: 2-3/ week Length of Time of Smoking/Using Tobacco: 2 years Have You Smoked in the Last Year: No Review of Systems Positive: Fever, Chills, Skin Diaphoresis Positive: Abdominal Pain - left flank radiating to left inguinal region, Vomiting, Nausea, Other - decreased appetite Positive: Headache - severe headaches/migraines All Other Systems Reviewed And Are Negative: Yes Physical Exam - Summary Physical Exam Summary: Appearance: The patient is well-nourished in moderate distress and pain. Skin: The skin is warm, diaphoretic, and skin color is pale. HEENT: The head is normocephalic and atraumatic. The pupils are equal and reactive. The conjunctivae are clear and without drainage. Nares are patent and without drainage. Mouth reveals moist mucous membranes and the throat is without erythema and exudate. The external ears are intact. The ear canals are patent and without drainage. The tympanic membranes are intact. Neck: The neck is supple with full range of motion and non-tender. There are no carotid bruits. There is no neck vein distension. Respiratory: Chest is non-tender. Lungs are clear to auscultation and breath sounds are symmetrical and equal. Cardiovascular: Heart is regular rate and rhythm. There is no murmur or rub auscultated. There is no peripheral edema and pulses are symmetrical and equal. Abdomen: The abdomen is soft and non-tender. There are normal bowel sounds heard in all four quadrants and there is no organomegaly palpated. Musculoskeletal: There is no back tenderness noted. Extremities are non-tender with full range of motion. There is good capillary refill. There is no peripheral edema or calf tenderness elicited. Neurological: Patient is alert and oriented to person, place and time. The patient has symmetrical motor strength in all four extremities. Cranial nerves are grossly intact. Deep tendon reflexes are symmetrical and equal in all four extremities. Psychiatric: The patient has an appropriate affect and does not exhibit any anxiety or depression. Triage Information Reviewed: Yes Vital Signs On Initial Exam: Initial Vitals Temp Pulse Resp BP Pulse Ox 102 F 113 20 121/85 98 07/21/18 16:58 07/21/18 16:58 07/21/18 16:58 07/21/18 16:58 07/21/18 16:58 Vital Signs Reviewed: Yes Diagnostics - Vital Signs Vital Signs Temp Pulse Resp BP Pulse Ox 07/21/18 16:58 102 F 113 20 121/85 98 - Laboratory Result Diagrams: 07/21/18 17:21 07/21/18 17:21 Lab Statement: Any lab studies that have been ordered have been reviewed, and results considered in the medical decision making process. - Radiology Abd XR Xray Interpretation: Positive (See Comments) - Multiple calculi in the calyces as well as overlying the left renal pelvis and left psoas margin. The previously identified left ureteral stent is no longer present. ED physician has reviewed this report. Radiology Interpretation Completed By: Radiologist CXR Xray Interpretation: No Acute Changes - No acute cardiopulmonary findings. ED physician has reviewed this report. Radiology Interpretation Completed By: Radiologist Abdominal Pain Fem Course/Dx - Course Course Of Treatment: Ms. Angeles presented to the emergency department meeting septic criteria. She was febrile and tachycardic and had a recent history of obstructing kidney stones. She had several day history of left sided flank pain , decreased appetite and general malaise. IVs were initiated she was given Rocephin and gentamicin while labs were obtained. I spoke with Dr. Blevins who came and took her to the OR. - Diagnoses Provider Diagnoses: Kidney stones, Sepsis - Provider Notifications Discussed Care Of Patient With: Thomas Blevins Time Discussed With Above Provider: 15:30 Instructed by Provider To: Other - Patient will be admitted for surgery in OR. - Critical Care Time Critical Care Time: 30-74 min Discharge - Sign-Out/Discharge Documenting (check all that apply): Patient Departure - Patient will be admitted to [facility] for surgery. - Discharge Plan Condition: Fair Disposition: ADMITTED TO [facility] - Billing Disposition and Condition Condition: FAIR Disposition: Admitted to [facility] - Attestation Statements Document Initiated by Judahiblacie: Yes Documenting Scribe: Fouzia Chi Provider For Whom [place] is Documenting (Include Credential): Dr. Jerry Bull MD Scribe Attestation: Donna, Fouzia Chi scribed for Dr. Jerry Bull MD on 07/21/18 at 1912. Scribe Documentation Reviewed: Yes Provider Attestation: The documentation as recorded by the Fouzia fuentes accurately reflects the service I personally performed and the decisions made by me, Dr. Jerry Bull MD
[2018-07-21] MEDS ORDERED: Acetaminophen TAB* 325 MG PO ONE (17:12)
[2018-07-21] MEDS ORDERED: HYDROmorphone INJ* 1 MG/ML CARPUJECT SYRINGE IV ONE (17:12)
[2018-07-21] MEDS ORDERED: NS 0.9% 1000 ML* 1,000 ML IV ONE (17:12)
[2018-07-21] MEDS ORDERED: Ondansetron INJ* 2 MG/ML VIAL IV ONE (17:12)
[2018-07-21 17:32] LABS: Hematocrit 37 % (35-47); Hemoglobin 12.3 g/dl (12.0-16.0); Mean Corpuscular HGB Conc 33 g/dl (31-36); Mean Corpuscular Hemoglobin 29 pg (27-31); Mean Corpuscular Volume 86 fL (80-97); Mean Platelet Volume 7.1 um3 (7.4-10.4); Platelet Count 237 10^3/ul (150-450); Red Blood Count 4.29 10^6/ul (4.00-5.40); Red Cell Distribution Width 16 % (10.5-15); White Blood Count 13.1 10^3/ul (3.5-10.8)
[2018-07-21] MEDS ORDERED: HYDROmorphone INJ1* 1 MG/ML SYRINGE ONE (17:40)
[2018-07-21 17:49] LABS: EGFR Non-African American 60.5 (>60)
[2018-07-21] MEDS ORDERED: cefTRIAXone(*) 1 GM in NS 0.9% 50 ML* 50 ML IVPB ONE (17:52)
[2018-07-21] MEDS ORDERED: Gentamicin ADULT (*) 160 MG in NS 0.9% 100 ML* 100 ML IVPB ONE (17:52)
--- NOTE | 2018-07-21 18:04 | RAD ---
Indication: Flank pain. Flat plate of the abdomen demonstrates multiple calcifications overlying the lower pole of the left kidney as well as the left renal pelvis extending into the left psoas margin. Renal and ureteral calculi are not excluded. When compared to May 30, 2018 the left ureteral stent has been removed. There appears to be decreased burden of calcification in the collecting system but there may be increasing calcifications in the left renal pelvis. IMPRESSION: Multiple calculi in the calyces as well as overlying the left renal pelvis and left psoas margin. The previously identified left ureteral stent is no longer present.
--- OUTSIDE RECORDS SUMMARY | 2018-07-21 18:04 | XMS REPORT ---
:1955 External Reference #:[id number] Author Organization [facility] Address [address] [place] [address] [place] [address] Phone [phone] Care Team Providers Name Role Phone Zhane Fontana MD Primary Care Physician Unavailable Payers Type Date Identification Numbers Payment Provider Subscriber Commercial Effective: Policy Number: BS Mame Angeles 2015 [id number] PayID: [id number] [address] [address] [place] [address] Medigap Part B Effective: 2012 Policy Number: JAMAL Mame Angeles [id number] Expires: 2015 PayID: [id number] [address] [address] [place] [address] Commercial Effective: 2016 Policy Number: [facility] [place] [id number] Expires: 2018 Group Number: 40% [id number] PayID: [id number] [address] Problems Date Description Provider Status Onset: 07/16/2013 Heart murmur Dwight Gonzalez M.D. Active Onset: 07/16/2013 Aortic valve disorder Dwight Gonzalez M.D. Active Onset: 01/28/2014 Chest pain Dwight Gonzalez M.D. Active Onset: 01/28/2014 Coronary arteriosclerosis Dwight Gonzalez M.D. Active Onset: 11/17/2014 Lumbosacral spondylosis without Frankie J. Pollack, M.D. Active myelopathy Onset: 02/01/2015 Lumbar sprain Frankie Asif M.D. Active Onset: 08/10/2015 Neck pain Frankie Asif M.D. Active Onset: 08/10/2015 Spinal stenosis in cervical region Frankie Asif M.D. 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 Active Onset: 10/25/2015 Arthrodesis status Frankie Asif M.D. Active Onset: 11/09/2016 Displacement of lumbar intervertebral Brayan Amor M.D. Active disc without myelopathy Onset: 03/27/2017 Obstructive sleep apnea syndrome Nina Mireles MD Active Onset: 05/09/2017 Lumbar radiculopathy Brayan Amor M.D. Active Onset: 06/24/2018 Brachial neuritis Brayan Amor M.D. 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 needed spasm Amitriptyline HCL 05/15 Active Tablets 25mg 60tab take 1 M54.16 s tablet by Mt, mouth at M.D. bedtime for two nights then take 2 tablets by mouth at bedtime thereafter Gabapentin 11/19 Active Capsules 300mg 90cap 1 by mouth M54.16 s three Mangum, times a M.D. day Carisoprodol 11/19 Active Tablets 350mg 60tab 1 by mouth M54.16 s twice a Mangum, day as M.D. needed spasm Hydromorphone HCL 05/28 Active Tablets 2mg 10tab 1 by mouth M51.26 s every 8h Mangum, as needed M.D. severe pain Lumbar Back 05/11 Active Misc Use as Brayan Brace/Supportpad needed for Mangum, Adjustable support. M.D. Ibuprofen 01/01 Active Tablets 600mg 60tab 1 by mouth Z48.89 s two times Mangum, a day as M.D. needed Novolog Active Solution 100Unit/M 1bott as Unknown /0000 L le directed Lantus Active Solution 100Unit/M 1mont as Unknown /0000 L carrillo directed Xalatan Active Solution 0.005% ou qhs 1 Unknown /0000 ggt Hydrochlorothiazi Active Tablets 25mg 30tab 1 and 1/2 Unknown de /0000 s tablet po qd [...] Frankie Jimenes /2014 Dispers s mouth four Pollack, - times a M.D. 11/09 day needed nausea Hydromorphone HCL 11/17 Hx Tablets 4mg 60tab 1 -2 by 721.3 Frankie Jimenes /2014 s mouth four Yefri, - times a M.D. 11/26 day needed pain Pravastatin 07/10 Hx Tablets 20mg 1 po qd Frankie Jimenes Sodium Yefri, - M.D. 05/15 Pravastatin 06/17 Hx Tablets 30tab 1 tablet Frankie Jimenes Sodium /2012 s by mouth Yefri, - once daily M.D. 07/10 at bedtime Diltiazem HCL ER 11/11 Hx Caps ER 180mg 30cap 1 by mouth Dwight 24HR s every day Doni Gonzalez, - M.D. 05/15 Carisoprodol 12/04 Hx Tablets 350mg 45tab one by Frankie Jimenes /2011 s mouth Yefri, - three M.D. 11/09 times day as needed spasm Soma 12/30 Hx Tablets 350mg 60tab tid prn Frankie Jimenes /2010 s spasm Yefri, - M.D. 12/04 Pennsaid 12/19 Hx Solution 1.5% 150ml apply 40 Frankie Jimenes bot drops to Yefri, - painful M.D. 12/04 joints to qid Cyclobenzaprine 12/19 Hx Tablets 10mg 90tab one po tid Frankie Jimenes HCL s prn spasm Yefri, - M.D. 12/04 [id number] 09/05 Hx Capsules 500-50mg 60cap one po Frankie Jimenes /2009 s bid, take Yefri, - with meals M.D. 12/19 Fries 07/05 Hx Tablets 5-325mg 60tab 1-2 po qid Frankie Jimenes /2008 s prn Yefri - M.DMiquel 12/19 Oxycodone/Acetami Hx Tablets 10-325mg 60tab 1-2 po qid Frankie Jimenes nophen / s Yefri - M.DMiquel 06/17 Zoloft Hx Tablets 50mg 90tab 1/2 po qod Unknown / s - 02/01 Benadryl Hx Tablets 25mg [...] Capsules 300mg 120ca 1 take Frankie J. /0000 ps capsule Donnyack, - four times M.D. 08/10 Zoloft Hx Tablets 50mg 1/2 po qd - 11/19 Gabapentin Hx Capsules 300mg 2 tid - 11/19 Oxycodone-Acetami Hx Tablets 5-325mg Take 1 To Unknown nophen /0000 2 Tablets - Every 4 05/28 Hours Needed For Pain Metaxalone Hx Tablets 800mg Take 1 Tab Unknown /0000 By Mouth - Three 01/01 Daily as Needed (Muscle Spasm). Dilaudid Hx [...] 40 Millicuries Technetium TC Administered Injection Rissa Rangel 99M 015 PA Tetrofosmin, Per Unit Dose Up To 40 Millicuries Vital Signs Date Vital Result Comment 06/24/2018 Height 61.5 inches 5'1.50" Weight 168.00 lb BP Systolic Sitting 102 mmHg BP Diastolic Sitting 70 mmHg Pain Level 2 BMI (Body Mass Index) 31.2 kg/m2 05/15/2018 Height 61.5 inches 5'1.50" Weight 168.00 [...] Blood Cells % 0 Lipid Panel - [facility] 04/16/2015 Creatine Kinase(CK) 47 U/L 10-223 3 [...] Color Yellow Urine Appearance Clear Urine Specific [place] 1.020 1.010-1.030 Urine pH 5.0 5-9 Urine Urobilinogen Negative Negative Urine Ketones Negative Negative Urine Protein Negative Negative Urine Leukocytes Negative Negative Urine Blood Negative Negative Urine Nitrite Negative Negative Urine Bilirubin Negative Negative Urine Glucose Negative Negative Urinalysis Profile 05/17/2014 Urine Color Yellow Urine Appearance Cloudy Urine Specific [place] 1.016 1.010-1.030 Urine pH 6.0 5-9 Urine [...] Spinal Canal, Lumbar, W/O Contrast <pending> 1 [facility] Programmer: [id number] PABON 2 Because ethnic data is not [...] 0.03 ng/mL Not supportive of diagnosis of [place] 0.03 - 0.50 ng/mL Indeterminate: suggest serial studies if clinically indicated. Greater than 0.5 ng/mL Consistent with diagnosis of AK 10 SDS 12/18 11 Because ethnic data [...] <15 (or dialysis) 12 RUN DATE: 05/19/14 [facility] LAB LIVE PAGE 1 RUN TIME: [address] [place] [address] Specimen Inquiry Name: JOSÉ MANUELGaryHAZEL M : [address]: Thomas Blevins MD Acct: [id number] Unit: [id number] AGE: 59 Location: SDS Re05/17/14 SEX: F Status: REG SDC SPEC: [id number] DRAKE: 05/17/14-854 [facility] [address]: Karyn BOWMAN REQ: [id number] RECD: 05/17/14 STATUS: HANNA MORAES DR: Maico Rivas MD _ SOURCE: URINE SPDESC: ORDERED: Urine Culture Procedure Result Verified Site Urine Culture Final 05/19/14- 0856 ML No Growth Day 2 (<1,000 CFU/mL) END OF REPORT * ML=Testing performed at Main Lab DEPARTMENT OF PATHOLOGY, [address] [place] [address] Travis Medrano M.D. Director [facility] # [id number] 13 Acute inflammation: >10.00 14 Because ethnic [...] Procedures Date CPT Code Description Status 05/08/2018 18930 ECHO Transthorasic Realtime 2D W Doppler & Color Flow Completed Hosp 05/02/2017 30921 Sleep Study Unattended,HRT Rate,Oxygen Sat,Resp Completed Effort/Airflow 04/30/2017 77404 Sleep Study Unattended,HRT Rate,Oxygen Sat,Resp Completed Effort/Airflow 11/15/2016 42874 EKG, Interpretation Only Completed 11/14/2016 56185 Use Of Operating Microscope Completed 11/14/2016 20510 Use Of Operating Microscope Completed 11/14/2016 83267 Laminotomy: Reexploration Single Interspace Lumbar Completed 11/14/2016 14416 Laminotomy: Reexploration Single Interspace Lumbar Completed 11/13/2016 12015 EKG, Interpretation Only Completed 11/12/2016 45219 EKG, Interpretation Only Completed 10/05/2015 22877 Application Of Spinal Device Completed 10/05/2015 94321 arthrodesis,anterior interbody incl disc space Completed prep,discectomy,de 05/07/2015 64555 Myocardial Perfusion Imaging Tomographic (Spect) Completed Multiple Studies 05/07/2015 02404 Myocardial Perfusion Imaging Tomographic (Spect) Completed Multiple Studies 05/07/2015 42134 Stress Test Completed 04/30/2015 14189 ECHO Transthoracic, Real-Time 2D With Doppler And Color Completed Flow 12/18/2014 53170 Laminotomy W/Decomp NRV RT,One Interspace,Lumbar Completed 01/28/2014 67858 EKG Tracing & Interpretation Completed 10/20/2013 10237 ECHO Transthorasic Realtime 2D W Doppler & Color Flow Completed Hosp 10/19/2013 00733 EKG, Interpretation Only Completed 07/07/2013 81811 Holter Monitoring 24 HR New Completed 07/04/2013 74126 Carotid Doppler,Bilateral Completed 06/30/2013 44472 ECHO Transthoracic, Real-Time 2D With Doppler And Color Completed Flow 11/21/2012 68942 ECHO Transthoracic, Real-Time 2D With Doppler And Color Completed Flow Encounters Type Date Location Provider CPT E/M Dx Office Visit 05/15/2018 [facility] Brayan Amor M.D. 15704 M54.16 2:30p Of Consumer Marketing Specialist Office Visit 05/11/2018 [facility] , [place] [address] B95.2 3:07p Hospitalists RENA Wynn N39.0 N20.0 J96.01 I50.21 M54.5 Office Visit 05/10/2018 11:55a [facility] Radha Thompson, 26790 I35.0 M.Doni I25.10 N20.0 Office Visit 05/10/2018 [facility] Kim Wynn, 60856 I50.21 3:06p Assoc, SERVICES COORDINATOR Hospitalists N39.0 N20.0 J96.90 M54.5 I10 I35.0 I20.1 E11.8 E78.5 G47.33 F41.9 Office Visit 05/09/2018 3:06p [place] [address] I25.10 I67.848 J96.90 N20.0 E78.5 I10 M54.5 Office Visit 05/08/2018 3:06p Intensivists Kwesi Lentz M.D. 89670 R07.9 J81.0 Z86.79 R35.8 Office Visit 05/08/2018 1:07p [facility] Of Alexander Lentz, 65351 I50.21 [facility] FACC I35.0 R07.9 I25.10 Office Visit 05/07/2018 3:05p [facility] Assoc,pc Samantha Graham, 59645 M54.5 Hospitalists SERVICES COORDINATOR I10 E78.5 G47.33 Office Visit 05/06/2018 3:05p [facility] Assoc,pc Ashley Holloway, N.P. 60129 M54.5 Hospitalists N39.0 E10.8 I20.1 Office Visit 03/01/2018 9:15a [facility] Of Dee Maya PA-C 38600 M54.12 [facility] M54.16 Office Visit 11/19/2017 11:20a [facility] Brayan Amor M.D. 11815 M54.16 Of [facility] Office Visit 07/06/2017 9:15a [facility] Dee Maya PA-C 19533 M51.26 Of [facility] Office Visit 06/08/2017 9:20a [facility] Brayan Amor M.D. 62150 M51.26 Of [facility] Office Visit 05/28/2017 3:00p [facility] Brayan Amor M.D. 43483 M51.26 Of [facility] Office Visit 05/15/2017 2:00p [facility] Collette Serna, 65866 G47.33 Services Of [facility] BEBE, RN, [facility]- G47.00 Office Visit 05/09/2017 1:50p [facility] Brayan Amor 25598 M54.16 Of [facility] MGael Office Visit 05/04/2017 9:15a [facility] Dee Maya PA-C 75239 M54.16 Of [facility] Office Visit 03/27/2017 8:00a [facility] [place] [address] R06.83 Services Of [facility] R06.81 R40.0 G47.8 R12 Office Visit 11/19/2016 1:42p [facility] Denny Montejo, 04197 Z98.890 Assoc,pc Hospitalists Candida,FACP E11.9 G89.18 J20.9 Office Visit 11/18/2016 8:00a [facility] Calvin DELGADO, 52512 G89.18 Of [facility] Candida, PHD J20.9 Z48.811 Office Visit 11/17/2016 1:33p [facility] Stanislaw MockCodyMangolana, 78106 J20.9 Assoc, PA Hospitalists J20.9 G89.18 G89.18 E11.9 I10 I10 Office Visit 11/16/2016 [facility] Kim Kingsley, 67992 M54.16 4:18p Assoc,pc SERVICES COORDINATOR Hospitalists E11.8 Z79.4 R09.02 Office Visit 11/15/2016 [facility] Kim Kingsley, 37968 M54.16 4:18p Assoc, SERVICES COORDINATOR Hospitalists E11.8 Z79.4 R09.02 Office Visit 11/14/2016 4:17p [facility] Matilde Robin, RENA 03389 M54.16 Assoc, Hospitalists E11.8 Z79.4 R09.02 Office Visit 11/13/2016 8:00a [facility] Dee Maya PA-C 01524 M51.26 Of [facility] Office Visit 11/13/2016 4:16p [facility] Matilde Roibn, RENA 87464 E11.8 Assoc, Hospitalists M54.16 Z79.4 E78.5 Office Visit 11/12/2016 8:00a [facility] Brayan Amor, 46033 M51.26 Of [facility] M.D. Office Visit 11/12/2016 4[facility] Vic[facility], 06587 E11.8 Hospitalists N.P. M54.16 E78.5 Z79.4 Office Visit 11/09/2016 3:00p [facility] Brayan Amor, 05819 M51.27 Of [facility] M.D. Office Visit 10/29/2016 10:11a [facility], Andrew Oakes, 03244 M54.41 Hospitalists MGael E11.9 G89.29 E78.5 Office Visit 10/27/2016 10:08a [facility], Andrew Oakes, 06017 M54.41 Hospitalists Candida G89.29 E11.9 E78.5 Office Visit 09/17/2015 10:40a [facility] Frankie Asif, 25290 M54.2 Of Natasha Tirado M48.02 Office Visit 08/10/2015 10:40a [facility] Frankie Asif, 42932 M54.2 Of Natasha Tirado M48.02 Office Visit 04/16/2015 3:00p [facility] Of [facility] GRACIE Richard 23636 424.1 414.01 786.50 250.00 424.0 Office Visit 12/19/2014 10:41a [facility] [place] [address] 722.10 Assoc, Hospitalists 250.00 272.4 401.9 Office Visit 12/18/2014 10:40a [facility], Betty Phillips.Evelina 03385 722.10 Hospitalists 250.00 272.4 401.9 Office Visit 12/11/2014 1:20p [facility] Frankie Asif, 90515 722.10 Of [facility] Candida 724.3 Office Visit 11/17/2014 1:40p [facility] Frankie Asif, 62019 721.3 Of Natasha Tirado 724.4 724.2 Office Visit 08/21/2014 3:15p [facility] 32909 424.1 [facility] Candida 414.01 Office Visit 01/28/2014 12:30p [facility] Dwight Gonzalez 42571 424.1 [facility] Candida 786.50 414.01 Office Visit 11/17/2013 1:08p [facility] Kate Ramirez, 53734 789.09 Assoc, Hospitalists Candida 591 Office Visit 11/15/2013 1:07p [facility] [place], [address] 789.09 Assoc, Hospitalists Candida 591 Office Visit 10/20/2013 2:57p [facility] Jerzy Mendosa, 54514 592.1 Hospitalists Candida 591 276.8 250.00 Office Visit 10/19/2013 2:57p [facility] Jerzy Mendosa, 45002 428.0 Hospitalists Candida 592.1 591 250.00 Office Visit 10/18/2013 2:56p [facility], 47731 592.1 Assoc, Hospitalists M.DMiquel 591 276.8 250.00 Office Visit 07/16/2013 12:45p [facility], 83669 785.2 [facility] M.DMiquel 424.1 Office Visit 06/26/2013 12:15p [facility] Carlos, 83104 414.9 [facility] M.DMiquel 785.2 780.4 785.9 Office Visit 06/17/2013 3:00p [facility] Frankie Asif, 35215 722.71 Of [facility] M.DMiquel Office Visit 11/18/2012 2:30p [facility] Carlos, 03001 786.50 [facility] AT [facility] M.Doni 414.9 Office Visit 12/04/2011 10:20a [facility] Frankie Asif, 95891 721.3 Of Consumer Marketing Specialist M.DMiquel Office Visit 01/06/2011 2:00p [facility] Frankie Asif, 25884 722.71 Of Consumer Marketing Specialist M.DMiquel Office Visit 12/19/2010 9:40a [facility] Frankie Asif 59377 722.71 Of [facility] M.DMiquel Office Visit 09/05/2010 9:40a [facility] Frankie Asif, 39674 722.71 Of Consumer Marketing Specialist M.DMiquel Office Visit 06/03/2010 3:00p [facility] Frankie Asif 38156 722.71 Of [facility] M.DMiquel Office Visit 05/30/2010 2:20p [facility] Frankie Asif 45148 722.71 Of [facility] M.DMiquel Office Visit 07/05/2009 3:40p [facility] Frankie Asif, 28728 722.0 Of [facility] Jolene.Doni Plan of Care Future Appointment(s):08/26/2018 9:00 am - Brayan Amor M.D. at [facility]06/24/2018 - Brayan Amor M.D.M54.12 Radiculopathy, cervical regionFollow up:2 jwkwboQ12.16 Radiculopathy, lumbar regionNew Medication: Carisoprodol 350 mg
[2018-07-21 18:11] LABS: ABS Basophils 0 10^3/ul (0-0.2); ABS Eosinophils 0 10^3/ul (0-0.6); ABS Lymphocytes 1.5 10^3/ul (1.0-4.8); ABS Monocytes 1.6 10^3/ul (0-0.8); ABS Nucleated RBC 0 10^3/ul; Eosinophil % 0.1 % (0-6); Lymphocyte % 11.4 % (25-47); Nucleated Red Blood Cells % 0.2
[2018-07-21] MEDS ORDERED: Buffered Lidocaine 0.9% SYRIN* 5 ML/SYR SYRINGE INTRADERM ONE (18:13)
[2018-07-21] MEDS ORDERED: Albuterol 2.5 MG/3 ML NEB.SOL* (0.083%) INH PRN (18:18)
[2018-07-21] MEDS ORDERED: Morphine INJ* 2 MG/ML 1 ML SYRINGE (TWO MG - NEW SYRINGE VERSION) IV PRN (18:18)
[2018-07-21] MEDS ORDERED: Propofol* 10 MG/ML 20 ML BTL IV PUSH ONE (18:21)
[2018-07-21] MEDS ORDERED: Lidocaine 2% PF * 5 ML VIAL ONE (18:21)
[2018-07-21] MEDS ORDERED: Nitroglycerin TAB 0.4 MG* 0.4 MG TAB SL PRN (18:22)
[2018-07-21] MEDS ORDERED: Dextrose 50% Syringe 50 ML* 25 GM/50 ML SYRINGE IV PUSH PRN (18:23)
[2018-07-21] MEDS ORDERED: Phenylephrine INJ* 10 MG/ML 1 ML VIAL (10 MG) ONE (18:25)
[2018-07-21] MEDS ORDERED: Esmolol* 10 MG/ML 10 ML (100 mg) ONE (18:26)
[2018-07-21] MEDS ORDERED: Famotidine IV* 10 MG/ML 2 ML (20 mg) ONE (18:26)
[2018-07-21] MEDS ORDERED: NS 0.9% 1000 ML* 1,000 ML IV SCH (18:30)
[2018-07-21 18:57] LABS: Urine Appearance Cloudy; Urine Blood 1+ (Negative); Urine Color Yellow; Urine Ketones 1+ (Negative); Urine Protein 2+(100 mg/dL) (Negative); Urine Red Blood Cell 3+(>10/hpf) (Absent); Urine Specific Gravity 1.016 (1.010-1.030); Urine Urobilinogen Positive (Negative); Urine White Blood Cell 3+(>20/hpf) (Absent)
[2018-07-21] MEDS ORDERED: Midazolam* 1 MG/ML 2 ML VIAL (2 MG) ONE ×2 (19:18→19:36)
[2018-07-21] MEDS ORDERED: Iohexol 180 (CONTRAST) 10 ML SDV IV ONE (19:38)
[2018-07-21] MEDS ORDERED: Acetaminophen TAB* 325 MG PO PRN (20:07)
[2018-07-21] MEDS ORDERED: Naloxone* 0.4 MG/ML 1 ML VIAL IV PRN (20:07)
[2018-07-21] MEDS ORDERED: Ondansetron INJ* 2 MG/ML VIAL IV PRN (20:07)
[2018-07-21] MEDS: Metoprolol Tartrate TAB* 25 MG PO SCH (21:51)
[2018-07-21 22:00] LABS: ABS Basophils 0 10^3/ul (0-0.2); ABS Eosinophils 0 10^3/ul (0-0.6); ABS Lymphocytes 1.3 10^3/ul (1.0-4.8); ABS Monocytes 1.3 10^3/ul (0-0.8); ABS Neutrophils 7.6 10^3/ul (1.5-7.7); ABS Nucleated RBC 0 10^3/ul; Eosinophil % 0.1 % (0-6); Hematocrit 31 % (35-47); Hemoglobin 10.7 g/dl (12.0-16.0); Mean Corpuscular HGB Conc 35 g/dl (31-36); Mean Corpuscular Hemoglobin 30 pg (27-31); Mean Corpuscular Volume 86 fL (80-97); Mean Platelet Volume 7.4 um3 (7.4-10.4); Nucleated Red Blood Cells % 0; Platelet Count 204 10^3/ul (150-450); Red Blood Count 3.59 10^6/ul (4.00-5.40); Red Cell Distribution Width 15 % (10.5-15); White Blood Count 10.2 10^3/ul (3.5-10.8)
[2018-07-21 22:10] LABS: EGFR Non-African American 72.9 (>60)
--- NOTE | 2018-07-21 22:14 | HP ---
AMENDED REPORT NOW INCLUDES COSIGNER DESIGNATION CC: Dr. Fontana; Dr. Blevins* ADMISSION HISTORY AND PHYSICAL: DATE OF ADMISSION: 07/21/18 PATIENT OF ADMITTING HOSPITALIST: Dr. Andrew Oakes. PRIMARY CARE PROVIDER: Dr. Fontana. PRIMARY UROLOGIST: Dr. Anton Jennings. ATTENDING HOSPITALIST: Dr. Andrew Oakes* (dictated by GRACIE Nichole). CHIEF COMPLAINT: Left flank pain. HISTORY OF PRESENT ILLNESS: Ms. Angeles is a 63-year-old female with multiple medical issues including chronic low back pain; insulin-dependent diabetes mellitus; coronary artery disease for which she is status post coronary artery bypass graft with 2-vessel repair as well as severe aortic stenosis status post aortic valve replacement, both in May of this year at Hospital as well as longstanding history of kidney stones. The patient was recently hospitalized at [facility] at the end of April where she had left lithotripsy with stent placement. She also had complicated course including congestive heart failure. She eventually was discharged from the hospital and found to have severe aortic valve stenosis on echocardiogram for which she had an aortic valve replacement in May of this year at [facility]. She also has a history of significant coronary artery disease for which she had coronary artery bypass graft as well at the same time. According to the patient, the valve used was a tissue valve not mechanical for which no blood thinners or Plavix were indicated for postop coverage. She has very longstanding history of frequent obstructive uropathy with kidney stones most recently 3 months ago. She apparently went back to Dr. Jennings and had her left ureteral stent removed on 06/30/18. She returned to the emergency room today with few days history of increasing left flank pain, nausea, vomiting, and eventually developed fever and tachycardia. She had similar symptoms in the past related to obstructive uropathy. She was evaluated in the emergency room and had laboratory workup that revealed leukocytosis. She was tachycardic and also spiked a fever up to 102. Emergency room provider contacted Dr. Blevins who was willing to come and take the patient to the operating room for another left ureteral stent placement after she was found to have multiple obstructing ureteral stones on plain abdominal films. Given her multiple medical issues and her recent surgery with aortic valve replacement as well as coronary artery disease, we were asked to see the patient for further evaluation and for medical comanagement in the postoperative period. PAST MEDICAL HISTORY: As mentioned above, significant for hypertension, coronary artery disease, insulin-dependent diabetes mellitus, obstructive sleep apnea, glaucoma, aortic stenosis, for which he is status post aortic valve replacement, chronic back pain with prior diskectomy. PAST SURGICAL HISTORY: Include 2 anterior cervical diskectomy, 2 hemilaminectomies at L5 and S1, ureteral stenting with stent retrieval most recently in April and June of this year, , laparoscopic cholecystectomy, appendectomy, hysterectomy and again most recently in May of this year with 2-vessel CABG and aortic valve replacement at Hospital. MEDICATIONS: Her current medications at home include: 1. Aspirin 325 mg p.o. daily. 2. Soma 350 mg p.o. q.6 hours p.r.n. for pain. 3. Benadryl 25 mg p.o. q.h.s. p.r.n. for insomnia. 4. Gabapentin 300 mg p.o. t.i.d. 5. Hydrochlorothiazide 37.5 mg p.o. daily. 6. Dilaudid 2 mg p.o. daily p.r.n. for pain. 7. Ibuprofen 600 mg p.o. q.6 hours as needed for fever or pain. 8. Insulin NovoLog per sliding scale t.i.d. 9. Insulin Lantus 20 units subcu q.h.s. 10. Latanoprost ophthalmic drops 0.005% one drop both eyes once daily. 11. Metoprolol 25 mg p.o. b.i.d. 12. Nitroglycerin 0.4 mg sublingual once q.5 minutes as needed for chest pain. 13. Omeprazole 20 mg p.o. daily. 14. Crestor 20 mg p.o. q.h.s. 15. Ambien 10 mg p.o. q.h.s. p.r.n. for insomnia. 16. Zofran 4 mg p.o. q.6 hours as needed for nausea. ALLERGIES: Multiple, include POTASSIUM, VANCOMYCIN, and NIACIN. FAMILY HISTORY: Significant for diabetes and heart disease in her mother's side and father has no significant medical history on his family. SOCIAL HISTORY: She is a nonsmoker. Denies alcohol intake or illicit drug use. Her sister, Ingrid Robertson, is her healthcare proxy and she wishes to be a full code. REVIEW OF SYSTEMS: A 14-point review of systems were examined and they were essentially negative. PHYSICAL EXAMINATION GENERAL: She is a pleasant, healthy-appearing middle-aged female, in no acute distress or discomfort at the time of admission. VITAL SIGNS: Reveal a temperature of 102, pulse of 107, blood pressure of 114/ 80, respiration of 20 with O2 sat of 95% on room air. HEENT: Head is normocephalic, atraumatic. Sclerae anicteric. PERRLA. EOMs intact. Oropharynx is pink and moist. NECK: Supple. Trachea midline. No cervical adenopathy, thyromegaly, or JVD. LUNGS: Clear to auscultation bilaterally. HEART: Regular rate and rhythm. Normal S1 and S2 without rubs, murmurs, or gallops. BACK: With normal curvature. There is moderate left CVA tenderness noted. BREAST: Deferred at this time. ABDOMEN: Soft, nontender, and nondistended. There is left lower quadrant tenderness along the flank side with some guarding. No abdominal distention. Bowel sounds were normoactive. No hernias, masses, or hepatosplenomegaly. EXTREMITIES: Without cyanosis, clubbing, or edema. NEUROLOGIC: She is awake, alert, and oriented x3. Hand elastic attacher overlock is equal bilaterally. Sensation is intact throughout. RECTAL: Exam deferred at this time. LABORATORY DATA: CBC with white count of 13,000, hemoglobin 12.3, hematocrit 37, platelets of 237. Chemistry with sodium of 135, potassium 3.3, chloride 100 , BUN of 19 and creatinine of 0.9. Her glucose 103. C-reactive protein elevated at 275. ACCESSORY DIAGNOSTIC DATA: Abdominal films, KUB revealed multiple calculi in the calices as well as overlying the left renal pelvis and left psoas margin and previously identified left ureteral stent is no longer present. IMPRESSION: A 63-year-old with multiple medical problems including hypertension ; coronary artery disease; history of aortic stenosis, status post valve replacement; as well as chronic back pain; and longstanding history of nephrolithiasis who presented to the emergency room with few days' history of progressive left flank pain, found to be septic with evidence of obstructive uropathy and will be admitted under hospitalist services for the following. ASSESSMENT AND PLAN: 1. Sepsis. The patient meet criteria with leukocytosis, tachycardia and fever. She was given a liter of fluid in the emergency room and will continue to give her IV fluid resuscitation. Dr. Blevins was contacted and the patient will be taken to the operating room this evening for cystoscopy, left ureteral stent placement as well as possible stone retrievement. She received recommended antibiotics by Dr. Blevins including a dose of ceftriaxone and 1 g as well as gentamicin 160 mg intravenously and will continue to provide antibiotic coverage after surgery per Urology recommendation. 2. Obstructive uropathy. The patient with recurrent left ureteral stone causing severe flank pain and evidence of obstructive uropathy with sepsis. She will be taken to the operating room today by Dr. Blevins for anticipated cystoscopy, left ureteral scope, possible stent placement. She will likely be observed in the hospital overnight for pain control and will follow her up accordingly. 3. Diabetes mellitus type 2. The patient has been n.p.o. and I will continue her coverage per sliding scale and hold up her Lantus tonight. We will continue her glucose check every 6 hours while she is n.p.o. and then q.a.c. and q.h.s. when she start eating. 4. Coronary artery disease. The patient is status post CABG. We will continue her aspirin coverage after surgery after we discuss with Urology. We will continue also her statin and metoprolol. 5. DVT prophylaxis. The patient is a high risk and since she is going for surgery right now, we will utilize SCDs and she will probably be covered with heparin starting tomorrow in the immediate postoperative period until she will be discharged to home. 6. Disposition. Admit to telemetry for observation. The patient is being taken to the operating room this evening for cystoscopy, left ureteral stent placement, and will follow her up accordingly. TIME SPENT: Approximately 60 minutes were spent admitting this patient for which greater than 50% of that time on taking history and performing physical exam. I went on and discussed the case with my attending, Dr. Oakes, who agreed to plan of care. GRACIE NICHOLE [id number]/[facility] #: [id number] MTDD
[2018-07-21] MEDS ORDERED: Potassium Chlor TAB* 20 MEQ TAB.ER PO ONE (22:15)
[2018-07-21] MEDS: Gabapentin CAP(*) 300 MG PO SCH (22:22)
[2018-07-21] MEDS: Insulin LISPRO* 1 UNITS UNIT SUBCUT SCH (22:22)
--- NOTE | 2018-07-21 22:22 | HP ---
CC: Dr. Fontana; Dr. Ruelas; Dr. Blevins; Dr. Barrera. HISTORY AND PHYSICAL: ADDENDUM: DATE OF ADMISSION: 07/21/18. TIME OF EVALUATION: 08:30 p.m. PRIMARY CARE PROVIDER: Dr. Fontana DEFECT REPAIRER GLASSWARE: Dr. Ruelas. UROLOGIST: Dr. Blevins. ANESTHESIOLOGIST: Dr. Barrera. HISTORY OF PRESENT ILLNESS: Ms. Angeles is a 63-year-old lady with a past medical history of chronic back pain, status post L5-S1 hemilaminectomy x2, type 2 diabetes, coronary artery disease, obstructi ve sleep apnea, on CPAP, glaucoma, aortic stenosis, who underwent two-vessel CABG and biological aort ic valve replacement at [facility] 7 weeks ago. The patient states she was doing well in the postop period, had her follow up with her surgeon and with Dr. Ruelas and was actually feelin g well. Four days ago, she started to have left flank pain and she states that this is not unusual f or her as she had kidney stones in the past. She started to strain her urine and noticed that the ur ine was a little cloudy. She did not develop fever, shaking chills, nausea, headache, but she did no t think the source was her urine. She thought she had come down with a viral infection as although s he had left flank pain, she had no other urinary symptoms. Her symptoms progressed and she presented to the emergency room today in the early evening with worsening of her complaints. In the emergency room, she was found to have a leukocytosis of 13.1, with a CRP of 275 and a troponin of 0.05. Her u rinalysis showed 2+ protein, 1+ ketones, 1+ blood, 3+ LE, 3+ wbc's, 3+ rbc's. In the emergency room, she received 1 dose of gentamicin and 1 dose of ceftriaxone. She received IV h ydration and was taken to the OR by Dr. Blevins. She had the stent placed to the left ureter and du ring the procedure, she was hypotensive and tachycardic. As the patient was not feeling well over e past 4 days, she was not really taking her beta jose. So, part of tachycardia is also secondary to beta jose withdrawal. I saw the patient and examining her in the PACU. At this point, her heart rate is in the 80s. Her b lood pressure is 120/50. After receiving 100 mcg of phenylephrine by Anesthesia, respiratory rate is 14, her oxygen saturation 99% on 2L nasal cannula. GENERAL: The patient is an elderly pleasant lady lying in bed, in no acute distress. CHEST: Breath sounds present bilaterally with no added sounds. CVS: Normal S1, S2. Regular rate and rhythm with a systolic murmur. Her mid sternal scar is well h ealed as well as drain incisions. ABDOMEN: Soft, nontender, nondistended. Bowel sounds are present. EXTREMITIES: No edema. At this point, the patient meets criteria for sepsis. She will be transferred from PACU to the [facility] Unit. So we can continue aggressive fluid resuscitation. I am going to repeat her labs and add the lactic acid. We are going to check serial troponins, but I believe this is demand ischemia in the setting of of sepsis. We will also need to obtain records from [facility] and I am going to order an echocardiogram to [facility] medellin done in the morning to assess her new aortic valve function. We will continue to monitor the patien t closely overnight. [id number]/[facility] #: [id number]
[2018-07-21] MEDS: Latanoprost 0.005%* 2.5 ml BTL BOTH EYES SCH (22:23)
[2018-07-21] MEDS: KCL 20 MEQ/100 ML IVPREMIX* 20 MEQ/100 ML BAG IV SCH (22:59)
[2018-07-22] MEDS: Morphine VIAL* 4 MG/ML VIAL (1 ml vial) IV PRN (00:30)
[2018-07-22] MEDS: Ondansetron INJ* 2 MG/ML VIAL IV PRN ×2 (00:30→16:03)
[2018-07-22] MEDS: Insulin LISPRO* 1 UNITS UNIT SUBCUT SCH ×4 (00:47→21:08)
[2018-07-22] MEDS: Acetaminophen TAB* 325 MG PO PRN ×5 (02:07→23:44)
[2018-07-22] MEDS ORDERED: Acetaminophen SUPP* 650 MG SUPP PR PRN (02:23)
[2018-07-22] MEDS ORDERED: PROCHLORPERAZINE INJ 5 MG/ML 2 ML VIAL IV PRN (02:25)
[2018-07-22] MEDS ORDERED: Esmolol 10 MG/ML IVPREMIX* 2,500 MG/250 ML BAG IVPB SCH (03:00)
[2018-07-22] MEDS: KCL 20 MEQ/100 ML IVPREMIX* 20 MEQ/100 ML BAG IV SCH (03:12)
--- NOTE | 2018-07-22 03:27 | PN ---
Hospitalist Progress Note Date of Service: 07/22/18 HOSPITALIST ADDENDUM Patient is now febrile, tachycardic, diaphoretic, denies CP. Tele shows sinus tachy going into SVT HR 140s. Will continue IVF, give Tylenol IA, Compazine IV, and start Esmolol drip for rate control. Continue to monitor.
[2018-07-22 04:08] LABS: ABS Basophils 0 10^3/ul (0-0.2); ABS Eosinophils 0 10^3/ul (0-0.6); ABS Lymphocytes 0.7 10^3/ul (1.0-4.8); ABS Neutrophils 6.9 10^3/ul (1.5-7.7); ABS Nucleated RBC 0 10^3/ul; Eosinophil % 0.1 % (0-6); Hematocrit 29 % (35-47); Hemoglobin 9.8 g/dl (12.0-16.0); Lymphocyte % 8.5 % (25-47); Mean Corpuscular HGB Conc 34 g/dl (31-36); Mean Corpuscular Hemoglobin 29 pg (27-31); Mean Corpuscular Volume 87 fL (80-97); Mean Platelet Volume 7.1 um3 (7.4-10.4); Nucleated Red Blood Cells % 0; Platelet Count 191 10^3/ul (150-450); Red Blood Count 3.38 10^6/ul (4.00-5.40); Red Cell Distribution Width 16 % (10.5-15); White Blood Count 8.7 10^3/ul (3.5-10.8)
[2018-07-22 04:25] LABS: EGFR Non-African American 78.6 (>60)
--- NOTE | 2018-07-22 04:47 | OP ---
DATE OF OPERATION: 07/21/18 - ROOM #[id number] DATE OF : 59 SURGEON: Thomas Blevins MD ANESTHESIOLOGIST: Dr. Barrera ANESTHESIA: IV sedation with MAC. PRE-OP DIAGNOSES: 1. Left pyelonephritis. 2. Obstructing left renal and ureteral calculi. POST-OP DIAGNOSES: 1. Left pyelonephritis. 2. Obstructing left renal and ureteral calculi. OPERATIVE PROCEDURE: 1. Cystoscopy. 2. Left retrograde pyelography. 3. Placement of left ureteral stent (6-Haitian). INDICATION FOR PROCEDURE: Mrs. Angeles is a 63-year-old white female,who is a known stone former and who had Lt ureteral stent placement followed by shock wave lithotripsy for a large left renal calculus about 6 weeks ago. The stent was removed and she passed multiple stone fragments. She presented today with a 3 days' history of left flank pain, fever, chills, nausea and vomiting. KUB showed obstructing calculi in the area of the left renal pelvic and the left ureteropelvic junction. Her urinalysis was positive for infection. Her white count was 13,000. She had an elevated C-reactive protein but her lactic acid was normal. The patient had recent cardiac surgery with 2 coronary bypasses and valve replacement about 6 weeks ago. Because of the above history and the obstructing calculi with left pyelonephritis, the patient is taken to the operating room on an urgent basis for Lt ureteral stent placement. PATHOLOGY AT CYSTOSCOPY: The bladder mucosa showed slight hyperemia consistent with cystitis. Fluoroscopy again showed the above described left renal calculi. Following the placement of the guidewire in the renal pelvis, there was a gush of cloudy urine consistent with pyonephrosis. Following placement of the open-ended catheter inside the kidney, there was a hydronephrotic drip noted. The urine was only slightly cloudy. Left retrograde pyelography after draining the urine from the left kidney showed moderate hydronephrosis. DESCRIPTION OF PROCEDURE: With the patient in the dorsal lithotomy position and after proper scrubbing and draping and under intravenous sedation with anesthesia monitoring, cystoscopy was performed. The bladder was carefully inspected. The above findings were noted. A flexible tip guidewire was then introduced into the left orifice under fluoroscopy guidance. An open-ended catheter was fed over the guidewire and positioned in the renal pelvis. Hydronephrotic drip was noted and the collecting system was decompressed. Urine specimen was sent for culture and sensitivity. 2 cc of contrast were then injected delineating the collecting system. A size 6-Haitian stent was then placed with the proximal end coiling in the renal pelvis and the distal end collecting inside the bladder. There was good drainage of contrast from the kidney and no extravasation. The patient tolerated the procedure well and left the operating room in good condition. [id number]/[facility] #: [id number] [facility] CLINICYadira
--- NOTE | 2018-07-22 07:21 | RAD ---
INDICATION: Shortness of breath evaluate for congestive heart failure. COMPARISON: Correlation is made with prior study from May 07, 2018. TECHNIQUE: A portable view of the chest was obtained. FINDINGS: The patient is status post sternotomy. The heart is within normal limits in size. The lungs are normally inflated and clear. No pleural effusion is seen. Postsurgical changes are noted in the mid and lower cervical spine. IMPRESSION: NO EVIDENCE FOR ACUTE DISEASE. R0
[2018-07-22] MEDS: Gabapentin CAP(*) 300 MG PO SCH ×3 (09:22→21:00)
--- NOTE | 2018-07-22 09:22 | PN ---
Date of Service: 07/22/18 Critical Care Services: 63F with htn, hld, dm, cad s/p cabg, aortic stenosis s/p AVR, chronic back pain presents with flank pain found to have pyelo 2/2 obstructing renal calculi s/p cystoscopy with stent placement. 07/22: feeling slightly better. bp borderline. Vital Signs: Temp Pulse Resp BP SpO2 FiO2 98.6 F 95 18 82/48 95 07/22/18 07:33 07/22/18 05:02 07/22/18 06:00 07/22/18 05:02 07/22/18 05:02 Physical Exam: gen - acutely ill heent - ncat, eomi, perrl neck - no jvd, no thyromegaly cv - s1/s2, no murmur lungs - cta, no wheeze abd - soft, nt ext - no cce neuro - non-focal Fluid Balance (Past 24 Hours): I= O= Net Intake & Output 07/20/18 07/21/18 07/22/18 07/23/18 06:59 06:59 06:59 06:59 Intake Total 3448.7 Output Total 300 Balance 3148.7 Weight 75.5 kg Intake: IV Fluids 3329 LR 3329 IVPB 98 LR 98 Medicated IV 21.7 CC - Esmolol/Breviblock 21.7 Output: Urine 300 Labs: Laboratory Results - last 24 hr 07/21/18 07/21/18 07/21/18 00:27 17:00 17:03 WBC RBC Hgb Hct MCV MCH MCHC RDW Plt Count MPV Neut % (Auto) Lymph % (Auto) [place] % (Auto) Eos % (Auto) Baso % (Auto) Absolute Neuts (auto) Absolute Lymphs (auto) Absolute Monos (auto) Absolute Eos (auto) Absolute Basos (auto) Absolute Nucleated RBC Nucleated RBC % Sodium Potassium Chloride Carbon Dioxide Anion Gap BUN Creatinine Est GFR ( Amer) Est GFR (Non-Af Amer) BUN/Creatinine Ratio Glucose POC Glucose (mg/dL) Lactic Acid Calcium Total Bilirubin AST ALT Alkaline Phosphatase Troponin I 0.04 H* C-Reactive Protein B-Natriuretic Peptide 257 H Total Protein Albumin Globulin Albumin/Globulin Ratio Urine Color Yellow Urine Appearance Cloudy Urine pH 6.0 Ur Specific [place] 1.016 Urine Protein 2+(100 mg/dl) A Urine Ketones 1+ A Urine Blood 1+ A Urine Nitrate Negative Urine Bilirubin Negative Urine Urobilinogen Positive A Ur Leukocyte Esterase 3+ A Urine WBC (Auto) 3+(>20/hpf) A Urine RBC (Auto) 3+(>10/hpf) A Ur Squamous Epith Cells Present A Urine Bacteria Absent Urine Yeast Present A Urine Glucose Negative 07/21/18 07/21/18 07/21/18 17:21 17:21 20:14 WBC 13.1 H RBC 4.29 Hgb 12.3 Hct 37 MCV 86 MCH 29 MCHC 33 RDW 16 H Plt Count 237 MPV 7.1 L Neut % (Auto) 75.8 Lymph % (Auto) 11.4 L [place] % (Auto) 12.4 H Eos % (Auto) 0.1 Baso % (Auto) 0.3 Absolute Neuts (auto) 10.0 H Absolute Lymphs (auto) 1.5 Absolute Monos (auto) 1.6 H Absolute Eos (auto) 0 Absolute Basos (auto) 0 Absolute Nucleated RBC 0 Nucleated RBC % 0.2 Sodium 135 Potassium 3.3 L Chloride 100 L Carbon Dioxide 25 Anion Gap 10 BUN 19 Creatinine 0.94 Est GFR ( Amer) 73.3 Est GFR (Non-Af Amer) 60.5 BUN/Creatinine Ratio 20.2 H Glucose 103 H POC Glucose (mg/dL) 119 H Lactic Acid Calcium 9.9 Total Bilirubin 0.80 AST 19 ALT 13 Alkaline Phosphatase 78 Troponin I 0.05 H* C-Reactive Protein 275.42 H B-Natriuretic Peptide Total Protein 7.7 Albumin 4.0 Globulin 3.7 Albumin/Globulin Ratio 1.1 Urine Color Urine Appearance Urine pH Ur Specific [place] Urine Protein Urine Ketones Urine Blood Urine Nitrate Urine Bilirubin Urine Urobilinogen Ur Leukocyte Esterase Urine WBC (Auto) Urine RBC (Auto) Ur Squamous Epith Cells Urine Bacteria Urine Yeast Urine Glucose 07/21/18 07/21/18 07/21/18 21:40 21:40 21:40 WBC 10.2 RBC 3.59 L Hgb 10.7 L Hct 31 L MCV 86 MCH 30 MCHC 35 RDW 15 Plt Count 204 MPV 7.4 Neut % (Auto) 73.8 Lymph % (Auto) 13.0 L [place] % (Auto) 12.8 H Eos % (Auto) 0.1 Baso % (Auto) 0.3 Absolute Neuts (auto) 7.6 Absolute Lymphs (auto) 1.3 Absolute Monos (auto) 1.3 H Absolute Eos (auto) 0 Absolute Basos (auto) 0 Absolute Nucleated RBC 0 Nucleated RBC % 0 Sodium 139 Potassium 3.2 L Chloride 108 Carbon Dioxide 24 Anion Gap 7 BUN 18 Creatinine 0.80 Est GFR ( Amer) 88.2 Est GFR (Non-Af Amer) 72.9 BUN/Creatinine Ratio 22.5 H Glucose 100 POC Glucose (mg/dL) Lactic Acid 0.7 Calcium 8.6 Total Bilirubin 0.40 AST 16 ALT 10 Alkaline Phosphatase 64 Troponin I 0.05 H* C-Reactive Protein B-Natriuretic Peptide Total Protein 6.1 L Albumin 3.2 Globulin 2.9 Albumin/Globulin Ratio 1.1 Urine Color Urine Appearance Urine pH Ur Specific [place] Urine Protein Urine Ketones Urine Blood Urine Nitrate Urine Bilirubin Urine Urobilinogen Ur Leukocyte Esterase Urine WBC (Auto) Urine RBC (Auto) Ur Squamous Epith Cells Urine Bacteria Urine Yeast Urine Glucose 07/22/18 07/22/18 07/22/18 00:01 03:55 03:55 WBC 8.7 RBC 3.38 L Hgb 9.8 L Hct 29 L MCV 87 MCH 29 MCHC 34 RDW 16 H Plt Count 191 MPV 7.1 L Neut % (Auto) 79.5 Lymph % (Auto) 8.5 L [place] % (Auto) 11.6 H Eos % (Auto) 0.1 Baso % (Auto) 0.3 Absolute Neuts (auto) 6.9 Absolute Lymphs (auto) 0.7 L Absolute Monos (auto) 1.0 H Absolute Eos (auto) 0 Absolute Basos (auto) 0 Absolute Nucleated RBC 0 Nucleated RBC % 0 Sodium 140 Potassium 3.5 Chloride 109 Carbon Dioxide 22 Anion Gap 9 BUN 15 Creatinine 0.75 Est GFR ( Amer) 95.1 Est GFR (Non-Af Amer) 78.6 BUN/Creatinine Ratio 20.0 Glucose 81 POC Glucose (mg/dL) 87 Lactic Acid Calcium 8.4 L Total Bilirubin 0.40 AST 15 ALT 11 Alkaline Phosphatase 63 Troponin I C-Reactive Protein B-Natriuretic Peptide Total Protein 5.7 L Albumin 3.0 L Globulin 2.7 Albumin/Globulin Ratio 1.1 Urine Color Urine Appearance Urine pH Ur Specific [place] Urine Protein Urine Ketones Urine Blood Urine Nitrate Urine Bilirubin Urine Urobilinogen Ur Leukocyte Esterase Urine WBC (Auto) Urine RBC (Auto) Ur Squamous Epith Cells Urine Bacteria Urine Yeast Urine Glucose 07/22/18 03:55 WBC RBC Hgb Hct MCV MCH MCHC RDW Plt Count MPV Neut % (Auto) Lymph % (Auto) [place] % (Auto) Eos % (Auto) Baso % (Auto) Absolute Neuts (auto) Absolute Lymphs (auto) Absolute Monos (auto) Absolute Eos (auto) Absolute Basos (auto) Absolute Nucleated RBC Nucleated RBC % Sodium Potassium Chloride Carbon Dioxide Anion Gap BUN Creatinine Est GFR ( Amer) Est GFR (Non-Af Amer) BUN/Creatinine Ratio Glucose POC Glucose (mg/dL) Lactic Acid 2.3 H* Calcium Total Bilirubin AST ALT Alkaline Phosphatase Troponin I C-Reactive Protein B-Natriuretic Peptide Total Protein Albumin Globulin Albumin/Globulin Ratio Urine Color Urine Appearance Urine pH Ur Specific [place] Urine Protein Urine Ketones Urine Blood Urine Nitrate Urine Bilirubin Urine Urobilinogen Ur Leukocyte Esterase Urine WBC (Auto) Urine RBC (Auto) Ur Squamous Epith Cells Urine Bacteria Urine Yeast Urine Glucose Studies: Abd Xray 07/21 IMPRESSION: Multiple calculi in the calyces as well as overlying the left renal pelvis and left psoas margin. The previously identified left ureteral stent is no longer present. CXR 07/21 IMPRESSION: NO EVIDENCE FOR ACUTE DISEASE. Impression: 63F with htn, hld, dm, cad s/p cabg, aortic stenosis s/p AVR, chronic back pain presents with flank pain found to have pyelo 2/2 obstructing renal calculi s/p cystoscopy with stent placement. Plan: Neuro - pain control CV - htn, hld, cad s/p cabg - hypotension 2/2 sepsis - bp borderline - re-add home bp meds as bp tolerates - c/w asa/statin for cad pulm - oxygenating well on room air ID - severe sepsis 2/2 pyelo - f/u cultures - c/w ceftiaxone - repeat lactate at 12p - iv hydration GI - diet as tolerated - antiemetics prn Renal/ - pyelo - 2/2 obstructing stone - s/p stent - monitor i/o - monitor lytes Heme - monitor cbc Endo - dm - check fs, niss, lantus Lines - piv PPx - gi/dvt Full Code Critical Care Time: 50 mins
[2018-07-22] MEDS: Omeprazole CAP* 20 MG PO SCH (09:23)
[2018-07-22] MEDS: Metoprolol Tartrate TAB* 25 MG PO SCH ×3 (09:23→21:18)
--- NOTE | 2018-07-22 12:26 | PN ---
Sepsis Event Evaluation Date of Evaluation: 07/22/18 Current Stage of Sepsis: Sepsis Vital Signs - Last 12 Hours: Vital Signs - 12 hr Temp Pulse Resp BP Pulse Ox 07/22/18 11:30 95 14 115/65 87 07/22/18 11:15 86 16 101/54 94 07/22/18 11:00 92 14 115/56 92 07/22/18 10:45 93 17 98/52 84 07/22/18 10:31 99.7 F 07/22/18 10:30 88 18 97/54 95 07/22/18 10:15 92 18 88/51 94 07/22/18 10:00 94 4 93/49 94 07/22/18 09:45 90 23 102/47 95 07/22/18 09:32 89 24 123/61 98 07/22/18 09:15 83 19 110/52 97 07/22/18 09:14 86 22 105/54 97 07/22/18 09:00 87 18 89/51 97 07/22/18 08:45 82 18 107/56 96 07/22/18 08:30 98 19 96/57 97 07/22/18 08:15 83 18 102/53 95 07/22/18 08:00 85 14 100/57 97 07/22/18 07:45 82 14 93/57 96 07/22/18 07:33 98.6 F 07/22/18 07:30 82 14 100/53 96 07/22/18 07:15 90 4 101/52 86 07/22/18 07:00 86 11 96/54 95 07/22/18 06:46 96 17 95/66 95 07/22/18 06:30 92 12 96/53 88 07/22/18 06:15 92 18 93/54 91 07/22/18 06:00 93 16 87/50 94 07/22/18 05:47 93 15 93/51 93 07/22/18 05:45 97 17 78/34 93 07/22/18 05:30 96 0 82/34 92 07/22/18 05:15 96 17 84/42 94 07/22/18 05:02 95 18 82/48 95 07/22/18 05:00 98 18 74/36 91 07/22/18 04:45 92 19 90/48 93 07/22/18 04:30 87 18 84/48 97 07/22/18 04:17 91 20 81/46 94 07/22/18 04:07 92 22 85/50 95 07/22/18 04:01 97 17 93 07/22/18 04:00 91 19 95 07/22/18 03:51 102.9 F 98 07/22/18 03:45 98 20 96/46 98 07/22/18 03:44 98 19 98/46 98 07/22/18 03:31 114 17 89/51 97 07/22/18 03:00 123 23 125/66 90 07/22/18 02:30 121 21 127/69 91 07/22/18 02:12 132 25 142/83 96 07/22/18 02:05 102.8 F 07/22/18 02:01 120 30 142/79 98 07/22/18 02:00 124 30 93 07/22/18 01:31 118 21 107/55 91 07/22/18 01:25 100.4 F 07/22/18 01:01 99 7 90/62 95 07/22/18 01:00 100.4 F 100 12 98 07/22/18 00:30 20 Lactic Acid: 07/21/18 07/22/18 21:40 03:55 Lactic Acid 0.7 2.3 H* - Cardiopulmonary Exam Capillary Refill: Immediate Respiratory: Symmetrical Chest Expansion and Respiratory Effort Cardiovascular: NL Sounds; No Murmurs; No JVD - Peripheral Pulse Exam Radial Pulses: Bilateral Normal Pedal Pulses: Bilateral Normal Posterior Tibial Pulse: Bilateral Normal Femoral Pulses: Bilateral Normal Popliteal Pulses: Bilateral Normal - Skin Exam Skin Exam: Normal Turgor - [place] Coma Scale Best Eye Response: 4 - Spontaneous Best Motor Response: 6 - Obeys Commands Best Verbal Response: 5 - Oriented Coma Scale Total: 15 Assess/Plan/Problems-Billing Assessment:
--- NOTE | 2018-07-22 13:39 | ECHO ---
Patient: ANDREW MEDRANO [facility] Rec#: [id number] : 1955 Date: 07/22/2018 Age: 63y Height: 157 cm / 61.8 in Weight: 71 kg / 156.5 lbs Sex: F BSA: 1.72 Room#: ICU 3 Admit Date#: 07/21/2018 Type: Inpatient Referring: Nat Rm MD Reading: Dwight Gonzalez MD [employer]: Ryann Gleason,TORREYCS,RDMS CC: Zhane Fontana MD Transthoracic Echocardiogram Indication: Fever, Sepsis BP: 82/48 HR: 86 Rhythm: NSR Findings History: S/P CABG and AVR (bioprosthetic). CAD, DM, RICHARD Technical Comments: The study quality is good. Left Ventricle: The left ventricular chamber size is decreased. Mild to moderate concentric left ventricular hypertrophy is observed. Global left ventricular wall motion and contractility are within normal limits. There is normal left ventricular systolic function. The estimated ejection fraction is 60-65%. Post surgical hypokinesis of the interventricular septum is observed consistent with valve replacement. Abnormal left ventricular diastolic function is observed. Left Atrium: The left atrium is mild to moderately dilated. Right Ventricle: The right ventricular chamber size and systolic function are within normal limits. Right Atrium: The right atrial cavity size is normal. Aortic Valve: There is trace to mild aortic regurgitation. The mean gradient of the aortic valve is 20 mmHg. The aortic valve area, by VTI's, is calculated at 1.1 cm2. A bio-prosthetic aortic valve is present. Mitral Valve: Moderate mitral annular calcification present. The mitral valve leaflets are moderately thickened. There is mild mitral regurgitation. There is mild mitral stenosis. Tricuspid Valve: The tricuspid valve leaflets are normal. There is mild to moderate tricuspid regurgitation. No pulmonary hypertension is noted. Pulmonic Valve: The pulmonic valve structure is not well visualized. There is a trace pulmonic regurgitation. Pericardium: There is no significant pericardial effusion. A left pleural effusion is present. There is a moderate pleural effusion. Aorta: The aorta is not well visualized. There is no dilatation of the aortic arch. Pulmonary Artery: The main pulmonary artery is not well visualized. Venous: The inferior vena cava appears normal in size. There is a greater than 50% respiratory change in the inferior vena cava dimension. Conclusions Mild to moderate concentric left ventricular hypertrophy is observed. Global left ventricular wall motion and contractility are within normal limits. The estimated ejection fraction is 60-65%. The right ventricular chamber size and systolic function are within normal limits. A bio-prosthetic aortic valve is present. There is trace to mild aortic regurgitation. The mean gradient of the aortic valve is 20 mmHg. The mitral valve leaflets are moderately thickened. There is mild mitral regurgitation. There is mild mitral stenosis. There is mild to moderate tricuspid regurgitation. There is no significant pericardial effusion. A left pleural effusion is present. Compared to study of 05/2018, the LV function is the same The aortic valve has been replaced Measurements Name Value Normal Range RVIDd (AP) 2D 3.3 cm (0.9 - 2.6) RVDdMajor (2D) 2.7 cm (2.2 - 4.4) RAd ISD 4CH 5 cm (3.4 - 4.9) RA (A4C)W 4 cm (2.9 - 4.6) IVSd (2D) 1.4 cm (0.6 - 1) LVPWd (2D) 1.4 cm (0.6 - 1) LVIDd (2D) 3.3 cm (3.6 - 5.4) LVIDs (2D) 2.5 cm - LV FS (2D) 25 % (25 - 45) Aortic Annulus 1.7 cm (1.4 - 2.6) Aortic arch 2.7 cm (1.8 - 3.4) LA dimension (AP) 2D 4.4 cm (2.3 - 3.8) LAd ISD 4CH 5.9 cm (2.9 - 5.3) LA ISD 4CH W 4.1 cm (2.5 - 4.5) Name Value Normal Range LA ESV BP (A/L) index 35 ml/m2 - Name Value Normal Range MV E-wave Vmax 1.8 m/sec - MV deceleration time 209 msec - MV A-wave Vmax 1.4 m/sec - LV septal e' Vmax 0.05 m/sec - LV lateral e' Vmax 0.05 m/sec - LV E:e' septal ratio 36 ratio - LV E:e' lateral ratio 36 ratio - Name Value Normal Range AV Vmax 3 m/sec - AV VTI 61 cm - AV peak gradient 36 mmHg - AV mean gradient 20 mmHg - LVOT diameter 1.8 cm - LVOT Vmax 1.1 m/sec - LVOT VTI 26 cm - LVOT peak gradient 5 mmHg - LVOT mean gradient 3 mmHg - DOI (VTI) 0.4 ratio - WANG (continuity Vmax) 0.9 cm2 - WANG (continuity VTI) 1.1 cm2 - Name Value Normal Range MV Vmax 1.7 m/sec - MV VTI 46 cm - MV peak gradient 11 mmHg - MV mean gradient 7 mmHg - MV PHT 104 msec - MVA (PHT) 2.1 cm2 - MVA (continuity VTI) 1.5 cm2 - Name Value Normal Range TR Vmax 2.4 m/sec - TR peak gradient 23 mmHg - RAP 8 mmHg - RVSP 31 mmHg - IVC diameter 2 cm - Name Value Normal Range PV Vmax 0.8 m/sec - PV peak gradient 2.6 mmHg -
[2018-07-22] MEDS ORDERED: Atorvastatin* 40 MG TAB PO SCH (18:00)
[2018-07-22] MEDS ORDERED: cefTRIAXone* 1 GM in NS 0.9% 50 ML BAG IVPB SCH (18:00)
[2018-07-22] MEDS ORDERED: cefTRIAXone VIAL(*) 1,000 MG VIAL IVPB SCH (18:00)
[2018-07-22] MEDS: Lactobacillus Acidophilus* 1 TAB PO SCH (21:00)
[2018-07-22] MEDS: Latanoprost 0.005%* 2.5 ml BTL BOTH EYES SCH (21:17)
[2018-07-23 05:27] LABS: ABS Basophils 0 10^3/ul (0-0.2); ABS Eosinophils 0.1 10^3/ul (0-0.6); ABS Lymphocytes 1.4 10^3/ul (1.0-4.8); ABS Neutrophils 5.3 10^3/ul (1.5-7.7); ABS Nucleated RBC 0 10^3/ul; Eosinophil % 1.7 % (0-6); Hematocrit 29 % (35-47); Lymphocyte % 17.6 % (25-47); Mean Corpuscular HGB Conc 34 g/dl (31-36); Mean Corpuscular Hemoglobin 29 pg (27-31); Mean Corpuscular Volume 86 fL (80-97); Mean Platelet Volume 7.1 um3 (7.4-10.4); Nucleated Red Blood Cells % 0.1; Platelet Count 202 10^3/ul (150-450); Red Blood Count 3.39 10^6/ul (4.00-5.40); Red Cell Distribution Width 16 % (10.5-15); White Blood Count 7.9 10^3/ul (3.5-10.8)
[2018-07-23 05:46] LABS: EGFR Non-African American 85.1 (>60)
[2018-07-23] MEDS: Insulin LISPRO* 1 UNITS UNIT SUBCUT SCH ×2 (07:53→12:42)
[2018-07-23] MEDS ORDERED: Furosemide IV* 10 MG/ML 2 ML VIAL (20 MG) IV ONE (08:29)
--- NOTE | 2018-07-23 08:43 | PN ---
Subjective Date of Service: 07/23/18 Interval History: C/O mild L groin pain related to the stent, diarrhea more than 10 times yesterday, also nausea and some puffiness of her hands. No SOB. Objective Active Medications: Acetaminophen (Tylenol Tab*) 650 mg PO Q4H PRN PRN Reason: FEVER/PAIN Last Admin: 07/22/18 23:44 Dose: 650 mg Acetaminophen (Tylenol Supp*) 650 mg DE Q4H PRN PRN Reason: FEVER Last Admin: 07/22/18 02:44 Dose: 650 mg Albuterol (Ventolin 2.5 Mg/3 Ml Neb.Yolanda*) 2.5 mg INH [id number] AWAKE PRN PRN Reason: sob/wheezing Atorvastatin Calcium (Lipitor*) 40 mg PO QPM [facility] Last Admin: 07/22/18 18:21 Dose: 40 mg Dextrose (D50w Syringe 50 Ml*) 12.5 gm IV PUSH .FOR FS < 60 - SS PRN PRN Reason: FS < 60 Furosemide (Lasix Iv*) 20 mg IV ONCE ONE Stop: 07/23/18 08:30 Gabapentin (Neurontin Cap(*)) 300 mg PO TID [facility] Last Admin: 07/22/18 21:00 Dose: 300 mg Insulin Human Lispro (Humalog*) 0 units SUBCUT ACHS [facility]; Protocol Last Admin: 07/23/18 07:53 Dose: Not Given Lactobacillus Rhamnosus (Lactobacillus Acidophilus*) 1 tab PO BID [facility] Last Admin: 07/22/18 21:00 Dose: 1 tab Latanoprost (Xalatan 0.005%*) 1 drop BOTH EYES BEDTIME [facility] Last Admin: 07/22/18 21:17 Dose: 1 drop Magnesium Oxide (Magox 400 Tab*) 400 mg PO DAILY [facility] Metoprolol Tartrate (Lopressor Tab*) 25 mg PO BID [facility] Last Admin: 07/22/18 21:18 Dose: Not Given Morphine Sulfate (Morphine Vial*) 4 mg IV Q2H PRN PRN Reason: PAIN Last Admin: 07/22/18 00:30 Dose: 4 mg Nitroglycerin (Nitroglycerin Tab 0.4 Mg*) 0.4 mg SL Q5M PRN PRN Reason: ANGINA Omeprazole (Prilosec Cap*) 20 mg PO DAILY [facility] Last Admin: 07/22/18 09:23 Dose: Not Given Ondansetron HCl (Zofran Inj*) 4 mg IV Q4H PRN PRN Reason: NAUSEA/VOMITING Last Admin: 07/22/18 16:03 Dose: 4 mg Potassium Chloride (Klor-Con Liquid*) 20 meq PO Q2H STEVEN Stop: 07/23/18 14:00 Prochlorperazine Edisylate (Compazine Inj*) 5 mg IV Q6H PRN PRN Reason: NAUSEA/VOMITING Last Admin: 07/22/18 02:43 Dose: 5 mg Vital Signs - 8 hr 07/23/18 07/23/18 07/23/18 04:03 07:30 07:54 Temperature 98.9 F 99.0 F Pulse Rate 84 93 Respiratory 16 18 16 Rate Blood Pressure 113/49 131/61 (mmHg) O2 Sat by Pulse 99 98 Oximetry Oxygen Devices in Use Now: Nasal Cannula Appearance: Alert supine in bed. In fair spirits. Looks comfortable. Eyes: No Scleral Icterus Neck: No Thyroid Enlargement, Masses, - - JVD at 90 degrees Respiratory: Symmetrical Chest Expansion and Respiratory Effort, Clear to Auscultation, Clear to Percussion Cardiovascular: RRR, No Edema, - - 1/6 systolic murmur across precordium, rapid heart rate Abdominal: NL Sounds; No Tenderness; No Distention, No Hepatosplenomegaly, - Extremities: No Clubbing, Cyanosis, - - mild edema hands Skin: No Rash or Ulcers, No Nodules or Sclerosis, - Neurological: Alert and Oriented x 3, NL Sensation Result Diagrams: 07/23/18 04:57 07/23/18 04:57 Microbiology and Other Data: Microbiology 07/21/18 17:21 Aerobic Blood Culture - Preliminary Blood Venous No Growth Day 1 Anaerobic Blood Culture - Preliminary No Growth Day 1 07/21/18 19:47 Urine Culture - Final Urine No Growth (<1,000 CFU/mL) 07/21/18 18:41 Urine Culture - Final Urine No Growth (<1,000 CFU/mL) 07/21/18 20:43 Nasal Screen MRSA (PCR) - Final Nasal Mrsa Not Detected Assess/Plan/Problems-Billing Assessment: - Patient Problems (1) Left ureteral calculus Status: Acute Code(s): N20.1 - CALCULUS OF URETER SNOMED Code(s): 80989962 Comment: S/P L ureteral stent 07/21 about 7 PM. Urine no growth, likely was entirely from R kidney. 1 blood C&S done, no growth to date. Discharge on oral cefuroxime. (2) Fluid overload Status: Acute Code(s): E87.70 - FLUID OVERLOAD, UNSPECIFIED SNOMED Code(s): 14393547 Comment: One dose IV furosemide 20 mg 07/23. Note LV diastolic dysfunction seen on echo 07/22. Pt describes having fluid overload in past as well. Pt diuresed well and felt better in the afternoon before discharge. (3) Electrolyte abnormality Status: Acute Code(s): E87.8 - OTH DISORDERS OF ELECTROLYTE AND FLUID BALANCE , NEC SNOMED Code(s): 255344070 Comment: Replace KCL and magnesium orally, continue at home. Note on thiazide at home. (4) S/P AVR Status: Acute Code(s): Z95.2 - PRESENCE OF PROSTHETIC HEART VALVE SNOMED Code(s): 8680678805551 Comment: Tissue valve. AVR 05/2018. Fup Dr. Ruelas. (5) Diabetes Status: Acute Code(s): E11.9 - TYPE 2 DIABETES MELLITUS WITHOUT COMPLICATIONS SNOMED Code(s): 02446849 Comment: Continue SSI, lantus. Resume home regimen on discharge. (6) CAD (coronary artery disease) Status: Acute Code(s): I25.10 - ATHSCL HEART DISEASE OF [place] CORONARY ARTERY W/O ANG PCTRS SNOMED Code(s): 91689974 Comment: Continue ASA, statin, BB.
[2018-07-23] MEDS: Gabapentin CAP(*) 300 MG PO SCH (08:58)
[2018-07-23] MEDS: Potassium Chloride LIQUID* 20 MEQ PACKET PO SCH ×3 (08:58→13:08)
[2018-07-23] MEDS: Lactobacillus Acidophilus* 1 TAB PO SCH (08:58)
[2018-07-23] MEDS: Omeprazole CAP* 20 MG PO SCH (08:59)
[2018-07-23] MEDS: Metoprolol Tartrate TAB* 25 MG PO SCH (08:59)
[2018-07-23] MEDS ORDERED: Magnesium Oxide TAB* 400 MG PO SCH (09:00)
[2018-07-23] MEDS ORDERED: Aspirin 81 mg CHEW TAB* 81 MG TAB.CHEW PO SCH (09:00)
--- NOTE | 2018-07-23 09:35 | RAD ---
CPT II Codes: G9500 INDICATION: Renal stone TECHNIQUE: Intraoperative fluoroscopy was provided during left ureteral stent placement. FINDINGS: 2 spot films depict anatomic placement of a left ureteral stent. Fluoroscopy time: IMPRESSION: As above.
[2018-07-23] MEDS: Ondansetron INJ* 2 MG/ML VIAL IV PRN (11:01)
[2018-07-23 11:23] VITALS: BP 116/55
--- NOTE | 2018-07-23 11:41 | RAD ---
HISTORY: left renal calculi COMPARISONS: July 21, 2018 VIEWS: Frontal views of the abdomen. FINDINGS: BOWEL: There is a nonspecific bowel gas pattern, with nondilated small bowel gas noted. CALCULI: Again noted are multiple calculi overlying the left renal parenchymal shadow. A left ureteral stent is noted. BONES AND SOFT TISSUES: Degenerative changes are noted. OTHER FINDINGS: The lung bases are clear. There is no subphrenic gas. IMPRESSION: LEFT NEPHROLITHIASIS WITH A LEFT URETERAL STENT.
[2018-07-23] MEDS: Morphine VIAL* 4 MG/ML VIAL (1 ml vial) IV PRN (11:48)
[2018-07-23] MEDS ORDERED: ceFUROXime TAB(*) 250 MG PO SCH (21:00)
[2018-07-23] MEDS ORDERED: Potassium Chlor TAB* 10 MEQ TAB.ER PO SCH (21:00)
== END 2018-07-23 13:15 | disposition home or self-care (01) | DRG 720 ==
LOC: ED 16:51 → OR 18:35 → ICU 20:06 → SSU 07-22 14:30
PROVIDERS: ADMIT Internal Medicine; ATTEND Internal Medicine
PROC: 0T778DZ Dilation of Left Ureter with Intraluminal Device, Via Natural or Artificial Opening Endoscopic (ICD-10-PCS; principal; 2018-07-21 18:59)
DX: A41.9 Sepsis, unspecified organism (principal); N20.2 Calculus of kidney with calculus of ureter; N13.9 Obstructive and reflux uropathy, unspecified; E87.70 Fluid overload, unspecified; I11.9 Hypertensive heart disease without heart failure; E11.9 Type 2 diabetes mellitus without complications; I25.10 Atherosclerotic heart disease of native coronary artery without angina pectoris; G47.33 Obstructive sleep apnea (adult) (pediatric); H40.9 Unspecified glaucoma; Z95.1 Presence of aortocoronary bypass graft; Z79.01 Long term (current) use of anticoagulants; Z95.2 Presence of prosthetic heart valve; Z79.1 Long term (current) use of non-steroidal anti-inflammatories (NSAID); Z79.82 Long term (current) use of aspirin; Z79.4 Long term (current) use of insulin; Z79.899 Other long term (current) drug therapy; Z88.1 Allergy status to other antibiotic agents; Z88.8 Allergy status to other drugs, medicaments and biological substances; Z82.49 Family history of ischemic heart disease and other diseases of the circulatory system; Z83.3 Family history of diabetes mellitus
CPT/HCPCS: 36415; 71045; 74018; 74420; 80048; 80053; 81003; 81015; 83605; 83735; 83880; 84484; 85025; 86140; 87040; 87086; 87493; 87641; 93005; 93306; 94660; 99285; A9270-GY; C1876; J0696; J0780; J1170; J1580; J1940; J2250; J2270; J2405; J2704; J3480

== ENCOUNTER 2018-09-09 11:14 | Day surgery (SDC) | payer BC, MEDICAID ==
--- NOTE | 2018-09-05 08:40 | HP ---
CC: Dr. Fontana; Dr. Ruelas * ADMITTING HISTORY AND PHYSICAL: DATE OF ADMISSION: 09/09/18 ADMITTING DIAGNOSIS: Left renal calculus. PLANNED PROCEDURE: Shockwave lithotripsy of left renal calculus. SURGEON: Dr. Jennings. HISTORY OF PRESENT ILLNESS: Hazel Angeles is a 63-year-old diabetic with a history of recurrent renal calculi. She had undergone shockwave lithotripsy in May 2013 and still had residual fragments in the left kidney, which subsequently resulted in obstruction requiring urgent stent placement on . She is now being brought in for repeat shockwave lithotripsy in an effort to try and achieve complete fragmentation. PAST MEDICAL HISTORY: Fairly extensive and significant for: 1. Diabetes mellitus. 2. Hyperlipidemia. 3. Recent aortic valve replacement and coronary bypass done because of aortic stenosis. 4. Recurrent renal calculi. 5. Hypertension. MEDICATIONS ON ADMISSION: 1. Aspirin, which is currently on hold. 2. Bisoprolol 5 mg half tablet daily. 3. Carisoprodol 350 mg 4 times a day as needed for muscle spasm. 4. Neurontin 300 mg 3 times a day. 5. Lantus long acting insulin 44 units every evening. 6. Hydrochlorothiazide 25 mg 1-1/2 tablets daily. 7. Hydromorphone p.r.n. 8. Crestor 20 mg daily. 9. Ambien 10 mg p.r.n. daily. ALLERGIES AND INTOLERANCES: VANCOMYCIN and NIASPAN. PHYSICAL EXAMINATION GENERAL: Reveals a pleasant middle-aged lady. VITAL SIGNS: Blood pressure is 118/70, pulse 79 per minute and regular, oxygen saturation 98% on room air. LUNGS: Clear bilaterally. CARDIOVASCULAR: S1, S2. Regular heart rate. ABDOMEN: Soft with mild left flank tenderness. IMPRESSION: A 63-year-old lady with history of recurrent renal calculi. PLAN: Planned procedure is shockwave lithotripsy of left renal calculus. [id number]/[facility] #: [id number] MTDD
[~2018-09-09 11:14] MED LIST changes: +Buffered Lidocaine 0.9% SYRIN* 5 ML/SYR SYRINGE INTRADERM ONE; +Famotidine IV* 10 MG/ML 2 ML (20 mg) IV ONE; +Gentamicin ADULT (*) 160 MG in NS 0.9% 100 ML* 100 ML IVPB ONE; -HYDROmorphone INJ* 1 MG/ML CARPUJECT SYRINGE IV ONE; -Morphine INJ* 2 MG/ML 1 ML SYRINGE (TWO MG - NEW SYRINGE VERSION) IV ONE; -Morphine VIAL* 10 MG/ML 1 ML VIAL IV ONE; -Morphine VIAL* 10 MG/ML 1 ML VIAL ONE; -Morphine VIAL* 4 MG/ML VIAL (1 ml vial) IV ONE; -Ondansetron INJ* 2 MG/ML VIAL IV ONE; -Sulfamethox/Trimethoprim DS 800/160* TAB PO ONE
[2018-09-09] MEDS ORDERED: Famotidine IV* 10 MG/ML 2 ML (20 mg) ONE (12:03)
[2018-09-09] MEDS ORDERED: cefTRIAXone(*) 2 GM ADDV.VIAL IVPB ONE (12:03)
[2018-09-09] MEDS ORDERED: DiMENhydriNATE IV* 50 MG/ML VIAL IV PUSH PRN (13:38)
[2018-09-09] MEDS ORDERED: HYDROcodone/ACETAMIN 5-325 MG* 1 TAB PO PRN (13:38)
[2018-09-09] MEDS ORDERED: Naloxone* 0.4 MG/ML 1 ML VIAL IV PRN (13:38)
[2018-09-09] MEDS ORDERED: Lidocaine 2% PF * 5 ML VIAL ONE (14:14)
[2018-09-09] MEDS ORDERED: Propofol* 10 MG/ML 20 ML BTL ONE (14:14)
[2018-09-09] MEDS ORDERED: fentaNYL* 50 MCG/ML 2 ML VIAL (100 MCG VIAL) ONE ×2 (14:59→16:03)
[2018-09-09] MEDS ORDERED: EPHEDrine (Pressors)* 50 MG/ML VIAL ONE (15:08)
[2018-09-09] MEDS ORDERED: Phenylephrine INJ* 10 MG/ML 1 ML VIAL (10 MG) ONE (15:27)
[2018-09-09] MEDS ORDERED: Ondansetron INJ* 2 MG/ML VIAL ONE (15:39)
[2018-09-09] MEDS: fentaNYL* 50 MCG/ML 2 ML VIAL (100 MCG VIAL) IV PRN ×2 (16:04→16:26)
[2018-09-09] MEDS ORDERED: DiMENhydriNATE IV* 50 MG/ML VIAL ONE (16:13)
[2018-09-09] MEDS ORDERED: HYDROcodone/ACETAMIN 5-325 MG* 1 TAB ONE (16:33)
[2018-09-09 17:12] VITALS: BP 121/90
--- NOTE | 2018-09-10 12:06 | OP ---
CC: Zhane Fontana MD; Dr. Ruelas * DATE OF OPERATION: 09/09/18 - [facility] DATE OF : 59 SURGEON: Anton Jennings MD ANESTHESIOLOGIST: Dr. Moran. ANESTHESIA: General. PRE-OP DIAGNOSIS: Left renal calculi. POST-OP DIAGNOSIS: Left renal calculi. OPERATIVE PROCEDURE: Shockwave lithotripsy, left renal calculi. COMPLICATIONS: None. INDICATIONS: Hazel Angeles is a 63-year-old lady with a history of recurrent renal calculi. She had undergone stent insertion for obstructing calculi and is now being brought in for lithotripsy. POSTOPERATIVE CONDITION: Stable. DESCRIPTION OF PROCEDURE: After induction of general anesthesia, the patient was placed on the lithotripsy table in supine position. There was a cluster of stones in the mid to lower pole area of the left kidney. These were sequentially targeted at a rate of 60 shocks per minute. After the initial 300 shocks, there was a brief pause in lithotripsy for several minutes in an effort to minimize any potential trauma to the kidney. Lithotripsy was then resumed and a total of 2400 shocks were distributed amongst the various calculi. At the end of the procedure, good fragmentation was observed. The patient tolerated the procedure satisfactorily and was transferred back to the recovery area in stable condition. [id number]/[facility] #: [id number] MTDD
== END 2018-09-09 17:14 | disposition home or self-care (01) ==
LOC: OR 11:14
PROVIDERS: ATTEND Urology
DX: N20.0 Calculus of kidney (principal); E11.9 Type 2 diabetes mellitus without complications; Z79.4 Long term (current) use of insulin; E78.5 Hyperlipidemia, unspecified; Z95.2 Presence of prosthetic heart valve; Z95.1 Presence of aortocoronary bypass graft; I10 Essential (primary) hypertension; Z87.442 Personal history of urinary calculi; G47.33 Obstructive sleep apnea (adult) (pediatric); D64.9 Anemia, unspecified
CPT/HCPCS: 74018; J0696; J1240; J1580; J2405; J2704; J3010

== ENCOUNTER 2019-09-12 15:09 | Observation (INO) | payer OTHER ==
--- NOTE | 2019-09-12 15:34 | ED ---
HPI Chest Pain - HPI Summary HPI Summary: This pt is a 64 y/o female presenting to [facility] via EMS for chest pain today that began at 0600. Pt reports 3 weeks ago she had chest pain and had a stent in the circumflex artery placed in [place], [place]. Pt states she has the same presentation of chest pain today, radiating up to her left shoulder and left side of neck. Pt notes her chest pain this morning was intermittent and became worse and constant this afternoon. She called her clinical technician, Dr. Byrd in [place], and was advised to take 1 nitroglycerin but as patient's symptoms did not become better her clinical technician advised her to call 911. Pt describes a constant heaviness and pressure on her chest with radiation to her left shoulder and left side of neck. Initially her chest pain was rated between a 7 and 8 out of 10 in severity. Pt has taken 3 nitroglycerin so far with moderate relief, currently rates her pain 3/10. She reports associated SOB making her breathe fast, nausea, and heart burning sensation. Denies vomiting. PMHx: CHF, aortic valve replacement on 2017 but a few weeks ago it started leaking. - History of Current Complaint Hx Obtained From: Patient Onset/Duration: Started Hours Ago, Still Present Timing: Lasting Hours Initial Severity: Moderate Current Severity: Mild Pain Intensity: 3 Pain Scale Used: 0-10 Numeric Chest Pain Location: Diffuse Chest Pain Radiates: Yes Chest Pain Radiates To:: Shoulder - left, Neck - left Character: Heaviness, Pressure/Squeezing - pressure Aggravating Factor(s): Nothing Alleviating Factor(s): Nothing Associated Signs and Symptoms: Positive: Chest Pain, Shortness of Breath, Nausea. Negative: Fever, Chills, Vomiting - Additional Pertinent History Primary Care Physician: [id number] - Allergy/Home Medications Allergies/Adverse Reactions: Allergies Allergy/AdvReac Type Severity Reaction Status Date / Time niacin Allergy Swelling Verified 04/21/19 14:59 potassium citrate Allergy Swelling Verified 09/12/19 17:56 [From Urocit-K 5] vancomycin Allergy See Comment Verified 04/21/19 14:59 SEASONAL Allergy SNEEZING, Uncoded 04/21/19 14:59 ITCHY WATERY EYES Home Medications: Home Medications Atenolol TAB* [Tenormin TAB* 25 MG] 12.5 mg PO DAILY 09/12/19 [History Confirmed 09/12/19] HYDROmorphone TAB* [Dilaudid TAB*] 2 mg PO TID 09/12/19 [History Confirmed 09/12] Insulin Glargine,Hum.rec.anlog [Basaglar Kwikpen U-100] 44 unit SUBCUT QPM 09/12 [History Confirmed 09/12/19] Insulin Lispro [Admelog Solostar] 1 unit SUBCUT TID 09/12/19 [History Confirmed 09/12/19] Magnesium Citrate 100 mg PO DAILY 09/12/19 [History Confirmed 09/12/19] Semaglutide [Ozempic] 2.5 mg SUBCUT WEEKLY 09/12/19 [History Confirmed 09/12/19] diphenhydrAMINE HCl [Allergy Medication] 10 mg PO DAILY 09/12/19 [History Confirmed 09/12/19] PMH/Surg Hx/FS Hx/Imm Hx Endocrine/Hematology History: Reports: Hx Diabetes - ON DAILY INSULIN, Hx Anemia - HX OF -05/2018 Cardiovascular History: Reports: Hx Congestive Heart Failure - 05[place]06-05/11[place] [facility] [place] Hx Coronary Artery Disease, Hx Hypertension, Hx Valvular Heart Disease, Other Cardiovascular Problems/Disorders - FOLLOWED BY DR Byrd ([place]). Aortic valve replacement Denies: Hx Pacemaker/ICD, Hx Peripheral Vascular Disease Respiratory History: Reports: Hx Sleep Apnea - CPAP at home Denies: Hx Asthma, Hx Chronic Obstructive Pulmonary Disease (COPD), Other Respiratory Problems/Disorders GI History: Reports: Hx Gastroesophageal Reflux Disease, Hx Irritable Bowel, Hx Pyloric Stenosis, Other GI Disorders - HX OF CONSTIPATION, Rika, APPY, HYSTERECTOMY History: Reports: Hx Kidney Infection, Hx Kidney Stones, Hx Renal Disease - kidney stones, Other Problems/Disorders - SUZANNE, uretal stents Denies: Hx Dialysis Musculoskeletal History: Reports: Hx Arthritis - BACK, HANDS, Hx Back Problems, Other Musculoskeletal History - discectomy 11/14/16, spinal stenosis; Chronic Neck Pain Denies: Hx Scoliosis Sensory History: Reports: Hx Contacts or Glasses - glasses at bedside, Hx Glaucoma Denies: Hx Hearing Aid Opthamlomology History: Reports: Hx Contacts or Glasses - glasses at bedside, Hx Glaucoma Neurological History: Reports: Hx Migraine - NONE IN YEARS, Other Neuro Impairments/Disorders - discectomy 11/14/16 Denies: Hx Dementia, Hx Headaches, Hx Seizures Psychiatric History: Reports: Hx Depression - took Zoloft, has not taken for several years Denies: Hx Panic Disorder - Cancer History Hx Chemotherapy: No Hx Radiation Therapy: No - Surgical History Surgery Procedure, Year, and Place: 1980, 1981, 1991 X3;. 1984 KIDNEY STONE SURGERY. 1989 [place] [facility] [facility] [place]Y. TUBAL LIGATION; [facility]ENDECTOM[facility]. 2004 & 2006 CERVICAL FUSION X 2; [facility]. 2014 & 2017 LOW BACK LUMBAR DISCECTOMY [facility]. MANY KIDNEY STONES- LITHROTRIPSY LAST STENT WAS 05/25. AROTIC VALVE 05/2018 WITH DOUBLE BYPASS Hx Anesthesia Reactions: Yes - 2016 SLOW TO RESPOND , ON OXYGEN , WAS IN ICU FEW DAYS - Family History Known Family History: Positive: Diabetes, Other - neg: family reaction to anesthesia - Social History Alcohol Use: None Alcohol Amount: 1 PER YEAR Substance Use Type: Reports: None Smoking Status (MU): Former Smoker Type: Cigarettes Amount Used/How Often: 2-3/ week Length of Time of Smoking/Using Tobacco: 2 years Have You Smoked in the Last Year: No Review of Systems Negative: Fever Positive: Chest Pain Positive: Shortness Of Breath Gastrointestinal: Other - POSITIVE: heart burning sensation Positive: Nausea. Negative: Vomiting All Other Systems Reviewed And Are Negative: Yes Physical Exam - Summary Physical Exam Summary: GENERAL: Patient is a well-developed and nourished female who is lying comfortable in the stretcher. Patient is not in any acute respiratory distress. HEAD AND FACE: No signs of trauma. No ecchymosis, hematomas or skull depressions. No sinus tenderness. EYES: PERRLA, EOMI x 2, No injected conjunctiva, no nystagmus. EARS: Hearing grossly intact. Ear canals and tympanic membranes are within normal limits. MOUTH: Oropharynx within normal limits. NECK: Supple, trachea is midline, no adenopathy, no JVD, no carotid bruit, no c- spine tenderness, neck with full ROM. CHEST: Symmetric, no tenderness at palpation. Scar in the center of chest. LUNGS: Clear to auscultation bilaterally. No wheezing or crackles. CVS: Bradycardic rate and regular rhythm, S1 and S2 present, no murmurs or gallops appreciated. ABDOMEN: Soft, non-tender. No signs of distention. No rebound no guarding, and no masses palpated. Bowel sounds are normal. EXTREMITIES: FROM in all major joints, no edema, no cyanosis or clubbing. NEURO: Alert and oriented x 3. No acute neurological deficits. Speech is normal and follows commands. SKIN: Dry and warm PSYCH: Patient is anxious. Triage Information Reviewed: Yes Vital Signs Reviewed: Yes Procedures - Sedation Patient Received Moderate/Deep Sedation with Procedure: No Diagnostics - Laboratory Result Diagrams: 09/13/19 05:26 09/13/19 05:26 Lab Statement: Any lab studies that have been ordered have been reviewed, and results considered in the medical decision making process. - Radiology Chest XR Radiology Interpretation Completed By: Radiologist Summary of Radiographic Findings: IMPRESSION: No evidence for acute intrathoracic disease. Dr. Cintron has reviewed this report. - EKG 15:21 Cardiac Rate: NL - at 96 bpm EKG Rhythm: Sinus Rhythm Summary of EKG Findings: EKG at 1521 shows normal sinus rhythm at a rate of 96 bpm. Ventricular bigeminy. No STEMI. Chest Pain Course/Dx - Course Assessment/Plan: This pt is a 64 y/o female presenting to [facility] via EMS for chest pain today that began at 0600. Pt reports 3 weeks ago she had chest pain and had a stent in the circumflex artery placed in [place], [place]. Pt states she has the same presentation of chest pain today, radiating up to her left shoulder and left side of the neck. Pt notes her chest pain this morning was intermittent and became worse and constant this afternoon. She called her clinical technician, Dr. Byrd in [place], and was advised to take 1 nitroglycerin but as patient's symptoms did not become better her clinical technician advised her to call 911. Pt describes a constant heaviness and pressure on her chest with radiation to her left shoulder and left side of the neck. Initially her chest pain was rated between 7 and 8 out of 10 in severity. Pt has taken 3 nitroglycerin so far with moderate relief, currently rates her pain 3/10. She reports associated SOB making her breathe fast, nausea, and heart burning sensation. Denies vomiting. PMHx: CHF, aortic valve replacement on 2017 but a few weeks ago it started leaking. Blood work without any significant abnormality except for potassium of 3.2, glucose 147, calcium 11.3, magnesium 1.7. The troponin is 0.01. Chest x-ray impression: No evidence for acute intrathoracic disease. Ekg shows a sinus rhythm without any ST elevation but she has a bigeminy. Heart score is 5. I discussed my physical exam and test results with Dr. Lewis from the hospitalist services and she agrees to admit the patient to her services. The patient is hemodynamically stable, alert and oriented x 3. - Chest Pain Differential Diagnosis/HQI/PQRI: Acute ID, ACS, Angina, CHF, Chest Wall, GI Disease, Lower Respiratory Infection - Diagnoses Provider Diagnoses: Chest pain - Provider Notifications Discussed Care Of Patient With: Marian Lewis - hospitalist Time Discussed With Above Provider: 16:47 Instructed by Provider To: Admit As Inpatient Discharge ED - Sign-Out/Discharge Documenting (check all that apply): Patient Departure - [place] [facility] [place]charge Plan Condition: Stable Disposition: ADMITTED TO [facility] - Billing Disposition and Condition Condition: STABLE Disposition: Admitted to [facility] - Attestation Statements Document Initiated by Scribe: Yes Documenting Scribe: Katina Hunt Provider For Whom Scribe is Documenting (Include Credential): Quincy Cintron MD Scribe Attestation: I, Katina Hunt, scribed for Quincy Cintron MD on 09/14/19 at 1846. Scribe Documentation Reviewed: Yes Provider Attestation: The documentation as recorded by the Katina fuentes accurately reflects the service I personally performed and the decisions made by me, Quincy Cintron MD Status of Scribe Document: Viewed
[2019-09-12 16:11] LABS: Activated Partial Thrombo Time 34.1 seconds (26.0-38.0); INR 1.05 (0.82-1.09)
[2019-09-12 16:13] LABS: ABS Basophils 0.1 10^3/ul (0-0.2); ABS Eosinophils 0.2 10^3/ul (0-0.6); ABS Lymphocytes 2.2 10^3/ul (1.0-4.8); ABS Monocytes 0.7 10^3/ul (0-0.8); ABS Neutrophils 3.5 10^3/ul (1.5-7.7); Eosinophil % 3.6 %; Hematocrit 37 % (35-47); Hemoglobin 12.8 g/dL (12.0-16.0); Lymphocyte % 32.9 %; Mean Corpuscular HGB Conc 35 g/dL (31-36); Mean Corpuscular Hemoglobin 29 pg (27-31); Mean Corpuscular Volume 84 fL (80-97); Mean Platelet Volume 7.3 fL (7.4-10.4); Platelet Count 278 10^3/uL (150-450); Red Blood Count 4.45 10^6 /uL (3.70-4.87); Red Cell Distribution Width 15 % (10-15); White Blood Count 6.7 10^3/uL (3.5-10.8)
[2019-09-12 16:25] LABS: Troponin I 0.01 ng/mL (<0.03)
[2019-09-12 16:27] LABS: CKMB ng/mL 2.5 ng/mL (0.6-6.3)
--- OUTSIDE RECORDS SUMMARY | 2019-09-12 16:28 | XMS REPORT | Summary of Care ---
:1955 Author Organization [facility] Address [address] [place] [address] Care Team Providers Name Role Phone JosephpierceZhane presley Primary Care Provider Deidra Cameron RNoyster sorter Reason for Referral MRI/CAT/PET Scan (Routine) Status Reason Specialty Diagnoses / Referred By Referred To Procedures Contact Contact Pending Review Diagnoses Hypercalcemia [place] Procedures NM SPECT/CT NECK CHEST PARATHYROID , MD Ekta [place] [phone] MRI/CAT/PET Scan (Routine) Status Reason Specialty Diagnoses / Referred By Referred To Procedures Contact Contact Authorized Diagnoses Thyroid disease [place], Procedures US SOFT TISSUE HEAD NECK ULTRASOUND MD Ekta [place] [phone] Fax: MRI/CAT/PET Scan (Routine) Status Reason Specialty Diagnoses / Referred By Referred To Procedures Contact Contact Authorized Diagnoses Thyroid pain [place], Procedures US SOFT TISSUE HEAD NECK ULTRASOUND MD Ekta [place] [phone] Medication Prior Authorization (Routine) Status Reason Specialty Diagnoses / Referred By Referred To Procedures Contact Contact Pending Review Ekta Wood MD [place] [phone] Reason for Visit Reason Comments Follow Up Diabetes Mellitus pt is checking 3 to 4x daily Encounter Details Date Type Department Care Team Description 08/14/2019 Office Visit Clara ZhaoDesi Uncontrolled type 2 diabetes mellitus with ketoacidosis without coma, without long-term current use of insulin (HCC) (Primary Dx); Endocrinology-Ekta Snow MD Thyroid pain; [address] [facility] Thyroid disease; [place] [phone] Cool Vitamin D deficiency; [phone] [place] [address] Hypercalcemia [phone] Allergies Active Allergy Reactions Severity Noted Date Comments Niacin Swelling 03/22/2017 Amlodipine Swelling 06/25/2019 Vancomycin Respiratory Reaction High 02/04/2010 documented as of this encounter (statuses as of 08/17/2019) Medications Medication Sig Dispensed Refills Start Date End Date Status latanoprost (XALATAN) Place 1 Drop in 0 Active 0.005 % Ophthalmic both eyes EVERY Solution EVENING. diphenhydrAMINE Take 25 mg by 56 Cap 0 05/28/2014 Active (BENADRYL) 25 MG Oral mouth EVERY Cap BEDTIME. nitroglycerin Place 1 Tab 25 Tab 0 07/26/2017 Active (NITROSTAT) 0.4 MG under tongue Sublingual SL Tab EVERY FIVE MINUTES NEEDED for chest pain. ondansetron (ZOFRAN ODT) Take 1 Tab by 15 Tab 0 08/22/2017 Active 4 MG Oral TABLET mouth THREE DISPERSIBLEIndications: TIMES DAILY Nausea NEEDED (nausea). Insulin Syringe-Needle Inject 1 Each beneath the skin DAILY. Diabetes Mellitus 100 Each 3 12/31/2017 Active U-100 31G X 3/8" 1 ML Injects 1 time per day. Does not apply Misc Continuous Blood Gluc 1 Each by Does 1 Device 0 06/19/2018 Active Landscaping Specialist (FREESTYLE not apply route TIERNEY READER) Does not Continuous. apply Device DxE11.9 Lancets Does not apply 1 Each by Does 150 Each 5 06/19/2018 Active Misc not apply route FOUR TIMES DAILY. Dx E11.9 One touch mini HYDROmorphone (DILAUDID) Take 1 mg by 0 05/30/2018 Active 2 MG Oral Tab mouth THREE TIMES DAILY. Omeprazole delayed rel TAKE ONE CAPSULE 90 Cap 1 09/09/2018 Active cap 20 MG Oral CAPSULE BY MOUTH EVERY DELAYED RELEASE DAY aspirin (ECOTRIN) 81 MG Take 81 mg by 0 Active Oral Tab EC mouth DAILY. Magnesium Citrate 200 MG Take 1 Tab by 30 Tab 3 12/25/2018 Active Oral Tab mouth DAILY. Additional information Patient taking differently: 100 mg Oral DAILY, Reported on 06/26/2019 11:20 AM Glucagon, rDNA, 1 MG 1 Kit by 1 Kit 0 12/25/2018 Active Injection Kit Injection route NEEDED (For emergency use). Insulin Lispro (ADMELOG Inject 40 Units 15 mL 5 12/25/2018 Active SOLOSTAR) 100 UNIT/ML beneath the Subcutaneous Solution skin Pen-injector DIRECTED. INJECT 1 UNIT FOR EVERY 5 CARBS EATEN UP TO 40 UNITS PER DAY Continuous Blood Gluc 1 Each by Does 3 Each 5 12/25/2018 Active Sensor (FREESTYLE TIERNEY not apply route SENSOR SYSTEM) Does not EVERY TEN DAYS. apply Misc Dx E11.9 Insulin Glargine Inject 44 Units 45 mL 3 12/27/2018 Active (BASAGLAR KWIKPEN) 100 beneath the UNIT/ML Subcutaneous skin EVERY Solution Pen-injector BEDTIME. Inject 44 Units beneath the skin EVERY EVENING Blood Glucose Monitor 1 Device by 1 Device 0 12/30/2018 Active Software Does not apply Does not apply Device route DIRECTED. DX:E11.9. Brand: Insurance preferred Glucose Blood In Vitro 1 Each by In 125 Each 4 12/30/2018 Active Strip Vitro route FOUR TIMES DAILY. Ins preferred.Dx:E1 1.9 fluticasone (FLONASE) 50 [place] 2 Sprays 1 Each 3 02/08/2019 Active MCG/ACT Nasal Suspension in nose DAILY. [place] & Syringes Does 1 Each by Does 100 Each 5 03/28/2019 Active not apply Misc not apply route FOUR TIMES DAILY. BD pen needles 31G x 8mm, patient uses four times daily, insulin dependent atenolol (TENORMIN) 25 Take 0.5 Tabs 45 Tab 3 04/21/2019 Active MG Oral Tab by mouth DAILY. Rosuvastatin Calcium Take 1 Tab by 90 Tab 3 04/21/2019 Active (CRESTOR) 40 MG Oral mouth DAILY. TabIndications: Mixed hyperlipidemia zolpidem (AMBIEN) 10 MG Take 1 Tab by 30 Tab 3 06/11/2019 Active Oral TabIndications: mouth EVERY Primary insomnia BEDTIME NEEDED (sleep). Max Daily Amount: 10 mg. carisoprodol (SOMA) 350 Take 1 Tab by 120 Tab 0 06/24/2019 Active MG Oral Tab mouth FOUR TIMES DAILY NEEDED (back pain). Max Daily Amount: 1,400 mg. gabapentin (NEURONTIN) Take 1 Cap by 90 Cap 3 06/26/2019 Active 300 MG Oral Cap mouth THREE TIMES DAILY. ketoconazole (NIZORAL) 2 Apply to 60 g 3 08/02/2019 Active % Apply externally Cream affected areas twice daily as needed Nystatin [id number] UNIT/GM 0.0001 g by 60 g 5 08/02/2019 Active Apply externally Powder Apply externally route TWO TIMES DAILY NEEDED (rash). hydrochlorothiazide Take 1 Tab by 45 Tab 5 08/14/2019 Active (HCTZ, ORETIC) 25 MG mouth EVERY Oral Tab MORNING. Semaglutide,0.25 or Inject 0.25 mg 3 Pre-filled 3 08/14/2019 Active 0.5MG/DOS, (OZEMPIC, beneath the Pen Syringe 0.25 OR 0.5 MG/DOSE,) 2 skin EVERY 7 MG/1.5ML Subcutaneous DAYS. Solution Pen-injector tobramycin (TOBREX, Place 1 Drop in 1 Bottle 0 10/04/201808/14 Discontinued TOBRALCON) 0.3 % right eye EVERY (Provider Ophthalmic Solution FOUR HOURS. Discontinued) Cyclobenzaprine HCl Take 10 mg by 0 08/14 Discontinued (FLEXERIL PO) mouth TWICE (Provider DAILY. Discontinued) carisoprodol (SOMA) 350 Take 1 Tab by 30 Tab 1 06/26/201908/14 Discontinued MG Oral TabIndications: mouth (Provider Chronic midline low back TIMES DAILY. Discontinued) pain without sciatica Max Daily Amount: 1,400 mg. hydrochlorothiazide TAKE 1.5 TABS 45 Tab 0 07/31/201908/14 Discontinued (HCTZ, ORETIC) 25 MG BY MOUTH EVERY (Reorder) Oral Tab MORNING. lisinopril (PRINIVIL, Take 1 Tab by 30 Tab 0 08/14/201908/14 Discontinued ZESTRIL) 2.5 MG Oral Tab mouth DAILY. 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 Diabetes mellitus 10/14/2018 Sepsis 08/23/2018 Chronic neck and back pain 08/23/2018 Cervical neuritis 08/23/2018 RICHARD on CPAP 05/25/2018 Hypercapnic respiratory failure 05/25/2018 Overview: Acute S/P CABG (coronary artery bypass graft) 05/25/2018 S/P AVR (aortic valve replacement) 05/25/2018 ASHD (arteriosclerotic heart disease) 05/23/2018 Other chest pain 05/21/2018 Obstruction of left ureter 10/05/2017 Essential hypertension, benign 10/05/2017 Kidney stone 09/13/2017 Overview: Added automatically from request for surgery [id number] Coronary artery vasospasm 05/11/2017 Ureteral stone 04/20/2017 Left flank pain 04/03/2017 Calculus of kidney 03/23/2017 Acute exacerbation of chronic low back pain 10/16/2016 Pain in posterior right lower extremity 10/16/2016 Cramps of right lower extremity 10/16/2016 Paresthesia of right foot 10/16/2016 History of lumbar surgery 10/16/2016 Diabetes mellitus Hyperlipidemia Fatty liver Severe aortic stenosis Overview: 05/07/17: Echocardiogram Aortic Valve Aortic valve appears tricuspid with thickened and calcified leaflets with reduced mobility. Cannot completely rule out the presence of a bicuspid valve with a raphe between the non- and right coronary cusps. The mean and peak gradients across the aortic valve are 35 mmHg and 57 mmHg, respectively. Aortic valve area by continuity equation is 1.1 cm2. Doppler velocity index is 0.34. There is moderate aortic stenosis. There is mild aortic regurgitation. FINAL IMPRESSION: Concentric LV remodeling with mild left atrial enlargement. Hyperdynamic LV systolic function with no regional wall motion abnormalities; estimated LVEF 70-75%. Grade I (mild) diastolic dysfunction. Normal right heart size and RV systolic function. Moderate aortic stenosis with mild regurgitation (see text). No pericardial effusion. No prior study is available for comparison. documented as of this encounter (statuses as of 08/17/2019) Resolved Problems Problem Noted Date Resolved Date Type 2 diabetes mellitus without complication, without 04/24/2017 04/17/2018 long-term current use of insulin documented as of this encounter (statuses as of 08/17/2019) Immunizations Name Administration Dates Next Due Influenza (IM) Preservative Free 06/26/2019, 08/02/2018, 08/24/2017 ZOSTER (SHINGRIX) VACCINE 02/12/2018 documented as of this encounter Social History Tobacco Use Types Packs/Day Years Used Date Never Smoker Smokeless Tobacco: Never Used Alcohol Use Drinks/Week oz/Week Comments Yes rare Sex Assigned at Date Recorded Not on file Job Start Date Occupation Industry Not on file Not on file Not on file Travel History Travel Start Travel End No recent travel history available. documented as of this encounter Last Filed Vital Signs Vital Sign Reading Time Taken Comments Blood Pressure 100/70 08/14/2019 8:14 AM EST Pulse 78 08/14/2019 8:14 AM EST Temperature - - Respiratory Rate - - Oxygen Saturation 96% 08/14/2019 8:14 AM EST Inhaled Oxygen Concentration - - Weight 77.5 kg (170 lb 14.4 oz) 08/14/2019 8:14 AM EST Height 158.8 cm (5' 2.5") 08/14/2019 8:14 AM EST Body Mass Index 30.76 08/14/2019 8:14 AM EST documented in this encounter Patient Instructions Patient InstructionsMomurtaza-Ekta Pate MD - 08/14/2019 8:00 AM ESTLisinopril 2.5 mg a day ( to protect the kidney from diabetes - microalbumin ) Ozempic 0.25 mg once a week Us of the thyroid appt in 3 monthsElectronically signed by Ekta Wood MD at 08/14 9:24 AM EST documented in this encounter Progress Notes Ekta Wood MD - 08/14/2019 8:00 AM EST NAME: Hazel Angeles : 1955 DATE: 08/14/2019 SUBJECTIVE: Hazel Angeles is a 64-y.o. female who presents for follow-up of : 1) diabetes mellitus 2 dx ? . No retinopathy eye exam every 3 months check for glaucoma and DM Hemoglobin A1c dated November 21, 2018 was 6.7 random blood sugar 139. She is checking blood sugars a couple times a week. 2) Kidney stones. Many since age of 27 year ( low calcium citrate ) Takes HCTz as directed by urology. She tried Urocit K in the past but was intolerant ( swelling) . She is tolerating Mgcitrate but unanble to find the Rx that is covered . 03/29/17 left ureteral stent placed for 1.4 cm stone +laser lithotripsy 04/05/17 stent exchange and 04/18/17 stent removal She had additional kidney stones. And she is unable to take potassium citrate and she has difficulttime to find prescription for magnesium citrate. Hospitalized for CHF status post atrial stenosis surgical repair plus CABG she still needs to have mitral valve replaced her sister who has also problems with hypocitrinuria and kidney stones as do couple of their brothers She is not feeling well migrains are back More breathless she is going to call cardiology BG avg 146 Checks 2.9 Highest [phone] lowest She is walking daily 2 and 1/2 Right leg is missing one artery Eye dr raya in a few months Problem with PVD R leg Please call insurance Hazel 's blood sugars are not doing as well on Admelog as on Novolog, more fluctuations, from low to high , and more BG in 200 range. Current Outpatient Prescriptions Medication Sig aspirin 81 MG Oral Chew Tab Take 81 mg by mouth DAILY. Diltiazem HCl 180 MG Oral CAPSULE SR 24 HR Take 180 mg by mouth DAILY. diphenhydrAMINE (BENADRYL) 25 MG Oral Cap Take 25 mg by mouth EVERY EVENING. fexofenadine (TRINY) 180 MG Oral Tab Take 180 mg by mouth NEEDED. HYDROCHLOROTHIAZIDE PO Take 25 mg by mouth EVERY MORNING. 1 1/2 tablets in the am insulin aspart, RAPID - Acting, (NOVOLOG FLEXPEN) 100 UNIT/ML Subcutaneous Solution Inject 1-20 Units beneath the skin THREE TIMES DAILY WITH MEALS. 1 unit for every 5 carbs insulin glargine, LONG-Acting, (LANTUS SOLOSTAR) 100 UNIT/ML Subcutaneous Solution Inject 48 Units beneath the skin EVERY EVENING. latanoprost (XALATAN) 0.005 % Ophthalmic Solution Place 1 Drop in both eyes EVERY EVENING. nitroglycerin (NITRODUR) 0.2 MG/HR Transdermal PATCH [address] 1 Patch onto skin. Omeprazole delayed rel cap (PRILOSEC) 20 MG Oral CAPSULE DELAYED RELEASE Take 20 mg by mouth DAILY. Phenylephrine HCl, [id number], (NASAL DECONGESTANT NA) [place] in nose NEEDED. sertraline (ZOLOFT) 50 MG Oral Tab Take 50 mg by mouth EVERY EVENING. Timolol 0.5 % Ophthalmic Solution Place 1 Drop to the external eye TWICE DAILY. zolpidem (AMBIEN) 10 MG Oral Tab Take 10 mg by mouth EVERY BEDTIME NEEDED. Allergies Allergen Reactions Vancomycin Respiratory Reaction Niaspan [Niacin] Swelling Norvasc [Amlodipine] Swelling Past Medical History: Diagnosis Date Actinic keratosis Arthritis (aortic stenosis) Coronary artery vasospasm (HCC) 05/11/2017 Coronary artery vasospasm (HCC) Depression Diabetes mellitus (HCC) Fatty liver Hyperlipidemia Kidney stones Postmenopausal Sleep apnea Urticaria, chronic Vascular spasm (HCC) OBJECTIVE: BP 100/70 (BP Location: Right arm, Patient Position: Standing) | Pulse 78 | Ht 5' 2.5" (1.588 m) | Wt 170 lb 14.4 oz (77.5 kg) | SpO2 96% | BMI 30.76 kg/m General: no distress. Eyes: fundi normal Neck: MNG Heart: regular rate and rhythm, + murmur. Abdomen: soft, nontender, no masses or organomegaly. Diabetic foot examination was performed. No edema. No foot lesions. Positive pedal pulses Neuro: positive 10 gram monofilament light touch sensation in feet Left foot Diabetic foot exam: Visual exam: normal Sensory: Filament test: present, but diminished Pulse: a pulse was present Right foot diabetic exam Visual exam: normal Sensory: Filament test: present but diminished Pulse: a pulse was present Dry flaky skin both feet. No results found for: GLYCOPOCT ASSESSMENT: 1. Diabetes mellitus.On basal/bolus insulin program, 2. Hypercalcemia . low citrate predispose pt to kidney stones.Hazel was informed that she needs to take the Magnesium citrate , she needs to take to her client services coordinator to adjust her dose. 3. Kidney stones Patient Instructions 1) DM 2 : no changes Results for HAZEL ANGELES ( ) as of 12/28/2018 21:01 Ref. Range 11/21/2018 13:26 Glycohemoglobin - POCT Latest Ref Range: <=5.6 % 6.7 (H) 10/03/17 Right superior parathyroid gland is 7 mm in size. Most probably the major couse of kidney stones is hypocitrinuria , but it looks like she has 2 coexisting conditions ( 1ry hyperpara and hypocitrinuria ) . If elevation of serum calcium On HCTZ occurswe will reevaluate for hyperpara 4) thyroid nodularity Burton II us11/21/17 . Us of the thyroid 5) Lisinopril 2.5 mg a day ( to protect the kidney from diabetes - microalbumin ) Ozempic 0.25 mg once a week Us of the thyroid to recheck MNG 6) shortness of breath cardiology evaluation , pt wishes to call herself . 7) unclear information about the vascular study on the right leg appt in 3 months Ekta Wood MD Section of Endocrinology 08/14/2019 09:01 documented in this encounter Plan of Treatment Date Type Specialty Care Team Description 10/22/2019 Orders Only Cardiology 10/29/2019 Office Visit Cardiology Orlin Ruelas MD [address] [place] [address] 11/17/2019 Office Visit Internal Medicine Zhane Fontana MD [facility] [place] [address] 11/19/2019 Office Visit Endocrinology Ekta Wood MD [address] [place], [place] [address] [address] Name Type Priority Associated Diagnoses Order Schedule US SOFT TISSUE HEAD Imaging Routine Thyroid pain Expected: NECK ULTRASOUND 08/14/2019, Expires: 08/13/2020 FREE T4 Lab Routine Thyroid disease Expected: 08/17/2019 Vitamin D deficiency (Approximate), Hypercalcemia Expires: 02/13/2020 THYROID STIMULATING Lab Routine Thyroid disease Expected: 08/17/2019 HORMONE Vitamin D deficiency (Approximate), Hypercalcemia Expires: 02/13/2020 US SOFT TISSUE HEAD Imaging Routine Thyroid disease Expected: NECK ULTRASOUND 08/17/2019, Expires: 08/16/2020 CALCIUM, 24 HOUR URINE Lab Routine Thyroid disease Expected: 08/17/2019 Vitamin D deficiency (Approximate), Hypercalcemia Expires: 02/13/2020 CREATININE, 24 HOUR Lab Routine Thyroid disease Expected: 08/17/2019 URINE Vitamin D deficiency (Approximate), Hypercalcemia Expires: 02/13/2020 INTACT PTH Lab Routine Thyroid disease Expected: 08/17/2019 Vitamin D deficiency (Approximate), Hypercalcemia Expires: 02/13/2020 VITAMIN D 25 HYDROXY Lab Routine Thyroid disease Expected: 08/17/2019 (CLARA) Vitamin D deficiency (Approximate), Hypercalcemia Expires: 02/13/2020 BASIC METABOLIC PANEL Lab Routine Thyroid disease Expected: 08/17/2019 Vitamin D deficiency (Approximate), Hypercalcemia Expires: 08/17/2020 NM SPECT/CT NECK CHEST Imaging Routine Hypercalcemia Expected: PARATHYROID 08/17/2019, Expires: 08/16/2020 Health Maintenance Due Date Last Done Comments Diabetic Eye Exam 1955 PNEUMOCOCCAL 0-64 YRS (1 of 1963 1 - PPSV23) PAP SMEAR 12/16/2001 12/16/1998 COLONOSCOPY SCREENING 2007 ZOSTER IMMUNIZATION SERIES 04/09/2018 02/12/2018 (2 of 2) HEMOGLOBIN A1C 09/23/2019 06/24/2019, 11/21/2018, 05/17/2018, Additional history exists LIPID DISORDER SCREENING 06/24/2020 06/24/2019, 04/21/2019, 10/02/2018, Additional history exists URINE MICROALBUMIN 06/24/2020 06/24/2019, 12/11/2017, 05/23/2013, Additional history exists DEPRESSION SCREENING 06/26/2020 06/26/2019 MAMMOGRAM (SCREENING) 07/04/2020 07/04/2019 FOOT EXAM 08/14/2020 08/14/2019, 08/14/2019, 08/14/2019, Additional history exists INFLUENZA VACCINE Completed 06/26/2019, 08/02/2018, 08/24/2017 HPV IMMUNIZATION SERIES Aged Out No longer eligible based on patient's age to complete this topic MENINGOCOCCAL VACCINE IMM Aged Out No longer eligible based on patient's age to complete this topic documented as of this encounter Goals Goal Patient Goal Associated Recent Patient-Stated? Author Type Problems Progress Blood Pressure Blood Pressure 117/59 No Crepet, < 140/90 (08/17/2019 MD Zhane 6:00 AM EST) Note: This is an individualized treatment (blood pressure) goal for Hazel [place]: Displayed above (on the left) is your goal for blood pressure control. Your most recent blood pressure is also shown above, on the right. You should try to achieve blood pressures that are lower than your goal listed above (on the left). Weight increase vs. 18 mo CHF 11.9 (08/14/2019 11:15 PM EST) No Zhane Fotnana MD min (lbs) < 5 Note: This is an individualized treatment (congestive heart failure, CHF) goal for Hazel [place]: Displayed above (on the right) is how many pounds you are in excess of your lowest weight over the past 18 months. Note that lower numbers are better. Excessive weight gain often indicates fluid reten tion and worsening heart failure. You should contact your doctor immediately if the above number is too high (above your goal, the number on the left). Depression screen (PHQ-9) total score < 5 Depression No Zhane Fontana MD Note: This is an individualized treatment (depression) goal for Hazel [place]: Displayed above is your goal for a depression screening (PHQ-9) score that would indicate good control of your depression. Glycohemoglobin A1c < 7.0 Diabetes 7.8 (06/24/2019 9:59 AM No Zhane Fontana MD EDT) Note: This is an individualized treatment (diabetes control, HgbA1C) goal for Hazel [place]: Displayed above is your progress towards your HgbA1C goal. Your goal is shown above (on the left); your most recent HgbA1C is shown on the right. Note that lower numbers are better. Keep a regular sleep schedule Lifestyle No Zhane Fontana MD Note: This is an individualized lifestyle goal for Hazel Angeles: Please maintain a regular sleep schedule. This may help with some symptoms of depression. Keep immunizations current Lifestyle Zhane Heck MD Note: This is an individualized lifestyle goal for Hazel [place]: Please be sure to keep up-to-date on recommended immunizations. For example, this would include a yearly influenza vaccine. Immunization status can be seen by looking at the Health Maintenance sections of your [facility] Plan of Care, and any After Visit Summaries. Weight loss vs. 18 mo Lifestyle 18 (08/14/2019 11:15 PM EST) Zhane Heck MD max (lbs) >= 10 Note: This is an individualized lifestyle goal for Hazel [place]: Your body mass index (BMI) is more than 30. You should lose weight. A reasonable starting goal is to lose 10 pounds. Displayed above is how many pounds you have lost thus far towards your 10 pound weight loss goal. Consume a ol-dcrep-btzr diet Lifestyle Zhane Heck MD Note: This is an individualized lifestyle goal for [place]el [place]: Please do not add additional salt to your food. Additional salt may lead to fluid retention and worsen your congestive heart failure. Take all prescribed medications as directed Self-management Zhane Heck MD Note: This is an individualized self-management goal for Hazel [place]: Please take all prescribed medications as directed. 1. Do not skip doses. If you cannot afford your medications, talk with your doctor. 2. Use a pill reminder system such as a pill box if needed. Your pharmacist can help you with this. 3. Contact your Pharmacy 5 days before your medication runs out. If you cannot take your medications for any reasons, talk with your doctor. 4. Please bring all of your medication bottles and inhalers (or a list of all your medications/inhalers) with you to every visit. Potential barriers to meeting all of your care plan goals will continue to be addressed on an ongoing basis. Check your weight daily Self-management Zhane Heck MD Note: This is an individualized self-management goal for Hazel [place]: Please check your weight daily. Refer to the accompanying CHF treatment goal and call your doctor immediately for further instructions on how to respond to unexpected weight gain. documented as of this encounter Implants Implanted Type Area Environmental Services Manager Device Shelf Model / Identifier Expiration Serial / Date Lot Aortic Michelle Sahni 19mm - [id number] N/A: Aortic [employer] 2020 [id number] / Implanted: Qty: 1 on 05/24/2018 by Azael Weems MD at [facility] [employer] [id number] / 3.5 Synergy Stent - [id number] N/A: [place] [id number] / Implanted: Qty: 1 on 08/15/2019 by Ivan Haywood MD at [facility] [employer] / Distal [id number] documented as of this encounter Procedures Procedure Name Priority Date/Time Associated Diagnosis Comments ACCU-CHECK GLUCOSE Routine 08/14/2019 9:00 Uncontrolled type 2 Results for this (AMB POCT) AM EST diabetes mellitus procedure are in with ketoacidosis the results without coma, without section. long-term current use of insulin (HCC) documented in this encounter Results ACCU-CHECK GLUCOSE (AMB POCT) (08/14/2019 9:00 AM EST) Glucose, Accu-Check 131 (A) 70 - 99 mg/dl [facility] POCT Glucose Strip Lot # [id number] [facility] POCT QC Documented Yes Yes [facility] POCT Specimen Performing Organization Address City/State/Zipcode Phone Number [facility] [address] [facility] [place] [phone] documented in this encounter Visit Diagnoses Diagnosis Uncontrolled type 2 diabetes mellitus with ketoacidosis without coma, without long-term current use of insulin (HCC) - Primary Thyroid pain Other specified disorders of thyroid Thyroid disease Unspecified disorder of thyroid Vitamin D deficiency Unspecified vitamin D deficiency Hypercalcemia documented in this encounter Guarantor Name Account Type Relation to Date of Phone Billing Address Patient Hazel Angeles Personal/Family 1955 [facility] [address] [place] [address] documented as of this encounter Advance Directives Type Date 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 Yes Order was discussed with: Patient I discussed all options and patient/surrogate requested and agreed to: Full Code DNI 05/21/2018 8:54 AM 05/26/2018 6:41 AM Does patient have decision making capacity? yes Order discussed with: Patient I discussed all options and patient/surrogate requested and agreed to: Do not intubate (DNI) Full Code 10/02/2017 4:26 PM 10/02/2017 8:08 PM Does patient have decision making capacity? yes Full Code 04/20/2017 5:54 PM 04/20/2017 11:43 PM Does patient have decision making capacity? yes Full Code 04/05/2017 3:42 PM 04/05/2017 8:15 PM Does patient have decision making capacity? yes
--- OUTSIDE RECORDS SUMMARY | 2019-09-12 16:28 | XMS REPORT | Summary of Care ---
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 Reason for Visit Reason Comments Transitional Care Management [facility] follow up - s/p bypass complications Medication Refill Reference #: [id number] Injection requests a Tdap (administered today) Encounter Details Date Type Department Care Team Description 08/26/2019 Office Visit [facility] Zhane Fontana MD S/P angioplasty with stent (Primary Dx); Medicine [address] Non-ST elevation (NSTEMI) myocardial infarction (HCC); [address] [place] [address] Diabetes mellitus without complication (HCC); [place] [address] S/P AVR (aortic valve replacement); [phone] S/P CABG (coronary artery bypass graft); (Fax) Hyperlipidemia, unspecified hyperlipidemia type; Nephrolithiasis; Migraine without aura and without status migrainosus, not intractable; Thyroid disease; Vitamin D deficiency; Hypercalcemia Allergies Active Allergy Reactions Severity Noted Date Comments Niacin Swelling 03/22/2017 Amlodipine Swelling 06/25/2019 Vancomycin Respiratory Reaction High 02/04/2010 documented as of this encounter (statuses as of 08/26/2019) Medications Medication Sig Dispensed Refills Start Date End Date Status latanoprost (XALATAN) Place 1 Drop in 0 Active 0.005 % Ophthalmic both eyes EVERY Solution EVENING. diphenhydrAMINE Take 25 mg by 56 Cap 0 05/28/2014 Active (BENADRYL) 25 MG Oral mouth EVERY Cap BEDTIME. ondansetron (ZOFRAN ODT) Take 1 Tab by [...] by Does 1 Device 0 06/19/2018 Active Gas Specialist (FREESTYLE not apply route TIERNEY READER) [...] Oral DAILY, Reported on 06/26/2019 11:20 AM Insulin Lispro (ADMELOG Inject 40 Units 15 [...] DAILY. Ins preferred.Dx:E1 1.9 fluticasone (FLONASE) 50 [place] 2 Sprays 1 Each 3 02/08/2019 Active MCG/ACT Nasal Suspension in nose DAILY. Lyon & Syringes Does 1 Each by Does [...] NEEDED (sleep). Max Daily Amount: 10 mg. gabapentin (NEURONTIN) Take 1 Cap by 90 Cap 3 06/26/2019 Active 300 MG Oral Cap mouth THREE TIMES DAILY. ketoconazole (NIZORAL) 2 Apply to 60 g 3 08/02/2019 Active % Apply externally Cream affected areas twice daily as needed Nystatin 947645 UNIT/GM 0.0001 g by 60 g 5 [...] EVERY 7 MG/1.5ML Subcutaneous DAYS. Solution Pen-injector Insulin Pen Needle (PEN 1 Each by Does 150 Each 5 08/14/2019 Active NEEDLES) 31G X 5 MM Does not apply route not apply Misc FIVE TIMES DAILY. clopidogrel (PLAVIX) 75 Take 1 Tab by 60 Tab 0 08/18/2019 Active MG Oral Tab mouth DAILY. Glucagon, rDNA, 1 MG 1 Kit by 1 Kit 0 08/26/2019 Active Injection Kit Injection route NEEDED (For emergency use). carisoprodol (SOMA) 350 Take 1 Tab by 120 Tab 0 08/26/2019 Active MG Oral Tab mouth FOUR TIMES DAILY NEEDED (back pain). Max Daily Amount: 1,[address] 1 Tab 25 Tab 0 07/26/201708/26 Discontinued (NITROSTAT) 0.4 MG under tongue (Reorder) Sublingual SL Tab EVERY FIVE MINUTES NEEDED for chest pain. Glucagon, rDNA, 1 MG 1 Kit by 1 Kit 0 12/25/201808/26 Discontinued Injection Kit Injection (Reorder) NEEDED (For emergency use). carisoprodol (SOMA) 350 Take 1 Tab by 120 Tab 0 06/24/201908/26 Discontinued MG Oral Tab mouth FOUR (Reorder) TIMES DAILY NEEDED (back pain). Max Daily Amount: 1,400 mg. LISPRO insulin, RAPID - Inject 40 Units 10 mL 0 08/19/201908/26 Discontinued Acting, (ADMELOG) 100 beneath the (Duplicate UNIT/ML Subcutaneous skin Order) Solution DIRECTED. Inject 1 unit for every 5 carbs eaten. MDD 40 units. E11.10 documented as of this encounter (statuses as of 08/26/2019) Active Problems Problem Noted Date Atherosclerosis of [place] coronary artery of [place] heart with unstable 2018 angina pectoris Non-ST elevation (NSTEMI) myocardial infarction 12/28/2018 Atherosclerosis [...] Overview: Added automatically from request for surgery [id number] Coronary artery vasospasm 05/11/2017 Ureteral stone 04/20/2017 [...] as of this encounter (statuses as of 08/26/2019) Resolved Problems Problem Noted Date Resolved Date Type 2 diabetes mellitus without complication, without 04/24/2017 04/17/2018 long-term current use of insulin documented as of this encounter (statuses as of 08/26/2019) Immunizations Name Administration Dates Next Due Influenza (IM) Preservative Free 06/26/2019, 08/02/2018, 08/24/2017 TDAP Vaccine 08/26/2019 ZOSTER (SHINGRIX) VACCINE 02/12/2018 documented as of [...] Sign Reading Time Taken Comments Blood Pressure 118/64 08/26/2019 11:49 AM EST Pulse 63 08/26/2019 11:49 AM EST Temperature - - Respiratory Rate - - Oxygen Saturation 96% 08/26/2019 11:49 AM EST Inhaled Oxygen Concentration - - Weight 76.5 kg (168 lb 11.2 oz) 08/26/2019 11:49 AM EST Height 157.5 cm (5' 2") 08/26/2019 11:49 AM EST Body Mass Index 30.86 08/26/2019 11:49 AM EST documented in this encounter Patient Instructions Patient InstructionsZhane Fontana MD - 08/26/2019 11:20 AM ESTPlan Consider cardiac rehab Continue all present medication - will likely need to be on plavix 1 yr - For the left sided back pain : Avoid inciting actvities / Heat / ice - alternate - / Stretches - If not better will refer Physical Therapy Discuss antidepressant medicaiton again if you wish documented in this encounter Progress Notes Zhane Fontana MD - 08/26/2019 11:20 AM EST .TCM Statement. Review of the hospitalization: I am seeing for transition of care following hospitalization. The date of discharge was: 08/17 The discharge diagnosis was ACS/ migraine / urolithiasis / diabetes . I reviewed the discharge summary, discharge instructions, and pertinent additional documentation obtained during hospitalization. I reconciled the medications. I also reviewed the Transition of Care documentation done by staff. The tests that were not available at the time of discharge were reviewed. Additional tests which are not yet available include: Coordination of care. (delete one and this phrase) - I am satisfied that appropriate referrals are in place to deal with the problems identified during hospitalization, and that the patient has adequate community resources and support in place. - Additional testing related to hospitilization was requested today: yes See orders. I confirmed the patient's understanding of the diagnosis and plan of care. Specific education that was provided today: Patient Instructions Plan Consider cardiac rehab Continue all present medication - will likely need to be on plavix 1 yr - For the left sided back pain : Avoid inciting actvities / Heat / ice - alternate - / Stretches - If not better will refer Physical Therapy Discuss antidepressant medicaiton again if you wish The current and discharge medications were reconciled by me, today The source document was hospital discharge summary NAME:Hazel Angeles 1955: 1955 ENC Date: 08/26/2019 CC: Chief Complaint Patient presents with Transitional Care Management [facility] follow up - s/p bypass complications Medication Refill Reference #: [id number] Injection requests a Tdap (administered today) Hazel Angeles is a 64-y.o. female with history of CAD ( status post 2 vessel cabg 2017) Status post AVR 2018 / diastolic heart failure / obsructive sleep apnea / DM2 ( follows with Dr Zhao) Recurrent kidney stones Presented to [facility] ER with classic anginal symptoms. She underwent cath ( though troponin were negative ) And underwent angioplasty and stent to the distal LCx. plavix added to regimen 2. She also had a bitemporal headache - which was managed with sumatriptan with resolvution - ( patient thinks it had something to do with her need for the angioplasty 3. She also had left flank pain and was imaged for uropathy - No obstrucing stone was found and follow up was advised - Has not seen urologist yet- But likely has stone on the left ( right one was known ) She was discharged on all previous medications with the addition of Plavix 2. Had day of depression a couple of weeks ago - disucssed zoloft - but not ready for this yet - Current Outpatient Medications Medication Sig aspirin (ECOTRIN) 81 MG Oral Tab EC Take 81 mg by mouth DAILY. atenolol (TENORMIN) 25 MG Oral Tab Take 0.5 Tabs by mouth DAILY. Blood Glucose Monitor Software Does not apply Device 1 Device by Does not apply route DIRECTED. DX:E11.9. Brand: Insurance preferred carisoprodol (SOMA) 350 MG Oral Tab Take 1 Tab by mouth FOUR TIMES DAILY NEEDED (back pain). Max Daily Amount: 1,400 mg. clopidogrel (PLAVIX) 75 MG Oral Tab Take 1 Tab by mouth DAILY. Continuous Blood Gluc Gas Specialist (FREESTYLE TIERNEY READER) Does not apply Device 1 Each by Does not apply route Continuous. DxE11.9 Continuous Blood Gluc Sensor (FREESTYLE TIERNEY SENSOR SYSTEM) Does not apply Misc 1 Each by Does not apply route EVERY TEN DAYS. Dx E11.9 diphenhydrAMINE (BENADRYL) 25 MG Oral Cap Take 25 mg by mouth EVERY BEDTIME. fluticasone (FLONASE) 50 MCG/ACT Nasal Suspension [place] 2 Sprays in nose DAILY. gabapentin (NEURONTIN) 300 MG Oral Cap Take 1 Cap by mouth THREE TIMES DAILY. Glucagon, rDNA, 1 MG Injection Kit 1 Kit by Injection route NEEDED ( For emergency use). Glucose Blood In Vitro Strip 1 Each by In Vitro route FOUR TIMES DAILY. Ins preferred.Dx:E11.9 hydrochlorothiazide (HCTZ, ORETIC) 25 MG Oral Tab Take 1 Tab by mouth EVERY MORNING. HYDROmorphone (DILAUDID) 2 MG Oral Tab Take 1 mg by mouth THREE TIMES DAILY. Insulin Glargine (BASAGLAR KWIKPEN) 100 UNIT/ML Subcutaneous Solution Pen -injector Inject 44 Units beneath the skin EVERY BEDTIME. Inject 44 Units beneath the skin EVERY EVENING Insulin Lispro (ADMELOG SOLOSTAR) 100 UNIT/ML Subcutaneous Solution Pen- injector Inject 40 Units beneath the skin DIRECTED. INJECT 1 UNIT FOR EVERY 5 CARBS EATEN UP TO 40 UNITS PER DAY Insulin Pen Needle (PEN NEEDLES) 31G X 5 MM Does not apply Misc 1 Each by Does not apply route FIVE TIMES DAILY. Insulin Syringe-Needle U-100 31G X 3/8" 1 ML Does not apply Misc Inject 1 Each beneath the skin DAILY. Diabetes Mellitus Injects 1 time per day. ketoconazole (NIZORAL) 2 % Apply externally Cream Apply to affected areas twice daily as needed Lancets Does not apply Misc 1 Each by Does not apply route FOUR TIMES DAILY. Dx E11.9 One touch mini latanoprost (XALATAN) 0.005 % Ophthalmic Solution Place 1 Drop in both eyes EVERY EVENING. Magnesium Citrate 200 MG Oral Tab Take 1 Tab by mouth DAILY. (Patient taking differently: Take 100 mg by mouth DAILY.) Lyon & Syringes Does not apply Misc 1 Each by Does not apply route FOUR TIMES DAILY. BD pen needles 31G x 8mm, patient uses four times daily , insulin dependent nitroglycerin (NITROSTAT) 0.4 MG Sublingual SL Tab Place 1 Tab under tongue EVERY FIVE MINUTES NEEDED for chest pain. Nystatin 121915 UNIT/GM Apply externally Powder 0.0001 g by Apply externally route TWO TIMES DAILY NEEDED (rash). Omeprazole delayed rel cap 20 MG Oral CAPSULE DELAYED RELEASE TAKE ONE CAPSULE BY MOUTH EVERYDAY ondansetron (ZOFRAN ODT) 4 MG Oral TABLET DISPERSIBLE Take 1 Tab by mouth THREE TIMES DAILY NEEDED (nausea). Rosuvastatin Calcium (CRESTOR) 40 MG Oral Tab Take 1 Tab by mouth DAILY. Semaglutide,0.25 or 0.5MG/DOS, (OZEMPIC, 0.25 OR 0.5 MG/DOSE,) 2 MG/ 1.5ML Subcutaneous Solution Pen-injector Inject 0.25 mg beneath the skin EVERY 7 DAYS. zolpidem (AMBIEN) 10 MG Oral Tab Take 1 Tab by mouth EVERY BEDTIME NEEDED (sleep). Max Daily Amount: 10 mg. No current facility-administered medications for this visit. Patient Active Problem List Diagnosis Date Noted Atherosclerosis of [place] coronary artery of [place] heart with unstable angina pectoris ([facility])08/26/2019 Non-ST elevation (NSTEMI) myocardial infarction ([facility]) 12/28/2018 Atherosclerosis of aorta ([facility]) 12/24/2018 Non-ST elevation (NSTEMI) myocardial infarction ([facility]) 12/24/2018 Uncontrolled type 2 diabetes mellitus with ketoacidosis without coma, without long-term current use of insulin ([facility]) 12/24/2018 Chronic diastolic heart failure ([facility]) 10/14/2018 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 Diabetes mellitus ([facility]) 10/14/2018 Sepsis ([facility]) 08/23/2018 Chronic neck and back pain 08/23/2018 Cervical neuritis 08/23/2018 RICHARD on CPAP 05/25/2018 Hypercapnic respiratory failure ([facility]) 05/25/2018 Acute S/P CABG (coronary artery bypass graft) 05/25/2018 S/P AVR (aortic valve replacement) 05/25/2018 ASHD (arteriosclerotic heart disease) 05/23/2018 Other chest pain 05/21/2018 Obstruction of left ureter 10/05/2017 Essential hypertension, benign 10/05/2017 Kidney stone 09/13/2017 Added automatically from request for surgery [id number] Severe aortic stenosis 05/07/17: Echocardiogram Aortic Valve Aortic valve appears [...] No prior study is available for comparison. Coronary artery vasospasm (HCC) 05/11/2017 Ureteral stone 04/20/2017 Left flank pain 04/03/2017 Calculus of kidney 03/23/2017 Acute exacerbation of chronic low back pain 10/16/2016 Pain in posterior right lower extremity 10/16/2016 Cramps of right lower extremity 10/16/2016 Paresthesia of right foot 10/16/2016 History of lumbar surgery 10/16/2016 Diabetes mellitus (HCC) Hyperlipidemia Fatty liver Family History Problem Relation Age of Onset Diabetes Mother Skin Cancer Mother Allergies Mother Arthritis Mother Asthma Mother Heart Mother Valve replacement, stents Hypertension Mother Diabetes Sister Heart Sister DC No cardiopulmonary symptoms No upper or lower GI complaints No urinary tract symptoms. No bruising/ bleeding. No neurological complaints . No insomnia.+ . Social History Tobacco Use Smoking status: Never Smoker Smokeless tobacco: Never Used Substance Use Topics Alcohol use: Yes Comment: rare Drug use: No OBJECTIVE: BP 118/64 | Pulse 63 | Ht 5' 2" (1.575 m) | Wt 168 lb 11.2 oz (76.5 kg) | SpO2 96% | BMI 30.86 kg/m . Heent neg Sternum - scar noted Lungs Clear CV rrr 2/6 murmur Abd soft, nontender, no organomegaly Ext no edema; no lesions; pulses intact Left wrist - healed well - Neuro: intellect intact ; motor including gait unremarkable A/P ICD-9-CM ICD-10-CM 1. S/P angioplasty with stent V45.89 Z95.820 2. Non-ST elevation (NSTEMI) myocardial infarction ([facility]) 410.70 I21.4 3. Diabetes mellitus without complication ([facility]) 250.00 E11.9 GLYCOHEMOGLOBIN A1C 4. S/P AVR (aortic valve replacement) V43.3 Z95.2 5. S/P CABG (coronary artery bypass graft) V45.81 Z95.1 6. Hyperlipidemia, unspecified hyperlipidemia type 272.4 E78.5 7. Nephrolithiasis 592.0 N20.0 8. Migraine without aura and without status migrainosus, not intractable 346.10 G43.009 9. Thyroid disease 246.9 E07.9 BASIC METABOLIC PANEL VITAMIN D 25 HYDROXY (DOMINGUEZ) INTACT PTH THYROID STIMULATING HORMONE FREE T4 10. Vitamin D deficiency 268.9 E55.9 BASIC METABOLIC PANEL VITAMIN D 25 HYDROXY (DOMINGUEZ) INTACT PTH THYROID STIMULATING HORMONE FREE T4 11. Hypercalcemia 275.42 E83.52 BASIC METABOLIC PANEL VITAMIN D 25 HYDROXY (DOMINGUEZ) INTACT PTH THYROID STIMULATING HORMONE FREE T4 Patient Instructions Plan Consider cardiac rehab Continue all present medication - will likely need to be on plavix 1 yr - For the left sided back pain : Avoid inciting actvities / Heat / ice - alternate - / Stretches - If not better will refer Physical Therapy Discuss antidepressant medicaiton again if you wish AUTHOR: Zhane Fontana MD 18:57 08/26/2019 documented in this encounter Plan of Treatment Date Type Specialty Care Team Description 10/22/2019 Orders Only Cardiology 11/19/2019 Office [place] [address] [place] [id number] 12/22/2019 Office Visit Internal Medicine Zhane Fontana MD [address] [place] [address] 02/25/2020 Office Visit Cardiology Orlin Ruelas MD [address] [place] [address] Name Type Priority Associated Diagnoses Date/Time BASIC METABOLIC PANEL Lab Routine Thyroid disease 08/26/2019 2:29 PM Vitamin D deficiency EST Hypercalcemia VITAMIN D 25 HYDROXY Lab Routine Thyroid disease 08/26/2019 2:29 PM (DOMINGUEZ) Vitamin D deficiency EST Hypercalcemia INTACT PTH Lab Routine Thyroid disease 08/26/2019 2:29 PM Vitamin D deficiency EST Hypercalcemia THYROID STIMULATING HORMONE Lab Routine Thyroid disease 08/26/2019 2:29 PM Vitamin D deficiency EST Hypercalcemia FREE T4 Lab Routine Thyroid disease 08/26/2019 2:29 PM Vitamin D deficiency EST Hypercalcemia GLYCOHEMOGLOBIN A1C Lab Routine Diabetes mellitus 08/26/2019 2:29 PM without complication EST (HCC) Health Maintenance Due Date Last Done Comments Diabetic Eye Exam 1955 PNEUMOCOCCAL 0-64 YRS (1 of 1963 1 - PPSV23) PAP SMEAR 12/16/2001 12/16/1998 COLONOSCOPY SCREENING 2007 HEMOGLOBIN A1C 09/23/2019 06/24/2019, 11/21/2018, 05/17/2018, Additional history exists LIPID DISORDER SCREENING 06/24/2020 06/24/2019, 04/21/2019, 10/02/2018, Additional history exists URINE MICROALBUMIN 06/24/2020 06/24/2019, 12/11/2017, 05/23/2013, Additional history exists DEPRESSION SCREENING 06/26/2020 06/26/2019 MAMMOGRAM (SCREENING) 07/04/2020 07/04/2019 FOOT EXAM 08/14/2020 08/14/2019, 08/14/2019, 08/14/2019, Additional history exists ZOSTER IMMUNIZATION SERIES 08/26/2020 02/12/2018 Postponed from (2 of 2) 04/09/2018 (Vaccine not available) INFLUENZA VACCINE Completed 06/26/2019, 08/02/2018, 08/24/2017 HPV IMMUNIZATION SERIES Aged Out No longer eligible based on patient's age to complete this topic MENINGOCOCCAL VACCINE IMM Aged Out No longer eligible based on patient's age to complete this topic documented as of this encounter Goals Goal Patient Goal Associated Recent Patient-Stated? Author Type Problems Progress Blood Pressure Blood Pressure 90/62 No Marizol, < 140/90 (08/26/2019 MD Zhane 1:17 PM EST) Note: This is an individualized treatment (blood pressure) goal for Hazelalexsandra Angeles: Displayed above (on the left) is your goal for blood pressure control. Your most recent blood pressure is also shown above, on the right. You should try to achieve blood pressures that are lower than your goal listed above (on the left). Weight increase vs. 18 mo CHF 10.4 (08/26/2019 1:17 PM EST) No Zhane Fontana MD min (lbs) < 5 Note: This is an individualized treatment (congestive heart failure, CHF) goal for Hazel Jolene Karthik: Displayed above (on the right) is how [...] screen (PHQ-9) total score < 5 Depression Zhane Heck MD Note: This is an individualized treatment (depression) goal for Hazel Angeles: Displayed above is your goal for a depression screening (PHQ-9) score that would indicate good control of your depression. Glycohemoglobin A1c < 7.0 Diabetes 7.8 (06/24/2019 9:59 AM Zhane Heck MD EDT) Note: This is an individualized treatment (diabetes control, HgbA1C) goal for Hazel Angeles: Displayed above is your progress towards your HgbA1C goal. Your goal is shown above (on the left); your most recent HgbA1C is shown on the right. Note that lower numbers are better. Keep a regular sleep schedule Lifestyle Zhane Heck MD Note: This is [...] at the Health Maintenance sections of your [facility], Plan of Care, and any After Visit Summaries. Weight loss vs. 18 mo Lifestyle 19.5 (08/26/2019 1:17 PM No Zhane Fontana MD max (lbs) >= 10 EST) Note: This is an individualized lifestyle goal for Hazel Angeles: Your body mass index (BMI) is more than 30. You should lose weight. A reasonable starting goal is to lose 10 pounds. Displayed above is how many pounds you have lost thus far towards your 10 pound weight loss goal. Consume a [id number] diet Lifestyle No Zhane Fontana MD Note: This is an individualized lifestyle goal for Hazel M Lacourt: Please do not add additional salt to [...] of this encounter Implants Implanted Type Area Transportation Clerk Device Shelf Model / Identifier Expiration Serial / Date Lot Aortic Magna Bora 19mm - [id number] N/A: Aortic [employer] 2020 [id number] / Implanted: Qty: 1 on 05/24/2018 by Azael Weems MD at [facility] [employer] [id number] / 3.5 Synergy Stent - [id number] N/A: [place] [id number] / Implanted: Qty: 1 on 08/15/2019 by Ivan Haywood MD at [facility] [employer] / Distal [id number] documented as of this encounter Results Not on filedocumented in this encounter Visit Diagnoses Diagnosis S/P angioplasty with stent - Primary Postsurgical percutaneous transluminal coronary angioplasty status Non-ST elevation (NSTEMI) myocardial infarction (HCC) Acute myocardial infarction, subendocardial infarction, episode of care unspecified Diabetes mellitus without complication (HCC) Type II or unspecified type diabetes mellitus without mention of complication, not stated as uncontrolled S/P AVR (aortic valve replacement) Heart valve replaced by other means S/P CABG (coronary artery bypass graft) Postsurgical aortocoronary bypass status Hyperlipidemia, unspecified hyperlipidemia type Nephrolithiasis Calculus of kidney Migraine without aura and without status migrainosus, not intractable Migraine without aura, without mention of intractable migraine without mention of status migrainosus Thyroid disease Unspecified disorder of thyroid Vitamin D deficiency Unspecified vitamin D deficiency Hypercalcemia documented in this encounter documented as of this encounter Advance Directives Type Date Recorded 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
--- OUTSIDE RECORDS SUMMARY | 2019-09-12 16:28 | XMS REPORT | Summary of Care ---
:1955 Author Organization [facility] Address [address] [facility] [place] [address] Care Team Providers Name Role Phone Zhane Fontana Primary Care Provider Deidra Cameron RNplacer miner Reason for Visit Reason Comments Follow Up tcm , patient went to the ED with SOB and Chest Pain Angiogram , and stent placed Breathing Problem still experiencing Chest Pain X2days ago had to take a nitro Encounter Details Date Type Department Care Team Description 08/26/2019 Office Visit Antonella Pang PA Chest pain, unspecified type (Primary Dx); Cardiology 1 [facility] Atherosclerosis of lime coronary artery of lime heart with unstable angina pectoris (HCC); [address] [facility] [place] [address] Chronic diastolic heart failure (HCC); [place] [address] S/P AVR (aortic valve replacement); [phone] Essential hypertension, benign (Fax) Allergies Active Allergy Reactions Severity Noted Date [...] by Does 1 Device 0 06/19/2018 Active 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 Ins preferred.Dx:E1 1.9 fluticasone (FLONASE) 50 [place] 2 Sprays 1 Each 3 02/08/2019 Active MCG/ACT Nasal Suspension in nose DAILY. [place] & Syringes Does 1 Each by Does [...] affected areas twice daily as needed Nystatin 986905 UNIT/GM 0.0001 g by 60 g 5 [...] nitroglycerin Place 1 Tab 25 Tab 0 08/26/2019 Active (NITROSTAT) 0.4 MG under tongue Sublingual SL Tab EVERY FIVE MINUTES NEEDED for chest pain. nitroglycerin Place 1 Tab 25 Tab 0 [...] Active Problems Problem Noted Date Atherosclerosis of lime coronary artery of lime heart with unstable 2018 angina pectoris Non-ST [...] Overview: Added automatically from request for surgery [id number] Coronary artery vasospasm 05/11/2017 Ureteral stone 04/20/2017 [...] Sign Reading Time Taken Comments Blood Pressure 90/62 08/26/2019 1:17 PM EST Pulse 71 08/26/2019 1:17 PM EST Temperature - - Respiratory Rate - - Oxygen Saturation 97% 08/26/2019 1:17 PM EST Inhaled Oxygen Concentration - - Weight 76.2 kg (168 lb) 08/26/2019 1:17 PM EST Height 158.8 cm (5' 2.5") 08/26/2019 1:17 PM EST Body Mass Index 30.24 08/26/2019 1:17 PM EST documented in this encounter Patient Instructions Patient InstructionsAntonella Bautista PA - 08/26/2019 12:40 PM EST Follow up with Dr. Ruelas in 6 months or sooner as needed Continue to monitor your blood pressure and symptoms. If symptoms worsen, let us know. documented in this encounter Progress Notes Antonella Bautista PA - 08/26/2019 12:40 PM EST [facility] Note Patient: Hazel Angeles Date of : 1955 Date of Service: 08/26/2019 REFERRING PRACTITIONER: Self-Referred PRIMARY CARE PROVIDER: Zhane Fontana Chief Complaint: Chief Complaint Patient presents with Follow Up tcm , patient went to the ED with SOB and Chest Pain Angiogram , and stent placed Breathing Problem still experiencing Chest Pain X2days ago had to take a nitro History of Present Illness: We had the pleasure of seeing Hazel Angeles today. She is a 64-y.o. female with a PMH of DM, hyperlipidemia, RICHARD on CPAP, coronary vasospasm, CAD and aortic stenosis s/pCABG (WYATT-->Diag, SVG-->PL ) and AVR with a #19 Magna bioprosthetic valve by Dr. Weems on05/24/18 who recently presented to the ED with chest pain 08/15/2019. At that time she had a cardiac catheterization with Dr. Haywood s/p PCI to the LCx. She presents today for follow up. Since her cath, she reports feeling two episodes chest discomfort, relieved with SL NTG. Pain occursrandomly- once while walking and once while sitting on the couch talking on the phone. Pain is much less severe and different in nature to what she was having prior to stent. The only thing that bringson the pain is when she presses over the left sternum. She is waiting to hear from [facility] for cardiac rehab. Otherwise, she is trying to get back into her walking routing. Denies palpitations, lower extremity edema, claudication, shortness of breath, dizziness, syncope, PND/orthopnea. Cardiac Studies: EKG Today (I personally reviewed): NSR @ 71BPM with j-point elevation in V1, V2 , V3 which was present on prior ECGs. Poor R wave progression, non-specific ST- T wave changes, IVCD (QRS 114) Left Heart Cath 08/15/[address] Haywood: [place] 2 vessel CAD Severe mid LAD stenosis with a patent WYATT to d LAD Occluded SVG to distal LCx. Severe distal LCx stenosis s/p PCI with a AKUA (Synergy 3.5 mm x 12mm) Echocardiogram 08/15/2019: Normal functioning #19 Magna Bioprosthetic Valve is noted in the Aortic Position with mild valvular aortic regurgitation. Left ventricular cavity size is normal. Left ventricular wall thickness is mildly increased. No regional wall motion abnormalities. Global systolic function is normal with estimated LV EF 60-65%. Grade II left ventricular diastolic dysfunction. Elevated left atrial pressure. Left atrium is mildly dilated. The right atrium is normal in size. The right ventricle is normal in size with preserved contractility. There is mild calcific mitral stenosis. No pericardial effusion. Compared to prior study dated 06/27/18 no significant change. [facility] Conclusions: Severe rest pain with documented PAD on CTA. Using a left common femoral artery access, abdominal aortography was performed with runoff to the level of the iliac arteries b/l. Angiography was performed to the level of the infrapopliteal trifurcation on the left with evidence of 3-vessel runoff. Angiography was performed on the right to the level of the foot which revealed noobstructive PAD. There was an atretic Peroneal Artery that obliterated several centimeters above theankle, a diminutive anterior tibial artery that became atretic at the level of the ankle and provided minimal perfusion to the foot. There was decreased distal Perfusion to the foot with evidence of likely vasospastic disease. A hemodynamic assessment was performed from the level of the aortic arch to the right SFA with no evidence of pressure stepoff. The patient will be discharged to home for outpatient medical management of vasospastic hypoperfusion with vasodilator therapy, followed by functional testing of her lower extremity ischemic symptoms. CTA with abdominal runoff in [place] 02/26/19: IMPRESSION: 1. There is normal appearance of the arterial vascular system involving both lower extremities down to the level of the mid-diaphysis of the tibia. The right anterior tibial artery and right peroneal artery occludes just slightly above the ankle joint as described above with one vessel runoff at the right ankle joint. 2. Normal appearing three-vessel runoff of the left ankle joint. No focal hemodynamically significant stenosis seen involving either of the lower extremities. 3. Obstructive uropathy secondary to a 4 mm stone positioned 2.5 cm above the left ureterovesical junction. There is associated left hydroureteronephrosis. 4. Pre-caval and wyatt hepatis region lymphadenopathy is of uncertain clinical significance. Left external iliac chain lymphadenopathy is also uncertain significance. 5. Cardiomegaly. The patient is status post transaortic endovascular stent prosthetic valve replacement procedure. Post sternotomy findings are noted. 6. Possible 1 cm cecal polyp as described above. 7. Additional nonacute findings as described above TTE 06/27/18: FINAL IMPRESSION: Limited study to assess LV function and prosthetic aortic valve. Mild concentric LVH with moderate left atrial enlargement. High normal LV systolic function with no regional wall motion abnormalities; estimated LVEF 65-70%. Normally functioning bioprosthetic aortic valve with slightly elevated transaortic gradients, as described. No pericardial effusion. Left Heart Cath 05/21/18: SELECTIVE CORONARY ANGIOGRAPHY: 1. LEFT MAIN CORONARY ARTERY: The left main coronary artery had no significant stenosis. This was a large caliber artery that gives off a left circumflex and a left anterior descending branch. 2. LEFT CIRCUMFLEX CORONARY ARTERY: The left circumflex coronary artery is a large caliber vessel with the obtuse marginal branch having significant distribution and wrapping around towards the end of the apex. There is no significant stenosis in the left main. The left circumflex has no significant stenosis, however the posterolateral branch of the left circumflex has approximately 70% stenosis in its proximal region. 3. LEFT ANTERIOR DESCENDING CORONARY ARTERY: The left anterior descending coronary artery is a medium caliber vessel. It has approximately 90% stenosis in the mid left anterior descending region. 4. RIGHT CORONARY ARTERY: The right coronary artery is a large caliber vessel and gives off a posterolateral branch. The right coronary artery has no significant stenosis neither does the posterolateral branch. MORTEZA 05/23/18: FINAL IMPRESSION: Left ventricular cavity size is normal. Left ventricular wall thickness is mildly increased . No evidence of LVOT obstruction. No regional wall motion abnormalities. Global systolic function is normal, with an estimated ejection fraction of 60- 65 %. Severe aortic stenosis The aortic valve is tricuspid, severely calcified, with severely restricted mobility. Transaortic continuous wave systolic velocities peak at 4.1 m/sec. The mean gradient across the aortic valve is 45 mmHg Dimensionless index (LVOT TVI / AV TVI) measures 0.10 which is suggestive of severe(<0.25) aorticstenosis. The mitral valve is thickened with calcified leaflets and restricted mobility of posterior mitral leaflet. There is mild mitral regurgitation. There is no mitral stenosis The mean transmitral gradients range from 2mmHg to 3mmHg at heart rate of 58bpm to 53 bpm respectively The peak transvalvular gradients are 6 mmHg to 9 mmHg at heart rate of 58 bpm to 52 bpm respectively There is no pulmonary vein systolic flow reversal Left atrium is dilated Left atrial appendage has normal size and flow velocity. No evidence of thrombus within left atrium or left atrial appendage. Pulmonary veins have normal origins and flow pattern. Interatrial septum appears intact by 2D imaging, Color Doppler No evidence of PFO or ASD. The right ventricle is normal in size with normal contractility. There is no pericardial effusion. Coronary CTA 03/26/18: LEFT ANTERIOR DESCENDING coronary artery is a medium caliber tortuous vessel that stops short of the apex. It gives rise to two medium caliber diagonal branches. Proximal LAD shows focal calcification with mild stenosis (30 %). Mid LAD shows moderate stenosis (50%). First diagonal is a small to medium caliber vessel with ostial calcification and severe stenosis (70%). Remainder of the LAD branches shows no stenosis. Impression: 1. High calcium score. 2. Single vessel CAD (LAD as described). 3. Trileaflet aortic valve. 4. Normal LV systolic function. Patient Active Problem List Diagnosis Diabetes mellitus (HCC) Hyperlipidemia Fatty liver Acute exacerbation of chronic low back pain Pain in posterior right lower extremity Cramps of right lower extremity Paresthesia of right foot History of lumbar surgery Calculus of kidney Left flank pain Ureteral stone Coronary artery vasospasm (HCC) Severe aortic stenosis Kidney stone Obstruction of left ureter Essential hypertension, benign Other chest pain ASHD (arteriosclerotic heart disease) RICHARD on CPAP Hypercapnic respiratory failure ([facility]) S/P CABG (coronary artery bypass graft) S/P AVR (aortic valve replacement) Sepsis (HCC) Chronic neck and back pain Cervical neuritis Chronic diastolic heart failure (HCC) Hypocitrullinemia (HCC) Diabetes mellitus (HCC) Atherosclerosis of aorta (HCC) Non-ST elevation (NSTEMI) myocardial infarction (HCC) Uncontrolled type 2 diabetes mellitus with ketoacidosis without coma, without long-term current use of insulin (HCC) Non-ST elevation (NSTEMI) myocardial infarction (HCC) Atherosclerosis of lime coronary artery of lime heart with unstable angina pectoris ([facility]) Past Medical History: Diagnosis Date Actinic keratosis Arthritis (aortic stenosis) Coronary artery vasospasm ([facility]) 05/11/2017 Coronary artery vasospasm ([facility]) Depression Diabetes mellitus (HCC) Fatty liver Hyperlipidemia Kidney stones Postmenopausal Sleep apnea Urticaria, chronic Vascular spasm ([facility]) Past Surgical History: Procedure Laterality Date POST-HEART CATH VS & CHECK PULSES ANGIOPLASTY STENT CORONARY VIA GROIN N/A 08/15/2019 Procedure: ANGIOPLASTY STENT CORONARY; Surgeon: Ivan Haywood MD; Location: [facility] APPENDECTOMY BP IN BOTH ARMS FOR CABG PATIENT CARDIAC SURGERY: PREOP VALVE CATHETERIZATION HEART LEFT N/A 05/21/2018 Procedure: CATHETERIZATION HEART LEFT; Surgeon: Ivan Haywood MD; Location: [facility] SECTION NOS CHOLECYSTECTOMY CONSULT TO CARDIO/THORACIC SURGERY ECHO, TRANS ESOPHOGEAL N/A 05/23/2018 Procedure: ECHO, TRANS ESOPHOGEAL; Surgeon: Jenn Sanchez MD; Location: [facility] MT CHEST SURGERY PROCEDURE UNLISTED MT CYSTO/URETERO/PYELOSCOPY W/LITHOTRIPSY Left 04/05/2017 Procedure: LASER LITHOTRIPSY, URETEROSCOPY left stent exchange; Surgeon: William Randolph MD; Location: MAIN OR SPINAL FUSION VAGINAL HYSTERECTOMY Allergies Allergen Reactions Vancomycin Respiratory Reaction Niaspan [Niacin] Swelling Norvasc [Amlodipine] Swelling Current Outpatient Medications Medication Sig aspirin (ECOTRIN) [...] Tab by mouth DAILY. Continuous Blood Gluc Pharmacy Graduate Intern (FREESTYLE TIERNEY READER) Does not apply Device 1 Each by Does not apply route Continuous. DxE11.9 Continuous Blood Gluc Sensor (FREESTYLE TIERNEY SENSOR SYSTEM) Does not apply Misc 1 Each by Does not apply route EVERY TEN DAYS. Dx E11.9 diphenhydrAMINE (BENADRYL) 25 MG Oral Cap Take 25 mg by mouth EVERY BEDTIME. fluticasone (FLONASE) 50 MCG/ACT Nasal Suspension [place] 2 Sprays in nose DAILY. gabapentin (NEURONTIN) [...] differently: Take 100 mg by mouth DAILY.) [place] & Syringes Does not apply Misc 1 Each by Does not apply route FOUR TIMES DAILY. BD pen needles 31G x 8mm, patient uses four times daily , insulin dependent nitroglycerin (NITROSTAT) 0.4 MG Sublingual SL Tab Place 1 Tab under tongue EVERY FIVE MINUTES NEEDED for chest pain. Nystatin 272989 UNIT/GM Apply externally Powder 0.0001 g by [...] No current facility-administered medications for this visit. Family History Problem Relation Age of Onset Diabetes Mother Skin Cancer Mother Allergies Mother Arthritis Mother Asthma Mother Heart Mother Valve replacement, stents Hypertension Mother Diabetes Sister Heart Sister PR Social History Socioeconomic History Marital status: Spouse name: Not on file Number of children: Not on file Years of education: Not on file Highest education level: Not on file Occupational History Not on file Social Needs Financial resource strain: Not on file Food insecurity: Worry: Not on file Inability: Not on file Transportation needs: Medical: Not on file Non-medical: Not on file Tobacco Use Smoking status: Never Smoker Smokeless tobacco: Never Used Substance and Sexual Activity Alcohol use: Yes Comment: rare Drug use: No Sexual activity: Not on file Lifestyle Physical activity: Days per week: Not on file Minutes per session: Not on file Stress: Not on file Relationships Social connections: Talks on phone: Not on file Gets together: Not on file Attends yarsani service: Not on file Active member of club or organization: Not on file Attends meetings of clubs or organizations: Not on file Relationship status: Not on file Intimate partner violence: Fear of current or ex partner: Not on file Emotionally abused: Not on file Physically abused: Not on file Forced sexual activity: Not on file Other Topics Concern Back Care Not Asked Bike Helmet Not Asked Blood Transfusions Not Asked Caffeine Concern Not Asked Exercise Not Asked Hobby Hazards Not Asked International Travel Not Asked Service Not Asked Occupational Exposure Not Asked Seat Belt Not Asked Self-Exams Not Asked Sleep Concern Not Asked Special Diet Not Asked Stress Concern Not Asked Weight Concern Not Asked 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 Denies fatigue. NEUROLOGIC: Denies transient ischemic attackor cerebrovascular accident signs or symptoms. Denies syncope or presyncopal episodes. CARDIOVASCULAR: + nonanginal chest pain, denies palpations, denies edema. RESPITATORY: denies shortness of breath, denies orthopnea. GASTROINTESTINAL: Denies melena. GENITOURINARY: Denies hematura or nocturia. MUSCULOSKELETAL: denies claudication. All other remaining systems are negative. Except that stated above in history of present illness Physical Exam: Vitals: 08/26/19 1317 BP: 90/62 BP Location: Left arm Patient Position: Sitting Pulse: 71 SpO2: 97% Weight: 168 lb (76.2 kg) Height: 5' 2.5" (1.588 m) Body mass index is 30.24 kg/m. General: Well nourished, alert 64-y.o. female in NAD HEENT: anicteric, MMM, no E/E OP, conj pink Neck: No carotid bruits CV: RRR, normal s1/s2, +2/6 MELIDA murmur, no rubs, or gallops. +TTP over left sternum. Pulm: CTA bilaterally without wheezes, rhonchi, or rales. No increased work of breathing. Abd: soft, NT, ND, +BS. No appreciable pulsatile masses or bruits. Ext: No lower extremity edema, no cyanosis, no cords, redness, or warmth, 2+ distal pulses Neuro: no gross focal deficits Skin: no visible lesions Labs: Lab Results Component Value Date NA 139 08/17/2019 K 3.9 08/17/2019 CL 104 08/17/2019 CO2 29 08/17/2019 GLUCOSE 98 08/17/2019 BUN 20 (H) 08/17/2019 CREATININE 0.8 08/17/2019 CALCIUM 11.1 (H) 08/17/2019 TP 7.2 08/17/2019 ALBUMIN 3.9 08/17/2019 AST 52 (H) 08/17/2019 ALT 53 (H) 08/17/2019 ALK 66 08/17/2019 TBILI 0.5 08/17/2019 EGFR >60 08/17/2019 Lab Results Component Value Date NT PRO BNP 130 (H) 08/14/2019 Lab Results Component Value Date CHOL 119 06/24/2019 TRIG 181 (H) 06/24/2019 HDL 38 (L) 06/24/2019 LDL 45 06/24/2019 LDLHDLRATIO 1.2 06/24/2019 CHOLHDLRATIO 3.1 06/24/2019 Assessment & Plan: Hazel Angeles is a 64-y.o. female with PMH of DM, hyperlipidemia, RICHARD on CPAP , coronary vasospasm,CAD and aortic stenosis s/p CABG (WYATT-->Diag, SVG--> PL) and AVR with a #19 Magna bioprosthetic valve by Dr. Weems on 05/24/18 who recently presented to the ED with chest pain 08/15/2019. At that time she had a cardiac catheterization with Dr. Haywood s/p PCI to the LCx. She presents today forfollow up. ICD-9-CM ICD-10-CM 1. Chest pain, unspecified type 786.50 R07.9 AMBULATORY 12 LEAD EKG INTERP ONLY 2. Atherosclerosis of lime coronary artery of lime heart with unstable angina pectoris (HCC) 414.01 I25.110 411.1 3. Chronic diastolic heart failure (HCC) 428.32 I50.32 4. S/P AVR (aortic valve replacement) V43.3 Z95.2 5. Essential hypertension, benign 401.1 I10 1. CAD s/p PCI distal LCx 08/15/2019: Although her chest pain was relieved with nitro, the other features of her pain do not sound cardiac in nature. The pain occurs independent of activity. She has a history of vasospasms, however the pain today is reproducible to touch and I was able to elicit it byphysical exam. Additionally, her blood pressure runs low (she takes HCTZ for kidney stones, which she gets chronically). Therefore, I am not inclined to add any CCBs at this time, as it does not reallysound like a vasospasm. Antiplatelets: Cont one year of DAPT with ASA and Brilinta (until 08/2020) , then lifelong ASA Statin: LDL was at goal 45 in 06/2019. Continue Crestor to 40mg daily for goal LDL < 70. Beta-jose: Cont low dose atenolol 25mg daily (previously on bisoprolol but had to switch d/t manufacturing issue). TOY-inhibitor/ARB: Not on, but LVEF normal. Anti-Anginals: Cont Atenolol. Didn't tolerate amlodipine d/t LE edema. 2. RLE PAD: [facility] from [facility] obtained (see above). She has started a walking routine and since then has felt a significant decrease in her leg cramping. She is not limited by claudication symptoms. She does have chronic pain/ numbness in her foot, which feels different than her claudication symptoms and she was told was due to sacroiliac disc disease. 3. S/p AVR: Doing well clinically and recent echoes have looked good. Cont ASA as above. Will plan to recheck an echo in 12 months for yearly surveillance of the valve. Thank you for allowing me to participate in the care of Hazel Angeles. We will plan on f/u in our office in 6 months or sooner prn. If you have any questions or concerns please feel free to call ouroffice. GRACIE Cooper, 08/26/2019, 15:34 documented in this encounter Plan of Treatment Date Type Specialty Care Team Description 10/22/2019 Orders Only Cardiology 11/19/2019 Office Visit Endocrinology Ekta Wood MD [address] [facility] [place] [address] 12/22/2019 Office Visit Internal Medicine Zhane Fontana MD [address] [place] [address] [phone] 02/25/2020 Office Visit Cardiology Orlin Ruelas MD [address] [place] [address] [phone] Name Type Priority Associated Diagnoses Order Schedule AMBULATORY 12 LEAD EKG EKG Routine Chest pain, unspecified Ordered: 2018 INTERP ONLY type Health Maintenance Due Date Last Done Comments [...] Progress Blood Pressure Blood Pressure 90/62 No Crepet, < 140/90 (08/26/2019 MD Zhane 1:17 PM [...] (PHQ-9) total score < 5 Depression No hZane Fontana MD Note: This is an individualized [...] symptoms of depression. Keep immunizations current Lifestyle No Zhane Fontana MD Note: This [...] is an individualized lifestyle goal for Hazel Anegles: Your body mass index (BMI) is more than 30. You should lose weight. A reasonable starting goal is to lose 10 pounds. Displayed above is how many pounds you have lost thus far towards your 10 pound weight loss goal. Consume a [id number] diet Lifestyle Zhane Heck MD Note: This [...] of this encounter Implants Implanted Type Area Dry Color Mixer Device Shelf Model / Identifier Expiration Serial / Date Lot Aortic Michelle Urenaentier 19mm - [id number] N/A: Aortic [employer] 2020 [id number] / Implanted: Qty: 1 on 05/24/2018 by Azael Weems MD at [facility] [employer] [id number] / 3.02/16 Synergy Stent - [id number] N/A: [place] [id number] / Implanted: Qty: 1 on 08/15/2019 by Ivan Haywood MD at [facility] [employer] / Distal [id number] documented as of this encounter Results Not on filedocumented in this encounter Visit Diagnoses Diagnosis Chest pain, unspecified type - Primary Atherosclerosis of lime coronary artery of lime heart with unstable angina pectoris (HCC) Chronic diastolic heart failure (HCC) Chronic diastolic heart failure S/P AVR (aortic valve replacement) Heart valve replaced by other means Essential hypertension, benign documented in this encounter documented as of this encounter [facility] Direct[facility] Type Date Recorded Patient Security Coordinator Explanation [facility] 05/30/2018 11:51 AM Code [...]
--- OUTSIDE RECORDS SUMMARY | 2019-09-12 16:28 | XMS REPORT | Summary of Care ---
:1955 Author Organization [facility] Address [address] [facility] [place] [address] Care Team Providers Name Role Phone Zhane Fontana Primary Care Provider Deidra Cameron RNsenior marketing coordinator Reason for Referral Refer to Department Only (Routine) Status Reason Specialty Diagnoses / Referred By Referred To Procedures Contact Contact Pending Review Physical Therapy Diagnoses Acute left-sided low back pain with left-sided sciatica Zhane Fontana MD [address] [place] [address] Medication Prior Authorization (Routine) Status Reason Specialty Diagnoses / Referred By Referred To Procedures Contact Contact Pending Review Diagnoses Acute left-sided low back pain with left-sided sciatica Zhane Fontana MD [address] [place], [place] [address] [address] Reason for Visit Reason Comments Back Pain c/o recent flare up of left sided lower back pain x1.5 weeks. Denies injury. Unable to sit, unable to lay on left side. Encounter Details Date Type Department Care Team Description 08/30/2019 Office Visit [place] [facility] Zhane Fontana MD Hypercalcemia (Primary Dx); Medicine [facility] Non-ST elevation (NSTEMI) myocardial infarction (HCC); [place] [address] Diabetes mellitus without complication (HCC); [place] [address] Acute left-sided low back pain with left-sided sciatica [phone] Allergies Active Allergy Reactions Severity Noted Date Comments Niacin Swelling 03/22/2017 Amlodipine Swelling 06/25/2019 Vancomycin Respiratory Reaction High 02/04/2010 documented as of this encounter (statuses as of 08/30/2019) Medications Medication Sig Dispensed Refills Start Date [...] by Does 1 Device 0 06/19/2018 Active Desk Pens Assembler (FREESTYLE not apply route TIERNEY READER) Does [...] 12/25/2018 Active SOLOSTAR) 100 UNIT/ML beneath the skin Subcutaneous Solution DIRECTED. INJECT 1 Pen-injector UNIT FOR EVERY 5 CARBS EATEN UP TO 40 UNITS PER DAY Continuous Blood Gluc Sensor 1 Each by Does not 3 Each 5 12/25/2018 Active (FREESTYLE TIERNEY SENSOR apply route EVERY SYSTEM) Does not apply Misc TEN DAYS. Dx E11.9 Insulin Glargine (BASAGLAR Inject 44 Units 45 mL 3 12/27/2018 Active KWIKPEN) 100 UNIT/ML beneath the skin Subcutaneous Solution EVERY BEDTIME. Pen-injector Inject 44 Units beneath the skin EVERY EVENING Blood Glucose Monitor 1 Device by Does 1 Device 0 12/30/2018 Active Software Does not apply not apply route Device DIRECTED. DX:E11.9. Brand: Insurance preferred Glucose Blood In Vitro Strip 1 Each by In Vitro 125 Each 4 12/30/2018 Active route FOUR TIMES DAILY. Ins preferred.Dx:E11.9 fluticasone (FLONASE) 50 [place] 2 Sprays in 1 Each 3 02/08/2019 Active MCG/ACT Nasal Suspension nose DAILY. [employer] Syringes Does not 1 Each by Does not 100 Each 5 03/28/2019 Active apply Misc apply route FOUR TIMES DAILY. BD pen needles 31G x 8mm, patient uses four times daily, insulin dependent atenolol (TENORMIN) 25 MG Take 0.5 Tabs by 45 Tab 3 04/21/2019 Active Oral Tab mouth DAILY. Rosuvastatin Calcium Take 1 Tab by mouth 90 Tab 3 04/21/2019 Active (CRESTOR) 40 MG Oral DAILY. TabIndications: Mixed hyperlipidemia zolpidem (AMBIEN) 10 MG Oral Take 1 Tab by mouth 30 Tab 3 06/11/2019 Active TabIndications: Primary EVERY BEDTIME insomnia NEEDED (sleep). Max Daily Amount: 10 mg. gabapentin (NEURONTIN) 300 Take 1 Cap by mouth 90 Cap 3 06/26/2019 Active MG Oral Cap THREE TIMES DAILY. ketoconazole (NIZORAL) 2 % Apply to affected 60 g 3 08/02/2019 Active Apply externally Cream areas twice daily as needed Nystatin 539360 UNIT/GM 0.0001 g by Apply 60 g 5 08/02/2019 Active Apply externally Powder externally route TWO TIMES DAILY NEEDED (rash). hydrochlorothiazide (HCTZ, Take 1 Tab by mouth 45 Tab 5 08/14/2019 Active ORETIC) 25 MG Oral Tab EVERY MORNING. Semaglutide,0.25 or Inject 0.25 mg 3 Pre-filled Pen 3 08/14/2019 Active 0.5MG/DOS, (OZEMPIC, 0.25 OR beneath the skin Syringe 0.5 MG/DOSE,) 2 MG/1.5ML EVERY 7 DAYS. Subcutaneous Solution Pen-injector Insulin Pen Needle (PEN 1 Each by Does not 150 Each 5 08/14/2019 Active NEEDLES) 31G X 5 MM Does not apply route FIVE apply Misc TIMES DAILY. clopidogrel (PLAVIX) 75 MG Take 1 Tab by mouth 60 Tab 0 08/18/2019 Active Oral Tab DAILY. Glucagon, rDNA, 1 MG 1 Kit by Injection 1 Kit 0 08/26/2019 Active Injection Kit route NEEDED (For emergency use). carisoprodol (SOMA) 350 MG Take 1 Tab by mouth 120 Tab 0 08/26/2019 Active Oral Tab FOUR TIMES DAILY NEEDED (back pain). Max Daily Amount: 1,400 mg. nitroglycerin (NITROSTAT) Place 1 Tab under 25 Tab 0 08/26/2019 Active 0.4 MG Sublingual SL Tab tongue EVERY FIVE MINUTES NEEDED for chest pain. diclofenac (VOLTAREN) 1 % 2 g by Topical 1 Tube 3 08/30/2019 Active Transdermal GelIndications: route FOUR TIMES Acute left-sided low back DAILY NEEDED pain with left-sided (lbp). sciatica documented as of this encounter (statuses as of 08/30/2019) Active Problems Problem Noted Date Hypercalcemia 08/30/2019 Overview: Working with endocrinology on this - etiology unclear Atherosclerosis of stebbins coronary artery of stebbins heart with unstable 2018 angina pectoris Non-ST [...] Overview: Added automatically from request for surgery [id number] Coronary artery vasospasm 05/11/2017 Ureteral stone 04/20/2017 [...] as of this encounter (statuses as of 08/30/2019) Resolved Problems Problem Noted Date Resolved Date Type 2 diabetes mellitus without complication, without 04/24/2017 04/17/2018 long-term current use of insulin documented as of this encounter (statuses as of 08/30/2019) Immunizations Name Administration Dates Next Due Influenza [...] Sign Reading Time Taken Comments Blood Pressure 106/62 08/30/2019 12:31 PM EST Pulse 60 08/30/2019 12:31 PM EST Temperature - - Respiratory Rate 18 08/30/2019 12:31 PM EST Oxygen Saturation - - Inhaled Oxygen Concentration - - Weight 76.7 kg (169 lb) 08/30/2019 12:31 PM EST Height 158.8 cm (5' 2.5") 08/30/2019 12:31 PM EST Body Mass Index 30.42 08/30/2019 12:31 PM EST documented in this encounter Patient Instructions Patient InstructionsCreZhane guadalupe MD - 08/30/2019 12:30 PM ESTSuggests for low back pain ( musculoskeletal likely ) Rest - avoid walking around - Ice/ heat - Topicals - Lidocaine - otc - Lidocaine cream / If not getting bettter and wish MRI - Let me know documented in this encounter Progress Notes Zhane Fontana MD - 08/30/2019 12:30 PM EST NAME:Hazel Angeles 1955: 1955 ENC Date: 08/30/2019 CC: Chief Complaint Patient presents with Back Pain c/o recent flare up of left sided lower back pain x1.5 weeks. Denies injury. Unable to sit, unableto lay on left side. Hazel Angeles is a 64-y.o. female complex medicine patient - history of CAD ( status post 2 vessel cabg 2017) Status post AVR 2017 / diastolic heart failure / obsructive sleep apnea / DM2 ( follows with Dr Zhao) Recurrent kidney stones Flare of left sided back pain - Goes around the hip Spasm in the buttock and in the front of the leg- History of 2 low back surgeries- Has used heat/ ice /muscle relaxer /dilaudid 3x day - doing the latter recently - Has also used extra gabapentin- laminectomy twice Current Outpatient Medications Medication Sig aspirin (ECOTRIN) [...] Tab by mouth DAILY. Continuous Blood Gluc Desk Pens Assembler (FREESTYLE TIERNEY READER) Does not apply Device 1 Each by Does not apply route Continuous. DxE11.9 Continuous Blood Gluc Sensor (FREESTYLE TIERNEY SENSOR SYSTEM) Does not apply Misc 1 Each by Does not apply route EVERY TEN DAYS. Dx E11.9 diclofenac (VOLTAREN) 1 % Transdermal Gel 2 g by Topical route FOUR TIMES DAILY NEEDED (lbp). diphenhydrAMINE (BENADRYL) 25 MG Oral Cap Take 25 mg by mouth EVERY BEDTIME. fluticasone (FLONASE) 50 MCG/ACT Nasal Suspension [place] 2 Sprays in nose DAILY. gabapentin (NEURONTIN) [...] differently: Take 100 mg by mouth DAILY.) [employer] & Syringes Does not apply Misc 1 Each by Does not apply route FOUR TIMES DAILY. BD pen needles 31G x 8mm, patient uses four times daily , insulin dependent nitroglycerin (NITROSTAT) 0.4 MG Sublingual SL Tab Place 1 Tab under tongue EVERY FIVE MINUTES NEEDED for chest pain. Nystatin 672035 UNIT/GM Apply externally Powder 0.0001 g by [...] Patient Active Problem List Diagnosis Date Noted Hypercalcemia 08/30/2019 Working with endocrinology on this - etiology unclear Atherosclerosis of stebbins coronary artery of stebbins heart with unstable angina pectoris ([facility])08/26/2019 Non-ST elevation (NSTEMI) myocardial infarction ([facility]) 12/28/2018 Atherosclerosis of aorta ([facility]) 12/24/2018 Non-ST elevation (NSTEMI) myocardial infarction ([facility]) 12/24/2018 Uncontrolled type 2 diabetes mellitus with ketoacidosis without coma, without long-term current use of insulin ([facility]) 12/24/2018 Chronic diastolic heart failure ([facility]) 10/14/2018 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 Diabetes mellitus ([facility]) 10/14/2018 Sepsis ([facility]) 08/23/2018 Chronic neck and back pain 08/23/2018 Cervical neuritis 08/23/2018 RICHARD on CPAP 05/25/2018 Hypercapnic respiratory failure ([facility]) 05/25/2018 Acute S/P CABG (coronary artery bypass graft) 05/25/2018 S/P AVR (aortic valve replacement) 05/25/2018 ASHD (arteriosclerotic heart disease) 05/23/2018 Other chest pain 05/21/2018 Obstruction of left ureter 10/05/2017 Essential hypertension, benign 10/05/2017 Kidney stone 09/13/2017 Added automatically from request for surgery [id number] Severe aortic stenosis 05/07/17: Echocardiogram Aortic Valve [...] Hypertension Mother Diabetes Sister Heart Sister PR No cardiopulmonary symptoms No upper or lower GI complaints No urinary tract symptoms. No bruising/ bleeding. No neurological complaints . No insomnia.+ . Social History Tobacco Use Smoking status: Never Smoker Smokeless tobacco: Never Used Substance Use Topics Alcohol use: Yes Comment: rare Drug use: No Results for orders placed or performed in visit on 08/26/19 BASIC METABOLIC PANEL Result Value Ref Range Glucose 81 70 - 99 mg/dl BUN 27 (H) 7 - 17 mg/dl Creatinine 0.9 0.7 - 1.2 mg/dl Sodium 140 134 - 145 mmol/L Potassium 3.5 3.5 - 5.1 mmol/L Chloride 100 98 - 107 mmol/L CO2 28 22 - 30 mmol/L Calcium 11.2 (H) 8.3 - 10.1 mg/dl eGFR >60 See Interpretation Below ml/min/1.73ml Sq BUN/Creatinine Ratio 30 (H) 6 - 22 RATIO Anion Gap 12 (H) 3 - 11 mmol/L VITAMIN D 25 HYDROXY (DOMINGUEZ) Result Value Ref Range Vitamin D 25 HYDROXY 39.4 32.0 - 100.0 ng/ml Narrative Interpretation: <20 ng/ml Deficiency 20-<30 ng/ml Insufficiency 32-100 ng/ml Sufficiency >100 ng/ml Potential Toxicity INTACT PTH Result Value Ref Range PTH Intact 11.9 10.0 - 73.0 pg/ml THYROID STIMULATING HORMONE Result Value Ref Range TSH 0.39 (L) 0.47 - 4.68 uIu/ml FREE T4 Result Value Ref Range Free T4 1.0 0.8 - 2.2 NG/DL GLYCOHEMOGLOBIN A1C Result Value Ref Range Glycohemoglobin A1C 7.5 (H) <=5.6 % OBJECTIVE: BP 106/62 (BP Location: Left arm, Patient Position: Sitting) | Pulse 60 | Resp 18 | Ht 5' 2.5" (1.588 m) | Wt 169 lb (76.7 kg) | BMI 30.42 kg/m . Heent neg Neck no JVD, thyromegaly or bruit Lungs Clear CV rrr Abd soft, nontender, no organomegaly Ext no edema; no lesions; pulses intact Neuro: intellect intact ; motor including gait unremarkable A/P ICD-9-CM ICD-10-CM 1. Hypercalcemia 275.42 E83.52 2. Non-ST elevation (NSTEMI) myocardial infarction (HCC) 410.70 I21.4 3. Diabetes mellitus without complication (HCC) 250.00 E11.9 4. Acute left-sided low back pain with left-sided sciatica 724.2 M54.42 diclofenac (VOLTAREN) 1 % Transdermal Gel 724.3 REFER TO PHYSICAL THERAPY / REHAB Patient Instructions Suggests for low back pain ( musculoskeletal likely ) Rest - avoid walking around - Ice/ heat - Topicals - Lidocaine - otc - Lidocaine cream / AUTHOR: Zhane Fontana MD 13:31 08/30/2019 documented in this encounter Plan of Treatment Date Type Specialty Care Team Description 10/22/2019 Orders Only Cardiology 11/19/2019 Office Visit Endocrinology Ekta Wood MD [address] [facility] [place] [address] 12/22/2019 Office Visit Internal Medicine Zhane Fontana MD [address] [place] [address] 02/25/2020 Office Visit Cardiology Orlin Ruelas MD [address] [place] [address] Name Type Priority Associated Diagnoses Order Schedule REFER TO PHYSICAL Referral Routine Acute left-sided low 99 Occurrences starting THERAPY / REHAB back pain with 08/30/2019 until left-sided sciatica 08/30/2020 Health Maintenance Due Date Last Done Comments Diabetic Eye Exam 1955 PNEUMOCOCCAL 0-64 YRS (1 of 1963 1 - PPSV23) PAP SMEAR 12/16/2001 12/16/1998 Colonoscopy 2007 HEMOGLOBIN A1C 11/26/2019 08/26/2019, 06/24/2019, 11/21/2018, Additional history exists LIPID DISORDER SCREENING 06/24/2020 [...] Type Problems Progress Blood Pressure Blood Pressure 106/62 No Marizol, < 140/90 (08/30/2019 MD Zhane 12:31 PM EST) Note: This is an individualized treatment (blood pressure) goal for Hazel Angeles: Displayed above (on the left) is your goal for blood pressure control. Your most recent blood pressure is also shown above, on the right. You should try to achieve blood pressures that are lower than your goal listed above (on the left). Weight increase vs. 18 mo CHF 11.4 (08/30/2019 12:31 PM EST) No Zhane Fontana MD min [...] your depression. Glycohemoglobin A1c < 7.0 Diabetes 7.5 (08/26/2019 2:29 PM No Zhane Fontana MD EST) Note: This is an individualized treatment (diabetes [...] Summaries. Weight loss vs. 18 mo Lifestyle 18.5 (08/30/2019 12:31 PM Zhane Heck MD max (lbs) >= 10 EST) Note: This is an individualized lifestyle goal for Hazel Angeles: Your body mass index (BMI) is more than 30. You should lose weight. A reasonable starting goal is to lose 10 pounds. Displayed above is how many pounds you have lost thus far towards your 10 pound weight loss goal. Consume a [id number] diet Lifestyle Zhane Heck MD Note: This [...] of this encounter Implants Implanted Type Area Vapor Coater Device Shelf Model / Identifier Expiration Serial / Date Lot Aortic Magna Bora 19mm - [id number] N/A: Aortic [employer] 2020 [id number] / Implanted: Qty: 1 on 05/24/2018 by Azael Weems MD at [facility] [employer] [id number] / 3.02/16 Synergy Stent - [id number] N/A: CALLI [id number] / Implanted: Qty: 1 on 08/15/2019 by Ivan Haywood MD at [facility] [employer] / Distal [id number] documented as of this encounter Results Not on filedocumented in this encounter Visit Diagnoses Diagnosis Hypercalcemia - Primary Non-ST elevation (NSTEMI) myocardial infarction (HCC) Acute myocardial infarction, subendocardial infarction, episode of care unspecified Diabetes mellitus without complication (HCC) Type II or unspecified type diabetes mellitus without mention of complication, not stated as uncontrolled Acute left-sided low back pain with left-sided sciatica documented in this encounter documented as of this encounter Advance Directives Type Date Recorded Patient Junior Project Coordinator Explanation Advance Directives 05/30/2018 11:51 AM [...]
--- OUTSIDE RECORDS SUMMARY | 2019-09-12 16:28 | XMS REPORT | Summary of Care ---
:1955 Author Organization [facility] Address [address] [facility] [place] [address] Care Team Providers Name Role Phone Zhane Fontana Primary Care Provider Deidra Cameron RNhousecalls nurse Reason for Visit Reason Comments Rash Rash under breasts and abdomen fold. Encounter Details Date Type Department Care Team Description 08/02/2019 Office Visit [facility] Tylor Avendano MD Yeast dermatitis (Primary Dx); Medicine [address] [facility] Lateral epicondylitis of left elbow [address] [place] [address] [place] [address] [phone] Allergies Active Allergy Reactions Severity Noted Date Comments Niacin Swelling 03/22/2017 Amlodipine Swelling 06/25/2019 Vancomycin Respiratory Reaction High 02/04/2010 documented as of this encounter (statuses as of 08/02/2019) Medications Medication Sig Dispensed Refills Start Date [...] by Does 1 Device 0 06/19/2018 Active Quick Sketch Artist (FREESTYLE not apply route TIERNEY READER) Does [...] CAPSULE BY MOUTH EVERY DELAYED RELEASE DAY tobramycin (TOBREX, Place 1 Drop in 1 Bottle 0 10/04/2018 Active TOBRALCON) 0.3 % right eye EVERY Ophthalmic Solution FOUR HOURS. aspirin (ECOTRIN) 81 MG Take 81 mg by 0 Active Oral Tab EC mouth DAILY. Magnesium Citrate 200 MG Take 1 Tab by 30 Tab 3 12/25/2018 Active Oral Tab mouth DAILY. Additional information Patient taking differently: 100 mg Oral DAILY, Reported on 06/26/2019 11:20 AM Glucagon, rDNA, 1 MG Injection 1 Kit by Injection 1 Kit 0 12/25/2018 Active Kit route NEEDED (For emergency use). Insulin Lispro (ADMELOG Inject 40 Units 15 mL 5 12/25/2018 Active SOLOSTAR) 100 UNIT/ML beneath the skin Subcutaneous Solution DIRECTED. INJECT 1 Pen-injector UNIT FOR EVERY 5 CARBS EATEN UP TO 40 UNITS PER DAY Continuous Blood Gluc Sensor 1 Each by Does not 3 Each 5 12/25/2018 Active (FREESTYLE TIERNEY SENSOR SYSTEM) apply route EVERY TEN Does not apply Misc DAYS. Dx E11.9 Insulin Glargine (BASAGLAR Inject 44 Units 45 mL 3 12/27/2018 Active KWIKPEN) 100 UNIT/ML beneath the skin EVERY Subcutaneous Solution BEDTIME. Inject 44 Pen-injector Units beneath the skin EVERY EVENING Blood Glucose Monitor Software 1 Device by Does not 1 Device 0 12/30/2018 Active Does not apply Device apply route DIRECTED. DX:E11.9. Brand: Insurance preferred Glucose Blood In Vitro Strip 1 Each by In Vitro 125 Each 4 12/30/2018 Active route FOUR TIMES DAILY. Ins preferred.Dx:E11.9 fluticasone (FLONASE) 50 MCG/ACT [place] 2 Sprays in nose 1 Each 3 2018 Active Nasal Suspension DAILY. [place] & Syringes Does not 1 Each by Does not 100 Each 5 03/28/2019 Active apply Misc apply route FOUR TIMES DAILY. BD pen needles 31G x 8mm, patient uses four times daily, insulin dependent atenolol (TENORMIN) 25 MG Oral Take 0.5 Tabs by mouth 45 Tab 3 04/21/2019 Active Tab DAILY. Rosuvastatin Calcium (CRESTOR) Take 1 Tab by mouth 90 Tab 3 04/21/2019 Active 40 MG Oral TabIndications: Mixed DAILY. hyperlipidemia zolpidem (AMBIEN) 10 MG Oral Take 1 Tab by mouth 30 Tab 3 06/11/2019 Active TabIndications: Primary insomnia EVERY BEDTIME NEEDED (sleep). Max Daily Amount: 10 mg. carisoprodol (SOMA) 350 MG Oral Take 1 Tab by mouth 120 Tab 0 06/24/2019 Active Tab FOUR TIMES DAILY NEEDED (back pain). Max Daily Amount: 1,400 mg. Cyclobenzaprine HCl (FLEXERIL Take 10 mg by mouth 0 Active PO) TWICE DAILY. carisoprodol (SOMA) 350 MG Oral Take 1 Tab by mouth 30 Tab 1 06/26/2019 Active TabIndications: Chronic midline FOUR TIMES DAILY. Max low back pain without sciatica Daily Amount: 1,400 mg. gabapentin (NEURONTIN) 300 MG Take 1 Cap by mouth 90 Cap 3 06/26/2019 Active Oral Cap THREE TIMES DAILY. hydrochlorothiazide (HCTZ, TAKE 1.5 TABS BY MOUTH 45 Tab 0 07/31/2019 Active ORETIC) 25 MG Oral Tab EVERY MORNING. ketoconazole (NIZORAL) 2 % Apply Apply to affected 60 g 3 08/02/2019 Active externally Cream areas twice daily as needed Nystatin 157063 UNIT/GM Apply 0.0001 g by Apply 60 g 5 08/02/2019 Active externally Powder externally route TWO TIMES DAILY NEEDED (rash). documented as of this encounter (statuses as of 08/02/2019) Active Problems Problem Noted Date Non-ST elevation [...] replacement) 05/25/2018 ASHD (arteriosclerotic heart disease) 05/23/2018 Chest pain 05/21/2018 Obstruction of left ureter 10/05/2017 Essential hypertension, benign 10/05/2017 Kidney stone 09/13/2017 Overview: Added automatically from request for surgery [id number] Coronary artery vasospasm 05/11/2017 Ureteral stone 04/20/2017 [...] as of this encounter (statuses as of 08/02/2019) Resolved Problems Problem Noted Date Resolved Date Type 2 diabetes mellitus without complication, without 04/24/2017 04/17/2018 long-term current use of insulin documented as of this encounter (statuses as of 08/02/2019) Immunizations Name Administration Dates Next Due Influenza [...] Sign Reading Time Taken Comments Blood Pressure 128/74 08/02/2019 10:48 AM EDT Pulse 68 08/02/2019 10:48 AM EDT Temperature - - Respiratory Rate - - Oxygen Saturation - - Inhaled Oxygen Concentration - - Weight 77.1 kg (170 lb) 08/02/2019 10:48 AM EDT Height 157.5 cm (5' 2") 08/02/2019 10:48 AM EDT Body Mass Index 31.09 08/02/2019 10:48 AM EDT documented in this encounter Patient Instructions Patient InstructionsTylor Avendano MD - 08/02/2019 10:40 AM EDT Continue same medicines Use ketoconazole cream and nystatin powder daily Wearing undergarment with extra panel to support skin fold in lower abdomen, to help aerate the area Do exercises for tennis elbow as shown below Tennis Elbow Exercises WHAT YOU NEED TO KNOW: What are tennis elbow exercises? Tennis elbow exercises help decrease pain and swelling in your elbow, forearm, wrist, and hand. They also help strengthen your arm muscles. Start these exercises slowly. Stop if you feel pain. Finger extensions: Hold the fingertips of your injured arm close together with your fingers and thumb straight. Put a rubber band around the outside of your fingers and thumb. Spread your fingersapart and then slowly bring them together without letting the rubber band fall off. Repeat 40 times. Wrist flexor stretch: Hold your arm straight out in front of you with your palm facing down. Use your other hand to grasp your fingers. Keep your elbow straight and slowly bend your hand back. Your fingertips should point up and your palm should face away from you. Do this until you feel a stretch in the top of your wrist. Hold for 10 seconds. Repeat 5 times. Wrist extensor stretch: This stretch is the opposite of the wrist flexor stretch. Hold your arm straight out in front of you with your palm facing down. Use your other hand to grasp your fingers.Keep your elbow straight and slowly bend your hand down. Your fingertips should point down and your palm should face you. Do this until you feel a stretch in the bottom of your upper wrist. Hold for 10seconds. Repeat 5 times. Bicep curls: Place your uninjured hand under your injured elbow for support. Turn your palm sothat it faces up and hold a light weight in your hand. Bend your elbow and straighten 30 times. When should I contact my healthcare provider? You have more pain or weakness in your arm, wrist, hand, or fingers. You have new numbness or tingling in your arm, hand, or fingers. You have questions or concerns about tennis elbow exercises. CARE AGREEMENT: You have the right to help plan your care. Learn about your health condition and how it may be treated. Discuss treatment options with your caregivers to decide what care you want to receive. You always have the right to refuse treatment. The above information is an hearing aid repair technician only. It is not intended as medical advice for individual conditions or treatments. Talk to your doctor, nurse or pharmacist before following any medical regimen to see if it is safe and effective for you. 2016 [employer]. Information is for End User's use only and may not be sold, redistributed or otherwise used for commercial purposes. All illustrations and images included in CareNotes are the copyrighted property of [employer] or [employer]. documented in this encounter Progress Notes Tylor Avendano MD - 08/02/2019 10:40 AM EDT PATIENT: Hazel Angeles : 1955 DATE OF SERVICE: 08/02/2019 CHIEF COMPLAINT: Chief Complaint Patient presents with Rash Rash under breasts and abdomen fold. Subjective HISTORY OF PRESENT ILLNESS: Hazel Angeles is a 64-y.o. female. Rash Having rash under breasts and in abdominal fold anteriorly. She is used different products for thissuch as Goldbond which have helped temporarily. She took fluconazole which also helped but then it came back. Also tried mometasone but did not help. Past Medical History: Diagnosis Date Actinic keratosis Arthritis (aortic stenosis) Coronary artery vasospasm (HCC) 05/11/2017 Coronary artery vasospasm (HCC) Depression Diabetes mellitus (HCC) Fatty liver Hyperlipidemia Kidney stones Postmenopausal Sleep apnea Urticaria, chronic Vascular spasm (HCC) Family History Problem Relation Age of Onset Diabetes Mother Skin Cancer Mother Allergies Mother Arthritis Mother Asthma Mother Heart Mother Valve replacement, stents Hypertension Mother Diabetes Sister Heart Sister [place] Current Outpatient Medications Medication Sig aspirin (ECOTRIN) [...] (back pain). Max Daily Amount: 1,400 mg. carisoprodol (SOMA) 350 MG Oral Tab Take 1 Tab by mouth FOUR TIMES DAILY. Max Daily Amount: 1,400 mg. Continuous Blood Gluc Quick Sketch Artist (FREESTYLE TIERNEY READER) Does not apply Device 1 Each by Does not apply route Continuous. DxE11.9 Continuous Blood Gluc Sensor (FREESTYLE TIERNEY SENSOR SYSTEM) Does not apply Misc 1 Each by Does not apply route EVERY TEN DAYS. Dx E11.9 Cyclobenzaprine HCl (FLEXERIL PO) Take 10 mg by mouth TWICE DAILY. diphenhydrAMINE (BENADRYL) 25 MG Oral Cap Take 25 mg by mouth EVERY BEDTIME. fluticasone (FLONASE) 50 MCG/ACT Nasal Suspension [place] 2 Sprays in nose DAILY. gabapentin (NEURONTIN) 300 MG Oral Cap Take 1 Cap by mouth THREE TIMES DAILY. Glucagon, rDNA, 1 MG Injection Kit 1 Kit by Injection route NEEDED ( For emergency use). Glucose Blood In Vitro Strip 1 Each by In Vitro route FOUR TIMES DAILY. Ins preferred.Dx:E11.9 hydrochlorothiazide (HCTZ, ORETIC) 25 MG Oral Tab TAKE 1.5 TABS BY MOUTH EVERY MORNING. HYDROmorphone (DILAUDID) 2 MG Oral [...] UP TO 40 UNITS PER DAY Insulin Syringe-Needle U-100 31G X 3/8" 1 [...] differently: Take 100 mg by mouth DAILY.) [place] & Syringes Does not apply Misc 1 Each by Does not apply route FOUR TIMES DAILY. BD pen needles 31G x 8mm, patient uses four times daily , insulin dependent nitroglycerin (NITROSTAT) 0.4 MG Subling[address] SL Tab Place 1 Tab under tongue EVERY FIVE MINUTES NEEDED for chest pain. Nystatin 205940 UNIT/GM Apply externally Powder 0.0001 g by Apply externally route TWO TIMES DAILY NEEDED (rash). Omeprazole delayed rel cap 20 MG Oral CAPSULE DELAYED RELEASE TAKE ONE CAPSULE BY MOUTH EVERYDAY ondansetron (ZOFRAN ODT) 4 MG Oral TABLET DISPERSIBLE Take 1 Tab by mouth THREE TIMES DAILY NEEDED (nausea). Rosuvastatin Calcium (CRESTOR) 40 MG Oral Tab Take 1 Tab by mouth DAILY. tobramycin (TOBREX, TOBRALCON) 0.3 % Ophthalmic Solution Place 1 Drop in right eye EVERY FOURHOURS. zolpidem (AMBIEN) 10 MG Oral Tab Take 1 Tab by mouth EVERY BEDTIME NEEDED (sleep). Max Daily Amount: 10 mg. No current facility-administered medications for this visit. 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 Musculoskeletal: Positive for joint pain. Skin: Positive for rash. Objective PHYSICAL EXAM: VITALS: BP 128/74 | Pulse 68 | Ht 5' 2" (1.575 m) | Wt 170 lb (77.1 kg) | BMI 31.09 kg/m Body mass index is 31.09 kg/m. Physical Exam Yeast type dermatitis under breasts and in the anterior abdominal wall fold. No evidence of secondary bacterial infection. Left lateral epicondyles tender to palpation. Tender with stressing it during wrist extension ASSESSMENT / IMPRESSION: ICD-9-CM ICD-10-CM 1. Yeast dermatitistreat with nystatin powder and ketoconazole cream, alternating manner 112.3B37.2 2. Lateral epicondylitis of left elbowdo home exercises 726.32 M77.12 Patient Instructions Continue same medicines Use ketoconazole cream and nystatin powder daily Wearing undergarment with extra panel to support skin fold in lower abdomen, to help aerate the area Do exercises for tennis elbow as shown below Tennis Elbow Exercises WHAT YOU NEED TO KNOW: What are tennis elbow exercises? Tennis elbow exercises help decrease pain and swelling in your elbow, forearm, wrist, and hand. They also help strengthen your arm muscles. Start these exercises slowly. Stop if you feel pain. Finger extensions: Hold the fingertips of your injured arm close together with your fingers and thumb straight. Put a rubber band around the outside of your fingers and thumb. Spread your fingersapart and then slowly bring them together without letting the rubber band fall off. Repeat 40 times. Wrist flexor stretch: Hold your arm straight out in front of you with your palm facing down. Use your other hand to grasp your fingers. Keep your elbow straight and slowly bend your hand back. Your fingertips should point up and your palm should face away from you. Do this until you feel a stretch in the top of your wrist. Hold for 10 seconds. Repeat 5 times. Wrist extensor stretch: This stretch is the opposite of the wrist flexor stretch. Hold your arm straight out in front of you with your palm facing down. Use your other hand to grasp your fingers.Keep your elbow straight and slowly bend your hand down. Your fingertips should point down and your palm should face you. Do this until you feel a stretch in the bottom of your upper wrist. Hold for 10seconds. Repeat 5 times. Bicep curls: Place your uninjured hand under your injured elbow for support. Turn your palm sothat it faces up and hold a light weight in your hand. Bend your elbow and straighten 30 times. When should I contact my healthcare provider? You have more pain or weakness in your arm, wrist, hand, or fingers. You have new numbness or tingling in your arm, hand, or fingers. You have questions or concerns about tennis elbow exercises. CARE AGREEMENT: You have the right to help plan your care. Learn about your health condition and how it may be treated. Discuss treatment options with your caregivers to decide what care you want to receive. You always have the right to refuse treatment. The above information is an hearing aid repair technician only. It is not intended as medical advice for individual conditions or treatments. Talk to your doctor, nurse or pharmacist before following any medical regimen to see if it is safe and effective for you. 2016 [employer] Information is for End User's use only and may not be sold, redistributed or otherwise used for commercial purposes. All illustrations and images included in CareNotes are the copyrighted property of [employer] or [employer]. Author: Tylor Avendano MD 08/02/2019 16:15 documented in this encounter Plan of Treatment Date Type Specialty Care Team Description 10/16/2019 [facility] [address] [facility] [id number] 10/22/2019 Orders Only Cardiology 10/29/2019 Office Visit Cardiology Orlin Ruelas MD [address] [place] [address] 11/17/2019 Office Visit Internal Medicine Zhane Fontana MD [address] [place] [address] Health Maintenance Due Date Last Done Comments Diabetic Eye Exam 1955 PNEUMOCOCCAL 0-64 YRS (1 of 1963 1 - PPSV23) PAP SMEAR 12/16/2001 12/16/1998 COLONOSCOPY SCREENING 2007 ZOSTER IMMUNIZATION SERIES 04/09/2018 02/12/2018 (2 of 2) HEMOGLOBIN A1C 09/23/2019 06/24/2019, 11/21/2018, 05/17/2018, Additional history exists FOOT EXAM 12/26/2019 12/25/2018, 12/25/2018, 12/25/2018, Additional history exists LIPID DISORDER SCREENING 06/24/2020 06/24/2019, 04/21/2019, 10/02/2018, Additional history exists URINE MICROALBUMIN 06/24/2020 06/24/2019, 12/11/2017, 05/23/2013, Additional history exists DEPRESSION SCREENING 06/26/2020 06/26/2019 MAMMOGRAM (SCREENING) 07/04/2020 07/04/2019 INFLUENZA VACCINE Completed 06/26/2019, 08/02/2018, 08/24/2017 HPV IMMUNIZATION SERIES Aged Out No longer eligible based on patient's age to complete this topic MENINGOCOCCAL VACCINE IMM Aged Out No longer eligible based on patient's age to complete this topic documented as of this encounter Goals Goal Patient Goal Associated Recent Patient-Stated? Author Type Problems Progress Blood Pressure Blood Pressure 128/74 No Marizol, < 140/90 (08/02/2019 MD Zhane 10:48 AM EDT) Note: This is an individualized treatment (blood pressure) goal for Hazel Angeles: Displayed above (on the left) is your goal for blood pressure control. Your most recent blood pressure is also shown above, on the right. You should try to achieve blood pressures that are lower than your goal listed above (on the left). Weight increase vs. 18 mo CHF 12.4 (08/02/2019 10:48 AM EDT) Zhane Heck MD min (lbs) < 5 Note: This [...] lifestyle goal for Hazel M Lacourt: Please maintain a regular sleep schedule. This [...] Summaries. Weight loss vs. 18 mo Lifestyle 17.5 (08/02/2019 10:48 AM No Zhane Fontana MD max (lbs) >= 10 EDT) Note: This is an individualized lifestyle goal for Hazel Angeles: Your body mass index (BMI) is more than 30. You should lose weight. A reasonable starting goal is to lose 10 pounds. Displayed above is how many pounds you have lost thus far towards your 10 pound weight loss goal. Consume a [id number] diet Lifestyle No Zhane Fontana MD Note: [...] basis. Check your weight daily Self-management Zhane eHck MD Note: This is an individualized self-management goal for Hazel Angeles: Please check your weight daily. Refer to the accompanying CHF treatment goal and call your doctor immediately for further instructions on how to respond to unexpected weight gain. documented as of this encounter Implants Implanted Type Area Online Marketing Coordinator Device Shelf Model / Identifier Expiration Serial / Date Lot Aortic Michelle Sahni 19mm - [id number] N/A: Aortic [employer] 2020 [id number] / Implanted: Qty: 1 on 05/24/2018 by Azael Weems MD at [facility] [employer] [id number] / documented as of this encounter Results Not on filedocumented in this encounter Visit Diagnoses Diagnosis Yeast dermatitis - Primary Lateral epicondylitis of left elbow Lateral epicondylitis of elbow documented in this encounter documented as of this encounter Advance Directives Type Date Recorded Patient Model And Pattern Supervisor Explanation Advance Directives 05/30/2018 11:51 AM Code Status Date Activated Date Inactivated Comments DNI 05/21/2018 8:54 AM 05/26/2018 6:41 AM [...] have decision making capacity? yes Full Code 03/29/2017 4:45 PM 03/29/2017 8:12 PM Does patient have decision making capacity? yes
--- OUTSIDE RECORDS SUMMARY | 2019-09-12 16:28 | XMS REPORT | Summary of Care ---
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 female Active Problems: * No active hospital problems. * Troponin (ng/ml) Date Value 08/14/2019 <0.012 Reason for Visit Reason Comments Chest Pain Auth/Cert Status Reason Specialty Diagnoses / Procedures Referred By Contact Referred To Contact Encounter Details Date Type Department Care Team Description 08/14/2019 - Hospital Encounter [facility] Anatoly Macias MD [address] [address] Inpatient 08/17/2019 1 Alfonso Mabry MD [address] [address] [place] [id number] Marissa Lopez MD [address] [address] [phone] Allergies Active Allergy Reactions Severity Noted Date Comments Niacin Swelling 03/22/2017 Amlodipine Swelling 06/25/2019 Vancomycin Respiratory Reaction High 02/04/2010 documented as of this encounter (statuses as of 08/18/2019) Medications Medication Sig Dispensed Refills Start Date [...] by Does 1 Device 0 06/19/2018 Active Decay Control Operator (FREESTYLE not apply route TIERNEY READER) Does [...] DAILY. Ins preferred.Dx:E1 1.9 fluticasone (FLONASE) 50 [place] 2 Sprays 1 Each 3 02/08/2019 Active MCG/ACT Nasal Suspension in nose DAILY. [place] & Syringes Does 1 Each by Does [...] affected areas twice daily as needed Nystatin 622917 UNIT/GM 0.0001 g by 60 g 5 [...] route not apply Misc FIVE TIMES DAILY. ticagrelor (BRILINTA) 90 Take 1 Tab by 180 Tab 0 08/17/2019 Active MG Oral Tab mouth TWICE DAILY. clopidogrel (PLAVIX) 75 Take 1 Tab by 60 Tab 0 08/18/2019 Active MG Oral Tab mouth DAILY. tobramycin (TOBREX, Place 1 Drop in 1 Bottle 0 10/04/201808/14 Discontinued TOBRALCON) 0.3 % right eye (Provider Ophthalmic Solution FOUR HOURS. Discontinued) Cyclobenzaprine HCl Take 10 mg by 0 08/14 Discontinued (FLEXERIL PO) mouth TWICE (Provider DAILY. Discontinued) carisoprodol (SOMA) 350 Take 1 Tab by 30 Tab 1 06/26/201908/14 Discontinued MG Oral TabIndications: mouth (Provider Chronic midline low back TIMES DAILY. Discontinued) pain without sciatica Max Daily Amount: 1,400 mg. lisinopril (PRINIVIL, Take 1 Tab by 30 Tab 0 08/14/201908/14 Discontinued ZESTRIL) 2.5 MG Oral Tab mouth DAILY. 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 Ureteral stone 04/20/2017 [...] as of this encounter (statuses as of 08/18/2019) Resolved Problems Problem Noted Date Resolved Date Type 2 diabetes mellitus without complication, without 04/24/2017 04/17/2018 long-term current use of insulin documented as of this encounter (statuses as of 08/18/2019) Immunizations Name Administration Dates Next Due Influenza [...] Sign Reading Time Taken Comments Blood Pressure 117/59 08/17/2019 6:00 AM EST Pulse 70 08/17/2019 8:45 AM EST Temperature 36.2 08/17/2019 6:00 AM EST C (97.2 F) Respiratory Rate 18 08/17/2019 6:00 AM EST Oxygen Saturation 96% 08/17/2019 8:45 AM EST Inhaled Oxygen Concentration - - Weight 76.9 kg (169 lb 8 oz) 08/14/2019 11:15 PM EST Height 157.5 cm (5' 2") 08/14/2019 11:15 PM EST Body Mass Index 31 08/14/2019 11:15 PM EST documented in this encounter Discharge Instructions InstructionsVoShraddha gtz RN - 08/17/2019Provider's Instructions Reason for Admission or Diagnosis:Other chest pain Goals:Patient to maintain functional ability. Activity/Restrictions: activity as tolerated Skin/Wound Care: None needed Discharge Diet: Cardiac Diet and Diabetic Diet Special Instructions: Start taking plavix 75 mg daily from tomorrow. Schedule an appointment in cardiology clinic in 2 weeks and PCP in 1-2 weeks. Resume all other home medication. Discharge Provider: Ashlie Ayala MD Attending: Marissa Lopez MD Time: 11:53 Nurse's Instructions Problems to report to your Physician: Excessive pain or discomfort Fever > 100.5 degrees Difficulty breathing Increase or smell in wound drainage Skin/Wound Care: Skin intact on discharge: None Medical Equipment/Supplies to help you at home: none Help arranged for you Home Health/Receiving Agency: n/a documented in this encounter Progress Notes Ashlie Ayala MD - 08/15/2019 4:14 PM EST [address] [address] Internal Medicine Progress Note Date of Service: 08/15/2019 Patient: Hazel M Karthik Munoz #: [id number] Attending: ALFONSO JARA MD ,MD Subjective: Day 1 of hospitalization Overnight events: No acute overnight events. She mentions has very bad headache, about 8/10 in intensity, but her chest pain has been decreasing. The patient denies chest pain, shortness of breath, nausea/vomiting, palpitations, vision changes, abdominal pain, new swelling. Objective: Alert, oriented x3 General: mild distress Heart: regular rate & rhythm and S1 S2 normal Lungs: clear to auscultation and percussion Abd: soft, nontender, nondistended, no masses or organomegaly; BS normal Ext: no edema Neuro: no focal deficits and CN ll - Xll intact Vitals: Blood pressure 109/55, pulse 77, temperature 97.9 F (36.6 C), temperature source Temporal, resp. rate 16, height 5' 2" (1.575 m), weight 169 lb 8 oz (76.9 kg), SpO2 97 %, not currently . I/O: Intake/Output Summary (Last 24 hours) at 08/15/2019 1614 Last data filed at 08/15/2019 1300 Gross per 24 hour Intake 450 ml Output 50 ml Net 400 ml Relevant labs and Radiology Results: Recent Labs 08/14/19 1431 08/15/19 0759 WBC 6.87 5.61 HGB 13.1 13.2 HCT 40.8 41.2 PLAT 235 261 Recent Labs 08/14/19 1431 08/15/19 0759 NA 139 141 K 3.2* 3.9 CL 100 103 CO2 30 31* GLUCOSE 169* 100* BUN 21* 16 CREATININE 0.7 0.7 EGFR >60 >60 CALCIUM 10.5* 10.5* TP 8.1 -- ALBUMIN 4.4 -- ALK 94 -- AST 55* -- ALT 57* -- TBILI 0.4 -- XR CHEST 2 VIEW PA AND LATERAL (STANDARD) Final Result No acute findings. THIS DOCUMENT HAS BEEN ELECTRONICALLY SIGNED BY CANDICE PEARSON MD CARDIAC CATHETERIZATION (Results Pending) Assessment/Plan: Principal Problem: Other chest pain Chest pain rule out ACS: - presented with exertional chest pain. - 3 sets of troponin negative. - EKG did not show ST-T segment changes, TTE showed no regional wall motion abnormalities, LV EF 60-65%, grade II left ventricular diastolic dysfunction. -Cardiology consulted, she was taken for cath today we will follow the results. -We will continue with aspirin, atenolol, statin. -Monitor on telemetry. Headache: -Present in the frontal in the temporal region, tenderness present in the frontal sinus. -ESR mildly elevated. -Given the past medical history of migraines and nature of her headache, migraine headache, tension headache. - Will give sumatriptan, will c/w sumatriptan for headache. Chronic diastolic heart failure/hypertension: Not in exacerbation TTE: LVEF 60 to 65%, grade 2 left ventricular diastolic dysfunction We will continue with atenolol, hydrochlorothiazide. Diabetes mellitus: On insulin glargine 44 units nightly, lispro as needed. Will stop her home medication, start her on lispro sliding scale. RICHARD: Does not use CPAP regularly. DVT Prophylaxis: Lovenox Discussed with ALFONSO Roberts MD ,MD Author: Ashlie Ayala MD Associated attestation - Alfonso Jara MD - [facility]16/2019 11:[facility] Supervising MD Documentation Date of Service: 08/15/2019 B# [id number] I saw and evaluated the patient. Discussed with resident and agree with the resident's findings andplan as documented in the resident's note. Alfonso Jara MD Supervising Physiciandocumented in this encounter Plan of Treatment Date Type Specialty Care Team Description 08/28/2019 Office Visit Internal Medicine Zhane Fontana MD [address] [place] [address] 09/01/2019 Office Visit Cardiology Antonella Bautista PA [address] [address] 10/22/2019 Orders Only Cardiology 10/29/2019 Office Visit Cardiology Orlin Ruelas MD [address] [place] [address] 11/17/2019 Office Visit Internal Medicine Zhane Fontana MD [address] [place] [address] [phone] 11/19/2019 Office Visit Endocrinology Ekta Wood MD [address] [facility] [address] [address] Name Type Priority Associated Diagnoses Date/Time INPT/ED 12 LEAD EKG EKG STAT 08/14/2019 1:24 PM EST INPT/ED 12 LEAD EKG EKG STAT 08/14/2019 11:40 PM EST INPT/ED 12 LEAD EKG EKG STAT 08/16/2019 6:30 PM EST Health Maintenance Due Date Last Done Comments [...] mo CHF 11.9 (08/14/2019 11:15 PM EST) Zhane Heck MD min (lbs) < 5 [...] 10 pound weight loss goal. Consume a [id number] diet Lifestyle Zhane Heck MD Note: This [...] of this encounter Implants Implanted Type Area Preformer Impregnated Fabrics Device Shelf Model / Identifier Expiration Serial / Date Lot Aortic Magna Bora 19mm - [id number] N/A: Aortic [employer] 2020 [id number] / Implanted: Qty: 1 on 05/24/2018 by Azael Weems MD at [facility] [employer] [id number] / 3.02/16 Synergy Stent - [id number] N/A: [place] [id number] / Implanted: Qty: 1 on 08/15/2019 by Ivan Haywood MD at [facility] [employer] / Distal [id number] documented as of this encounter Procedures Procedure Name Priority Date/Time Associated Comments Diagnosis HC GLUCOSE, BY MONITOR Routine 08/17/2019 10:57 Results for this AM EST procedure are in the results section. HC GLUCOSE, BY MONITOR Routine 08/17/2019 7:37 Results for this AM EST procedure are in the results section. CBC WITH DIFFERENTIAL Routine 08/17/2019 2:37 Results for this AM EST procedure are in the results section. TROPONIN Routine 08/17/2019 2:36 Results for this AM EST procedure are in the results section. MAGNESIUM LEVEL Routine 08/17/2019 2:36 Results for this AM EST procedure are in the results section. COMPREHENSIVE METABOLIC Routine 08/17/2019 2:36 Results for this PANEL AM EST procedure are in the results section. HC GLUCOSE, BY MONITOR Routine 08/16/2019 7:57 Results for this PM EST procedure are in the results section. TROPONIN Routine 08/16/2019 6:45 Results for this PM EST procedure are in the results section. CT ABDOMEN PELVIS Routine 08/16/2019 5:09 Results for this WITHOUT IV CONTRAST PM EST procedure are in the results section. HC GLUCOSE, BY MONITOR Routine 08/16/2019 4:33 Results for this PM EST procedure are in the results section. HC GLUCOSE, BY MONITOR Routine 08/16/2019 10:33 Results for this AM EST procedure are in the results section. CBC WITH DIFFERENTIAL Routine 08/16/2019 10:24 Results for this AM EST procedure are in the results section. MAGNESIUM LEVEL Routine 08/16/2019 10:24 Results for this AM EST procedure are in the results section. BASIC METABOLIC PANEL Routine 08/16/2019 10:24 Results for this AM EST procedure are in the results section. HC GLUCOSE, BY MONITOR Routine 08/16/2019 7:47 Results for this AM EST procedure are in the results section. HC GLUCOSE, BY MONITOR Routine 08/15/2019 8:08 Results for this PM EST procedure are in the results section. ANGIOGRAM,CORONARY Routine 08/15/2019 5:51 Results for this PM EST procedure are in the results section. BYPASS ANGIOGRAPHY Routine 08/15/2019 5:51 Results for this PM EST procedure are in the results section. ANGIOPLASTY STENT Routine 08/15/2019 5:51 Results for this CORONARY PM EST procedure are in the results section. FLU A/FLU B/RSV PCR Routine 08/15/2019 11:51 Results for this ASSAY (TESTED AT [facility] AM EST procedure are in LAB ONLY) the results section. HC GLUCOSE, BY MONITOR Routine 08/15/2019 11:49 Results for this AM EST procedure are in the results section. ECHOCARDIOGRAM TTE Routine 08/15/2019 10:56 Results for this AM EST procedure are in the results section. CBC WITH DIFFERENTIAL Routine 08/15/2019 7:59 Results for this AM EST procedure are in the results section. TROPONIN STAT 08/15/2019 7:59 Results for this AM EST procedure are in the results section. MAGNESIUM LEVEL Routine 08/15/2019 7:59 Results for this AM EST procedure are in the results section. BASIC METABOLIC PANEL STAT 08/15/2019 7:59 Results for this AM EST procedure are in the results section. SEDIMENTATION RATE STAT 08/15/2019 7:59 Results for this AM EST procedure are in the results section. TROPONIN STAT 08/14/2019 10:36 Results for this PM EST procedure are in the results section. NT PROBNP STAT 08/14/2019 6:55 Results for this PM EST procedure are in the results section. MAGNESIUM LEVEL Routine 08/14/2019 6:55 Results for this PM EST procedure are in the results section. XR CHEST 2 VIEW PA AND STAT 08/14/2019 2:50 Results for this LATERAL (STANDARD) PM EST procedure are in the results section. CBC WITH DIFFERENTIAL STAT 08/14/2019 2:31 Results for this PM EST procedure are in the results section. TROPONIN STAT 08/14/2019 2:31 Results for this PM EST procedure are in the results section. MAGNESIUM LEVEL STAT 08/14/2019 2:31 Results for this PM EST procedure are in the results section. COMPREHENSIVE METABOLIC STAT 08/14/2019 2:31 Results for this PANEL PM EST procedure are in the results section. SEDIMENTATION RATE STAT 08/14/2019 2:31 Results for this PM EST procedure are in the results section. documented in this encounter Results GLUCOSE (POCT) (08/17/2019 10:57 AM EST) Glucose POCT 129 (H) 70 - 99 mg/dl POINT OF CARE Result Comment: TESTING Performed at: [facility] POCT Murali Chavez MD, Laboratory Electromedical Equipment Technician [address] [address] Specimen Performing Organization Address City/State/Zipcode Phone Number POINT OF CARE TESTING GLUCOSE (POCT) (08/17/2019 7:37 AM EST) Glucose POCT 104 (H) 70 - 99 mg/dl POINT OF CARE Result Comment: TESTING Performed at: [facility] POCT Murali Chavez MD, Laboratory Electromedical Equipment Technician [address] [address] Specimen Performing Organization Address City/State/Zipcode Phone Number POINT OF CARE TESTING CBC WITH DIFFERENTIAL (08/17/2019 2:37 AM EST) WBC Count 7.03 3.98 - 10.04 K/uL [facility] RBC Count 4.36 3.93 - 5.22 M/UL [facility] Hemoglobin 12.1 11.2 - 15.7 g/dL [facility] Hematocrit 37.3 34.1 - 44.9 % [facility] MCV 85.6 79.4 - 94.8 FL [facility] MCH 27.8 25.6 - 32.2 PG [facility] MCHC 32.4 32.2 - 35.5 g/dL [facility] Platelet Count 205 182 - 369 K/uL [facility] MPV 8.8 (L) 9.4 - 12.3 FL [facility] RDW 15.2 (H) 11.7 - 14.4 % [facility] Neutrophil % 52.0 34.0 - 71.1 % [facility] Lymphocyte % 31.6 19.3 - 51.7 % [facility] Monocyte % 11.7 4.7 - 12.5 % [facility] Eosinophil % 4.0 0.7 - 5.8 % [facility] Basophil % 0.6 0.1 - 1.2 % [facility] nRBC % 0.0 0.0 - 0.2 % [facility] Neutrophil # 3.66 1.56 - 6.13 K/UL [facility] Lymphocyte # 2.22 1.18 - 3.74 K/UL [facility] Monocyte # 0.82 0.24 - 0.86 K/UL [facility] Eosinophil # 0.28 0.04 - 0.36 K/UL [facility] Basophil # 0.04 0.01 - 0.08 K/UL [facility] Immature Gran % 0.1 0.0 - 0.4 % [facility] Immature Gran # 0.01 0.00 - 0.03 K/uL [facility] NRBC # 0.00 0.00 - 0.12 K/uL [facility] Specimen Blood - Blood specimen (specimen) Performing Organization Address [facility] Phone Number [facility] [address] [place] [address] TROPONIN (08/17/2019 2:36 AM EST) Troponin 0.016 0.000 - 0.034 [facility]: ng/ml GROUP LABORATORY Negative less than or equal to 0.034 ng/ml Indeterminate 0.0351 - 0.119 ng/ml (Suggest Repeat in 4 Hours) Critical (AMI Cutoff) greater than or equal to 0.120 ng/ml Specimen Blood - Blood specimen (specimen) Performing Organization Address [facility] Phone Number [facility] [address] [place] [address] MAGNESIUM LEVEL (08/17/2019 2:36 AM EST) Magnesium 2.2 1.6 - 2.3 MG/DL [facility] Specimen Blood - Blood specimen (specimen) Performing Organization Address [facility] Phone Number [facility] [address] [place] [address] [phone] COMPREHENSIVE METABOLIC PANEL (08/17/2019 2:36 AM EST) Sodium 139 134 - 145 mmol/L [facility] Potassium 3.9 3.5 - 5.1 mmol/L [facility] Chloride 104 98 - 107 mmol/L [facility] CO2 29 22 - 30 mmol/L [facility] Calcium 11.1 (H) 8.3 - 10.1 mg/dl [facility] Albumin 3.9 3.5 - 5.0 g/dl [facility] BUN 20 (H) 7 - 17 mg/dl [facility] Creatinine 0.8 0.7 - 1.2 mg/dl [facility] Glucose 98 70 - 99 mg/dl [facility] Total Protein 7.2 6.3 - 8.2 g/dl [facility] Total Bilirubin 0.5 0.0 - 1.1 MG/DL [facility] AST 52 (H) 15 - 46 U/L [facility] ALT 53 (H) 9 - 52 U/L [facility] Alkaline 66 40 - 150 U/L [facility]ORATORY eGFR >60 See Interpretation [facility] Comment: Below ml/min/1.73ml GROUP Estimated GFR Interpretation: Sq LABORATORY Above 60ml/min/1.73m2 = Normal Renal Function 30-59 ml/min/1.73m2 = Stage 3 Chronic Kidney Disease 15-29 ml/min/1.73m2 = Stage 4 Chronic Kidney Disease Less than 15 ml/min/1.73m2 = Stage 5 Chronic Kidney Disease The GFR value is calculated using the Modification of Diet in Renal Disease ( MDRD) Study Equation which can be found at: https://www.kidney.org/content/cpvj-psmpn-indzlvwc BUN/Creatinine 25 (H) 6 - 22 RATIO [facility] LABORATORY Anion Gap 6 3 - 11 mmol/L [facility] A/G Ratio 1.2 0.8 - 2.0 ratio [facility] Specimen Blood - Blood specimen (specimen) Performing Organization Address City/[facility] Phone Number [facility] [address] [place] [address] [address] [address] [phone] GLUCOSE (POCT) (08/16/2019 7:57 PM EST) Glucose POCT 201 (H) 70 - 99 mg/dl POINT OF CARE Result Comment: TESTING Performed at: [facility] POCT Murali Chavez MD, Laboratory Electromedical Equipment Technician [address] [address] Specimen Performing Organization Address [facility] Phone Number POINT OF CARE TESTING TROPONIN (08/16/2019 6:45 PM EST) Troponin 0.016 0.000 - 0.034 [facility] Comment: ng/ml GROUP LABORATORY Negative less than or equal to 0.034 ng/ml Indeterminate 0.0351 - 0.119 ng/ml (Suggest Repeat in 4 Hours) Critical (AMI Cutoff) greater than or equal to 0.120 ng/ml Specimen Blood - Blood specimen (specimen) Performing Organization Address City/State/Zipcode Phone Number [facility] [address] [place] [address] CT ABDOMEN PELVIS WITHOUT IV CONTRAST (08/16/2019 5:09 PM EST) Specimen Impressions Performed At 1. No evidence of obstructive uropathy. Nonobstructing renal calculi again seen bilaterally. Signed by Ellen Bliss MD on 08/16/2019 5:55 PM Narrative Performed At Procedure(s): CT ABDOMEN PELVIS WITHOUT IV CONTRAST Date of service: 08/16/2019 4:52 PM Provided clinical information: 64 years, Female, "Flank pain, stone disease suspected" Procedure and materials: Standard protocol. Contrast: None. Comparison studies: February 05, 2018 EXAM: CT of the abdomen, and pelvis without IV contrast. OBSERVATIONS: Lower Chest: Lung bases clear. ABDOMEN: Liver: A few sub-5 mm hypodensities seen in the liver. The liver is otherwise smooth in contour without focal atrophy or hypertrophy. These hypodensities in the liver are most consistent with benign findings and are less conspicuous than seen previously. Gallbladder: Cholecystectomy.. Kidneys/Ureters: There are punctate nonobstructing calculi throughout the kidneys bilaterally. Additionally, there is a 2 mm calculus within the left renal collecting system. There is no hydronephrosis or hydroureter. No evidence of renal edema. The large 2 cm calculus seen within the proximal left ureter is no longer present. There are no calculi within normal course of the ureters. Spleen: Unremarkable. Pancreas: Unremarkable. No pancreatic ductal dilation. Adrenal glands: Unremarkable. Abdominal and pelvic vasculature: Unremarkable noncontrast appearance. Lymph nodes: No lymphadenopathy by CT size criteria given the limits of a noncontrast exam. Fluid: No free or loculated fluid. Bowel: A few scattered colonic diverticula without CT evidence of acute diverticulitis.. Miscellaneous: No free air. PELVIS: The urinary bladder demonstrates no wall thickening or calculi. No other abnormalities are identified in the pelvis. MUSCULOSKELETAL: Severe intervertebral disc disease L5-S1. Facet arthropathy of the lower lumbar spine.. Air in the subcutaneous fat of the right lower quadrant of the anterior abdomen, likely consistent with an injection site. Procedure Note Interface, Rad Results - 08/16/2019 5:57 PM EST Procedure(s): CT ABDOMEN PELVIS WITHOUT IV CONTRAST Date of service: 08/16/2019 4:52 PM Provided clinical information: 64 years, Female, "Flank pain, stone disease suspected" Procedure and materials: Standard protocol. Contrast: None. Comparison studies: February 05, 2018 EXAM: CT of the abdomen, and pelvis without IV contrast. OBSERVATIONS: Lower Chest: Lung bases clear. ABDOMEN: Liver: A few sub-5 mm hypodensities seen in the liver. The liver is otherwise smooth in contour without focal atrophy or hypertrophy. These hypodensities in the liver are most consistent with benign findings and are less conspicuous than seen previously. Gallbladder: Cholecystectomy.. Kidneys/Ureters: There are punctate nonobstructing calculi throughout the kidneys bilaterally. Additionally, there is a 2 mm calculus within the left renal collecting system. There is no hydronephrosis or hydroureter. No evidence of renal edema. The large 2 cm calculus seen within the proximal left ureter is no longer present. There are no calculi within normal course of the ureters. Spleen: Unremarkable. Pancreas: Unremarkable. No pancreatic ductal dilation. Adrenal glands: Unremarkable. Abdominal and pelvic vasculature: Unremarkable noncontrast appearance. Lymph nodes: No lymphadenopathy by CT size criteria given the limits of a noncontrast exam. Fluid: No free or loculated fluid. Bowel: A few scattered colonic diverticula without CT evidence of acute diverticulitis.. Miscellaneous: No free air. PELVIS: The urinary bladder demonstrates no wall thickening or calculi. No other abnormalities are identified in the pelvis. MUSCULOSKELETAL: Severe intervertebral disc disease L5-S1. Facet arthropathy of the lower lumbar spine.. Air in the subcutaneous fat of the right lower quadrant of the anterior abdomen, likely consistent with an injection site. IMPRESSION 1. No evidence of obstructive uropathy. Nonobstructing renal calculi again seen bilaterally. Signed by Ellen Bliss MD on 08/16/2019 5:55 PM GLUCOSE (POCT) (08/16/2019 4:33 PM EST) Glucose POCT 125 (H) 70 - 99 mg/dl POINT OF CARE Result Comment: TESTING Performed at: [facility] POCT Murali hCavez MD, Laboratory Electromedical Equipment Technician [address] [id number] Specimen Performing Organization Address [facility] Phone Number POINT OF CARE TESTING GLUCOSE (POCT) (08/16/2019 10:33 AM EST) Glucose POCT 165 (H) 70 - 99 mg/dl POINT OF CARE Result Comment: TESTING Performed at: [facility] POCT Murali Chavez MD, Laboratory Electromedical Equipment Technician [address] [id number] Specimen Performing Organization Address [facility] Phone Number POINT OF CARE TESTING MAGNESIUM LEVEL (08/16/2019 10:24 AM EST) Magnesium 1.6 1.6 - 2.3 MG/DL [facility] Specimen Blood - Blood specimen (specimen) Performing Organization Address [facility] Phone Number [facility] [address] [address] [phone] BASIC METABOLIC PANEL (08/16/2019 10:24 AM EST) Glucose 152 (H) 70 - 99 mg/dl [facility] BUN 16 7 - 17 mg/dl [facility] Creatinine 0.7 0.7 - 1.2 mg/dl [facility] Sodium 140 134 - 145 mmol/L [facility] Potassium 3.6 3.5 - 5.1 mmol/L [facility] Chloride 101 98 - 107 mmol/L [facility] CO2 29 22 - 30 mmol/L [facility] Calcium 10.8 (H) 8.3 - 10.1 mg/dl [facility] eGFR >60 See Interpretation [facility] Comment: Below ml/min/1.73ml GROUP Estimated GFR Interpretation: Sq LABORATORY Above 60ml/min/1.73m2 = Normal Renal Function 30-59 ml/min/1.73m2 = Stage 3 Chronic Kidney Disease 15-29 ml/min/1.73m2 = Stage 4 Chronic Kidney Disease Less than 15 ml/min/1.73m2 = Stage 5 Chronic Kidney Disease The GFR value is calculated using the Modification of Diet in Renal Disease ( MDRD) Study Equation which can be found at: https://www.kidney.org/content/hmjg-zpxuk-amvpgphe BUN/Creatinine 23 (H) 6 - 22 RATIO [facility] LABORATORY Anion Gap 10 3 - 11 mmol/L [facility] Specimen Blood - Blood specimen (specimen) Performing Organization Address City/State/Zipcode Phone Number [facility] [address] [place] [address] CBC WITH DIFFERENTIAL (08/16/2019 10:24 AM EST) WBC Count 6.39 3.98 - 10.04 K/uL [facility] RBC Count 4.32 3.93 - 5.22 M/UL [facility] Hemoglobin 11.9 11.2 - 15.7 g/dL [facility] Hematocrit 36.7 34.1 - 44.9 % [facility] MCV 85.0 79.4 - 94.8 FL [facility] MCH 27.5 25.6 - 32.2 PG [facility] MCHC 32.4 32.2 - 35.5 g/dL [facility] Platelet Count 212 182 - 369 K/uL [facility] MPV 9.4 9.4 - 12.3 FL [facility] RDW 15.1 (H) 11.7 - 14.4 % [facility] Neutrophil % 64.2 34.0 - 71.1 % [facility] Lymphocyte % 21.6 19.3 - 51.7 % [facility] Monocyte % 10.8 4.7 - 12.5 % [facility] Eosinophil % 2.7 0.7 - 5.8 % [facility] Basophil % 0.5 0.1 - 1.2 % [facility] nRBC % 0.0 0.0 - 0.2 % [facility] Neutrophil # 4.11 1.56 - 6.13 K/UL [facility] Lymphocyte # 1.38 1.18 - 3.74 K/UL [facility] Monocyte # 0.69 0.24 - 0.86 K/UL [facility] Eosinophil # 0.17 0.04 - 0.36 K/UL [facility] Basophil # 0.03 0.01 - 0.08 K/UL [facility] Immature Gran % 0.2 0.0 - 0.4 % [facility] Immature Gran # 0.01 0.00 - 0.03 K/uL [facility] NRBC # 0.00 0.00 - 0.12 K/uL [facility] Specimen Blood - Blood specimen (specimen) Performing Organization Address [facility] Phone Number [facility] [address] [place] [address] [address] GLUCOSE (POCT) (08/16/2019 7:47 AM EST) Glucose POCT 87 70 - 99 mg/dl POINT OF CARE Result Comment: TESTING Performed at: [facility] POCT Murali Chavez MD, Laboratory Electromedical Equipment Technician [address] [address] Specimen Performing Organization Address [facility] Phone Number POINT OF CARE TESTING GLUCOSE (POCT) (08/15/2019 8:08 PM EST) Glucose POCT 100 (H) 70 - 99 mg/dl POINT OF CARE Result Comment: TESTING Performed at: [facility] POCT Murali Chavez MD, Laboratory Electromedical Equipment Technician [address] [address] Specimen Performing Organization Address [facility] Number POINT OF CARE TESTING CARDIAC CATHETERIZATION (08/15/2019 5:51 PM EST) Specimen Narrative Performed At [place] 2 vessel CAD [facility] POCT Severe mid LAD stenosis with a patent WYATT to d LAD Occluded SVG to distal LCx. Severe distal LCx stenosis s/p PCI with a AKUA (Synergy 3.5 mm x 12mm) Performing Organization Address [facility] Phone Number [facility] POCT [address] [address] FLU A/FLU B/RSV PCR ASSAY (TESTED AT [facility] ONLY) (08/15/2019 11:51 AM EST) Influenza A PCR Assay Negative Negative [facility] Influenza B PCR Assay Negative Negative [facility] RSV PCR Assay Negative Negative [facility] Specimen Nose - Nasopharyngeal swab (specimen) Performing Organization Address City/[facility] Phone Number [facility] [address] [address] [phone] GLUCOSE (POCT) (08/15/2019 11:49 AM EST) Glucose POCT 129 (H) 70 - 99 mg/dl POINT OF CARE Result Comment: TESTING Performed at: [facility] POCT Murali Chavez MD, Laboratory Electromedical Equipment Technician [address] [place] [address] Specimen Performing Organization Address [facility] Phone Number POINT OF CARE TESTING ECHOCARDIOGRAM TTE (08/15/2019 10:56 AM EST) ECHOCARDIOGRAM TTE ECHOCARDIOGRAPHY REPORT CARDIOLOGY DEPARTMENT Patient Name: KARTHIK Fernández Status: Outpatient MR Number: [id number] Gender: Female : 1955 Location: [place] Age:64 year(s) Exam Date: 08/15/2019 10:56 AM Height: 62 inches Weight: 169 pounds Study Performed: 2D echocardiogram, M-Mode, Doppler , Color Doppler, ECHOCARDIOGRAM TTE, Echocardiogram . Ordering MABEL WORKMAN Provider: Referring Provider: Television Inspector: Kaia Guzman [facility] Room Number 706 Interpreting INDY MARY Physician ,FACC,FACP BSA: 1.78 m^2 Interpreting BMI: 30.91 kg/m^2 Fellow Nurse Technical Quality: Good visualization Heart Rate (HR): 64bpm Blood Pressure (BP): 103/47mmHg INDICATION FOR STUDY: Chest pain. HISTORY: 64 year old female for Chest Pain. FINAL IMPRESSION: Normal functioning #19 Magna Bioprosthetic Valve is noted in the Aortic Position with mild valvular aortic regurgitation. Left ventricular cavity size is normal. Left ventricular wall thickness is mildly increased. No regional wall motion abnormalities. Global systolic function is normal with estimated LV EF 60-65 %. Grade II left ventricular diastolic dysfunction.Elevated left atrial pressure. Left atrium is mildly dilated. The right atrium is normal in size. The right ventricle is normal in size with preserved contractility. There is mild calcific mitral stenosis. No pericardial effusion. Compared to prior study dated 06/27/18 no significant change. OBSERVATIONS & FINDINGS: Using 2d (3d if applicable), M-mode, Colorflow, Continuous wave doppler and Pulse wave doppler interrogation Left Ventricle Left ventricular cavity size is normal. Left ventricular wall thickness is mildly increased. No evidence of LVOT obstruction. No regional wall motion abnormalities. Global systolic function is normal with estimated LV EF 60-65 %. Grade II left ventricular diastolic dysfunction.Elevated left atrial pressure. Left Atrium Left atrium is mildly dilated. Mitral Valve Mitral valve leaflets are thickened and calcified with reduced mobility. There is moderate-severe mitral annular calcification. The peak and mean transmitral gradients are 6.6 mmHg and 3-4 mmHg respectively. There is mild calcific mitral stenosis. There is mild mitral regurgitation. Aortic Valve A #19 Magna Bioprosthetic Valve is noted in the Aortic Position. The mean and peak gradients across the aortic valve are 17 mmHg and 30 mmHg respectively. The prosthesis is well seated with no rocking motion and no dehiscence. Peak velocity across aortic valve is 2.7 m/sec. Spectral doppler jet is triangular in shape and acceleration time is normal at 74-81 msec. Doppler Velocity Index (DVI) is 0.49 . Aortic valve area by continuity equation is 1.5 cm2. There is mild valvular aortic regurgitation. Right Ventricle The right ventricle is normal in size with preserved contractility. Right Atrium The right atrium is normal in size. Inferior vena cava is normal in size and does not collapses >50% on inspiration. Tricuspid Valve The tricuspid valve is structurally normal with mobile leaflets. There is mild tricuspid regurgitation. Estimated pulmonary artery systolic pressure is 20-25mmHg. Pulmonic Valve The pulmonic valve is structurally normal with flexible leaflets. There is no pulmonic regurgitation. Pericardium / Pleura There is no pericardial effusion. Miscellaneous Visualized portions of aorta are within normal limits. Measurements & Calculations: M-Mode / 2D Measurements Value Normal Value Normal LVIDd: 3.43 cm 3.5-5.5 AO Root: 3.25 cm 2.0-3.7 LVIDs: 2.27 cm 3.0-4.0 LA Dimension: cm 1.9-4.0 IVSd: 1.43 cm 0.7-1.1 LVOT: 2 cm 1.5-2.5 LVPWD: 1.18 cm 0.7-1.1 RV Diastolic Dimension: 3.2 cm EF Estimated: 63.7 % 50-70% Doppler Measurements & Calculations: Mitral: Aortic: Area (PHT): 1.55 cm^2 LVOT VTI: 30 cm Peak E-Wave: 128 cm/s Peak Velocity: 273 cm/s Peak A-Wave: 144 cm/s Peak Gradient: 29.81 mmHg Peak Gradient: 6.55 mmHg AI P1/2t: 974 msec P1/2t: 142 msec Area (continuity): 1.53 cm^2 Mean Velocity: 204 cm/s Area (continuity): 1.82 cm^2 Mean Gradient: 17.6 mmHg Mean Velocity: 85.7 cm/s AV VTI: 61.6 cm Mean Gradient: 3.49 mmHg MR Velocity: 411 cm/s E/A Ratio: 0.89 Tricuspid: Pulmonic: RVSP:18 mmHg Peak Velocity: 90.3 cm/s Peak TR Velocity:194 cm/s Peak Gradient: 3.26 mmHg TR Gradient:15.0544 mmHg TR Velocity: 194 cm/s TR Gradient: 15.0544 mmHg Estimated PASP: 18.05 mmHg Estimated RAP: 3 mmHg Estimated RVSP: 18 mmHg Left Atrium: Right Atrium: LA Dimension: 3.7 cm RA dimension:3.4 cm LA/Aorta: 1.14 RA area:11.3 cm^2 LA Area: 17.2 cm^2 LA Volume/Index: 59 ml /33m^2 Left Ventricle: Right Ventricle: Diastolic Dimension: 3.43 cm Septum Diastolic: 1.43 cm PW Diastolic: 1.18 cm Langston dimension:3.2 cm EF Calculated: 63.71% CO: 6.03 l/min RV sys pressure:18.05 mmHg FS: 33.82 % LVOT LV Length: 6 cm Peak Velocity: 119 cm/s LVOT Diameter: 2 cm Peak Gradient: 5.64 mmHg Systolic Dimension: 2.27 cm LVOT Diameter: 2 cm Mean Velocity: 89 cm/s EF Estimated: 63.7% Mean Gradient: 3.48 mmHg CI: 3.39 l/min*m^2 LVOT VTI: 30 cm Aorta LV EDV/LV EDV Index: 48.5 ml/27 m^2 Aortic Root: 3.25 cm LV ESV/LV ESV Index: 17.6 ml/10 m^2 Ascending Aorta: 2.82 cm LVOT Diameter: 2 cm Pulmonary Vein: S Velocity: 58 cm/s D Velocity: 38.5 cm/s A Reversal Velocity: 44 cm/s A Reversal Duration: 223 msec Signature Ejection Fraction 63.7 % CARDIOLOGY DEPARTMENT AV AREA 1.53 cm2 CARDIOLOGY DEPARTMENT RVSP 18 mmHg CARDIOLOGY DEPARTMENT LA Volume 59 ml CARDIOLOGY DEPARTMENT LVEDd 3.43 cm CARDIOLOGY DEPARTMENT LVESd 2.27 cm CARDIOLOGY DEPARTMENT IVSd 1.43 cm CARDIOLOGY DEPARTMENT LVPWd 1.18 cm CARDIOLOGY DEPARTMENT ESV 17.6 ml CARDIOLOGY DEPARTMENT EDV 48.5 ml CARDIOLOGY DEPARTMENT AV Mean Gradient 17.6 mmHg CARDIOLOGY DEPARTMENT Specimen Performing Organization Address [facility] Phone Number CARDIOLOGY DEPARTMENT SEDIMENTATION RATE (08/15/2019 7:59 AM EST) ESR 45 (H)Comment: 0 - 30 MM/HR [facility] [employer] [facility] was GROUP LABORATORY changed 04/02/19. Please note updated reference range. Specimen Blood - Blood specimen (specimen) Performing Organization Address [facility] Phone Number [facility] [employer] [email or web address] LABORATORY [address] [address] MAGNESIUM LEVEL (08/15/2019 7:59 AM EST) Magnesium 2.0 1.6 - 2.3 MG/DL [facility] [employer] [facility] [[email or web address] LABORATORY Specimen Blood - Blood specimen (specimen) Performing Organization Address [facility] Phone Number [facility] [employer] [facility] [[email or web address] LABORATORY [address] [address] TROPONIN (08/15/2019 7:59 AM EST) Troponin <0.012 0.000 - 0.034 [facility] Comment: ng/ml GROUP LABORATORY Negative less than or equal to 0.034 ng/ml Indeterminate 0.0351 - 0.119 ng/ml (Suggest Repeat in 4 Hours) Critical (AMI Cutoff) greater than or equal to 0.120 ng/ml Specimen Blood - Blood specimen (specimen) Performing Organization Address City/State/Zipcode Phone Number [facility] [address] [place] [address] [phone] CBC WITH DIFFERENTIAL (08/15/2019 7:59 AM EST) Pathologist [facility] WBC Count 5.61 3.98 - 10.04 K/uL [facility] RBC Count 4.80 3.93 - 5.22 M/UL [facility] Hemoglobin 13.2 11.2 - 15.7 g/dL [facility] Hematocrit 41.2 34.1 - 44.9 % [facility] MCV 85.8 79.4 - 94.8 FL [facility] MCH 27.5 25.6 - 32.2 PG [facility] MCHC 32.0 (L) 32.2 - 35.5 g/dL [facility] Platelet Count 261 182 - 369 K/uL [facility] MPV 9.3 (L) 9.4 - 12.3 FL [facility] RDW 15.0 (H) 11.7 - 14.4 % [facility] Neutrophil % 52.3 34.0 - 71.1 % [facility] Lymphocyte % 30.8 19.3 - 51.7 % [facility] Monocyte % 10.7 4.7 - 12.5 % [facility] Eosinophil % 5.5 0.7 - 5.8 % [facility] Basophil % 0.5 0.1 - 1.2 % [facility] nRBC % 0.0 0.0 - 0.2 % [facility] Neutrophil # 2.93 1.56 - 6.13 K/UL [facility] Lymphocyte # 1.73 1.18 - 3.74 K/UL [facility] Monocyte # 0.60 0.24 - 0.86 K/UL [facility] Eosinophil # 0.31 0.04 - 0.36 K/UL [facility] Basophil # 0.03 0.01 - 0.08 K/UL [facility] Immature Gran % 0.2 0.0 - 0.4 % [facility] Immature Gran # 0.01 0.00 - 0.03 K/uL [facility] NRBC # 0.00 0.00 - 0.12 K/uL [facility] Specimen Blood - Blood specimen (specimen) Performing Organization Address City/State/Zipcode Phone Number [facility] [address] [address] BASIC METABOLIC PANEL (08/15/2019 7:59 AM EST) Glucose 100 (H) 70 - 99 mg/dl [facility] BUN 16 7 - 17 mg/dl [facility] Creatinine 0.7 0.7 - 1.2 mg/dl [facility] Sodium 141 134 - 145 mmol/L [facility] Potassium 3.9 3.5 - 5.1 mmol/L [facility] Chloride 103 98 - 107 mmol/L [facility] CO2 31 (H) 22 - 30 mmol/L [facility] Calcium 10.5 (H) 8.3 - 10.1 mg/dl [facility] eGFR >60 See Interpretation [facility] Comment: Below ml/min/1.73ml GROUP Estimated GFR Interpretation: LABORATORY Above 60ml/min/1.73m2 = Normal Renal Function 30-59 ml/min/1.73m2 = Stage 3 Chronic Kidney Disease 15-29 ml/min/1.73m2 = Stage 4 Chronic Kidney Disease Less than 15 ml/min/1.73m2 = Stage 5 Chronic Kidney Disease The GFR value is calculated using the Modification of Diet in Renal Disease ( MDRD) Study Equation which can be found at: https://www.kidney.org/content/anoc-pidyr-nbdetvdp BUN/Creatinine 23 (H) 6 - 22 RATIO [facility] LABORATORY Anion Gap 7 3 - 11 mmol/L [facility] Specimen Blood - Blood specimen (specimen) Performing Organization Address [facility] Phone Number [facility] [address] [address] [phone] TROPONIN (08/14/2019 10:36 PM EST) Troponin <0.012 0.000 - 0.034 [facility] Comment: ng/ml GROUP LABORATORY Negative less than or equal to 0.034 ng/ml Indeterminate 0.0351 - 0.119 ng/ml (Suggest Repeat in 4 Hours) Critical (AMI Cutoff) greater than or equal to 0.120 ng/ml Specimen Blood - Blood specimen (specimen) Performing Organization Address [facility] Phone Number [facility] [address] [address] [phone] NT PROBNP (08/14/2019 6:55 PM EST) NT PRO BNP 130 (H) <125 pg/ml [facility] Comment: [facility] [[email or web address] LABORATORY Recommended cut points for the diagnostic evaluation of heart failure patients with acute dyspnea* Ages (years) Optimal [place] (pg/ml) <50 450 50-75 900 >75 1800 *The [place] Journal of Cardiology NTproBNP results should be interpreted in the context of the overall picture. Serum concentrations of natriuretic peptides may be elevated in patients with acute myocardial infarction and renal insuffic iency. Certain drugs may alter results. Heterophilic antibodies are known to cause interference with immunoassays. Results which are inconsistent with clinical observation indicate a need for additional testing. NTproBNP testing performed on [employer]. Results will not correlate with other methodologies. Specimen Blood - Blood specimen (specimen) Performing Organization Address [facility] Phone Number [facility] [address] [address] [phone] MAGNESIUM LEVEL (08/14/2019 6:55 PM EST) Magnesium 2.6 (H) 1.6 - 2.3 MG/DL [facility] Specimen Blood - Blood specimen (specimen) Performing Organization Address [facility] Phone Number [facility] [address] [address] [phone] XR CHEST 2 VIEW PA AND LATERAL (STANDARD) (08/14/2019 2:50 PM EST) Specimen Impressions Performed At No acute findings. THIS DOCUMENT HAS BEEN ELECTRONICALLY SIGNED BY CANDICE PEARSON MD Narrative Performed At PROCEDURE INFORMATION: Exam: XR Chest, 2 Views Exam date and time: 08/14/2019 2:42 PM Clinical history: 64 years old, female; Indication for study->cp TECHNIQUE: Imaging protocol: XR of the chest Views: 2 views. COMPARISON: CR XR CHEST 2 VIEW PA AND LATERAL (STANDARD) 06/12/2018 11:10 AM FINDINGS: Lungs: No consolidation. Pleural space: No pleural effusion. No pneumothorax. Heart/Mediastinum: Status post aortic valve replacement. No cardiomegaly. Bones/joints: The internal fixation plate in the lower cervical spine. Status post sternotomy. Procedure Note Interface, Rad Results - 08/14/2019 3:12 PM EST PROCEDURE INFORMATION: Exam: XR Chest, 2 Views Exam date and time: 08/14/2019 2:42 PM Clinical history: 64 years old, female; Indication for study->cp TECHNIQUE: Imaging protocol: XR of the chest Views: 2 views. COMPARISON: CR XR CHEST 2 VIEW PA AND LATERAL (STANDARD) 06/12/2018 11:10 AM FINDINGS: Lungs: No consolidation. Pleural space: No pleural effusion. No pneumothorax. Heart/Mediastinum: Status post aortic valve replacement. No cardiomegaly. Bones/joints: The internal fixation plate in the lower cervical spine. Status post sternotomy. IMPRESSION No acute findings. THIS DOCUMENT HAS BEEN ELECTRONICALLY SIGNED BY CANDICE PEARSON MD SEDIMENTATION RATE (08/14/2019 2:31 PM EST) ESR 44 (H)Comment: 0 - 30 MM/HR [place] was GROUP LABORATORY changed 04/02/19. Please note updated reference range. Specimen Blood - Blood specimen (specimen) Performing Organization Address City/State/Zipcode Phone Number [place]ATORY [address] [address] [phone] CBC WITH DIFFERENTIAL (08/14/2019 2:31 PM EST) WBC Count 6.87 3.98 - 10.04 K/uL [facility] [employer] [facility] RBC Count 4.74 3.93 - 5.22 M/UL [place] [facility] [[email or web address]] LABORATORY Hemoglobin 13.1 11.2 - 15.7 g/dL [facility] Hematocrit 40.8 34.1 - 44.9 % [facility] MCV 86.1 79.4 - 94.8 FL [facility] MCH 27.6 25.6 - 32.2 PG [facility] MCHC 32.1 (L) 32.2 - 35.5 g/dL [facility] Platelet Count 235 182 - 369 K/uL [facility] MPV 9.4 9.4 - 12.3 FL [facility] RDW 14.9 (H) 11.7 - 14.4 % [facility] Neutrophil % 54.3 34.0 - 71.1 % [facility] Lymphocyte % 28.8 19.3 - 51.7 % [facility] Monocyte % 10.3 4.7 - 12.5 % [facility] Eosinophil % 5.7 0.7 - 5.8 % [facility] Basophil % 0.6 0.1 - 1.2 % [facility] nRBC % 0.0 0.0 - 0.2 % [facility] Neutrophil # 3.73 1.56 - 6.13 K/UL [facility] Lymphocyte # 1.98 1.18 - 3.74 K/UL [facility] Monocyte # 0.71 0.24 - 0.86 K/UL [facility] Eosinophil # 0.39 (H) 0.04 - 0.36 K/UL [facility] Basophil # 0.04 0.01 - 0.08 K/UL [facility] Immature Gran % 0.3 0.0 - 0.4 % [facility] Immature Gran # 0.02 0.00 - 0.03 K/uL [facility] NRBC # 0.00 0.00 - 0.12 K/uL [facility] [facility] Specimen Blood - Blood specimen (specimen) Performing Organization Address City/State/Zipcode Phone Number [facility] [address] [place] [address] [phone] MAGNESIUM LEVEL (08/14/2019 2:31 PM EST) Magnesium 1.8 1.6 - 2.3 MG/DL [facility] Specimen Blood - Blood specimen (specimen) Performing Organization Address City/State/Zipcode Phone Number [facility] [address] [place] [id number] COMPREHENSIVE METABOLIC PANEL (08/14/2019 2:31 PM EST) Sodium 139 134 - 145 mmol/L [facility] Potassium 3.2 (L) 3.5 - 5.1 mmol/L [facility] Chloride 100 98 - 107 mmol/L [facility] CO2 30 22 - 30 mmol/L [facility] Calcium 10.5 (H) 8.3 - 10.1 mg/dl [facility] Albumin 4.4 3.5 - 5.0 g/dl [facility] BUN 21 (H) 7 - 17 mg/dl [facility] Creatinine 0.7 0.7 - 1.2 mg/dl [facility] Glucose 169 (H) 70 - 99 mg/dl [facility] Total Protein 8.1 6.3 - 8.2 g/dl [facility] Total Bilirubin 0.4 0.0 - 1.1 MG/DL [facility] AST 55 (H) 15 - 46 U/L [facility] ALT 57 (H) 9 - 52 U/L [facility] Alkaline 94 40 - 150 U/L [facility] Phosphatase [facility] [email or web address] LABORATORY eGFR >60 See Interpretation [facility] Comment: Below ml/min/1.73ml GROUP Estimated GFR Interpretation: LABORATORY Above 60ml/min/1.73m2 = Normal Renal Function 30-59 ml/min/1.73m2 = Stage 3 Chronic Kidney Disease 15-29 ml/min/1.73m2 = Stage 4 Chronic Kidney Disease Less than 15 ml/min/1.73m2 = Stage 5 Chronic Kidney Disease The GFR value is calculated using the Modification of Diet in Renal Disease ( MDRD) Study Equation which can be found at: https://www.kidney.org/content/rhjr-xqjyf-newtbvyo BUN/Creatinine 30 (H) 6 - 22 RATIO [facility] LABORATORY Anion Gap 9 3 - 11 mmol/L [facility] A/G Ratio 1.2 0.8 - 2.0 ratio [facility] Specimen Blood - Blood specimen (specimen) Performing Organization Address City/[facility] Phone Number [facility] [address] [phone] TROPONIN (08/14/2019 2:31 PM EST) Troponin <0.012 0.000 - 0.034 [facility] Comment: ng/ml GROUP LABORATORY Negative less than or equal to 0.034 ng/ml Indeterminate 0.0351 - 0.119 ng/ml (Suggest Repeat in 4 Hours) Critical (AMI Cutoff) greater than or equal to 0.120 ng/ml Specimen Blood - Blood specimen (specimen) Performing Organization Address [facility] Phone Number [facility] [address] [address] [phone] documented in this encounter Visit Diagnoses Diagnosis Chest pain, unspecified type documented in this encounter Administered Medications Medication Order MAR Action Action Date Dose Rate Site acetaminophen (TYLENOL) tablet Given 08/14/2019 2:07 PM EST 650 mg 650 mg 650 mg, Oral, X1, 1 dose, First dose on Tatiana 08/14/19 at 1455 acetaminophen (TYLENOL) tablet 650 mg Given 08/17/2019 1:40 AM EST 650 mg 650 mg, Oral, Q4 HRS PRN, Starting Tatiana 08/14/19 at 1603, Until 08/17/19 at 1658, Mild Pain (pain scale 1-3) - PO - 1st line - if immediate effect not required and patient can tolerate PO Given 08/15/2019 7:47 AM EST 650 mg Given 08/14/2019 7:21 PM EST 650 mg aspirin (ECOTRIN) enteric coated tablet 81 mg Given 08/16/2019 9:22 PM EST 81 mg 81 mg, Oral, DAILY, First dose on Tatiana 08/14/19 at 1755, Until Discontinued, This medication dosage form should NOT be crushed. Please call the inpatient Pharmacy for more information. [facility] ext. [phone] [place] ext. [phone] [facility] ext. [phone] , Given 08/15/2019 8:05 PM EST 81 mg Given 08/14/2019 11:45 PM EST 81 mg aspirin chewable tablet 324 mg Given 08/14/2019 2:07 PM EST 324 mg 324 mg, Oral, NOW, 1 dose, Tatiana 08/14/19 at 1355 atenolol (TENORMIN) tablet (1/2X25 mg) 12.5 Given 08/17/2019 8:33 AM EST 12.5 mg mg 12.5 mg, Oral, DAILY, First dose on Tatiana 08/14/19 at 1755, Until Discontinued Given 08/16/2019 8:59 AM EST 12.5 mg Given 08/15/2019 8:21 AM EST 12.5 mg atorvastatin (LIPITOR) tablet 80 mg Given 08/16/2019 9:22 PM EST 80 mg 80 mg, Oral, QHS, First dose on Tatiana 08/14/19 at 2100, Until Discontinued Given 08/15/2019 8:05 PM EST 80 mg Given 08/14/2019 11:45 PM EST 80 mg atropine syringe 1 mg 1 mg, Intravenous, X1 PRN, 1 dose, Starting 08/15/19 at 1759, Until Sun 07/26 at 1658, heart rate < ___, PRN symptomatic bradycardia (i.e. hypotension, diaphoresis, nausea, pale skin, acute altered mental status, ongoing chest pain , other signs of shock) AND heart rate < 60. Call provider. budesonide (RHINOCORT AQ) nasal spray 2 Given 08/16/2019 8:59 AM EST 2 Sprays [place] 2 [place], Nasal, DAILY, First dose on Tatiana 08/14/19 at 1850, Until Discontinued, One spray each nostril Therapeutic Interchange for Flonase, calcium carbonate (TUMS) chewable tablet 500 Given 08/17/2019 8:33 AM EST 500 mg mg 500 mg, Oral, BID, First dose on 08/16/19 at 1750, Until Discontinued clopidogrel (PLAVIX) tablet 300 mg Given 08/17/2019 1:23 PM EST 300 mg 300 mg, Oral, X1, 1 dose, First dose on 08/17/19 at 1210 diphenhydrAMINE (BENADRYL) capsule 25 mg Given 08/16/2019 9:22 PM EST 25 mg 25 mg, Oral, QHS, First dose on Tatiana 08/14/19 at 2100, Until Discontinued Given 08/15/2019 8:05 PM EST 25 mg Given 08/14/2019 11:45 PM EST 25 mg enoxaparin (LOVENOX) injection Given 08/16/2019 6:05 PM EST 40 mg Abdominal Tissue 40 mg/0.4 mL 40 mg 40 mg, Subcutaneous, Q24 HRS, 15 doses, First dose on Sun08/14/19 at 1845, Last dose on Sun08/28/19 at 1845, Lovenox (enoxaparin): Lovenox is rounded to the nearest 10 mg per hospital policy. - CAUTION & CONSIDER Heparin Xa (anti-Xa levels): CrCl < 30 mL/min; Women < 45 kg; Men < 57 kg; Weight > 150 kg or BMI > 40 kg/m2; , Pediatrics and Elderly patients - Treatment dose: 1 mg/kg q12h - Prophylactic dose: 40 mg q24h OR 30 mg q12h , Given 08/15/2019 8:05 PM EST 40 mg Abdominal Tissue gabapentin (NEURONTIN) capsule 300 mg Given 08/17/2019 8:33 AM EST 300 mg 300 mg, Oral, TID, First dose on Sun08/14/19 at 2100, Until Discontinued Given 08/16/2019 9:22 PM EST 300 mg Given 08/16/2019 4:34 PM EST 300 mg hydrochlorothiazide (HCTZ, ORETIC) tablet 25 Given 08/15/2019 8:21 AM EST 25 mg mg 25 mg, Oral, QAM, First dose on Sun08/15/19 at 0900, Until Discontinued latanoprost (XALATAN) ophthalmic solution Given 08/16/2019 9:23 PM EST 1 Drop 0.005 % 1 Drop, Both Eyes, QPM, First dose on Sun08/14/19 at 1755, Until Discontinued Given 08/15/2019 8:05 PM EST 1 Drop LISPRO insulin (RAPID-Acting) Given 08/16/2019 9:22 PM 4 Units Abdominal Tissue USUAL Correction Scale Inj EST Subcutaneous, AC/HS, First dose on Sun08/15/19 at 1050, Until Discontinued, Blood Glucose USUAL <=150 0 Units 151-200 2 Units 201-250 4 Units 251-300 6 Units 301-350 8 Units 351-400 10 Units >400 12 Units And Call Production Floater Not for IV USE, magnesium sulfate IV premix 2 g New Bag 08/14/2019 4:43 PM EST 2 g 2 g, Intravenous, NOW, 1 dose, Tatiana 08/14/19 at 1555 magnesium sulfate IV premix 4 g New Bag 08/16/2019 4:34 PM EST 4 g 4 g, Intravenous, NOW, 1 dose, 08/16/19 at 1430 metoclopramide (REGLAN) injection 5 mg 5 mg, Intravenous Push, Q4 HRS PRN, Starting 08/16/19 at 1117, Until 08/17/19 at 1658, Nausea/Vomiting - IV - 2nd line - if immediate effect required or patient cannot tolerate PO and no relief 1 hours after administration of 1st line agent nitroglycerin (NITROBID) Patch applied 08/14/2019 2:07 PM EST 1 Inch Chest - Left topical ointment 1 Inch 1 Inch, Topical, NOW, 1 dose, [facility] 08/14/19 at 1355, Please make sure previous patch is removed from site., nitroglycerin (NITROBID) Patch applied 08/14/2019 11:50 PM EST 1 Inch Chest - Left topical ointment 1 Inch 1 Inch, Topical, X1, 1 dose, First dose on [facility] 08/14/19 at 2350, Please make sure previous patch is removed from site., nitroglycerin (NITROSTAT) sublingual tablet (1/150) 0.4 mg 0.4 mg, Sublingual, Q5 MIN PRN, 3 doses, Starting Sun08/15/19 at 1759, Until [place] 08/17/19 at 1658, chest pain ondansetron (ZOFRAN) injection 4 mg New Bag 08/16/2019 8:59 AM EST 4 mg 4 mg, Intravenous, Q8 HRS PRN, Starting [facility] 08/14/19 at 1603, Until [place] 08/17/19 at 1658, Nausea/Vomiting - IV - 1st line - If immediate effect required or patient cannot tolerate PO New Bag 08/15/2019 7:58 PM EST 4 mg New Bag 08/15/2019 11:45 AM EST 4 mg pantoprazole (PROTONIX) enteric coated tablet Given 08/17/2019 8:33 AM EST 40 mg 40 mg 40 mg, Oral, DAILY, First dose on Tatiana 08/14/19 at 1755, Until Discontinued Given 08/16/2019 8:59 AM EST 40 mg Given 08/15/2019 8:21 AM EST 40 mg perflutren lipid microsphere (DEFINITY) injection 0.5 mL 0.5 mL, Intravenous Push, PRN, Starting [place] 08/14/19 at 1746, Until [place] at 1658, Poor visualization (see Admin Instructions for details) up to a max dose of 10 mL, The Television Inspector will determine if Definity needs to be administered based on the following criteria: 1. Patient has two or more wall segments which cannot be visualized in one or more views 2. Patient is technically difficult to image and is being evaluated for: a. LV function b. Known apical thrombus and/or cardiac tumors c. Suspected myocardial rupture or pseudoaneurysm 3. Patient receiving exercise or pharmacologic stress echocardiogram studies If Definity is needed , the nurse will prepare, administer and document the administration on the eMAR. Definity is provided by the drying machine receiver and is to be prepared by the nurse as follows: 1. Activate perflutren lipid microsphere (DEFINITY) by shaking the vial for 45 seconds using a Vialmix 2. Draw up the contents of the vial into a 10 mL syringe and add 8.5 mL of Sodium Chloride 0.9% for a total volume of 10 mL 3. Administer 0.5 mL IV push 4. Flush the line with 3 mL Sodium Chloride 0.9% over 10 seconds to clear the tubing 5. Television Inspector will monitor the visualization of images 6. If images are still not optimal, repeat steps 3 & 4 as needed until images are optimal OR a total of 10 mL of Definity has been administered. , potassium bicarb-citric acid (EFFER-K) Given 08/14/2019 4:50 PM EST 40 mEq effervescent tablet (for oral solution) 40 mEq 40 mEq, Oral, X1, 1 dose, First dose on Tatiana 08/14/19 at 1650, Dissolve in 3-4 ounces of cold juice before administration. It is suggested that it be taken with food and sipped slowly over a 5-10 minute period., potassium chloride (K-DUR) controlled Given 08/16/2019 1:13 PM EST 40 mEq release tablet 40 mEq 40 mEq, Oral, X1, 1 dose, First dose on 08/16/19 at 1310, Per the Package Insert, if the patient is having difficulty swallowing whole tablets, place the tablet in approximately 4 fluid ounces of water. Allow 2 minutes for the tablet (s) to disintegrate. Stir for 30 seconds after the tablet has disintegrated. Swirl the suspension and have the patient consume the entire contents of the glass immediately by drinking or by the use of a straw. Add another 1 fluid ounce of water, swirl and consume immediately. Then add an additional 1 fluid ounce of water, swirl and consume immediately. Aqueous suspension of K-Dur tablets that is not taken immediately should be discarded. The use of other liquids for suspending K-Dur tablets is not recommended., sumatriptan (IMITREX) tablet 25 mg Given 08/15/2019 11:46 AM EST 25 mg 25 mg, Oral, X1, 1 dose, First dose on Sun08/15/19 at 1050, Take as needed for migraine. If headache returns, may repeat with interval of at least 2 hours between doses. Daily max dose is 200 mg. , sumatriptan (IMITREX) tablet 50 mg Given 08/17/2019 8:33 AM EST 50 mg 50 mg, Oral, DAILY, First dose on 08/16/19 at 1120, Until Discontinued, Take as needed for migraine. If headache returns, may repeat with interval of at least 2 hours between doses. Daily max dose is 200 mg. , ticagrelor (BRILINTA) tablet 90 mg Given 08/17/2019 8:33 AM EST 90 mg 90 mg, Oral, BID, First dose on Sun08/15/19 at 2100, Until Discontinued Given 08/16/2019 9:22 PM EST 90 mg Given 08/16/2019 9:00 AM EST 90 mg zolpidem (AMBIEN) tablet 10 mg Given 08/16/2019 10:54 PM EST 10 mg 10 mg, Oral, QHS PRN, Starting [place] 08/14/19 at 2100, Until 08/17/19 at 1658, sleep Given 08/15/2019 11:12 PM EST 10 mg Given 08/15/2019 12:53 AM EST 10 mg documented in this encounter documented as of this encounter Advance Directives Type Date Recorded Patient Distribution Engineer Explanation Advance Directives 05/30/2018 11:51 AM Code [...]
[2019-09-12 16:37] LABS: Albumin 4.1 g/dL (3.2-5.2); Albumin/Globulin Ratio 1.2 (1-3); BUN/Creatinine Ratio 28.4 (8-20); Calcium 11.3 mg/dL (8.6-10.3); EGFR African American 86.7 (>60); EGFR Non-African American 71.6 (>60); Globulin 3.4 g/dL (2-4); Magnesium 1.7 mg/dL (1.9-2.7); Potassium 3.2 mmol/L (3.5-5.0); Total Bilirubin 0.3 mg/dL (0.2-1.0); Total Protein 7.5 g/dL (6.4-8.9)
[2019-09-12] MEDS ORDERED: Magnesium Oxide TAB* 400 MG PO ONE (16:41)
[2019-09-12] MEDS ORDERED: Potassium Chlor TAB* 20 MEQ TAB.ER PO ONE (16:41)
[2019-09-12] MEDS ORDERED: Acetaminophen TAB* 325 MG PO ONE (17:42)
[2019-09-12] MEDS ORDERED: Acetaminophen TAB* 325 MG PO PRN (17:45)
[2019-09-12] MEDS ORDERED: Ondansetron INJ* 2 MG/ML VIAL IV PRN (17:45)
[2019-09-12] MEDS ORDERED: Nitro 2% OINT* (Nitroglycerin) 1 INCH/PAK PAK TOPICAL ONE (17:51)
[2019-09-12] MEDS ORDERED: Morphine INJ* 4 MG/ML 1 ML SYRINGE (NEW SYRINGE VERSION) IV ONE (17:51)
[2019-09-12] MEDS ORDERED: Dextrose 50% VIAL 50 ml IV PUSH PRN (18:35)
[2019-09-12] MEDS ORDERED: Carisoprodol TAB* 350 MG PO PRN (18:53)
[2019-09-12] MEDS ORDERED: Zolpidem TAB* 10 MG PO PRN (18:53)
[2019-09-12] MEDS ORDERED: Pantoprazole TAB * 40 MG TAB PO PRN (18:53)
[2019-09-12] MEDS ORDERED: Morphine INJ* 2 MG/ML 1 ML SYRINGE (TWO MG - NEW SYRINGE VERSION) IV ONE (19:00)
[2019-09-12] MEDS: NS 0.9% 1000 ML** 1,000 ML IV SCH (19:10)
--- NOTE | 2019-09-12 20:50 | HP ---
AMENDED REPORT NOW INCLUDES DESIGNATED COSIGNER CC: Dr. Fontana; Dr. Ruelas * MEDICINE HISTORY AND PHYSICAL: DATE OF ADMISSION: 09/12/19 PROVIDER: Eliz Singh NP ATTENDING PHYSICIAN: Dr. Marian Lewis * (dictated by Eliz Singh NP). PRIMARY CARE PROVIDER: Dr. Zhane Fontana. OUTPATIENT MANAGER ORDER: Dr. Orlin Ruelas. CONSULTING MANAGER ORDER: Dr. Dwight Gonzalez. CHIEF COMPLAINT: Chest pain. HISTORY OF PRESENT ILLNESS: Ms. Angeles is a 64-year-old female who presented to the ER this afternoon with concern for chest pain. She states this started around 6 a.m. and describes feeling as if she had an irregular heartbeat. She reported that it was hard to catch her breath. She describes this as " happening in a series," meaning that it happened intermittently over the course of the morning. It progressively got worse and more constant. She states that the pressure and heaviness started to feel like her previous chest pains that she has had in the past when she was noted to have a heart attack and other coronary events. She states she tried to ignore it. At one point, she was sitting on the couch, reading and doing a puzzle with her family members and had such significant pain that she finally called her [facility]pn private duty. She spoke with a nurse there and who advised her to take a nitroglycerin. She reports that it did not help. She was still on the phone with her lpn private duty's office and, due to the distress that she was in, they advised her to call 911, which she did. EMS arrived and she reports that she received 4 baby aspirin and 2 nitroglycerin. When she arrived to the ER and was in triage, she reports having another significant episode of chest pain. Ms. Angeles states that approximately 15 months ago she had a hospitalization here at [facility] and was actually here with concern for nephrolithiasis. She states that she received a lot of fluid, ended up in CHF and then was stabilized and discharged, a few days later she had a heart attack. She underwent double bypass on 05/24/18. She states that she had seen her lpn private duty approximately 3 months ago and, at that point, he had stopped her Plavix, as she had been on the therapy for over a year. A few weeks after that, she states that she noticed that she was having difficulty with exercise for about 2 weeks. She has been working on building up her endurance and being better with her exercise and states that she was able to tolerate 2-mile walks up to that point, but though was having difficulty with this. She went to her lpn private duty in [place], who referred her to [facility]. She reports that an angiogram showed concern for poor perfusion in the circumflex artery and she underwent a cardiac catheterization with stent placement. She states that she was showed the report (she states it showed multiple clogged vessels) and was told that the mail forwarding system markup clerk unclogged what he could. She was placed back on her aspirin and Plavix, which she reports she has been taking faithfully. She currently describes heaviness in the chest right now rating at approximately 3/ 10 along the upper left chest wall. It is not radiating as it had been previously. She reports that earlier today the chest pain radiated to the left neck and shoulder. She also reported feeling as if she had heartburn and had the discomfort in the epigastrium and chest area, but denies any vomiting. She does endorse feeling as if she also cannot take a deep breath. She denies any other recent illnesses, cold or flu symptoms, abdominal pain, nausea, vomiting, dysuria, hematuria, or flank pain recently. Here in the ER, she underwent evaluation, which included routine labs and an EKG on arrival. Her EKG showed sinus rhythm with a rate of 96 and ventricular bigeminy. Her labs had concerns for potassium of 3.2, calcium of 11.3, and magnesium 1.7. She reports that she has had a persistent issue with hypercalcemia for quite some time and follows with Endocrinology in [place] with [facility] and has been worked up for this in the past without any conclusive explanation. She also reports chronically low magnesium and takes daily supplements for this. PAST MEDICAL HISTORY: 1. Coronary artery disease with history of recent stent placement approximately 3 weeks ago at [facility] to the circumflex artery as well as double bypass surgery in May of 2018. 2. Aortic valve replacement and she also reports known mitral valve leaking. 3. Hypercalcemia, follows with [facility] for this. 4. Recurrent nephrolithiasis. 5. Insulin-dependent diabetes mellitus. 6. Chronic back pain with L5-S1 hemilaminectomy x2. 7. Obstructive sleep apnea with CPAP. 8. Glaucoma. 9. Degenerative disk disease. PAST SURGICAL HISTORY: Includes 2 anterior cervical diskectomies, 2 hemilaminectomies at L5-S1, lithotripsy, ureteral stenting with retrieval, C- section, laparoscopic cholecystectomy, appendectomy, hysterectomy, as well as double bypass surgery in May 2018, and recent circumflex artery stent placement in August 2019. HOME MEDICATIONS: 1. Semaglutide 2.5 mg subcu weekly. 2. Carisoprodol 350 mg 4 times daily p.r.n. 3. Hydromorphone 2 mg t.i.d. 4. Omeprazole 20 mg daily p.r.n. 5. Latanoprost 0.005% one drop to both eyes at bedtime. 6. Insulin glargine 44 units q.p.m. 7. Ambien 10 mg daily p.r.n. 8. Rosuvastatin 40 mg daily. 9. Diphenhydramine 10 mg daily. 10. Magnesium citrate 100 mg daily. 11. Aspirin 81 mg daily. 12. Gabapentin 300 mg t.i.d. 13. Clopidogrel 75 mg daily. 14. Atenolol 12.5 mg daily. 15. Insulin lispro 1 unit for every 5 carbs. 16. Hydrochlorothiazide 25 mg q.a.m. ALLERGIES: NIACIN, POTASSIUM CITRATE, VANCOMYCIN. FAMILY HISTORY: She reports a mother who had diabetes and heart disease. SOCIAL HISTORY: She denies alcohol, tobacco, or drug use. Reports that she used to drink wine on occasion, but has not done this in quite some time. She names her sister, Kayleen Atkins, as her surrogate decision maker in the event of emergency. REVIEW OF SYSTEMS: A 14-point review of systems was completed and all those not mentioned were negative. PHYSICAL EXAMINATION GENERAL: This is a well-developed 64-year-old female seen lying in the ED stretcher. She is pleasant, conversive, not in any acute respiratory distress. VITAL SIGNS: Temperature 98.3, heart rate 67, respiratory rate is 18, blood pressure 112/63, O2 saturation is 97% on 2 L nasal cannula. HEENT: Head is atraumatic, normocephalic. Face is symmetrical. Pupils are equal, round, and reactive to light and accommodation. Extraocular movements are intact. Oral mucosa is moist. NECK: Supple. No lymphadenopathy appreciated. No JVD noted. No carotid bruits auscultated. LUNGS: Clear to auscultation bilaterally. CHEST: No tenderness with palpation. There is a well approximated and healed midline incision from previous open heart surgery. CARDIOVASCULAR: Regular rate and rhythm. S1, S2 present with crisp click noted. No murmurs appreciated. No peripheral edema noted. Distal pulses are 2 + and present bilaterally to the radial, dorsalis pedis, and posterior tibialis sites. ABDOMEN: Soft, nontender, nondistended. Bowel sounds are present and normoactive. No CVA tenderness noted. MUSCULOSKELETAL: No clubbing or cyanosis of the digits. There is full range of motion in all joints. NEURO: She is alert and oriented x3. No focal deficits. Cranial nerves II through XII are grossly intact. Sensation is intact to light touch to lower extremities. SKIN: Warm and dry. DIAGNOSTIC STUDIES/LAB DATA: EKG as per above. Chest x-ray was done and shows no evidence for acute pathology. Laboratory data: CBC: WBC 6.7, hemoglobin 12.8, hematocrit 37, platelet count 278. INR 1.05. CMP: Sodium 139, potassium 3.2, chloride 101, carbon dioxide 29, BUN 23, creatinine 0.81, glucose 147, calcium 11.3, magnesium 1.7. Total bilirubin 0.3, AST 30, ALT 28, alk phos 91. Troponin 0.01, BNP 31. TSH 0.63. Old medical records were reviewed. ASSESSMENT AND PLAN: This is a 64-year-old female with a past medical history significant for coronary artery disease with previous bypass surgery and recent stent placement as well as insulin-dependent diabetes, hypercalcemia, sleep apnea and recurrent nephrolithiasis, who presents today with concern for chest pain. Plan is as follows: 1. Chest pain. I reviewed the case with Dr. Gonzalez, who agrees to see the patient in the morning. Symptoms presented at 6 a.m. and have persisted since she arrived at the ER after 3 p.m. Her initial troponin 0.01. At this point in time, it is reasonable to keep her at the facility and continue to rule her out. We will trend her troponins. I will obtain an additional EKG at her next troponin check and we will check an A1c and lipids as well. I have requested records from [facility] in order to see her recent tests and have baseline EKGs for comparison, and we will appreciate a consult from cardiology. She is still currently having chest pain. She will receive a dose of morphine at this time. We will continue with oxygen and we will use nitroglycerin paste to the chest with goal of alleviating heart pain. She will be monitored on telemetry and further interventions will be added as needed. 2. Electrolyte abnormalities. She is noted to have hypokalemia, hypomagnesemia which she does state is chronic. She has been supplemented with these here in the ER. We will follow these results in the morning. Additionally, she is hypercalcemic. I will gently replete her with fluids and also check a PTH intact and ionized calcium to start. She may benefit from further evaluation as an outpatient, which she already does follow with water purification chemist in [place]. We will also check a vitamin D level. She denies taking any supplemental calcium or vitamin D. There is no anemia or evidence of renal dysfunction at this time. 3. Type 2 diabetes. We will continue her on lispro insulin, which we will use as sliding scale. I will continue her home insulin glargine, but we will cut the dose down and titrate upward as necessary. We will check an A1c. 4. Coronary artery disease. Continue home aspirin, Plavix, atenolol, and statin. 5. Obstructive sleep apnea. Continue with CPAP use. She may use her home machine or the hospital equipment. 6. Glaucoma. Continue home eye drops. 7. Chronic pain. Continue home regimen, which includes gabapentin. Hydromorphone is listed on home medications but was last prescribed in June , per [facility]. This is held for now. We will carefully add in Soma, but hold for sedation in terms of managing her pain. 8. FEN: She is ordered a heart-healthy, consistent carbohydrate diet. 9. DVT prophylaxis: Subcu heparin. 10. Code status: Full code. TIME SPENT: Approximately 60 minutes was spent on this admission with greater than half that time spent [id number] with the patient obtaining history and physical, performing physical examination, and reviewing the plan of care. Plan of care was also reviewed with my attending, Dr. Lewis, who is in agreement. ELIZ SINGH, RENA [id number]/[facility] #: [id number] [facility]
[2019-09-12] MEDS: Gabapentin CAP(*) 300 MG PO SCH (20:51)
[2019-09-12] MEDS ORDERED: Insulin GLARGINE(*) 1 UNITS UNIT SUBCUT SCH (21:00)
[2019-09-12] MEDS ORDERED: Latanoprost 0.005%* 2.5 ml BTL BOTH EYES SCH (21:00)
[2019-09-12] MEDS ORDERED: Atorvastatin* 80 MG TAB PO SCH (21:30)
[2019-09-12] MEDS: Heparin VIAL(*) 5000 UNITS/ML VIAL (FIVE THOUSAND) SUBCUT SCH (22:12)
[2019-09-13 00:46] LABS: Urine Appearance Cloudy; Urine Bilirubin Negative (Negative); Urine Blood Negative (Negative); Urine Color Yellow; Urine Glucose Negative (Negative); Urine Ketones Negative (Negative); Urine Nitrite Negative (Negative); Urine Protein Negative (Negative); Urine Specific Gravity 1.021 (1.010-1.030); Urine Urobilinogen Negative (Negative)
[2019-09-13 00:57] LABS: Urine Bacteria Absent (Absent); Urine Red Blood Cell Trace(0-2/hpf) (Absent); Urine Squamous Epithelial Cell Present (Absent); Urine White Blood Cell 2+(11-20/hpf) (Absent)
[2019-09-13] MEDS: Heparin VIAL(*) 5000 UNITS/ML VIAL (FIVE THOUSAND) SUBCUT SCH ×2 (05:54→13:43)
[2019-09-13 06:11] LABS: ABS Eosinophils 0.3 10^3/ul (0-0.6); ABS Lymphocytes 1.9 10^3/ul (1.0-4.8); ABS Monocytes 0.6 10^3/ul (0-0.8); ABS Neutrophils 2.3 10^3/ul (1.5-7.7); Hematocrit 38 % (35-47); Hemoglobin 12.7 g/dL (12.0-16.0); Lymphocyte % 37.8 %; Mean Corpuscular HGB Conc 33 g/dL (31-36); Mean Corpuscular Hemoglobin 29 pg (27-31); Mean Corpuscular Volume 86 fL (80-97); Mean Platelet Volume 7.5 fL (7.4-10.4); Nucleated Red Blood Cells % 0.1; Platelet Count 194 10^3/uL (150-450); Red Blood Count 4.46 10^6 /uL (3.70-4.87); Red Cell Distribution Width 16 % (10-15); White Blood Count 5.1 10^3/uL (3.5-10.8)
[2019-09-13 06:25] LABS: Calcium 9.5 mg/dL (8.6-10.3); Magnesium 1.8 mg/dL (1.9-2.7); Potassium 3.5 mmol/L (3.5-5.0)
[2019-09-13 06:31] LABS: BUN/Creatinine Ratio 28.4 (8-20); EGFR African American 96.2 (>60); EGFR Non-African American 79.5 (>60); HDL Cholesterol 28.9 mg/dL
[2019-09-13] MEDS: NS 0.9% 1000 ML** 1,000 ML IV SCH (06:52)
[2019-09-13] MEDS: Insulin LISPRO* 1 UNITS UNIT SUBCUT SCH ×2 (08:55→11:57)
[2019-09-13] MEDS ORDERED: Hydrochlorothiazide TAB* 25 MG PO SCH (09:00)
[2019-09-13] MEDS ORDERED: MAGNESIUM CITRATE 100 MG PO SCH (09:00)
[2019-09-13] MEDS ORDERED: Aspirin EC TAB* 81 MG TAB.EC PO SCH (09:00)
[2019-09-13] MEDS ORDERED: Atenolol TAB* 25 MG PO SCH (09:00)
[2019-09-13] MEDS ORDERED: Clopidogrel TAB* 75 MG PO SCH (09:00)
[2019-09-13] MEDS: Gabapentin CAP(*) 300 MG PO SCH ×2 (09:08→13:43)
[2019-09-13] MEDS ORDERED: Nystatin TOP POWDER* 15 GM BTL TOPICAL PRN (09:33)
[2019-09-13] MEDS ORDERED: Nitroglycerin TAB 0.4 MG* 0.4 MG TAB SL PRN (09:35)
[2019-09-13 11:38] VITALS: BP 94/58
--- NOTE | 2019-09-13 12:47 | PN ---
Objective Active Medications: Acetaminophen (Tylenol Tab*) 650 mg PO Q4H PRN PRN Reason: MILD PAIN or TEMP > 100.4 Aspirin (Aspirin Ec Tab*) 81 mg PO DAILY [facility] Last Admin: 09/13/19 09:08 Dose: 81 mg Atenolol (Tenormin Tab*) 12.5 mg PO DAILY [facility] Last Admin: 09/13/19 09:10 Dose: 12.5 mg Atorvastatin Calcium (Lipitor*) 80 mg PO QPM [facility] Last Admin: 09/12/19 21:48 Dose: 80 mg Carisoprodol (Soma Tab*) 350 mg PO QID PRN PRN Reason: PAIN - MODERATE Last Admin: 09/13/19 11:33 Dose: 350 mg Clopidogrel Bisulfate (Plavix Tab*) 75 mg PO DAILY [facility] Last Admin: 09/13/19 09:08 Dose: 75 mg Dextrose (Dextrose 50% Vial 50 Ml*) 25 ml IV PUSH .FOR FS < 60 - SS PRN PRN Reason: FS < 60 Gabapentin (Neurontin Cap(*)) 300 mg PO TID [facility] Last Admin: 09/13/19 09:08 Dose: 300 mg Heparin Sodium (Porcine) (Heparin Vial(*)) 5,000 units SUBCUT Q8HR [facility] Last Admin: 09/13/19 05:54 Dose: 5,000 units Hydrochlorothiazide (Hydrodiuril Tab*) 25 mg PO QAM [facility] Last Admin: 09/13/19 09:10 Dose: 25 mg Sodium Chloride (Ns 0.9% 1000 Ml) 1,000 mls @ 100 mls/hr IV PER RATE [facility] Last Admin: 09/13/19 06:52 Dose: 100 mls/hr Insulin Glargine (Lantus(*)) 35 units SUBCUT BEDTIME [facility] Last Admin: 09/12/19 21:47 Dose: 35 units Insulin Human Lispro (Humalog*) 0 units SUBCUT AC [facility]; Protocol Last Admin: 09/13/19 11:57 Dose: Not Given Latanoprost (Xalatan 0.005%*) 1 drop BOTH EYES BEDTIME [facility] Last Admin: 09/12/19 22:12 Dose: 1 drop Nitroglycerin (Nitroglycerin Tab 0.4 Mg*) 0.4 mg SL Q5M PRN PRN Reason: ANGINA Non Formulary Med* ( Magnesium Citrate [ Magnesium Citrate] 100 Mg) 100 mg PO DAILY [facility] Last Admin: 09/13/19 09:12 Dose: Not Given Nystatin (Nystatin Top Powder*) 1 applic TOPICAL TID PRN PRN Reason: RASH Ondansetron HCl (Zofran Inj*) 4 mg IV Q6H PRN PRN Reason: NAUSEA/VOMITING Last Admin: 09/12/19 21:38 Dose: 4 mg Pantoprazole Sodium (Protonix Tab*) 20 mg PO DAILY PRN PRN Reason: INDIGESTION Zolpidem Tartrate (Ambien Tab*) 10 mg PO DAILY PRN PRN Reason: SLEEP Last Admin: 09/12/19 21:48 Dose: 10 mg Vital Signs - 8 hr 09/13/19 09/13/19 09/13/19 07:00 07:15 07:22 Temperature 97.9 F 97.9 F Pulse Rate 66 66 Respiratory 20 20 17 Rate Blood Pressure 99/47 99/47 (mmHg) O2 Sat by Pulse 98 98 Oximetry 09/13/19 09/13/19 09/13/19 09:08 11:00 11:20 Temperature 97.7 F Pulse Rate 69 Respiratory 20 20 Rate Blood Pressure 85/33 94/58 (mmHg) O2 Sat by Pulse 97 Oximetry 09/13/19 11:33 Temperature Pulse Rate Respiratory 16 Rate Blood Pressure (mmHg) O2 Sat by Pulse Oximetry Oxygen Devices in Use Now: None Result Diagrams: 09/13/19 05:26 09/13/19 05:26 Assess/Plan/Problems-Billing Assessment:
--- NOTE | 2019-09-13 15:18 | DS ---
CC: Dr. Fontana * DISCHARGE SUMMARY: DATE OF ADMISSION: 09/12/19 DATE OF DISCHARGE: 09/13/19 HISTORY OF PRESENT ILLNESS/HOSPITAL COURSE: This 64-year-old woman presented with chest pain that occurred in the morning on the day of admission. She helped her grandson get ready for school. There was no real stress on her of any kind at this time. She had nonspecific chest pain, which lasted off and on all morning. Around noon, she called her revenue manager's office and was advised to call 911, and the ambulance brought her to the emergency room. The patient has had prior coronary artery bypass grafting on 05/24/18. She had coronary stenting. She had stopped her clopidogrel about 3 months ago and was having trouble with exercise and long walks. She had an angiogram and had stent placement at [facility] about 3 weeks ago. She resumed her aspirin and clopidogrel, which she takes regularly. She took a nitroglycerin this morning without any benefit. This is the first episode of chest discomfort since her cardiac stenting, although she reports similar episodes before as well. The patient was admitted to telemetry bed. EKG did not show any acute changes, but did show signs of LVH. Troponin level was checked 3 times, all of which was 0.01. She felt good on the day of discharge. She will call her revenue manager on Sunday to arrange a followup appointment. She will call 911 if she gets chest pain not responding to 3 nitroglycerin over 15 minutes. FINAL DIAGNOSES: 1. Chest pain with history of coronary artery bypass graft and stenting. 2. Aortic valve replacement. 3. Hypercalcemia. 4. Chronic back pain. 5. Obstructive sleep apnea. 6. Diabetes. 7. Recurrent nephrolithiasis. 8. Glaucoma. DISCHARGE MEDICATIONS: 1. Latanoprost 0.005% one drop both eyes h.s. 2. Gabapentin 300 mg t.i.d. 3. Zolpidem 10 mg daily p.r.n. 4. Hydrochlorothiazide 25 mg daily. 5. Rosuvastatin 40 mg daily. 6. Carisoprodol 350 mg 4 times daily p.r.n. 7. Omeprazole 20 mg daily p.r.n. 8. Aspirin 81 mg daily. 9. Clopidogrel 75 mg daily. 10. Hydromorphone 2 mg as prescribed. 11. Glargine insulin 44 units in the evening. 12. Diphenhydramine 10 mg daily. 13. Magnesium citrate 100 mg daily. 14. Atenolol 12.5 mg daily. 15. Lispro insulin as prescribed. 16. Semaglutide 2.5 mg subcu weekly. CONDITION ON DISCHARGE: Stable. DISPOSITION ON DISCHARGE: Discharged home. [id number]/[facility] #: [id number] [facility]
== END 2019-09-13 15:50 | disposition home or self-care (01) ==
LOC: ED 15:09 → MEDTELE 17:45
PROVIDERS: ADMIT Hospitalist; ATTEND Internal Medicine
DX: R07.9 Chest pain, unspecified (principal); I25.10 Atherosclerotic heart disease of native coronary artery without angina pectoris; Z95.5 Presence of coronary angioplasty implant and graft; Z95.4 Presence of other heart-valve replacement; E83.52 Hypercalcemia; M54.9 Dorsalgia, unspecified; G47.33 Obstructive sleep apnea (adult) (pediatric); E11.9 Type 2 diabetes mellitus without complications; Z79.4 Long term (current) use of insulin; Z87.442 Personal history of urinary calculi; H40.9 Unspecified glaucoma; Z79.899 Other long term (current) drug therapy; Z79.82 Long term (current) use of aspirin; M51.34 Other intervertebral disc degeneration, thoracic region; R06.02 Shortness of breath
CPT/HCPCS: 36415; 71045; 80048; 80053; 80061; 81003; 81015; 82306; 82330; 82550; 82553; 83036; 83735; 83880; 83970; 84443; 84484; 85025; 85610; 85730; 87086; 93005; 96372; 96374; 99284; A9270-GY; G0378; J1644; J2270; J2405

== ENCOUNTER 2020-07-01 02:41 | Inpatient (IN) ==
[2020-07-01] MEDS ORDERED: NS 0.9% 1000 ml BAG 1,000 ML IV ONE (03:38)
[2020-07-01] MEDS ORDERED: Ondansetron 4 mg VIAL 2 MG/ML 2 ml VIAL IV ONE (03:38)
[2020-07-01 04:07] LABS: INR 1.03 (0.82-1.09)
[2020-07-01 04:13] LABS: Albumin 4.2 g/dL (3.2-5.2); Potassium 3.5 mmol/L (3.5-5.0); Total Bilirubin 0.3 mg/dL (0.2-1.0)
[2020-07-01 04:19] LABS: Albumin/Globulin Ratio 1.4 (1-3); BUN/Creatinine Ratio 24.1 (8-20); C Reactive Protein 3.07 mg/L (<8.01); EGFR African American 79.6 (>60); EGFR Non-African American 65.8 (>60); Globulin 3.1 g/dL (2-4); Total Protein 7.3 g/dL (6.4-8.9)
[2020-07-01 04:54] LABS: Urine Appearance Cloudy; Urine Bilirubin Negative (Negative); Urine Blood 1+ (Negative); Urine Color Yellow; Urine Glucose Negative (Negative); Urine Ketones Negative (Negative); Urine Nitrite Negative (Negative); Urine Protein Negative (Negative); Urine Specific Gravity 1.016 (1.010-1.030); Urine Urobilinogen Negative (Negative)
[2020-07-01 04:57] LABS: Urine Bacteria 1+ (Absent); Urine Red Blood Cell 2+(6-10/hpf) (Absent); Urine Squamous Epithelial Cell Present (Absent); Urine White Blood Cell 2+(11-20/hpf) (Absent)
[2020-07-01] MEDS ORDERED: cefTRIAXone 2 GM ADDV.VIAL 2 GM in NS 0.9% 100 ml BAG 100 ML IVPB ONE (05:16)
[2020-07-01 05:28] LABS: ABS Eosinophils 0.2 10^3/ul (0-0.6); ABS Lymphocytes 1.3 10^3/ul (1.0-4.8); ABS Neutrophils 6.6 10^3/ul (1.5-7.7); Eosinophil % 2.1 %; Hematocrit 31 % (35-47); Hemoglobin 10.4 g/dL (12.0-16.0); Lymphocyte % 14.8 %; Mean Corpuscular HGB Conc 34 g/dL (31-36); Mean Corpuscular Hemoglobin 29 pg (27-31); Mean Corpuscular Volume 86 fL (80-97); Mean Platelet Volume 7.9 fL (7.4-10.4); Platelet Count 203 10^3/uL (150-450); Red Blood Count 3.56 10^6 /uL (3.70-4.87); Red Cell Distribution Width 15 % (10-15); White Blood Count 9.1 10^3/uL (3.5-10.8)
[2020-07-01] MEDS ORDERED: HYDROmorphone 1 MG/1 ML SYRINGE IV SLOW PU PRN (05:54)
[2020-07-01] MEDS ORDERED: Dextrose 50% Syringe 50 ml 25 GM/50 ML SYRINGE IV PUSH PRN (05:54)
[2020-07-01] MEDS ORDERED: Ondansetron 4 mg VIAL 2 MG/ML 2 ml VIAL IV PRN (05:54)
[2020-07-01] MEDS ORDERED: cefTRIAXone 1 gm/50 mL NS BAG 1 GM/50 ML BAG IVPB SCH (05:55)
[2020-07-01] MEDS ORDERED: NS 0.9% 1000 ml BAG 1,000 ML IV SCH (06:00)
[2020-07-01] MEDS: Heparin 5000 UNITS/ML 1 mL VIAL SUBCUT SCH ×3 (06:13→22:01)
[2020-07-01] MEDS ORDERED: Aspirin EC 81 mg TAB.EC (enteric coated) PO SCH ×2 (09:00→21:00)
[2020-07-01] MEDS ORDERED: Iohexol 180 (CONTRAST) 10 ML SDV IV ONE (11:20)
[2020-07-01] MEDS ORDERED: Midazolam 2 mg/2 ml VIAL 1 mg/ml 2 ml VIAL (2 mg) ONE (11:33)
[2020-07-01] MEDS ORDERED: Propofol 10 MG/ML 20 ML BTL ONE (11:39)
[2020-07-01] MEDS ORDERED: Succinylcholine 200 mg VIAL 20 mg/ml 10 ml VIAL (200 mg) ONE (11:40)
[2020-07-01] MEDS ORDERED: Lidocaine 2% PF 5 ML VIAL ONE (11:40)
[2020-07-01] MEDS ORDERED: fentaNYL 100 mcg/2 ml 50 MCG/ML VIAL ONE (11:40)
[2020-07-01] MEDS ORDERED: Phenylephrine 40 mcg/mL 10mL (400mcg) SYRINGE ONE ×2 (11:45→12:10)
[2020-07-01] MEDS ORDERED: Dexamethasone IV 4 MG/ML VIAL 1 ml VIAL ONE (12:01)
[2020-07-01] MEDS ORDERED: Ondansetron 4 mg VIAL 2 MG/ML 2 ml VIAL ONE (12:01)
[2020-07-01] MEDS ORDERED: DiMENhydriNATE IV 50 mg/ml 1 ml VIAL IV PUSH PRN (12:12)
[2020-07-01] MEDS ORDERED: fentaNYL 100 mcg/2 ml 50 MCG/ML VIAL IV PRN (12:12)
[2020-07-01] MEDS ORDERED: Naloxone 0.4 mg VIAL 0.4 mg/ml 1 ml VIAL IV PRN (12:12)
[2020-07-01] MEDS ORDERED: Insulin GLARGINE 100 un/ml 10 ml VIAL SUBCUT SCH (18:00)
[2020-07-01] MEDS ORDERED: NS 0.9% 1,000 ML IV SCH (20:00)
[2020-07-01] MEDS ORDERED: Latanoprost 0.005% 2.5 ml BTL BOTH EYES SCH (21:00)
[2020-07-02] MEDS ORDERED: cefTRIAXone 1 gm/50 mL NS BAG 1 GM/50 ML BAG IVPB SCH (06:00)
[2020-07-02] MEDS: Heparin 5000 UNITS/ML 1 mL VIAL SUBCUT SCH ×2 (06:05→14:02)
[2020-07-02 06:15] LABS: ABS Lymphocytes 1.2 10^3/ul (1.0-4.8); ABS Monocytes 0.6 10^3/ul (0-0.8); ABS Neutrophils 4.9 10^3/ul (1.5-7.7); Eosinophil % 0.2 %; Hematocrit 33 % (35-47); Hemoglobin 11.1 g/dL (12.0-16.0); Lymphocyte % 17.9 %; Mean Corpuscular HGB Conc 34 g/dL (31-36); Mean Corpuscular Hemoglobin 29 pg (27-31); Mean Corpuscular Volume 85 fL (80-97); Mean Platelet Volume 7.6 fL (7.4-10.4); Platelet Count 216 10^3/uL (150-450); Red Blood Count 3.85 10^6 /uL (3.70-4.87); Red Cell Distribution Width 15 % (10-15); White Blood Count 6.8 10^3/uL (3.5-10.8)
[2020-07-02 06:34] LABS: BUN/Creatinine Ratio 24.1 (8-20); EGFR Non-African American 69.4 (>60)
[2020-07-02 11:36] VITALS: BP 100/58
[2020-07-02] MEDS ORDERED: Influenza VAC *QUAD* 2020-21* 0.5 ML SYRINGE IM ONE ×2 (13:11→13:15)
== END 2020-07-02 14:30 | disposition home or self-care (01) | DRG 465 ==
LOC: ED 02:41 → SSU 07:42
PROVIDERS: ADMIT Nurse Practitioner Family; ATTEND Internal Medicine

== ENCOUNTER 2020-07-23 08:43 | Observation (INO) ==
[~2020-07-23 08:43] MED LIST changes: -Buffered Lidocaine 0.9% SYRIN* 5 ML/SYR SYRINGE INTRADERM ONE; +Buffered Lidocaine 1% SYRIN 1 ml INTRADERM ONE; +Famotidine IV 10 MG/ML 2 ml VIAL (20 mg) IV ONE; -Famotidine IV* 10 MG/ML 2 ML (20 mg) IV ONE; -Gentamicin ADULT (*) 160 MG in NS 0.9% 100 ML* 100 ML IVPB ONE; +Lactated Ringers 1000 ml BAG 1,000 ML IV SCH
[2020-07-23] MEDS ORDERED: cefTRIAXone 2 GM ADDV.VIAL ONE (09:01)
[2020-07-23] MEDS ORDERED: Famotidine IV 10 MG/ML 2 ml VIAL (20 mg) ONE (09:02)
[2020-07-23] MEDS ORDERED: Buffered Lidocaine 1% SYRIN 1 ml INTRADERM ONE (09:02)
[2020-07-23] MEDS ORDERED: Midazolam 2 mg/2 ml VIAL 1 mg/ml 2 ml VIAL (2 mg) ONE (09:18)
[2020-07-23] MEDS ORDERED: fentaNYL 100 mcg/2 ml 50 MCG/ML VIAL ONE ×2 (09:18→13:57)
[2020-07-23] MEDS ORDERED: Iohexol 180 (CONTRAST) 10 ML SDV IV ONE (10:44)
[2020-07-23] MEDS ORDERED: Rocuronium 50 mg VIAL 10 mg/ml 5 ml VIAL (50 mg) ONE (10:55)
[2020-07-23] MEDS ORDERED: Propofol 10 MG/ML 20 ML BTL ONE (10:55)
[2020-07-23] MEDS ORDERED: Dexamethasone IV 4 MG/ML VIAL 1 ml VIAL ONE (10:55)
[2020-07-23] MEDS ORDERED: Lidocaine 2% PF 5 ML VIAL ONE (10:55)
[2020-07-23] MEDS ORDERED: Ondansetron 4 mg VIAL 2 MG/ML 2 ml VIAL ONE (10:55)
[2020-07-23] MEDS ORDERED: Phenylephrine 40 mcg/mL 10mL (400mcg) SYRINGE ONE (11:02)
[2020-07-23] MEDS ORDERED: EPHEDrine (Pressors) 50 MG/ML VIAL ONE (11:04)
[2020-07-23] MEDS ORDERED: Naloxone 0.4 mg VIAL 0.4 mg/ml 1 ml VIAL IV PRN (11:36)
[2020-07-23] MEDS ORDERED: DiMENhydriNATE IV 50 mg/ml 1 ml VIAL IV PUSH PRN (11:36)
[2020-07-23] MEDS ORDERED: fentaNYL 100 mcg/2 ml 50 MCG/ML VIAL IV PRN (11:36)
[2020-07-23] MEDS ORDERED: Ondansetron 4 mg VIAL 2 MG/ML 2 ml VIAL IV PRN (11:36)
[2020-07-23] MEDS ORDERED: HYDROmorphone 1 MG/1 ML SYRINGE ONE (12:51)
[2020-07-23] MEDS: HYDROmorphone 1 MG/1 ML SYRINGE IV PRN ×4 (12:52→13:55)
[2020-07-23] MEDS ORDERED: Dextrose 50% Syringe 50 ml 25 GM/50 ML SYRINGE IV PUSH PRN (14:02)
[2020-07-23] MEDS ORDERED: Perflutren Lipid Microsphere 3 ML VIAL ONE (15:11)
[2020-07-23] MEDS: HYDROmorphone 1 MG/1 ML SYRINGE IV SLOW PU PRN ×2 (16:07→21:09)
[2020-07-23] MEDS ORDERED: Aspirin EC 81 mg TAB.EC (enteric coated) PO SCH (18:00)
[2020-07-23] MEDS ORDERED: Insulin GLARGINE 100 un/ml 10 ml VIAL SUBCUT SCH (18:00)
[2020-07-23 19:42] LABS: Hematocrit 35 % (35-47); Hemoglobin 11.4 g/dL (12.0-16.0); Mean Corpuscular HGB Conc 33 g/dL (31-36); Mean Corpuscular Hemoglobin 28 pg (27-31); Mean Corpuscular Volume 85 fL (80-97); Mean Platelet Volume 6.9 fL (7.4-10.4); Platelet Count 281 10^3/uL (150-450); Red Blood Count 4.07 10^6 /uL (3.70-4.87); Red Cell Distribution Width 15 % (10-15); White Blood Count 6.1 10^3/uL (3.5-10.8)
[2020-07-23 20:10] LABS: Troponin I 0.01 ng/mL (<0.03)
[2020-07-23 20:15] LABS: BUN/Creatinine Ratio 17.6 (8-20); Calcium 9.2 mg/dL (8.6-10.3); EGFR African American 81.7 (>60); EGFR Non-African American 67.5 (>60); Potassium 3.5 mmol/L (3.5-5.0)
[2020-07-23] MEDS ORDERED: Latanoprost 0.005% 2.5 ml BTL BOTH EYES SCH (21:00)
[2020-07-24] MEDS ORDERED: oxyCODONE/Acetamin 5/325 mg TAB PO PRN (03:20)
[2020-07-24] MEDS: NS 0.9% 1000 ml BAG 1,000 ML IV SCH ×2 (03:33→03:47)
[2020-07-24 12:09] VITALS: BP 102/55
== END 2020-07-24 15:00 | disposition home or self-care (01) ==
LOC: MEDTELE 08:43 → OR 08:43
PROVIDERS: ADMIT Hospitalist; ATTEND Hospitalist

== ENCOUNTER 2021-09-30 22:53 | Observation (INO) ==
[2021-09-30] MEDS ORDERED: Morphine 4 MG/ML VIAL (1 ml) IV ONE (23:04)
[2021-09-30] MEDS ORDERED: Ondansetron 4 mg VIAL 2 MG/ML 2 ml VIAL IV ONE (23:04)
[2021-09-30 23:34] LABS: ABS Eosinophils 0.3 10^3/ul (0-0.6); ABS Lymphocytes 3.2 10^3/ul (1.0-4.8); ABS Monocytes 1.2 10^3/ul (0-0.8); ABS Neutrophils 3.9 10^3/ul (1.5-7.7); Eosinophil % 3.4 %; Hematocrit 36 % (35-47); Hemoglobin 12.2 g/dL (12.0-16.0); Lymphocyte % 36.7 %; Mean Corpuscular HGB Conc 34 g/dL (31-36); Mean Corpuscular Hemoglobin 28 pg (27-31); Mean Corpuscular Volume 84 fL (80-97); Mean Platelet Volume 7.5 fL (7.4-10.4); Platelet Count 257 10^3/uL (150-450); Red Cell Distribution Width 17 % (10-15); White Blood Count 8.7 10^3/uL (3.5-10.8)
[2021-09-30 23:37] LABS: Urine Appearance Cloudy; Urine Bilirubin Negative (Negative); Urine Blood 3+ (Negative); Urine Color Yellow; Urine Glucose Negative (Negative); Urine Ketones Negative (Negative); Urine Nitrite Negative (Negative); Urine Protein 1+(30 mg/dL) (Negative); Urine Specific Gravity 1.019 (1.002-1.030); Urine Urobilinogen Negative (Negative)
[2021-09-30 23:40] LABS: Urine Bacteria Absent (Absent); Urine Red Blood Cell 3+(>10/hpf) (Absent); Urine Squamous Epithelial Cell Present (Absent); Urine White Blood Cell 2+(11-20/hpf) (Absent)
[2021-09-30] MEDS ORDERED: HYDROmorphone 1 MG/1 ML SYRINGE IV SLOW PU ONE (23:50)
[2021-09-30 23:51] LABS: ALT 43 U/L (7-52); Albumin 4.2 g/dL (3.2-5.2); Albumin/Globulin Ratio 1.2 (1-3); Alkaline Phosphatase 66 U/L (35-149); Blood Urea Nitrogen 17 mg/dL (6-24); CO2 Carbon Dioxide 32 mmol/L (22-32); Calcium 10.2 mg/dL (8.6-10.3); Chloride 103 mmol/L (101-111); Globulin 3.4 g/dL (2-4); Glucose 84 mg/dL (70-100); Sodium 140 mmol/L (135-145); Total Protein 7.6 g/dL (6.4-8.9); eGFR CKD-EPI 73.3 (>60)
[2021-09-30 23:59] LABS: Anion Gap 5 mmol/L (2-11)
[2021-10-01] MEDS ORDERED: HYDROmorphone 1 MG/1 ML SYRINGE IV SLOW PU PRN ×2 (00:28→08:01)
[2021-10-01] MEDS ORDERED: Ondansetron 4 mg VIAL 2 MG/ML 2 ml VIAL IV PRN ×2 (00:28→11:29)
[2021-10-01] MEDS ORDERED: NS 0.9% 1000 ml BAG 1,000 ML IV ONE (00:28)
[2021-10-01] MEDS ORDERED: NS 0.9% 1000 ml BAG 1,000 ML IV SCH (00:30)
[2021-10-01] MEDS ORDERED: Albuterol HFA INHALER 8 gm MDI INH PRN (00:55)
[2021-10-01] MEDS ORDERED: Dextrose 50% Syringe 50 ml 25 GM/50 ML SYRINGE IV PUSH PRN (00:58)
[2021-10-01] MEDS ORDERED: cefTRIAXone 1 gm/50 mL NS BAG 1 GM/50 ML BAG IVPB SCH (01:00)
[2021-10-01 01:06] LABS: Potassium Redraw 3.1 mmol/L (3.5-5.0)
[2021-10-01] MEDS ORDERED: Metoclopramide 5 MG/ML VIAL (10 mg) IV SLOW PU PRN (06:42)
[2021-10-01] MEDS: KCL 10 MEQ/50 ML IVPREMIX 10 MEQ/50 ML BAG IV SCH ×2 (08:46→09:52)
[2021-10-01] MEDS ORDERED: Aspirin EC 81 mg TAB.EC (enteric coated) PO SCH (09:00)
[2021-10-01] MEDS ORDERED: Iohexol 180 (CONTRAST) 20 ML SDV IV ONE (10:13)
[2021-10-01] MEDS ORDERED: fentaNYL 100 mcg/2 ml 50 MCG/ML VIAL ONE (10:36)
[2021-10-01] MEDS ORDERED: Midazolam 5 mg/5 ml VIAL 1 mg/ml 5 ml VIAL (5 mg) ONE (10:41)
[2021-10-01] MEDS ORDERED: Ketamine HCL 50 mg/ml 10 ml VIAL (500 MG) ONE (11:03)
[2021-10-01] MEDS ORDERED: Naloxone 0.4 mg VIAL 0.4 mg/ml 1 ml VIAL IV PRN (11:29)
[2021-10-01] MEDS ORDERED: DiMENhydriNATE IV 50 mg/ml 1 ml VIAL IV PUSH PRN (11:29)
[2021-10-01] MEDS ORDERED: oxyCODONE/Acetamin 5/325 mg TAB PO PRN (11:29)
[2021-10-01] MEDS ORDERED: fentaNYL 100 mcg/2 ml 50 MCG/ML VIAL IV PRN (11:29)
[2021-10-01] MEDS ORDERED: Potassium Chlor 20 meq TAB.ER PO ONE (13:42)
[2021-10-01 16:12] VITALS: BP 102/58
[2021-10-01] MEDS ORDERED: Latanoprost 0.005% 2.5 ml BTL BOTH EYES SCH (21:00)
[2021-10-01] MEDS ORDERED: Insulin GLARGINE 100 un/ml 10 ml VIAL SUBCUT SCH (21:00)
[2021-10-01] MEDS ORDERED: diPHENhydraMINE 25 mg TAB PO SCH (21:00)
== END 2021-10-01 16:28 | disposition home or self-care (01) ==
LOC: ED 22:53 → SSU 22:53 → SUATTDRO 23:49 → SSU 10-01 04:53
PROVIDERS: ADMIT Hospitalist; ATTEND Hospitalist

== ENCOUNTER 2022-07-20 16:04 | Observation (INO) ==
[2022-07-20 21:17] LABS: Immature Retic Fraction 0.56
[2022-07-20 21:21] LABS: Activated Partial Thrombo Time 31.3 seconds (26.0-38.0); INR 1.02 (0.89-1.11)
[2022-07-20 21:26] LABS: ABS Eosinophils 0.3 10^3/ul (0-0.6); ABS Lymphocytes 2.2 10^3/ul (1.0-4.8); ABS Monocytes 0.7 10^3/ul (0-0.8); ABS Neutrophils 2.7 10^3/ul (1.5-7.7); Corrected Retic Count 1.9 % (0.5-1.5); Eosinophil % 4.8 %; Hematocrit 37 % (35-47); Hematocrit for Retic CNT 37 % (35-47); Hemoglobin 11.8 g/dL (12.0-16.0); Lymphocyte % 36.8 %; Mean Corpuscular HGB Conc 32 g/dL (31-36); Mean Corpuscular Hemoglobin 27 pg (27-31); Mean Corpuscular Volume 84 fL (80-97); Nucleated Red Blood Cells % 0.1; Platelet Count 8 10^3/uL (150-450); RBC Retic Count 4.36 10^6/uL (3.70-4.87); Red Blood Count 4.36 10^6 /uL (3.70-4.87); Red Cell Distribution Width 16 % (10-15); White Blood Count 5.9 10^3/uL (3.5-10.8)
[2022-07-20 21:39] LABS: Albumin 4.2 g/dL (3.2-5.2); Albumin/Globulin Ratio 1.4 (1-3); Calcium 9.8 mg/dL (8.6-10.3); Globulin 2.9 g/dL (2-4); Potassium 3.4 mmol/L (3.5-5.0); Total Bilirubin 0.5 mg/dL (0.2-1.0); Total Protein 7.1 g/dL (6.4-8.9)
[2022-07-20 22:22] LABS: Fibrinogen 368.3 mg/dL (110.8-404.3)
[2022-07-21] MEDS ORDERED: Dexamethasone IV 4 MG/ML VIAL 1 ml VIAL IV SLOW PU ONE (00:58)
[2022-07-21] MEDS ORDERED: Dexamethasone IV 40 MG in NS 0.9% 50 ML 50 ML IVPB ONE (01:20)
[2022-07-21] MEDS ORDERED: Metoclopramide 5 MG/ML VIAL (10 mg) IV ONE (03:01)
[2022-07-21] MEDS ORDERED: Ondansetron 4 mg VIAL 2 MG/ML 2 ml VIAL IV PRN (05:54)
[2022-07-21] MEDS ORDERED: Fluticasone NASAL SPRAY 50MCG 16 gm SPRAY BTL INTRANASAL PRN (06:08)
[2022-07-21] MEDS ORDERED: Albuterol HFA INHALER 8 gm MDI INH PRN (06:08)
[2022-07-21] MEDS ORDERED: Dextrose 50% Syringe 50 ml 25 GM/50 ML SYRINGE IV PUSH PRN (06:22)
[2022-07-21 06:45] LABS: Urine Appearance Clear; Urine Bilirubin Negative (Negative); Urine Blood 3+ (Negative); Urine Color Yellow; Urine Glucose Negative (Negative); Urine Ketones Negative (Negative); Urine Nitrite Negative (Negative); Urine Protein 1+(30 mg/dL) (Negative); Urine Specific Gravity 1.006 (1.002-1.030); Urine Urobilinogen Negative (Negative)
[2022-07-21] MEDS ORDERED: Potassium Chlor 20 meq TAB.ER PO ONE (06:45)
[2022-07-21 06:55] LABS: Urine Bacteria Absent (Absent); Urine Red Blood Cell 3+(>10/hpf) (Absent); Urine White Blood Cell 1+(6-10/hpf) (Absent)
[2022-07-21 06:59] LABS: ABS Monocytes 0.1 10^3/ul (0-0.8); ABS Neutrophils 5.7 10^3/ul (1.5-7.7); Eosinophil % 0.7 %; Hematocrit 35 % (35-47); Hemoglobin 11.5 g/dL (12.0-16.0); Lymphocyte % 14.3 %; Mean Corpuscular HGB Conc 33 g/dL (31-36); Mean Corpuscular Hemoglobin 28 pg (27-31); Mean Corpuscular Volume 83 fL (80-97); Mean Platelet Volume 10.1 fL (7.4-10.4); Platelet Count 14 10^3/uL (150-450); Red Blood Count 4.18 10^6 /uL (3.70-4.87); Red Cell Distribution Width 16 % (10-15); White Blood Count 6.9 10^3/uL (3.5-10.8)
[2022-07-21 07:02] LABS: Albumin/Globulin Ratio 1.4 (1-3); Calcium 9.8 mg/dL (8.6-10.3); Globulin 2.9 g/dL (2-4); Potassium 3.3 mmol/L (3.5-5.0); Total Bilirubin 0.6 mg/dL (0.2-1.0); Total Protein 6.9 g/dL (6.4-8.9); eGFR CKD-EPI 61.1 (>60)
[2022-07-21] MEDS: MAGNESIUM CITRATE 100 MG PO SCH ×2 (09:15→19:32)
[2022-07-21 16:11] LABS: Calcium 9.8 mg/dL (8.6-10.3); Potassium 3.9 mmol/L (3.5-5.0); eGFR CKD-EPI 58.3 (>60)
[2022-07-21 16:21] LABS: ABS Monocytes 0.1 10^3/ul (0-0.8); ABS Neutrophils 6.7 10^3/ul (1.5-7.7); Hematocrit 36 % (35-47); Hemoglobin 11.6 g/dL (12.0-16.0); Lymphocyte % 13.2 %; Mean Corpuscular HGB Conc 32 g/dL (31-36); Mean Corpuscular Hemoglobin 27 pg (27-31); Mean Corpuscular Volume 83 fL (80-97); Mean Platelet Volume 9.6 fL (7.4-10.4); Platelet Count 16 10^3/uL (150-450); Red Blood Count 4.29 10^6 /uL (3.70-4.87); Red Cell Distribution Width 16 % (10-15); White Blood Count 7.8 10^3/uL (3.5-10.8)
[2022-07-21 17:51] LABS: Ferritin 36.1 ng/mL (11-307)
[2022-07-21] MEDS ORDERED: ELETRIPTAN 20 MG PO ONE (19:42)
[2022-07-21] MEDS: Dexamethasone IV 40 MG in NS 0.9% 50 ML 50 ML IVPB SCH (22:38)
[2022-07-21] MEDS: Latanoprost 0.005% 2.5 ml BTL BOTH EYES SCH (22:40)
[2022-07-21] MEDS: Insulin GLARGINE 100 un/ml 10 ml VIAL SUBCUT SCH (22:44)
[2022-07-22 06:23] LABS: % Iron Saturation 10 % (15-55); Anion Gap 7 mmol/L (2-11); Blood Urea Nitrogen 32 mg/dL (6-24); CO2 Carbon Dioxide 23 mmol/L (22-32); Calcium 9.4 mg/dL (8.6-10.3); Chloride 106 mmol/L (101-111); Glucose 264 mg/dL (70-100); Iron 45 ug/dL (50-212); Potassium 4.2 mmol/L (3.5-5.0); Sodium 136 mmol/L (135-145); Total Iron Binding Capacity 459 mcg/dL (250-450); Transferrin 328 mg/dL (203-362); Unsaturated Iron Binding 414 ug/dL; eGFR CKD-EPI 64.1 (>60)
[2022-07-22 06:29] LABS: ABS Lymphocytes 1.1 10^3/ul (1.0-4.8); ABS Monocytes 0.2 10^3/ul (0-0.8); ABS Neutrophils 9.9 10^3/ul (1.5-7.7); Hematocrit 32 % (35-47); Hemoglobin 10.5 g/dL (12.0-16.0); Lymphocyte % 10.1 %; Mean Corpuscular HGB Conc 33 g/dL (31-36); Mean Corpuscular Hemoglobin 28 pg (27-31); Mean Corpuscular Volume 85 fL (80-97); Mean Platelet Volume 9.5 fL (7.4-10.4); Platelet Count 42 10^3/uL (150-450); Red Blood Count 3.83 10^6 /uL (3.70-4.87); Red Cell Distribution Width 16 % (10-15); White Blood Count 11.2 10^3/uL (3.5-10.8)
[2022-07-22 06:48] LABS: Folate > 20.00 ng/mL (5.90-24.80)
[2022-07-22 06:49] LABS: Vitamin B12 788 pg/mL (180-914)
[2022-07-22] MEDS: MAGNESIUM CITRATE 100 MG PO SCH ×2 (09:24→20:26)
[2022-07-22] MEDS ORDERED: Polyethylene Glycol 3350 17 GM PACKET PO ONE (10:28)
[2022-07-22 12:14] LABS: Glucose Confirmatory 430 mg/dL (70-100)
[2022-07-22] MEDS ORDERED: Iron Sucrose 300 MG in NS 0.9% 100 ml BAG 95 ML IVPB ONE (12:15)
[2022-07-22] MEDS ORDERED: ELETRIPTAN 20 MG PO PRN (12:33)
[2022-07-22] MEDS: Insulin GLARGINE 100 un/ml 10 ml VIAL SUBCUT SCH (17:44)
[2022-07-22] MEDS ORDERED: Insulin GLARGINE 100 un/ml 10 ml VIAL SUBCUT ONE (19:00)
[2022-07-22] MEDS: Polyethylene Glycol 3350 17 GM PACKET PO SCH (20:34)
[2022-07-22] MEDS: Latanoprost 0.005% 2.5 ml BTL BOTH EYES SCH (20:41)
[2022-07-22] MEDS ORDERED: Senna TAB 8.6 mg TAB PO SCH (21:00)
[2022-07-22] MEDS ORDERED: Nystatin SUSPENSION 100,000 UNITS/ML UDC PO SCH (21:00)
[2022-07-23] MEDS: Dexamethasone IV 40 MG in NS 0.9% 50 ML 50 ML IVPB SCH (00:22)
[2022-07-23 06:35] LABS: ABS Monocytes 0.3 10^3/ul (0-0.8); ABS Neutrophils 11.5 10^3/ul (1.5-7.7); Hematocrit 33 % (35-47); Hemoglobin 10.6 g/dL (12.0-16.0); Lymphocyte % 7.8 %; Mean Corpuscular HGB Conc 32 g/dL (31-36); Mean Corpuscular Hemoglobin 28 pg (27-31); Mean Corpuscular Volume 85 fL (80-97); Mean Platelet Volume 8.4 fL (7.4-10.4); Platelet Count 99 10^3/uL (150-450); Red Blood Count 3.84 10^6 /uL (3.70-4.87); Red Cell Distribution Width 16 % (10-15); White Blood Count 12.8 10^3/uL (3.5-10.8)
[2022-07-23 06:48] LABS: Calcium 9.4 mg/dL (8.6-10.3); Potassium 4.4 mmol/L (3.5-5.0); eGFR CKD-EPI 68.2 (>60)
[2022-07-23] MEDS: Polyethylene Glycol 3350 17 GM PACKET PO SCH (08:39)
[2022-07-23] MEDS ORDERED: Iron Sucrose 300 MG in NS 0.9% 100 ml BAG 95 ML IVPB ONE (09:00)
[2022-07-23] MEDS: MAGNESIUM CITRATE 100 MG PO SCH (10:23)
[2022-07-23] MEDS ORDERED: Dexamethasone IV 40 MG in NS 0.9% 50 ML 50 ML IVPB SCH (14:30)
[2022-07-23 15:10] VITALS: BP 95/62
[2022-07-23] MEDS ORDERED: Insulin GLARGINE 100 un/ml 10 ml VIAL SUBCUT SCH (19:00)
[2022-07-24] MEDS ORDERED: Iron Sucrose 300 MG in NS 0.9% 100 ml BAG 95 ML IVPB ONE (09:00)
[2022-07-24 20:56] LABS: Anaplasma phagocytophilum Negative (Negative); B. miyamotoi PCR, B Negative (Negative); Babesia divergens/MO-1 Negative (Negative); Babesia ducani Negative (Negative); Ehrlichia chaffeensis Negative (Negative); Ehrlichia ewingii/canis Negative (Negative); Ehrlichia muris eauclairensis Negative (Negative)
[2022-07-26 23:58] LABS: Helicobacter pylori Result Not Detected; Specimen Source STOOL
== END 2022-07-23 16:45 | disposition home or self-care (01) ==
LOC: EDHOLD 16:04 → ED 16:04 → SUATTDRO 07-21 05:45 → EDHOLD 07-21 14:47 → MED 07-21 14:52
PROVIDERS: ADMIT Internal Medicine; ATTEND Internal Medicine

== ENCOUNTER 2022-08-22 12:50 | Observation (INO) ==
[2022-08-22] MEDS ORDERED: Ondansetron 4 mg VIAL 2 MG/ML 2 ml VIAL IV ONE (13:39)
[2022-08-22] MEDS ORDERED: NS 0.9% 1000 ml BAG 1,000 ML IV ONE (13:39)
[2022-08-22] MEDS ORDERED: HYDROmorphone 1 MG/1 ML SYRINGE IV SLOW PU ONE ×2 (13:39→16:33)
[2022-08-22 14:55] LABS: Urine Appearance Clear; Urine Bilirubin Negative (Negative); Urine Blood 3+ (Negative); Urine Color Yellow; Urine Glucose Negative (Negative); Urine Ketones Negative (Negative); Urine Nitrite Negative (Negative); Urine Protein Negative (Negative); Urine Specific Gravity 1.009 (1.002-1.030); Urine Urobilinogen Negative (Negative)
[2022-08-22 14:58] LABS: Urine Bacteria 1+ (Absent); Urine Red Blood Cell 3+(>10/hpf) (Absent); Urine White Blood Cell Trace(0-5/hpf) (Absent)
[2022-08-22 15:05] LABS: ABS Eosinophils 0.2 10^3/ul (0-0.6); ABS Lymphocytes 1.8 10^3/ul (1.0-4.8); ABS Monocytes 0.8 10^3/ul (0-0.8); ABS Neutrophils 3.2 10^3/ul (1.5-7.7); Eosinophil % 2.6 %; Hematocrit 40 % (35-47); Hemoglobin 12.8 g/dL (12.0-16.0); Lymphocyte % 30.3 %; Mean Corpuscular HGB Conc 33 g/dL (31-36); Mean Corpuscular Hemoglobin 29 pg (27-31); Mean Corpuscular Volume 88 fL (80-97); Mean Platelet Volume 7.4 fL (7.4-10.4); Nucleated Red Blood Cells % 0.1; Platelet Count 215 10^3/uL (150-450); Red Blood Count 4.47 10^6 /uL (3.70-4.87); Red Cell Distribution Width 20 % (10-15); White Blood Count 6.1 10^3/uL (3.5-10.8)
[2022-08-22 15:52] LABS: Magnesium 2.1 mg/dL (1.9-2.7); Potassium 3.1 mmol/L (3.5-5.0); eGFR CKD-EPI 61.8 (>60)
[2022-08-22] MEDS ORDERED: Albuterol HFA INHALER 8 gm MDI INH PRN (18:57)
[2022-08-22] MEDS ORDERED: Fluticasone NASAL SPRAY 50MCG 16 gm SPRAY BTL INTRANASAL PRN (18:57)
[2022-08-22] MEDS ORDERED: Dextrose 50% Syringe 50 ml 25 GM/50 ML SYRINGE IV PUSH PRN (18:58)
[2022-08-22] MEDS ORDERED: Lactated Ringers 1000 ml BAG 1,000 ML IV ONE (18:59)
[2022-08-22] MEDS: Ondansetron 4 mg VIAL 2 MG/ML 2 ml VIAL IV PRN (19:49)
[2022-08-22] MEDS: Potassium Chloride LIQUID 20 MEQ/15 ML LIQUID PO ONE ×2 (20:59→21:01)
[2022-08-22] MEDS: Heparin 5000 UNITS/ML 1 mL VIAL SUBCUT SCH (21:53)
[2022-08-22] MEDS ORDERED: Ondansetron ODT 4 mg TAB 4 MG TAB SL ONE (23:48)
[2022-08-22] MEDS: HYDROmorphone 0.5 MG/0.5 ML SYRINGE IV SLOW PU PRN (23:53)
[2022-08-23] MEDS: Heparin 5000 UNITS/ML 1 mL VIAL SUBCUT SCH ×3 (06:03→22:34)
[2022-08-23 06:04] LABS: ABS Eosinophils 0.1 10^3/ul (0-0.6); ABS Lymphocytes 1.5 10^3/ul (1.0-4.8); ABS Monocytes 0.6 10^3/ul (0-0.8); ABS Neutrophils 2.7 10^3/ul (1.5-7.7); Eosinophil % 1.7 %; Hematocrit 35 % (35-47); Hemoglobin 11.4 g/dL (12.0-16.0); Lymphocyte % 29.5 %; Mean Corpuscular HGB Conc 33 g/dL (31-36); Mean Corpuscular Hemoglobin 29 pg (27-31); Mean Corpuscular Volume 89 fL (80-97); Mean Platelet Volume 7.1 fL (7.4-10.4); Nucleated Red Blood Cells % 0.2; Platelet Count 183 10^3/uL (150-450); Red Blood Count 3.96 10^6 /uL (3.70-4.87); Red Cell Distribution Width 19 % (10-15); White Blood Count 4.9 10^3/uL (3.5-10.8)
[2022-08-23 06:36] LABS: Calcium 9.3 mg/dL (8.6-10.3); Magnesium 2.1 mg/dL (1.9-2.7); Potassium 3.7 mmol/L (3.5-5.0); eGFR CKD-EPI 55.8 (>60)
[2022-08-23] MEDS: HYDROmorphone 0.5 MG/0.5 ML SYRINGE IV SLOW PU PRN ×2 (08:41→21:03)
[2022-08-23] MEDS ORDERED: Buffered Lidocaine 1% SYRIN 1 ml INTRADERM ONE (12:29)
[2022-08-23] MEDS ORDERED: Lactated Ringers 1000 ml BAG 1,000 ML IV SCH (13:00)
[2022-08-23] MEDS ORDERED: fentaNYL 100 mcg/2 ml 50 MCG/ML VIAL ONE (14:27)
[2022-08-23] MEDS ORDERED: Midazolam 2 mg/2 ml VIAL 1 mg/ml 2 ml VIAL (2 mg) ONE (14:28)
[2022-08-23] MEDS ORDERED: Propofol 10 MG/ML 20 ML BTL ONE (14:29)
[2022-08-23] MEDS ORDERED: Ondansetron 4 mg VIAL 2 MG/ML 2 ml VIAL ONE ×2 (14:29→14:56)
[2022-08-23] MEDS ORDERED: Dexamethasone IV 4 MG/ML VIAL 1 ml VIAL ONE (14:29)
[2022-08-23] MEDS ORDERED: Lidocaine 2% PF 5 ML VIAL ONE (14:29)
[2022-08-23] MEDS ORDERED: Ondansetron 4 mg VIAL 2 MG/ML 2 ml VIAL IV PRN (15:43)
[2022-08-23] MEDS ORDERED: Naloxone 0.4 mg VIAL 0.4 mg/ml 1 ml VIAL IV PRN (15:43)
[2022-08-23] MEDS ORDERED: fentaNYL 100 mcg/2 ml 50 MCG/ML VIAL IV PRN (15:43)
[2022-08-23] MEDS ORDERED: cefTRIAXone VIAL 1,000 MG VIAL ONE (16:35)
[2022-08-23] MEDS ORDERED: HYDROmorphone 0.5 MG/0.5 ML SYRINGE ONE (16:42)
[2022-08-23] MEDS: Ondansetron 4 mg VIAL 2 MG/ML 2 ml VIAL IV PRN (20:20)
[2022-08-23] MEDS ORDERED: Latanoprost 0.005% 2.5 ml BTL BOTH EYES SCH (21:00)
[2022-08-24] MEDS: Heparin 5000 UNITS/ML 1 mL VIAL SUBCUT SCH (06:22)
[2022-08-24 08:08] VITALS: BP 94/55
[2022-08-24] MEDS: HYDROmorphone 0.5 MG/0.5 ML SYRINGE IV SLOW PU PRN (10:24)
[2022-08-24] MEDS: Ondansetron 4 mg VIAL 2 MG/ML 2 ml VIAL IV PRN (10:24)
== END 2022-08-24 11:10 | disposition home or self-care (01) ==
LOC: EDHOLD 12:50 → ED 12:50 → SUATTDRO 18:47 → SSU 08-23 00:46
PROVIDERS: ADMIT Internal Medicine; ATTEND Internal Medicine

== ENCOUNTER 2022-11-29 14:27 | Observation (INO) ==
[2022-11-29 15:02] LABS: ABS Eosinophils 0.2 10^3/ul (0-0.6); ABS Lymphocytes 0.7 10^3/ul (1.0-4.8); ABS Monocytes 0.5 10^3/ul (0-0.8); ABS Neutrophils 8.1 10^3/ul (1.5-7.7); Eosinophil % 1.7 %; Hematocrit 36 % (35-47); Hemoglobin 12.3 g/dL (12.0-16.0); Lymphocyte % 7.6 %; Mean Corpuscular HGB Conc 34 g/dL (31-36); Mean Corpuscular Hemoglobin 30 pg (27-31); Mean Corpuscular Volume 90 fL (80-97); Mean Platelet Volume 6.9 fL (7.4-10.4); Platelet Count 379 10^3/uL (150-450); Red Blood Count 4.06 10^6 /uL (3.70-4.87); Red Cell Distribution Width 15 % (10-15); White Blood Count 9.6 10^3/uL (3.5-10.8)
[2022-11-29 15:08] LABS: INR 1.12 (0.88-1.18)
[2022-11-29 15:25] LABS: High Sens Troponin Baseline 9 pg/mL (<15)
[2022-11-29] MEDS ORDERED: Iodixanol (CONTRAST) 320 MG/ML 100 ML SDV IV ONE ×2 (15:28→20:20)
[2022-11-29 15:31] LABS: ALT 33 U/L (7-52); Albumin/Globulin Ratio 1.7 (1-3); Alkaline Phosphatase 98 U/L (35-149); Blood Urea Nitrogen 24 mg/dL (6-24); CO2 Carbon Dioxide 23 mmol/L (22-32); Calcium 10.2 mg/dL (8.6-10.3); Chloride 107 mmol/L (101-111); Creatinine, Serum 0.89 mg/dL (0.51-0.95); Globulin 2.4 g/dL (2-4); Glucose 112 mg/dL (70-100); Sodium 140 mmol/L (135-145); Total Protein 6.4 g/dL (6.4-8.9); eGFR CKD-EPI 71.9 (>60)
[2022-11-29 16:04] LABS: Anion Gap 10 mmol/L (2-11)
[2022-11-29] MEDS ORDERED: Ondansetron ODT 4 mg TAB 4 MG TAB SL ONE (16:22)
[2022-11-29] MEDS ORDERED: NS 0.9% 1000 ml BAG 1,000 ML IV ONE ×2 (16:28→18:25)
[2022-11-29] MEDS ORDERED: HYDROmorphone 0.5 MG/0.5 ML SYRINGE IV ONE (16:28)
[2022-11-29 16:31] LABS: High Sensitivity Troponin 1 Hr 8 pg/mL (<15)
[2022-11-29 16:32] LABS: Magnesium 2.1 mg/dL (1.9-2.7)
[2022-11-29] MEDS ORDERED: Ondansetron 4 mg VIAL 2 MG/ML 2 ml VIAL IV ONE (18:14)
[2022-11-29] MEDS ORDERED: HYDROmorphone 1 MG/1 ML SYRINGE IV SLOW PU ONE (18:14)
[2022-11-29 18:39] LABS: Potassium Redraw 3.5 mmol/L (3.5-5.0)
[2022-11-29 19:11] LABS: Urine Appearance Clear; Urine Bilirubin Negative (Negative); Urine Blood Negative (Negative); Urine Color Yellow; Urine Glucose Negative (Negative); Urine Ketones Negative (Negative); Urine Nitrite Negative (Negative); Urine Protein Negative (Negative); Urine Specific Gravity 1.043 (1.002-1.030); Urine Urobilinogen Negative (Negative)
[2022-11-29] MEDS ORDERED: Droperidol 5 MG/2 ML 2 ML VIAL IV ONE (20:21)
[2022-11-29] MEDS ORDERED: Morphine 2 MG/ML SYRINGE IV PRN (23:38)
[2022-11-29] MEDS ORDERED: oxyCODONE/Acetamin 5/325 mg TAB PO PRN (23:38)
[2022-11-29] MEDS ORDERED: Lactated Ringers 1000 ml BAG 1,000 ML IV SCH (23:45)
[2022-11-30] MEDS: Ondansetron 4 mg VIAL 2 MG/ML 2 ml VIAL IV PRN ×2 (01:40→06:52)
[2022-11-30 07:14] LABS: ABS Eosinophils 0.1 10^3/ul (0-0.6); ABS Lymphocytes 0.6 10^3/ul (1.0-4.8); ABS Monocytes 0.4 10^3/ul (0-0.8); ABS Neutrophils 4.4 10^3/ul (1.5-7.7); Eosinophil % 0.9 %; Hematocrit 31 % (35-47); Hemoglobin 10.5 g/dL (12.0-16.0); Lymphocyte % 11.1 %; Mean Corpuscular HGB Conc 34 g/dL (31-36); Mean Corpuscular Hemoglobin 30 pg (27-31); Mean Corpuscular Volume 90 fL (80-97); Platelet Count 298 10^3/uL (150-450); Red Cell Distribution Width 15 % (10-15); White Blood Count 5.4 10^3/uL (3.5-10.8)
[2022-11-30] MEDS ORDERED: Lactated Ringers 1000 ml BAG 1,000 ML IV ONE (07:35)
[2022-11-30 07:46] LABS: Calcium 8.5 mg/dL (8.6-10.3); Creatinine, Serum 0.81 mg/dL (0.51-0.95); Magnesium 1.6 mg/dL (1.9-2.7); Potassium 3.1 mmol/L (3.5-5.0); eGFR CKD-EPI 80.5 (>60)
[2022-11-30] MEDS ORDERED: Droperidol 5 MG/2 ML 2 ML VIAL IV ONE (08:01)
[2022-11-30] MEDS ORDERED: Magnesium Sulfate 2 gm BAG 2 GM/50 ML BAG IVPB ONE ×2 (08:10→11:45)
[2022-11-30] MEDS ORDERED: Acetaminophen IV 1 GM/100ML 1,000 MG/100 ML BAG IV PRN (11:46)
[2022-11-30] MEDS: KCL 20 MEQ/100 ML IVPREMIX 20 MEQ/100 ML BAG IV SCH ×2 (14:01→15:01)
[2022-11-30 16:40] VITALS: BP 110/64
[2022-11-30] MEDS ORDERED: Insulin GLARGINE 100 un/ml 10 ml VIAL SUBCUT SCH ×2 (21:00)
[2022-11-30] MEDS ORDERED: Latanoprost 0.005% 2.5 ml BTL BOTH EYES SCH (21:00)
== END 2022-11-30 16:40 | disposition home or self-care (01) ==
LOC: EDHOLD 14:27 → ED 14:27 → SUATTDRO 23:08 → EDHOLD 11-30 16:39
PROVIDERS: ADMIT Internal Medicine; ATTEND Internal Medicine